=== PATIENT | female | born 1955 | race Caucasian/White ===

== ENCOUNTER 2018-10-29 10:34 | Emergency (ER) | payer MEDICARE, OTHER, SELFPAY ==
[2018-07-07 11:35] VITALS: BMI 27.3
[2018-10-29 10:36] VITALS: BP 138/86; PULSE 80; RESP 17; TEMP 36.8; O2SAT 96; BMI 26.3
[2018-10-29 10:55] VITALS: BP 155/90
--- NOTE | 2018-10-29 11:37 | EKG12_ITS ---
Test Reason : DYSRHYTHMIA Blood Pressure : / mmHG Vent. Rate : 065 BPM Atrial Rate : 065 BPM P-R Int : 170 ms QRS Dur : 068 ms QT Int : 382 ms P-R-T Axes : 070 -03 037 degrees QTc Int : 397 ms Normal sinus rhythm Normal ECG Confirmed by THOMAS SNEED, DACIA ([id number]), film and video editor GRACIE ADAMSON ([id number]) on 10/31/2018 1:28:29 PM Referred By: Confirmed By:DACIA GUZMAN MD
--- NOTE | 2018-10-29 11:50 | RAD_ITS ---
STUDY: X-RAY CHEST REASON FOR EXAM: Female, 63 years old. Hypertension TECHNIQUE: Frontal view of the chest COMPARISON: None. FINDINGS: The lungs are clear. There are no pleural effusions. There is no pneumothorax. The heart is normal in size. The visualized osseous structures are within normal limits. RAD/Chest 1 View (Portable) IMPRESSION: No acute thoracic pathology. Electronically Signed: Pan Avila, at 12:01 EDT Tel , Service support ,
[2018-10-29 12:11] VITALS: BP 147/98; PULSE 69; RESP 18; O2SAT 99
[2018-10-29 12:21] LABS: Absolute Lymphocyte Count 2.09 X10^3/uL (0.83-4.51); Absolute Neutrophil Count 1.8 X10^3/uL (2.0-7.7); Basophil# 0.02 X10^3/uL; Basophil% 0.5 % (0-1); Eosinophils% 2.4 % (0-5); Hematocrit 41.7 % (37-47); Hemoglobin 13.5 g/dL (12.0-15.0); Lymphocyte # 2.09 X10^3/ul (4.0); Lymphocyte % 50.2 % (19-41); Mean Corp Hgb Conc 32.4 g/dL (32-36); Mean Corpuscular Volume 89.7 fL (81-99); Mean Platelet Vol. 10.4 fl (6.2-12.0); Monocyte# 0.17 X10^3/uL; Monocyte% 4.1 % (0-10); NRBC Flagged by Analyzer 0 % (0-5); Neutrophil # 1.77 X10^3/uL (2.7-7.7); Neutrophil % 42.6 % (47-70); Platelet Count 169 K/mm3 (150-450); RBC Distribution Width CV 13.5 % (11.6-14.6); RBC Distribution Width SD 44.3 fl (35.1-43.9); Red Blood Count 4.65 M/mm3 (4.2-5.4); White Blood Count 4.2 K/mm3 (4.4-11.0)
[2018-10-29 12:25] VITALS: BP 160/100; PULSE 76; RESP 18; O2SAT 96
[2018-10-29 12:36] LABS: Anion Gap 5 (5-15); BUN 21 mg/dL (7-18); BUN/Creat Ratio 20.8 RATIO (10-20); Calcium,Total 8.8 mg/dL (8.5-10.1); Chloride 113 mmol/L (98-107); Creatinine, Serum 1.01 mg/dL (0.55-1.02); EST Glomerular Filtration Rate 58 mL/min (>60); Est Glom Filt Rate - Afr Amer 71 mL/min (>60); Estimated Creatinine Clearance 58.03 ml/min; Glucose 88 mg/dL (74-106); Potassium 4.1 mmol/L (3.5-5.1); Sodium Level 144 mmol/L (136-145)
[2018-10-29 12:57] LABS: Bacteria 0 SEEN /hpf (None Seen); Mucous, Urine 0 SEEN /hpf (<or=2+); Red Blood Cells-Urine 0 SEEN /hpf (0-5); Squamous Epithelial Cells - UA 0 SEEN /hpf (5-10)
[2018-10-29 13:00] LABS: Color, Urine Yellow (Yellow); Glucose, Dipstick Normal (Normal); Ketone-Dipstick Negative (Negative); Leukocyte Esterase-Dipstick Negative /ul (Negative); Nitrite-Dipstick Negative (Negative); Occult Blood-Urine Negative /ul (Negative); Protein-Dipstick Negative (Negative); Specific Gravity, Urine 1.015 (1.002-1.030); Urine Bilirubin Dipstick Negative (Negative); Urine Clarity Clear (Clear); Urine Urobilinogen Normal (Normal)
[2018-10-29 13:05] LABS: White Blood Cells 0-5 SEEN /hpf (0-5)
--- NOTE | 2018-10-29 13:35 | ED.VISSUMM ---
- ER Visit Summary Date of Service: 10/29/18 Chief Complaint: Hypertension History of Present Illness: The patient is a 63 F who presents emergency department for hypertension. Patient states that on Tuesday she began the colon prep for colonoscopy. The day went on she started feeling lightheaded dizzy tinnitus and developed some blurred vision. Her blood pressure is elevated. She notes that she did to the nurse at the colonoscopy center and they monitor her blood pressure during the colonoscopy but she did not require any treatment. Since that time she has been taking her blood pressure and it is been elevated 160-200 range. Her symptoms have continued. She denies any leg swelling but states that her legs cannot swell because she wears support stockings. No chest pain. She does not have a history of hypertension. To her knowledge she has normal functioning kidneys. Physical Examination: Afebrile vital signs are stable Gen: Well-nourished well-developed Head: Normocephalic atraumatic Eyes: Perrl EOMI ENT: TMs clear no rhinorrhea moist mucous membranes Neck: Supple no lymphadenopathy no JVD nontender CVS: Regular rate rhythm no murmurs normal S1-S2 Respiratory: No distress clear to auscultation bilaterally chest nontender Abdomen: Soft nontender nondistended normal bowel sounds no masses Back: Nontender Extremity: Nontender no edema Skin: Normal color no rash Neuro: alert orientated ?3 CN II-XII intact normal strength sensation reflexes gait cerebellar Psych: Normal affect normal mood Test Results: CBC BMP troponin negative. Urinalysis negative. EKG shows sinus rhythm at a rate of 65. Chest x-ray showed normal mediastinal silhouette. Emergency Department Course and Treatment: His blood pressure has been variable with a manual reading of 160/100. Machine readings pretty consistently 136 over the mid 90s. At this point patient will be discharged home. I am electing not to start her on an antihypertensive because this may resolve no longer be hypotensive. Her to be hypotensive and have syncope. We will continue to encourage her to check her blood pressure and follow-up with her doctor. She was advised that long-term desai elevated blood pressures would not be good at this point it has been only several days think we should observe. Impression: 1. Hypertension This note was generated with [employer] dictation software. It may contain incorrect words, spelling, and punctuation that were not noted in review of the chart prior to signing ED Disposition - Plan for ED Patient: Disposition: Home or Assisted Living Instructions: HYPERTENSION, To Be Confirmed Referrals: Mirtha Hernandez, DO [Primary Care Provider] - As soon as possible
[2018-10-29 13:44] VITALS: BP 155/98; PULSE 72; RESP 18; O2SAT 97
== END 2018-10-29 13:45 | disposition home or self-care (01) ==
PROVIDERS: Emergency Provider Emergency Medicine; Family Provider Internal Medicine; PCP Internal Medicine
DX: I10 Essential (primary) hypertension (principal)
CPT/HCPCS: 71045; 80048; 81001; 84484; 85025; 93005; 99284; A4216

== ENCOUNTER → 2018-12-27 14:10 | Outpatient (CLI) | payer MEDICARE, OTHER, SELFPAY ==
[2018-12-13 15:41] VITALS: BMI 26.4
--- NOTE | 2018-12-27 14:13 | CT_ITS ---
STUDY: CT BRAIN WITHOUT CONTRAST REASON FOR EXAM: Female, 63 years old. Dizziness RADIATION DOSAGE (If Supplied By Facility): CTDIvol = ( 44.99 ) mGy, DLP = ( 796.11 ) mGycm TECHNIQUE: Transaxial CT imaging of the brain was performed without administration of intravenous contrast material. Individualized dose optimization techniques were used for this CT. COMPARISON: 01/23/2016 FINDINGS: Normal soft tissue structures. Normal calvarium. Normal size ventricles and extra-axial spaces for the patient's age. Normal white matter tracts of the cerebral hemispheres. Normal basal ganglia and thalami. Normal brainstem. Normal cerebellum. There is no intracranial hemorrhage. There are no findings of an acute ischemic infarction. Normal visualized paranasal sinuses. CT/Brain/Head without Contrast IMPRESSION: Normal unenhanced CT scan of the brain. Electronically Signed: Jason Flores MD at 15:57 EDT Tel , Service support ,
== END ==
PROVIDERS: Family Provider Internal Medicine; PCP Internal Medicine; Referring Provider Nurse Practitioner; Visit Provider Nurse Practitioner
DX: R42 Dizziness and giddiness (principal)
CPT/HCPCS: 70450

== ENCOUNTER → 2019-01-01 13:58 | Outpatient (CLI) | payer MEDICARE, OTHER, SELFPAY ==
[2018-12-13 15:41] VITALS: BMI 26.4
--- NOTE | 2019-01-01 13:59 | ECHOD_ITS ---
Reason For Study: HTN Procedure This was a 2D Doppler, Color Flow transthoracic echocardiogram. Exam performed in department. Left Ventricle Normal LV size. Left ventricular systolic function is normal. The estimated ejection fraction is 65 %. Normal diastology for age. No regional wall motion abnormalities noted. Right Ventricle Normal RV size. Normal systolic function. Atria Normal left atrium. Normal right atrium. Mitral Valve Normal mitral valve. Mild (1+) eccentric mitral valve insufficiency. Tricuspid Valve Normal tricuspid valve. Mild tricuspid valve insufficiency. Pulmonary artery systolic pressure is 28 mmHg. Aortic Valve Normal aortic valve. Pulmonic Valve Normal pulmonic valve. Great Vessels Normal aortic root. The pulmonary artery is normal size. Normal inferior vena cava. Pericardium/Pleural No pericardial effusion. MMode/2D Measurements & Calculations LVIDd: 3.9 cm IVSd: 0.93 cm Ao root diam: 3.3 cm LVIDs: 2.1 cm LVPWd: 0.94 cm LA dimension: 3.3 cm FS: 46.8 % LAV(MOD-bp): 38.1 ml LA A4 area: 14.8 cm2 RA A4 area: 12.2 cm2 LAV(MOD-bp) Indexed: 19.3 ml/m2 LAV(MOD-sp2): 39.3 ml LAV(MOD-sp4): 37.5 ml Time Measurements MV dec time: 0.23 sec Doppler Measurements & Calculations MV E max case: 84.8 cm/sec Lat Peak E' Case: 12.3 cm/sec Med Peak E' Case: 12.6 cm/sec MV A max case: 55.0 cm/sec E/E' lat: 6.9 E/E' med: 6.7 MV E/A: 1.5 MV V2 max: 95.9 cm/sec MV P1/2t max case: 95.9 cm/sec Ao V2 max: 111.3 cm/sec MV max P.7 mmHg MV P1/2t: 91.2 msec Ao max P.0 mmHg MV V2 mean: 53.4 cm/sec MV dec slope: 307.8 cm/sec2 MV mean P.3 mmHg MVA(P1/2t): 2.4 cm2 MV V2 VTI: 25.6 cm LV V1 max: 81.9 cm/sec MR max case: 580.8 cm/sec PA V2 max: 86.7 cm/sec LV V1 max P.7 mmHg MR max P.9 mmHg MR mean case: 458.9 cm/sec MR mean P.3 mmHg MR VTI: 196.1 cm TR max case: 247.2 cm/sec TR max P.4 mmHg Interpretation Summary Normal LV size. Left ventricular systolic function is normal. The estimated ejection fraction is 65 %. Mild tricuspid valve insufficiency. Ordering Physician: Sergio Fuller Referring Physician: Mirtha Hernandez M.D. Performed By: Fran Garcia RCS
== END ==
PROVIDERS: Family Provider Internal Medicine; PCP Internal Medicine; Referring Provider Internal Medicine Cardiovascular Disease; Visit Provider Internal Medicine Cardiovascular Disease
DX: I10 Essential (primary) hypertension (principal); I34.0 Nonrheumatic mitral (valve) insufficiency; I07.1 Rheumatic tricuspid insufficiency
CPT/HCPCS: 93306

== ENCOUNTER → 2019-01-24 10:23 | Outpatient (CLI) | payer MEDICARE, OTHER, SELFPAY ==
[2018-12-13 15:41] VITALS: BMI 26.4
--- NOTE | 2019-01-24 10:48 | RAD_ITS ---
STUDY: X-RAY - CERVICAL SPINE REASON FOR EXAM: Female, 63 years old. Neck pain TECHNIQUE: 7 view(s) of the cervical spine were obtained. Flexion and extension views are included. COMPARISON: None FINDINGS: Normal anterior atlantoaxial articulation. Normal odontoid process. Mild straightening of the cervical lordosis status post anterior spinal fusion of C5 and C6. Plate and screw hardware appears to be in good position with complete fusion. On flexion and extension there is no motion at the C5-6 level. There is relatively good flexibility in the remaining portions of the cervical spine with no untoward alignment. Normal vertebral body height without compression deformity, osteolytic or blastic bone lesion. Minimal degenerative changes at C2-3. Moderately advanced degenerative disc narrowing and uncovertebral arthrosis at C3-4. Mild disc narrowing at C4-5. Moderate disc narrowing at C6-7 with uncovertebral arthrosis. Posterior elements are normally aligned. Foraminal narrowing at C3. The soft tissue structures are unremarkable. RAD/Cerv Spine Obl/Flex/Ext Comp IMPRESSION: Slight loss of the usual lumbar lordosis secondary to anterior spinal fusion at C5-6. The anterior plate and screw hardware appears to be in good position with no migration or disruption and the C5-C6 level is fused across the disc. Degenerative disc and joint changes as described above. The more advanced changes are at C3-4 with foraminal narrowing bilaterally. Electronically Signed: Cristal Faustin MD at 17:41 EST , Service support ,
== END ==
PROVIDERS: Family Provider Internal Medicine; PCP Internal Medicine; Referring Provider Psychiatry & Neurology Neurology; Visit Provider Psychiatry & Neurology Neurology
DX: M54.2 Cervicalgia (principal)
CPT/HCPCS: 72052

== ENCOUNTER 2019-02-27 09:30 | Outpatient (RCR) | payer MEDICARE, OTHER, SELFPAY ==
[2018-12-13 15:41] VITALS: BMI 26.4
--- NOTE | 2019-01-24 10:07 | HP.PTEVAL ---
Patient's Visit Information YAKOV NUNEZ is a 63 year old F referred to Physical Therapy by Brooks Garcia MD with a diagnosis of Cervicalgia. Date of Evaluation: 01/24/19 Physical Therapist: Nicholas Costa, DPT, OCS, CSCS - Visit Plan Plan: 2x/week for 4-8 weeks for. 1. STM to R scap and cervical followed by stretching R UT, paraspinals adn lev scap, neck ROM focussing retraction and scapular retraction. 2. deep cervical strengtrhening, neck isometrics and postural strength to HEP. 3. MH and ES to neck if needed, pt has a TENS unit at home that she thinks is broken. 4. Postural focus. Consider manual traction if needed(h/o neck fusion) - Subjective Findings: Sees Jose due to Migraines. They seem to be weather adn neck related. Neck pain goes along with them. Had these symptoms since the 1980s. Had seen a different neurologist previosuly and had different insurances. Been treated for migraines adn to clinics and trying meds. Migraines are controlled with meds but not prevented, severity adn frequency is lessened. Has h/o neck surgery anterior surgical discectomy adn fusion in 2001. That helped. That was due to R arm pain and numbness. It remians numb to this day. Surgery helped the pain. Not changing. Neck pain is worse with reaching arm up. Has HNP in thoracic spine also. Pain is R sided scapular pain , neck pain R side. Daily pain, worst 9/10 if tries to throw ball overhand. Aggravating activities include looking up alot, reaching up alot. They give neck pain MICHAEL. 8/10 Michael R side. Sitting long periods of time give her pain. Greater than an hour is worse. Comfortable with comfortable with movement but. mostly constant. Arms at [address] her worse. 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 Sleeping is OK most of time. Many times worse in morning. Wakes up in am with discomfort at times. Moist heat helps. R handed. Sweeper hurts, basic ADLS are OK, needs to avoid R at times. Hobbies include: animals walking, has to be careful - Pain R neck Pain Intensity (Out of 10): 3 Pain Intensity Range: 0, 9 - Objective Forward head and protracted scapula posture. Walks and transfers I. UE AROM WFL and symmetrical but scap retraction is hard for patient. C/S aROM 52 ext, 50 B rotation without pain. SB feels very tight but no pain. reflexes 2/3 bi and tri. Sensation at deficit in R lateral arm but pt says has been for 18 yeras. Strength is 4- in UE without myotomal abnormalities. - c/s compression. No pain with muscle contraction in UE. - ext rotation lag test, - HK, - neer. No obvious tenderness in neck or shoulder or scap but tight R compared left. Repeated pro trusion:NE but not much protrusion compared to baseline. Repeated flexion; NE. repeated extraction: NE. repeated ext NT. - Goals Goal 1:: Pt show posture with chin retracted adn scap retracted without VC Goal Time Frame: 4-6 Weeks Goal 2:: Pain in neck no wrose than 2/10 adn manageable Goal Time Frame: 6-8 Weeks Goal 3:: MICHAEL adn neck pain diminished by 75% subjectively Goal Time Frame: 6-8 Weeks Goal 4:: Neck oswestry< 20% disability Goal Time Frame: 6-8 Weeks Goal 5:: Pt I appropriate HEP to minimize future problems Goal Time Frame: 6-8 Weeks - Rehabilitation Potential Physical Therapy Diagnosis: Cervicalgia and MICHAEL Rehabilitation Potential: Fair - Anticipated Interventions Patient/Client Instruction: Educate patient on: Condition, Plan of Care For the Purpose of:: To decrease pain, To improve muscle performance and motor function, To increase tolerance to activity/condition/position, To improve ability of physical actions for home/community/work/leisure Therapeutic Exercise to Include: Strength training, Postural training, Flexibilty training, Gait and locomotor training, Passive ROM, Active ROM For the Purpose of:: To decrease pain, To increase ROM, To improve nutrient delivery to tissue, To increase tolerance to activity/condition/position Manual Therapy Techniques to Include: Mobilization, Passive ROM, Soft tissue mobilization For the Purpose of:: To decrease pain, To increase ROM, To improve nutrient delivery to tissue, To increase tolerance to activity/condition/position, To improve ability of physical actions for home/community/work/leisure TENS: Yes Thermo therapy (hot pack): Yes For the Purpose of:: To decrease pain Thank you for the opportunity to evaluate your patient. For Medicare and Medicare HMO plans, please review the plan of care and approve it. It will need to be FAXED BACK to us at [phone] for Medicare purposes. For Medicare only, by signing this I certify the plan of care. Please let me know if there are questions or concerns regarding this plan of care. Physician Signature: Date:
--- NOTE | 2019-02-27 10:25 | HP.PTDCSUM_ITS ---
HP - PT D/C Summary It has been my pleasure to treat YAKOV NUNEZ under orders from Brooks Garcia MD, for the diagnosis of Cervicalgia for a total of 6 visit(s). Discharge Date: 02/27/19 Please see the following information for a summary of their discharge status. - Subjective Subjective: Not much pain anymore. Doing HEP daily. Sleeping well and able to sleep in bed now which was not possible before. Confident that she can continue at home. To Dr. Garcia next month. No MICHAEL lately. - Pain R neck Pain Intensity (Out of 10): 0 - Overall Improvement % Improvement: 95 - Objective Objective/Function: C/S ROM 48 ext and 65 rotations adn 13 SB without pain today. No tenderness in cervical muscles. Full UE AROM adn 4/5 strength without pain. Overall much better adn will f/u with doctor in a couple weeks. - Goals Goal 1:: Pt show posture with chin retracted adn scap retracted without VC Goal Progress: Goal Met Goal 2:: Pain in neck no wrose than 2/10 adn manageable Goal Progress: Goal Met Goal 3:: MICHAEL adn neck pain diminished by 75% subjectively Goal Progress: Goal Met Goal 4:: Neck oswestry< 20% disability Goal Progress: Goal Met Goal 5:: Pt I appropriate HEP to minimize future problems Goal Progress: Goal Met - Plan Plan: d/c - D/C Information Discharge Comments: Doing well and will continue via HEP and f/u with doctor If there are questions or concerns regarding this patient's physical therapy, pl ease feel free to call me at [phone]. Thank you for the referral of this patient. Sincerely, Nicholas Costa, DPT, OCS, CSCS
== END 2019-02-27 19:00 | disposition home or self-care (01) ==
LOC: PT 09:30
PROVIDERS: Family Provider Internal Medicine; PCP Internal Medicine; Referring Provider Psychiatry & Neurology Neurology; Visit Provider Psychiatry & Neurology Neurology
DX: M54.2 Cervicalgia (principal)
CPT/HCPCS: 97110; 97140; 97162; 97530

== ENCOUNTER → 2019-06-01 11:32 | Outpatient (CLI) | payer MEDICARE, OTHER, SELFPAY ==
[2019-05-07 12:40] VITALS: BMI 26.4
--- NOTE | 2019-06-01 11:33 | BI_ITS ---
MAMMOGRAPHY - BILATERAL SCREENING REASON FOR EXAM: Female, 64 years old. Routine annual screening examination. PERTINENT HISTORY: Non-contributory. TECHNIQUE: Digital bilateral breast flor (3D mammographic acquisition) in the CC and MLO projections. 2-D mediolateral oblique (MLO) and craniocaudad (CC) views of both breasts were obtained. CAD: Full Field Digital Mammography with Computer Added Detection was performed. COMPARISON: Comparison is made with prior examination dated November 20, 2012. FINDINGS: Breast Composition: The breasts are heterogeneously dense, which may obscure small masses. There are no dominant masses or suspicious calcifications. No other significant abnormalities are identified. There has been no significant change since the prior study. BI/SCREEN MAMM (CAD) W/FLOR BILAT IMPRESSION: Stable bilateral screening mammogram. Yearly follow-up mammogram recommended. (A) ASSESSMENT CATEGORY: BIRADS Category 1: Negative. A letter regarding these results will be sent to the patient by the facility within 30 days. Approximately 10% of breast cancers are not detected by mammography. A normal mammogram should not delay biopsy of a clinically suspicious abnormality. [id number] Electronically Signed: Isreal Haro, at 12:34 EDT , Service support ,
== END ==
PROVIDERS: PCP Internal Medicine; Referring Provider Obstetrics & Gynecology; Visit Provider Obstetrics & Gynecology
DX: Z12.31 Encounter for screening mammogram for malignant neoplasm of breast (principal)
CPT/HCPCS: 77063; 77067

== ENCOUNTER 2019-08-03 09:05 | Emergency (ER) | payer MEDICARE, OTHER, SELFPAY ==
[2019-05-07 12:40] VITALS: BMI 26.4
[2019-08-03 09:07] VITALS: BP 120/82; PULSE 68; RESP 17; TEMP 36.8; O2SAT 97; BMI 28.0
[2019-08-03 09:13] VITALS: BMI 28.0
[2019-08-03 09:17] VITALS: BP 142/87
--- NOTE | 2019-08-03 09:17 | EKG12_ITS ---
Test Reason : Blood Pressure : / mmHG Vent. Rate : 071 BPM Atrial Rate : 071 BPM P-R Int : 162 ms QRS Dur : 072 ms QT Int : 382 ms P-R-T Axes : 070 -05 044 degrees QTc Int : 415 ms Normal sinus rhythm Normal ECG Confirmed by DACIA GUZMAN MD ([id number]), news assignment editor VINAY LOZANO ([id number]) on 08/07/2019 3:24:31 PM Referred By: DOMI Confirmed By:DACIA GUZMAN MD
--- NOTE | 2019-08-03 09:17 | RAD_ITS ---
STUDY: X-RAY CHEST REASON FOR EXAM: Female, 64 years old. LEFT FACIAL NUMBNESS TECHNIQUE: Single frontal view of the chest. COMPARISON: None. FINDINGS: There are monitoring devices. The lungs are clear and expanded. There is no demonstrated pleural abnormality. Normal size heart. Normal mediastinum and courtney. Normal visualized pulmonary arteries. Normal visualized aortic arch and descending thoracic aorta. Normal visualized thoracic spine. Normal visualized ribs, clavicles, and shoulders. There is no demonstrated abnormality of the visualized soft tissue structures of the upper abdomen. RAD/Chest 1 View IMPRESSION: Normal x-ray examination of the chest. Electronically Signed: Elijah Garcia MD at 10:11 EDT , Service support ,
--- NOTE | 2019-08-03 09:17 | CT_ITS ---
STUDY: CT BRAIN WITHOUT CONTRAST REASON FOR EXAM: Female, 64 years old. Left facial numbness this morning. Hx migraines. RADIATION DOSAGE (If Supplied By Facility): CTDIvol = ( 44.99 ) mGy, DLP = ( 779.24 ) mGycm TECHNIQUE: Transaxial CT imaging of the brain was performed without administration of intravenous contrast material. Individualized dose optimization techniques were used for this CT. COMPARISON: No relevant priors. FINDINGS: Normal soft tissue structures. Normal calvarium. Normal size ventricles and extra-axial spaces for the patient''s age. Normal white matter tracts of the cerebral hemispheres. Normal basal ganglia and thalami. Normal brainstem. Normal cerebellum. There is no intracranial hemorrhage. There are no findings of an acute ischemic infarction. Normal visualized paranasal sinuses. CT/Brain/Head without Contrast IMPRESSION: Normal unenhanced CT scan of the brain. Electronically Signed: Elijah Garcia MD at 10:04 EDT , Service support ,
--- NOTE | 2019-08-03 09:28 | ED.DCSUM_ITS ---
History of Present Illness Chief Complaint: Neuro S/Sx Informant: Patient Onset: Today Context: Sudden Onset Timing: Continuous Current Severity: Moderate Maximum Severity: Moderate Narrative: The patient is a 64-year-old female with medical history significant for hypertension and migraine that presents to the emergency department with left facial numbness. The patient states she had some mild chest pain last night. She states that she was sleeping in a chair. She states when she woke this morning, she felt numbness across her left lower face. It did not wax and wane. She states is been rather constant. She denies any trouble with speech, swallowing, or vision changes. She denies any symptoms in her extremities. She is not had headache. She states that she is never had other symptoms with her migraines that are similar to this. Prior similar symptoms: No Recent Illness/Hospitalization: No Past Medical History - Allergies and Home Meds Allergies/Adverse Reactions: Allergies acetaminophen [From Percocet] Allergy (Unknown, Verified 08/03/19 09:07) Unknown hydromorphone [From Dilaudid] Allergy (Unknown, Verified 08/03/19 09:07) Unknown morphine Allergy (Unknown, Verified 08/03/19 09:07) Unknown oxycodone [From Percocet] Allergy (Unknown, Verified 08/03/19 09:07) Unknown celecoxib [From Celebrex] Allergy (Verified 08/03/19 09:07) Hives NARCOTIC Adverse Reaction (Uncoded 08/03/19 09:07) Itching Primary Care Physician: Mirtha Hernandez DO [Primary Care Provider] - Prior records reviewed: Yes Past Medical History: - - Hypertension, migraine Smoking Status: Never smoker Review of Systems General: Denies: Chills, Fever, Sweats Eyes: Denies: Visual changes - bilaterally, Diplopia ENT: Denies: Rhinorrhea, Sore throat Cardiovascular: Denies: Chest pain, Palpitations Respiratory: Denies: Dyspnea, Cough, Dyspnea on exertion Gastrointestinal: Denies: Abdominal pain, Nausea, Vomiting, Diarrhea, Melena, Hematochezia Genitourinary: Denies: Dysuria, Hematuria, Frequency Musculoskeletal: Denies: Back pain, Extremity Pain Skin: Denies: Rash, Wounds Neurological: Reports: Parasthesia, Numbness. Denies: Headache, Weakness Physical Exam Vital Signs/Narrative: Vital Signs Temp Pulse Resp BP Pulse Ox 05/22/20 09:07 98.2 F 68 17 120/82 H 97 Inital Vital Signs reviewed: Yes General: Well nourished, Well developed, No Acute Distress Head: Normocephalic, Atraumatic Eyes: Perrl, EOMI ENT: Moist mucous membranes, No rhinorrhea Neck: Supple, Nontender Cardiovascular: Regular rate, Regular rhythm, No murmurs Respiratory: No distress, CTA bilaterally, Chest nontender Abdomen: Soft, Nontender, Nondistended, Normal bowel sounds Back: Nontender, Normal Inspection Extremities: Nontender, No edema Skin: Normal color, No rash Neurological: Alert, Oriented x3, Cranial nerves II-XII grossly intact, Normal Strength, Normal Sensation, - - Patient does have NIH of 1 for lower facial paresthesia. There is no droop. Psychological: Normal affect, Normal Mood Diagnostic/Tx/Re-eval Clinical Impression(s) from Imaging Studies Brain CT 08/03/19 09:17 IMPRESSION: Normal unenhanced CT scan of the brain. Electronically Signed: Elijah Garcia MD at 10:04 EDT , Service support , Chest X-Ray 08/03/19 09:17 IMPRESSION: Normal x-ray examination of the chest. Electronically Signed: Elijah Garcia MD at 10:11 EDT , Service support , Abnormal Lab Results 08/03/19 08/03/19 09:15 09:15 WBC 6.1 RBC 4.92 Hgb 14.4 Hct 44.5 MCV 90.4 MCH 29.3 MCHC 32.4 RDW Std Deviation 46.6 H RDW Coeff of [place] 14.2 Plt Count 176 MPV 10.6 Immature Gran % (Auto) 0.200 Neut % (Auto) 60.8 Lymph % (Auto) 31.5 [place] % (Auto) 5.8 Eos % (Auto) 1.5 Baso % (Auto) 0.2 Absolute Neuts (auto) 3.7 Absolute Lymphs (auto) 1.91 Nucleated RBC % 0 Sodium 142 Potassium 3.3 L Chloride 108 H Carbon Dioxide 30.0 Anion Gap 4 L BUN 28 H Creatinine 1.20 H Estim Creat Clear Calc 48.19 Est GFR (MDRD) Af Amer 58 L Est GFR (MDRD) Non-Af 48 L BUN/Creatinine Ratio 23.3 H Glucose 99 Calcium 9.4 Troponin I < 0.015 - Rhythm Strip Rhythm Strip: Sinus Rhythm Rate: 80 Ectopy: None - EKG Initial EKG Interpretation: Sinus Rhythm, No Acute Injury Pattern Prior: Unchanged - Medical Decision Making The patient presents with isolated paresthesia of the left lower face. There is no facial droop. There is no evidence of cranial nerve palsy. Modified stroke work-up was pursued. Noncontrast head CT was unremarkable. The patient had an NIH of 1 for the change in sensation of the lower face. Again, there is no weakness. This is isolated of the lower branch of cranial nerve V. There is no rash or lesion. She was found to be hypokalemic which I feel may be contributing to her symptoms. EKG, cardiac enzymes, and otherwise metabolic work-up was unremarkable. My suspicion for this being stroke or TIA is very low. I do feel the patient is safe for outpatient follow-up. She is comfortable with this plan of care. Impression 1. Left facial paresthesia ED Disposition - Plan for ED Patient: Instructions: ED Paraesthesias Prescriptions: Potassium Chloride [Klor-Con M20] 20 meq PO BID #[id number] [email or web address] Prescription Printed Referrals: Mirtha Hernandez DO [Primary Care Provider] -
[2019-08-03 09:33] VITALS: O2SAT 97
[2019-08-03 09:37] LABS: Absolute Lymphocyte Count 1.91 X10^3/uL (0.83-4.51); Absolute Neutrophil Count 3.7 X10^3/uL (2.0-7.7); Basophil# 0.01 X10^3/uL; Basophil% 0.2 % (0-1); Eosinophil# 0.09 X10^3/uL; Eosinophils% 1.5 % (0-5); Hematocrit 44.5 % (37-47); Hemoglobin 14.4 g/dL (12.0-15.0); Lymphocyte # 1.91 X10^3/ul (4.0); Lymphocyte % 31.5 % (19-41); Mean Corp Hgb Conc 32.4 g/dL (32-36); Mean Corpuscular Hgb 29.3 pg (27.0-32.0); Mean Corpuscular Volume 90.4 fL (81-99); Mean Platelet Vol. 10.6 fl (6.2-12.0); Monocyte# 0.35 X10^3/uL; Monocyte% 5.8 % (0-10); NRBC Flagged by Analyzer 0 % (0-5); Neutrophil # 3.69 X10^3/uL (2.7-7.7); Neutrophil % 60.8 % (47-70); Platelet Count 176 K/mm3 (150-450); RBC Distribution Width CV 14.2 % (11.6-14.6); RBC Distribution Width SD 46.6 fl (35.1-43.9); Red Blood Count 4.92 M/mm3 (4.2-5.4); White Blood Count 6.1 K/mm3 (4.4-11.0)
[2019-08-03 09:47] VITALS: BP 142/85; PULSE 67; RESP 12; O2SAT 100
[2019-08-03 10:00] LABS: Anion Gap 4 (5-15); BUN 28 mg/dL (7-18); BUN/Creat Ratio 23.3 RATIO (10-20); Calcium,Total 9.4 mg/dL (8.5-10.1); Chloride 108 mmol/L (98-107); EST Glomerular Filtration Rate 48 mL/min (>60); Est Glom Filt Rate - Afr Amer 58 mL/min (>60); Estimated Creatinine Clearance 48.19 ml/min; Glucose 99 mg/dL (74-106); Potassium 3.3 mmol/L (3.5-5.1); Sodium Level 142 mmol/L (136-145)
[2019-08-03 10:17] VITALS: BP 138/98; PULSE 73; RESP 18; O2SAT 97
[2019-08-03 10:25] LABS: Prothrombin Time (Protime)PT. 12.6 SECONDS (11.7-14.9)
--- NOTE | 2019-08-03 10:25 | ED.RN ---
Per Dr. Coleman, this rn may cancel NIH assessment every 30 mins.
[2019-08-03 10:26] LABS: Partial Thromboplast Time 25.5 Seconds (24.1-36.2)
[2019-08-03 10:29] VITALS: BP 138/98; PULSE 78; RESP 14; O2SAT 97
== END 2019-08-03 10:48 | disposition home or self-care (01) ==
LOC: ED 10:37
PROVIDERS: Emergency Provider Emergency Medicine; PCP Internal Medicine
DX: R20.2 Paresthesia of skin (principal); I10 Essential (primary) hypertension; Z88.5 Allergy status to narcotic agent; Z88.6 Allergy status to analgesic agent; R07.9 Chest pain, unspecified; R20.0 Anesthesia of skin; E87.6 Hypokalemia
CPT/HCPCS: 70450; 71045; 80048; 84484; 85025; 85610; 85730; 93005; 99284; A4216

== ENCOUNTER → 2019-11-13 10:15 | Outpatient (CLI) | payer MEDICARE, OTHER, SELFPAY ==
[2019-11-13 10:44] LABS: Absolute Lymphocyte Count 2.19 X10^3/uL (0.83-4.51); Absolute Neutrophil Count 1.8 X10^3/uL (2.0-7.7); Basophil# 0.02 X10^3/uL; Basophil% 0.5 % (0-1); Eosinophil# 0.06 X10^3/uL; Eosinophils% 1.4 % (0-5); Hematocrit 39.6 % (37-47); Hemoglobin 13.7 g/dL (12.0-15.0); Lymphocyte # 2.19 X10^3/ul (4.0); Lymphocyte % 50.3 % (19-41); Mean Corp Hgb Conc 34.6 g/dL (32-36); Mean Corpuscular Hgb 31.3 pg (27.0-32.0); Mean Corpuscular Volume 90.4 fL (81-99); Mean Platelet Vol. 10.5 fl (6.2-12.0); Monocyte# 0.24 X10^3/uL; Monocyte% 5.5 % (0-10); NRBC Flagged by Analyzer 0 % (0-5); Neutrophil # 1.83 X10^3/uL (2.7-7.7); Neutrophil % 42.1 % (47-70); Platelet Count 154 K/mm3 (150-450); RBC Distribution Width SD 45.1 fl (35.1-43.9); Red Blood Count 4.38 M/mm3 (4.2-5.4); White Blood Count 4.4 K/mm3 (4.4-11.0)
[2019-11-13 11:22] LABS: ALB/GLOB Ratio 1.2 RATIO (0.9-2.4); AST(SGOT) 23 U/L (15-37); Alanine Aminotransfer ALT/SGPT 36 U/L (13-56); Albumin, Serum 3.9 g/dL (3.2-5.0); Alkaline Phosphatase 50 U/L (45-117); Anion Gap 5 (5-15); BUN 27 mg/dL (7-18); Calcium,Total 8.8 mg/dL (8.5-10.1); Chloride 108 mmol/L (98-107); Cholesterol 183 mg/dL (200); Creatinine, Serum 1.04 mg/dL (0.55-1.02); EST Glomerular Filtration Rate 56 mL/min (>60); Est Glom Filt Rate - Afr Amer 68 mL/min (>60); Globulin 3.3 g/dL (2.2-4.2); Glucose 88 mg/dL (74-106); High Density Lipoprotein 51 mg/dL; Potassium 3.6 mmol/L (3.5-5.1); Protein, Total 7.2 g/dL (6.4-8.2); Sodium Level 140 mmol/L (136-145); Triglycerides 85 mg/dL; Very Low Density Lipoprotein 17 mg/dL (5-40)
[2019-11-13 11:23] LABS: Vitamin D,25 Hydroxy 41.4 ng/mL
== END ==
PROVIDERS: PCP Internal Medicine
DX: E55.9 Vitamin D deficiency, unspecified (principal); M85.89 Other specified disorders of bone density and structure, multiple sites; I10 Essential (primary) hypertension; E78.00 Pure hypercholesterolemia, unspecified
CPT/HCPCS: 36415; 80053; 80061; 82306; 85025

== ENCOUNTER → 2019-11-16 14:10 | Outpatient (CLI) | payer MEDICARE, OTHER, SELFPAY ==
--- NOTE | 2019-11-16 14:14 | US_ITS ---
STUDY: ULTRASOUND OF THE FEMALE PELVIS - COMPLETE REASON FOR EXAM: Female, 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 HX OF COMPLETE HYSTERECTOMY, RT and amp;LT SALPINGECTOMY, and amp; LT OOPHORECTOMY LMP: The patient is postmenopausal. TECHNIQUE: Transabdominal and Transvaginal TECHNICAL QUALITY: Adequate. COMPARISON: None. FINDINGS: The patient is status post hysterectomy. The right ovary is non-visualized. The patient is status post left oophorectomy. There is no fluid in the cul-de-sac. US/Transvaginal Non- IMPRESSION: Status post hysterectomy and left oophorectomy. No sonographic abnormality is seen. Electronically Signed: Isreal Haro, at 15:10 EDT , Service support ,
== END ==
PROVIDERS: PCP Internal Medicine
DX: N83.8 Other noninflammatory disorders of ovary, fallopian tube and broad ligament (principal)
CPT/HCPCS: 76830

== ENCOUNTER → 2019-12-20 08:24 | Outpatient (CLI) | payer MEDICARE, OTHER, SELFPAY ==
--- NOTE | 2019-12-20 08:30 | BD_ITS ---
STUDY: DUAL ENERGY X-RAY ABSORPTIOMETRY / DXA REASON FOR EXAM: Female, 64 years old. 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 COMPARISON: Comparison is made with prior study dated 02/18/2009. FINDINGS: Lumbar Spine (L1-L4): g/cm2 (0.964) / T-score (-1.7) / Z-score (-0.1) Findings are suggestive of osteopenia with a moderate fracture risk. Left Femur Total: g/cm2 (0.739) / T-score (-2.1) / Z-score (-0.9) Left Femoral Neck: g/cm2 (0.785) / T-score (-1.8) / Z-score (-0.3) Right Femur Total: g/cm2 (0.734) / T-score (-2.2) / Z-score (-0.9) Right Femoral Neck: g/cm2 (0.814) / T-score (-1.6) / Z-score (-0.1) The T-Scores on the most recent prior examination were: Lumbar Spine (L1-L4): There has been worsening of bone density since the previous examination. Left Femur Total: which represents a worsening of 0.5. Right Femur Total: which represents a worsening of 0.9%. BD/Dexa Bone Density Study IMPRESSION: The patient is considered osteopenic as outlined below according to World Naveed Organization (WHO) criteria with a high fracture risk. There has been worsening of bone density since the previous examination. Reference Information: The T-score is the number of standard deviations above or below the standard which is normal for young adults at their peak bone mineral density. The World Health Organization (WHO) interprets the T-scores as follows: Above -1 Normal bone density Between -1 and -2.5 Osteopenia Equal to / or below -2.5 Osteoporosis As a practical clinical guideline, osteopenia may be graded as follows: Mild -1 through -1.5 Moderate -1.6 through -2.0 Severe -2.1 through -2.4 The Z-score is the number of standard deviations above or below age-matched controls. A Z-score of less than -1.5 would be considered abnormal. References: 1. NIH Osteoporosis and Related Bone Diseases www osteo.org 2. International Society for Clinical Densitometry www iscd.org 3. National Osteoporosis Foundation www nof.org Electronically Signed: Isreal Haro, at 15:53 EDT , Service support ,
== END ==
PROVIDERS: PCP Internal Medicine; Referring Provider Nurse Practitioner; Visit Provider Nurse Practitioner
DX: M85.80 Other specified disorders of bone density and structure, unspecified site (principal); Z78.0 Asymptomatic menopausal state
CPT/HCPCS: 77080

== ENCOUNTER → 2020-05-14 09:56 | Outpatient (CLI) | payer MEDICARE, OTHER, SELFPAY ==
--- NOTE | 2020-05-14 10:16 | CT_ITS ---
STUDY: CT BRAIN WITH AND WITHOUT CONTRAST REASON FOR EXAM: Female, 65 years old. DIZZINESS RADIATION DOSAGE (If Supplied By Facility): CTDIvol = ( 44.99 ) mGy, DLP = ( 1513.48 ) mGycm TECHNIQUE: Transaxial CT imaging of the brain was performed pre and post contrast administration. The examination was performed with intravenous administration of IV 50mL Isovue-370. Individualized dose optimization techniques were used for this CT. COMPARISON: Comparison is made with prior study dated 08/03/2019. FINDINGS: Normal soft tissue structures. Normal calvarium. There is mild cerebral atrophy with widening of the extra-axial spaces and ventricular dilatation. Normal white matter tracts of the cerebral hemispheres. Normal basal ganglia and thalami. Normal brainstem. Normal cerebellum. There is no intracranial hemorrhage. There are no findings of an acute ischemic infarction. Atherosclerotic calcification of the cavernous portions of the internal carotid arteries bilaterally. Normal visualized paranasal sinuses. CT/Brain/Head W/WO Contrast IMPRESSION: Chronic involutional changes of the brain. Electronically Signed: Isreal Haro MD at 10:44 EST , Service support ,
[2020-05-14 10:17] LABS: Absolute Lymphocyte Count 2.43 X10^3/uL (0.83-4.51); Absolute Neutrophil Count 2.1 X10^3/uL (2.0-7.7); Basophil# 0.02 X10^3/uL; Basophil% 0.4 % (0-1); Eosinophil# 0.11 X10^3/uL; Eosinophils% 2.2 % (0-5); Hematocrit 45.3 % (37-47); Hemoglobin 14.9 g/dL (12.0-15.0); Lymphocyte # 2.43 X10^3/ul (4.0); Lymphocyte % 48.7 % (19-41); Mean Corp Hgb Conc 32.9 g/dL (32-36); Mean Corpuscular Hgb 29.6 pg (27.0-32.0); Mean Corpuscular Volume 89.9 fL (81-99); Mean Platelet Vol. 10.4 fl (6.2-12.0); Monocyte# 0.28 X10^3/uL; Monocyte% 5.6 % (0-10); NRBC Flagged by Analyzer 0 % (0-5); Neutrophil # 2.14 X10^3/uL (2.7-7.7); Neutrophil % 42.9 % (47-70); Platelet Count 180 K/mm3 (150-450); RBC Distribution Width CV 13.9 % (11.6-14.6); RBC Distribution Width SD 45.5 fl (35.1-43.9); Red Blood Count 5.04 M/mm3 (4.2-5.4)
[2020-05-14 10:31] LABS: CREATININE FINGERSTICK 1.3 mg/dL (0.55-1.02)
[2020-05-14 10:41] LABS: ALB/GLOB Ratio 1.1 RATIO (0.9-2.4); AST(SGOT) 17 U/L (15-37); Alanine Aminotransfer ALT/SGPT 31 U/L (13-56); Albumin, Serum 3.9 g/dL (3.2-5.0); Alkaline Phosphatase 53 U/L (45-117); Anion Gap 5 (5-15); BUN 21 mg/dL (7-18); BUN/Creat Ratio 19.8 RATIO (10-20); Calcium,Total 8.7 mg/dL (8.5-10.1); Chloride 108 mmol/L (98-107); Creatinine, Serum 1.06 mg/dL (0.55-1.02); EST Glomerular Filtration Rate 55 mL/min (>60); Est Glom Filt Rate - Afr Amer 67 mL/min (>60); Globulin 3.4 g/dL (2.2-4.2); Glucose 95 mg/dL (74-106); Potassium 3.8 mmol/L (3.5-5.1); Protein, Total 7.3 g/dL (6.4-8.2); Sodium Level 141 mmol/L (136-145); Thyroid Stim Hormone (TSH) 3.94 uIU/mL (0.358-3.74)
== END ==
PROVIDERS: PCP Internal Medicine; Referring Provider Nurse Practitioner; Visit Provider Nurse Practitioner
DX: R42 Dizziness and giddiness (principal); H53.9 Unspecified visual disturbance
CPT/HCPCS: 36415; 70470; 80053; 84443; 85025; Q9967

== ENCOUNTER → 2020-06-17 13:42 | Outpatient (CLI) | payer MEDICARE, OTHER, SELFPAY ==
[2020-06-17 16:37] LABS: Thyroid Stim Hormone (TSH) 2.46 uIU/mL (0.358-3.74)
== END ==
PROVIDERS: PCP Internal Medicine; Referring Provider Nurse Practitioner; Visit Provider Nurse Practitioner
DX: E03.9 Hypothyroidism, unspecified (principal)
CPT/HCPCS: 36415; 84443

== ENCOUNTER → 2020-09-10 15:20 | Outpatient (CLI) | payer MEDICARE, OTHER, SELFPAY ==
--- NOTE | 2020-09-10 15:27 | MRI_ITS ---
STUDY: MRI BRAIN WITH AND WITHOUT CONTRAST REASON FOR EXAM: Female, 65 years old. DIPLOPLIA, DIZZINESS, BLURRED VISION, UNSTEADY GAIT, NAUSEA TECHNIQUE: Standardized multiplanar fat and water weighted pulse sequences were obtained. IV 17CC DOTAREM was administered for the contrast portion of the examination. COMPARISON: CT 05/14/2020 FINDINGS: Normal size of the ventricles and extra-axial spaces for the patient''s age. Normal white matter tracts of the supratentorial brain. There is no evidence for recent intracranial ischemia or other cause of cytotoxic edema on diffusion weighted imaging (DWI). Normal T2* images of the brain without demonstrated susceptibility artifact. There is no demonstrated hemosiderin stain. Normal bilateral basal ganglia. Normal thalami. There is no extra-axial fluid accumulation. Normal flow voids within the major intracranial circulation suggesting patency by spin echo criteria. Normal venous enhancement. There is no enhancing intra-axial or extra-axial abnormality. Normal sella turcica, pituitary gland, infundibular stalk, optic chiasm and hypothalamus. Normal tectal plate and pineal gland. Normal midbrain, silvano and medulla. Normal cerebellum. Normal basal cisterns. Normal bilateral temporal bones. Normal bilateral internal auditory canals. No demonstrated orbital abnormality, within the constraints of a routine brain study. Normal visualized paranasal sinuses. Normal calvarium and skull base. Normal visualized soft tissue structures. Normal visualized upper cervical spine. MRI/Brain W/WO Contrast IMPRESSION: Normal unenhanced and enhanced MRI of the brain. Electronically Signed: Jason Flores MD at 17:14 EDT Tel , Service support ,
[2020-09-10 15:45] LABS: CREATININE FINGERSTICK 0.9 mg/dL (0.55-1.02); EGFR FINGERSTICK > 60.0000 mL/min (>60)
== END ==
PROVIDERS: PCP Nurse Practitioner; Referring Provider Neurological Surgery; Visit Provider Neurological Surgery
DX: H53.2 Diplopia (principal)
CPT/HCPCS: 70553; A9575

== ENCOUNTER 2020-09-28 17:00 | Emergency (ER) | payer MEDICARE, OTHER, SELFPAY ==
[2020-09-28 17:00] VITALS: BP 134/98; PULSE 83; RESP 18; TEMP 36.4; O2SAT 96; BMI 27.3
--- NOTE | 2020-09-28 18:28 | CT_ITS ---
STUDY: CT BRAIN WITHOUT CONTRAST REASON FOR EXAM: Female, 65 years old. head injury RADIATION DOSAGE (If Supplied By Facility): CTDIvol = ( 44.99 ) mGy, DLP = ( 846.73 ) mGycm TECHNIQUE: Transaxial CT imaging of the brain was performed without administration of intravenous contrast material. Individualized dose optimization techniques were used for this CT. COMPARISON: MRI 09/10/2020, CT head 05/14/2020. FINDINGS: Right facial laceration. Mild right frontoparietal scalp hematoma. Normal calvarium. Normal size ventricles and extra-axial spaces for the patient''s age. Normal white matter tracts of the cerebral hemispheres. Normal basal ganglia and thalami. Normal brainstem. Normal cerebellum. There is no intracranial hemorrhage. There are no findings of an acute ischemic infarction. Normal visualized paranasal sinuses. CT/Brain/Head without Contrast IMPRESSION: 1. Soft tissue hemorrhage. No acute intracranial findings. Electronically Signed: Nicolasa Patiño MD at 19:21 EDT Tel , Service support ,
[2020-09-28 18:30] VITALS: O2SAT 100
[2020-09-28] MEDS: Lidocaine/Epi/Tetracaine 50 ML 1 APPLIC TOPICAL (18:40)
--- NOTE | 2020-09-28 19:00 | RAD_ITS ---
STUDY: X-RAY - PELVIS AND RIGHT HIP REASON FOR EXAM: Female, 65 years old. hip pain TECHNIQUE: 3 views of the pelvis and hip. COMPARISON: None. FINDINGS: No acute fracture or dislocation. No destructive bone changes. Joint spaces are well-maintained. Normal alignment. Soft tissues are unremarkable. No radiopaque foreign body or soft tissue gas. RAD/HIP, UNI W/ Pelvis 2-3 Views IMPRESSION: Normal x-ray examination of the pelvis and hip. Electronically Signed: Nicolasa Patiño MD at 19:34 EDT Tel , Service support ,
--- NOTE | 2020-09-28 19:34 | EDS_ITS ---
HPI HPI - Fall History of Present Illness Chief Complaint: Fall Narrative Narrative: Patient presenting with facial laceration from mechanical fall. She states she was ambulating with her walker and lost her balance falling hitting her face on the toilet. There is no LOC. Patient is not on blood thinners. Patient has been was able to assist her into a wheelchair. Patient states that since May she has been having all kinds of issues with double vision and falling. She has a gait abnormality. She states that nobody has figured out the cause. She states has had CTs and MRIs of her brain which were negative. She denies neck pain. She states he did not have any chest pain or shortness of breath prior to the fall. [facility] Medical History Abnormal bruising Arthritis Chronic migraine Chronic neck and back pain Essential (primary) hypertension Knee pain Limb weakness Shoulder pain Spinal stenosis Vasovagal syncope Home Medications paroxetine HCl 40 mg PO DAILY 02/05/15 [History Last Taken Unknown] topiramate 50 mg PO BID 02/05/15 [History Last Taken Unknown] tramadol 50 mg PO Q4H PRN PRN 10/29/18 [History Last Taken Unknown] metoprolol succinate 25 mg tablet,extended release 24 hr 25 mg PO DAILY 12/11/18 [History Last Taken Unknown] gabapentin 600 mg tablet 600 mg PO TID tab 12/13/18 [History Last Taken Unknown] eletriptan 40 mg tablet 40 mg PO PRN PRN 05/07/19 [History Last Taken Unknown] Potassium Chloride [Klor-Con M20] 20 meq PO BID #14 tab.er.prt 08/03/19 [Rx Last Taken Unknown] chlorthalidone 12.5 mg PO DAILY 08/03/19 [History Last Taken Unknown] Allergy/AdvReac Type Severity Reaction Status Date / Time acetaminophen [From Percocet] Allergy Unknown Unknown Verified 09/28/20 17:04 hydromorphone [From Dilaudid] Allergy Unknown Unknown Verified 09/28/20 17:04 morphine Allergy Unknown Unknown Verified 09/28/20 17:04 oxycodone [From Percocet] Allergy Unknown Unknown Verified 09/28/20 17:04 celecoxib [From Celebrex] Allergy Hives Verified 09/28/20 17:04 NARCOTIC AdvReac Itching Uncoded 09/28/20 17:04 Family History Father Hypertension Diabetes Cancer prostate Mother Hypertension MGUS (monoclonal gammopathy of unknown significance) Surgical History H/O cervical discectomy History of hysterectomy Social History Smoking Status: Never smoker alcohol intake: never substance use type: does not use caffeine: Yes what type of physical activity do you participate in: walking seatbelt use: always do you feel safe at home: Yes ROS ROS ED Constitutional Constitutional ED: Denies fever(s) or subjective Eyes Eyes: Reports other Details: Chronic double vision ; Denies change in vision ENT ENT ED: Denies rhinorrhea or sore throat Cardiovascular Cardiovascular: Denies chest pain or palpitations Respiratory/Chest Respiratory/Chest: Denies cough or dyspnea Gastrointestinal Gastrointestinal: Denies abdominal pain, nausea or vomiting Genitourinary Genitourinary ED: Denies dysuria or hematuria Musculoskeletal Musculoskeletal: Reports other Details: Right hip pain ; Denies myalgias or neck pain Integumentary Reports other Details: Laceration to right cheek Neurologic Neurologic: Denies headache(s) or paresthesias EXAM Physical Exam Const Vital Signs: 09/28/20 17:00 09/28/20 18:30 Temperature 97.5 F L Temperature Source Temporal Pulse Rate 83 Respiratory Rate 18 Respiratory Effort Normal Non-Labored Respiratory Depth Normal Respiratory Pattern Normal Blood Pressure 134/98 H Blood Pressure Mean 110 Pulse Ox 96 100 Oxygen Delivery Method Room Air Room Air Positive obese General Appearance ED: NAD Nutritional Appearance: obese HEENT Reports normocephalic HEENT Narrative: Laceration to right cheek approximately 1 cm. Eyes PERRL and EOMs intact bilaterally Eyes Narrative: Bruising noted around the eyes bilaterally. There are is a contusion to the left and right forehead. Neck full ROM Resp normal respiratory effort and clear to auscultation bilaterally Cardio regular rate and regular rhythm GI non-tender and non-distended Palpation: soft Extremity Extremity Narrative: Tenderness to palpation of the right greater trochanter. Negative logroll. Pelvis is stable. Neuro oriented x3 Sensorium / Orientation: alert Psych mental status grossly normal and thought process normal Skin Skin Narrative: Bruising and laceration as mentioned above MDM MDM MDM Narrative Medical decision making narrative: 65-year-old female with history of gait instability fell today at home. She has a small laceration to her face. Patient is alert and awake. She does complain of hip pain as well. Right hip x-ray as interpreted by myself shows no acute fracture or subluxation and the radiologist does agree. CT of the brain shows no acute intracranial process. Patient's wound was sutured please see procedure note for this. Patient was given wound care instructions and return precautions. Patient stable discharge at this time. Impression: 1. Mechanical fall 2. Facial contusion 3. 2 cm facial laceration Radiography Diagnostic Testing: Radiology Impression Brain CT 09/28/20 18:28 IMPRESSION: 1. Soft tissue hemorrhage. No acute intracranial findings. Electronically Signed: Nicolasa Patiño MD at 19:21 EDT Tel , Service support , Hip/Pelvis X-Ray 09/28/20 19:00 IMPRESSION: Normal x-ray examination of the pelvis and hip. Electronically Signed: Nicolasa Patiño MD at 19:34 EDT Tel , Service support , Procedures Lacerations Facial Laceration: Length: 24 in Depth: Skin Shape: Circular with central portion of skin missing Prep: Sterile Conditions and Chlorhexadine Laceration repair: Lidocaine with epi (2.0 cc) Irrigated (ml): 500 Number of Sutures/Tra: 3 Suture Information: Ethilon (3) Discharge Plan Triage Chief Complaint: Fall ED Provider: Arnol Hutchinson Dx/Rx/DC Orders Prescriptions: No Action metoprolol succinate 25 mg tablet extended release 24 hr 25 mg PO DAILY RF: 0 paroxetine HCl 40 MG tablet 40 mg PO DAILY RF: 0 topiramate 50 MG tablet 50 mg PO BID RF: 0 gabapentin 600 mg tablet 600 mg PO TID RF: 0 tramadol 50 MG tablet 50 mg PO Q4H PRN PRN (Reason: Pain) RF: 0 eletriptan 40 mg tablet 40 mg PO PRN PRN (Reason: Migraine Symptoms) RF: 0 chlorthalidone 25 MG tablet 12.5 mg PO DAILY RF: 0 Potassium Chloride [Klor-Con M20] 20 MEQ Tab.Er.Prt 20 meq PO BID Qty: 14 RF: 0 Primary Care Provider: Liz Mitchell NP
[2020-09-28] MEDS: Lidocaine 1% /Epi 1:100 (20ml) 20 ML Vial INFILT (20:00)
[2020-09-28 20:44] VITALS: BP 133/89; PULSE 79; RESP 15; O2SAT 99
== END 2020-09-28 20:44 | disposition home or self-care (01) ==
PROVIDERS: Emergency Provider Student in an Organized Health Care Education/Training Program; PCP Nurse Practitioner
DX: S01.81XA Laceration without foreign body of other part of head, initial encounter (principal); W18.12XA Fall from or off toilet with subsequent striking against object, initial encounter; Y92.002 Bathroom of unspecified non-institutional (private) residence as the place of occurrence of the external cause; Y99.9 Unspecified external cause status; R26.9 Unspecified abnormalities of gait and mobility; E66.9 Obesity, unspecified; I10 Essential (primary) hypertension; M19.90 Unspecified osteoarthritis, unspecified site; Z79.1 Long term (current) use of non-steroidal anti-inflammatories (NSAID); Z79.899 Other long term (current) drug therapy
CPT/HCPCS: 12011; 70450; 73502; 99282

== ENCOUNTER 2020-10-04 14:16 | Emergency (ER) | payer MEDICARE, OTHER, SELFPAY ==
[2020-10-04 14:17] VITALS: BP 136/75; PULSE 75; RESP 12; TEMP 35.9; O2SAT 97; BMI 27.8
--- NOTE | 2020-10-04 14:52 | EDS_ITS ---
HPI History of Present Illness Chief Complaint: Suture Remv Informant: patient Onset/Context/Timing Onset: Days (6) Associated Symptoms Associated Symptoms: none Narrative Narrative: Patient had a fall 6 days ago requiring 3 sutures to a 2 cm laceration at her right lateral cheek. She presents for removal. She has had no issues including pain, drainage, bleeding, swelling, redness. [facility] Medical History Abnormal bruising Arthritis Chronic migraine Chronic neck and back pain Essential (primary) hypertension Knee pain Limb weakness Shoulder pain Spinal stenosis Vasovagal syncope Home Medications paroxetine HCl 40 mg PO DAILY 02/05/15 [History Last Taken Unknown] topiramate 50 mg PO BID 02/05/15 [History Last Taken Unknown] tramadol 50 mg PO Q4H PRN PRN 10/29/18 [History Last Taken Unknown] metoprolol succinate 25 mg tablet,extended release 24 hr 25 mg PO DAILY 12/11/18 [History Last Taken Unknown] gabapentin 600 mg tablet 600 mg PO TID tab 12/13/18 [History Last Taken Unknown] eletriptan 40 mg tablet 40 mg PO PRN PRN 05/07/19 [History Last Taken Unknown] Potassium Chloride [Klor-Con M20] 20 meq PO BID #14 tab.er.prt 08/03/19 [Rx Last Taken Unknown] chlorthalidone 12.5 mg PO DAILY 08/03/19 [History Last Taken Unknown] Allergy/AdvReac Type Severity Reaction Status Date / Time acetaminophen [From Percocet] Allergy Unknown Unknown Verified 10/04/20 14:17 hydromorphone [From Dilaudid] Allergy Unknown Unknown Verified 10/04/20 14:17 morphine Allergy Unknown Unknown Verified 10/04/20 14:17 oxycodone [From Percocet] Allergy Unknown Unknown Verified 10/04/20 14:17 celecoxib [From Celebrex] Allergy Hives Verified 10/04/20 14:17 NARCOTIC AdvReac Itching Uncoded 10/04/20 14:17 Family History Father Hypertension Diabetes Cancer prostate Mother Hypertension MGUS (monoclonal gammopathy of unknown significance) Surgical History H/O cervical discectomy History of hysterectomy Social History Smoking Status: Never smoker alcohol intake: never substance use type: does not use caffeine: Yes what type of physical activity do you participate in: walking seatbelt use: always do you feel safe at home: Yes ROS ROS ED Constitutional Constitutional ED: Denies chills or fever(s) Integumentary Reports as per HPI; Denies abscess or non-healing lesions EXAM Physical Exam Const Vital Signs: 10/04/20 14:17 Temperature 96.7 F L Temperature Source Temporal Pulse Rate 75 Respiratory Rate 12 Blood Pressure 136/75 H Blood Pressure Mean 95 Pulse Ox 97 Oxygen Delivery Method Room Air Positive well nourished and well developed General Appearance ED: well developed and NAD HEENT HEENT Narrative: Resolving periorbital ecchymosis, with ecchymosis down the right side of the face that is now yellowing. Well-healing 2 cm laceration with 3 sutures intact right lateral cheek, no tenderness, swelling, abscess, discharge, or dehiscence Neuro oriented x3 Sensorium / Orientation: alert Skin Skin Narrative: See above. Laceration right lateral face that appears to be healing well. Procedures Other Procedures Procedure(s): Suture removal right face-3 sutures removed easily, no complications, tolerated well, no dehiscence or bleeding. Discharge Plan Triage Chief Complaint: Suture Remv ED Provider: Elijah Reveles Dx/Rx/DC Orders Clinical Impression: Encounter for removal of sutures Instructions: ED Stitches/Staple Removal No ... Prescriptions: No Action metoprolol succinate 25 mg tablet extended release 24 hr 25 mg PO DAILY RF: 0 paroxetine HCl 40 MG tablet 40 mg PO DAILY RF: 0 topiramate 50 MG tablet 50 mg PO BID RF: 0 gabapentin 600 mg tablet 600 mg PO TID RF: 0 tramadol 50 MG tablet 50 mg PO Q4H PRN PRN (Reason: Pain) RF: 0 eletriptan 40 mg tablet 40 mg PO PRN PRN (Reason: Migraine Symptoms) RF: 0 chlorthalidone 25 MG tablet 12.5 mg PO DAILY RF: 0 Potassium Chloride [Klor-Con M20] 20 MEQ Tab.Er.Prt 20 meq PO BID Qty: 14 RF: 0 Primary Care Provider: Liz Mitchell NP Referrals: Liz Mitchell NP, LOAD MANAGER-C [Primary Care Provider] - As Needed Disposition Disposition: Home, Self Care
== END 2020-10-04 15:07 | disposition home or self-care (01) ==
PROVIDERS: Emergency Provider Emergency Medicine; PCP Nurse Practitioner
DX: S01.411D Laceration without foreign body of right cheek and temporomandibular area, subsequent encounter (principal); Z48.02 Encounter for removal of sutures; M19.90 Unspecified osteoarthritis, unspecified site; I10 Essential (primary) hypertension; Z79.899 Other long term (current) drug therapy; W19.XXXD Unspecified fall, subsequent encounter
CPT/HCPCS: 99282

== ENCOUNTER → 2020-10-16 08:00 | Outpatient (CLI) | payer MEDICARE, OTHER, SELFPAY ==
[2020-10-04 14:17] VITALS: BMI 27.8
[2020-10-16 08:56] LABS: Absolute Lymphocyte Count 2.43 X10^3/uL (0.83-4.51); Absolute Neutrophil Count 1.7 X10^3/uL (2.0-7.7); Basophil# 0.02 X10^3/uL; Basophil% 0.4 % (0-1); Eosinophil# 0.09 X10^3/uL; Hematocrit 47.3 % (37-47); Hemoglobin 15.8 g/dL (12.0-15.0); Lymphocyte # 2.43 X10^3/ul (0.83-4.51); Lymphocyte % 54.6 % (19-41); Mean Corp Hgb Conc 33.4 g/dL (32-36); Mean Corpuscular Hgb 29.4 pg (27.0-32.0); Mean Corpuscular Volume 88.1 fL (81-99); Mean Platelet Vol. 10.7 fl (6.2-12.0); Monocyte# 0.23 X10^3/uL; Monocyte% 5.2 % (0-10); NRBC Flagged by Analyzer 0 % (0-5); Neutrophil # 1.67 X10^3/uL (2.7-7.7); Neutrophil % 37.6 % (47-70); Platelet Count 204 K/mm3 (150-450); RBC Distribution Width CV 13.2 % (11.6-14.6); RBC Distribution Width SD 42.5 fl (35.1-43.9); Red Blood Count 5.37 M/mm3 (4.2-5.4); White Blood Count 4.5 K/mm3 (4.4-11.0)
[2020-10-16 09:44] LABS: ALB/GLOB Ratio 1.1 RATIO (0.9-2.4); AST(SGOT) 36 U/L (15-37); Alanine Aminotransfer ALT/SGPT 55 U/L (13-56); Albumin, Serum 3.9 g/dL (3.2-5.0); Alkaline Phosphatase 105 U/L (45-117); Anion Gap 8 (5-15); BUN 20 mg/dL (7-18); BUN/Creat Ratio 21.5 RATIO (10-20); Calcium,Total 9.1 mg/dL (8.5-10.1); Chloride 101 mmol/L (98-107); Creatinine, Serum 0.93 mg/dL (0.55-1.02); EST Glomerular Filtration Rate 64 mL/min (>60); Est Glom Filt Rate - Afr Amer 77 mL/min (>60); Globulin 3.5 g/dL (2.2-4.2); Glucose 94 mg/dL (74-106); Potassium 3.7 mmol/L (3.5-5.1); Protein, Total 7.4 g/dL (6.4-8.2); Sodium Level 138 mmol/L (136-145); Thyroid Stim Hormone (TSH) 2.34 uIU/mL (0.358-3.74)
== END ==
PROVIDERS: PCP Nurse Practitioner; Referring Provider Nurse Practitioner; Visit Provider Nurse Practitioner
DX: R42 Dizziness and giddiness (principal); G70.00 Myasthenia gravis without (acute) exacerbation
CPT/HCPCS: 36415; 80053; 84443; 85025

== ENCOUNTER 2020-10-24 16:13 | Emergency (ER) | payer MEDICARE, OTHER, SELFPAY ==
[2020-10-24 16:15] VITALS: BP 146/109; PULSE 103; RESP 18; TEMP 36.6; O2SAT 97; BMI 60.2
[2020-10-24 17:23] VITALS: BP 166/106; PULSE 101; PULSE 96; RESP 16; TEMP 36.6; O2SAT 96; O2SAT 97
[2020-10-24 17:50] LABS: Absolute Lymphocyte Count 1.97 X10^3/uL (0.83-4.51); Absolute Neutrophil Count 3.8 X10^3/uL (2.0-7.7); Basophil# 0.02 X10^3/uL; Basophil% 0.3 % (0-1); Eosinophil# 0.06 X10^3/uL; Hematocrit 46.2 % (37-47); Hemoglobin 15.9 g/dL (12.0-15.0); Lymphocyte # 1.97 X10^3/ul (0.83-4.51); Lymphocyte % 32.2 % (19-41); Mean Corp Hgb Conc 34.4 g/dL (32-36); Mean Corpuscular Hgb 29.9 pg (27.0-32.0); Mean Corpuscular Volume 86.8 fL (81-99); Mean Platelet Vol. 10.8 fl (6.2-12.0); Monocyte# 0.26 X10^3/uL; Monocyte% 4.2 % (0-10); NRBC Flagged by Analyzer 0 % (0-5); Neutrophil % 62.1 % (47-70); Platelet Count 196 K/mm3 (150-450); RBC Distribution Width CV 13.2 % (11.6-14.6); RBC Distribution Width SD 41.8 fl (35.1-43.9); Red Blood Count 5.32 M/mm3 (4.2-5.4); White Blood Count 6.1 K/mm3 (4.4-11.0)
[2020-10-24 17:58] LABS: Anion Gap 8 (5-15); BUN 21 mg/dL (7-18); BUN/Creat Ratio 22.8 RATIO (10-20); Calcium,Total 9.6 mg/dL (8.5-10.1); Chloride 107 mmol/L (98-107); Creatinine, Serum 0.92 mg/dL (0.55-1.02); EST Glomerular Filtration Rate 65 mL/min (>60); Est Glom Filt Rate - Afr Amer 78 mL/min (>60); Estimated Creatinine Clearance 62.01 ml/min; Glucose 114 mg/dL (74-106); Potassium 3.6 mmol/L (3.5-5.1); Sodium Level 140 mmol/L (136-145)
--- NOTE | 2020-10-24 18:17 | EDS_ITS ---
HPI History of Present Illness Chief Complaint: Nausea/Vomiting Informant: patient and spouse/S.O. Onset/Context/Timing Onset: - (Acute on chronic) Current Severity: Moderate Maximum Severity: Severe Narrative Narrative: Patient has chronic dizziness and neck pain. She is been working with a neurologist in the [place] area to try to formulate a definitive diagnosis. states that she has had the dizziness for the past 6 months along with double vision. She had multiple CT scans and MRIs. Patient states that for the past couple weeks she has had increased nausea. Today she had vomiting and unable to keep anything down. She normally takes Zofran for nausea but that is not controlling her symptoms today. She is not been able to keep down her ibuprofen that she takes for neck pain. Patient states her last fall was 2 weeks ago when she suffered a laceration to the right side of the face. She did have a scan at that time that showed no acute findings. She denies fever or chills. No significant abdominal pain. [facility] Medical History Abnormal bruising Arthritis Chronic migraine Chronic neck and back pain Essential (primary) hypertension Knee pain Limb weakness Shoulder pain Spinal stenosis Vasovagal syncope Home Medications metoprolol succinate 25 mg tablet,extended release 24 hr 12.5 mg PO DAILY 12/11/18 [History Last Taken Unknown] gabapentin 600 mg tablet 600 mg PO TID tab 12/13/18 [History Last Taken Unknown] eletriptan 40 mg tablet 40 mg PO PRN PRN 05/07/19 [History Last Taken Unknown] chlorthalidone 12.5 mg PO DAILY 08/03/19 [History Last Taken Unknown] cephalexin 500 mg PO BID 5 Days #10 cap 10/24/20 [Rx Last Taken Unknown] duloxetine 30 mg PO DAILY 10/24/20 [History Last Taken Unknown] meclizine 25 mg PO DAILY 10/24/20 [History Last Taken Unknown] metoclopramide HCl [Reglan] 10 mg PO BID PRN PRN #10 tab 10/24/20 [Rx Last Taken Unknown] ondansetron HCl 4 mg PO Q8H PRN PRN 10/24/20 [History Last Taken Unknown] tramadol 50 mg PO Q8H PRN #10 tab 10/24/20 [Rx Last Taken Unknown] Allergy/AdvReac Type Severity Reaction Status Date / Time acetaminophen [From Percocet] Allergy Unknown Unknown Verified 10/24/20 16:15 hydromorphone [From Dilaudid] Allergy Unknown Unknown Verified 10/24/20 16:15 morphine Allergy Unknown Unknown Verified 10/24/20 16:15 oxycodone [From Percocet] Allergy Unknown Unknown Verified 10/24/20 16:15 celecoxib [From Celebrex] Allergy Hives Verified 10/24/20 16:15 NARCOTIC AdvReac Itching Uncoded 10/24/20 16:15 Family History Father Hypertension Diabetes Cancer prostate Mother Hypertension MGUS (monoclonal gammopathy of unknown significance) Surgical History H/O cervical discectomy History of hysterectomy Social History Smoking Status: Never smoker alcohol intake: never substance use type: does not use caffeine: Yes what type of physical activity do you participate in: walking seatbelt use: always do you feel safe at home: Yes ROS ROS ED Constitutional Constitutional ED: Denies chills or fever(s) Eyes Eyes: Reports diplopia; Denies change in vision ENT ENT ED: Denies sore throat Cardiovascular Cardiovascular: Denies chest pain Respiratory/Chest Respiratory/Chest: Denies cough or dyspnea Gastrointestinal Gastrointestinal: Reports nausea and vomiting; Denies abdominal pain or diarrhea Genitourinary Genitourinary ED: Denies dysuria Musculoskeletal Musculoskeletal: Reports neck pain; Denies back pain Integumentary Denies rash Neurologic Neurologic: Denies headache(s) or weakness Psychiatric Psychiatric: Denies anxiety or depression Allergic/Immunologic Allergic/Immunologic ED: Denies urticaria EXAM Physical Exam Const Vital Signs: 10/24/20 16:15 10/24/20 17:23 10/24/20 19:31 Temperature 97.8 F 97.8 F 98.0 F Temperature Source Temporal Temporal Temporal Pulse Rate 103 H 96 90 Respiratory Rate 18 16 16 Blood Pressure 146/109 H 166/106 H 161/103 H Blood Pressure Mean 121 126 122 Pulse Ox 97 96 94 Oxygen Delivery Method Room Air Room Air Room Air 10/24/20 20:00 10/24/20 21:00 Temperature 98.1 F 98.0 F Temperature Source Temporal Temporal Pulse Rate 94 88 Respiratory Rate 16 16 Blood Pressure 171/103 H 156/96 H Blood Pressure Mean 125 116 Pulse Ox 92 93 Oxygen Delivery Method Room Air Room Air Positive well nourished and well developed General Appearance ED: well developed HEENT Reports normocephalic and head/scalp atraumatic Neck supple Chest Wall inspection of chest normal and palpation of chest normal Resp normal respiratory effort and clear to auscultation bilaterally Cardio regular rate and regular rhythm GI normal to inspection, nondistended, normoactive bowel sounds and non-tender Palpation: soft Extremity normal to inspection Neuro oriented x3 Sensorium / Orientation: alert Psych mental status grossly normal Skin no rashes or lesions noted MDM MDM MDM Narrative Medical decision making narrative: Patient is initially ordered Reglan, Benadryl, IV fluids. Lab work and urinalysis obtained. Lab Data Labs: Laboratory Results - last 24 hr 10/24/20 10/24/20 10/24/20 17:34 17:34 21:15 WBC 6.1 RBC 5.32 Hgb 15.9 H Hct 46.2 MCV 86.8 MCH 29.9 MCHC 34.4 RDW Std Deviation 41.8 RDW Coeff of Pedrito 13.2 Plt Count 196 MPV 10.8 Immature Gran % (Auto) 0.200 Neut % (Auto) 62.1 Lymph % (Auto) 32.2 [place] % (Auto) 4.2 Eos % (Auto) 1.0 Baso % (Auto) 0.3 Absolute Neuts (auto) 3.8 Absolute Lymphs (auto) 1.97 Nucleated RBC % 0 Sodium 140 Potassium 3.6 Chloride 107 Carbon Dioxide 25.0 Anion Gap 8 BUN 21 H Creatinine 0.92 Estim Creat Clear Calc 62.01 Est GFR (MDRD) Af Amer 78 Est GFR (MDRD) Non-Af 65 BUN/Creatinine Ratio 22.8 H Glucose 114 H Calcium 9.6 Urine Color Yellow Urine Clarity Sl. Cloudy Urine pH 5.0 Ur Specific [place] 1.030 Urine Protein 30 H Urine Glucose (UA) Normal Urine Ketones 150 A* Urine Occult Blood 50 H Urine Nitrite Negative Urine Bilirubin Negative Urine Urobilinogen Normal Ur Leukocyte Esterase 500 H Urine RBC 0-5 SEEN Urine WBC 10-25 SEEN Ur Squamous Epith Cells 0-5 SEEN Calcium Oxalate Crystal RARE Urine Bacteria 1+ Urine Mucus 0 SEEN Treatment and Re-Evaluation Comments:: Patient was given a dose of Decadron and Toradol for neck pain. Once her nausea was under control she did receive a tab of tramadol. Lab work is reviewed and largely unremarkable. Urinalysis does reveal sign of infection with 10-25 white cells and 1+ bacteria. Patient be treated with Keflex for urine. She be given prescription for Reglan with a few tramadol to use for breakthrough pain. Discharge Plan Triage Chief Complaint: Nausea/Vomiting Other Complaint: Abd Pain ED Provider: Jhoana Nagel Dx/Rx/DC Orders Clinical Impression: UTI (urinary tract infection), Neck pain, Vomiting Instructions: ED Neck Pain, ED CYSTITIS Female Adult, ED Vomiting (Adult) Prescriptions: New cephalexin 500 mg capsule 500 mg PO BID 5 Days Qty: 10 RF: 0 metoclopramide HCl [Reglan] 10 mg tablet 10 mg PO BID PRN PRN (Reason: nausea and vomiting) Qty: 10 RF: 0 tramadol 50 mg tablet 50 mg PO Q8H PRN (Reason: pain) Qty: 10 RF: 0 No Action metoprolol succinate 25 mg tablet extended release 24 hr 12.5 mg PO DAILY RF: 0 gabapentin 600 mg tablet 600 mg PO TID RF: 0 eletriptan 40 mg tablet 40 mg PO PRN PRN (Reason: Migraine Symptoms) RF: 0 chlorthalidone 25 MG tablet 12.5 mg PO DAILY RF: 0 ondansetron HCl 4 mg tablet 4 mg PO Q8H PRN PRN (Reason: Nausea) RF: 0 meclizine 25 mg tablet 25 mg PO DAILY RF: 0 duloxetine 30 mg capsule,delayed release(DR/EC) 30 mg PO DAILY RF: 0 Primary Care Provider: Liz Mitchell NP Referrals: Liz Mitchell CELLULAR EQUIPMENT INSTALLER, CELLULAR EQUIPMENT INSTALLER-C [Primary Care Provider] - 3-5 Days if not improving Disposition Disposition: Home, Self Care
[2020-10-24] MEDS: DiphenhydrAMINE 50 MG/ML Syringe 12.5 MG IV (18:49)
[2020-10-24] MEDS: Metoclopramide 10 MG/2 ML Vial IV (18:49)
[2020-10-24] MEDS: dexAMETHasone 10 MG/ML Vial IV (19:16)
[2020-10-24] MEDS: 0.9% Normal Saline 1,000 ML 150 ML IV (19:26)
[2020-10-24 19:31] VITALS: BP 161/103; PULSE 90; RESP 16; TEMP 36.7; O2SAT 94
[2020-10-24 20:00] VITALS: BP 171/103; PULSE 94; RESP 16; TEMP 36.7; O2SAT 92
[2020-10-24] MEDS: Ketorolac 15 MG/ML Vial IV (20:25)
[2020-10-24 21:00] VITALS: BP 156/96; PULSE 88; RESP 16; TEMP 36.7; O2SAT 93
[2020-10-24 21:21] LABS: Mucous, Urine 0 SEEN /hpf (<or=2+)
[2020-10-24] MEDS: traMADol 50 MG Tablet PO (21:47)
[2020-10-24 21:52] LABS: Color, Urine Yellow (Yellow); Glucose, Dipstick Normal (Normal); Leukocyte Esterase-Dipstick 500 /ul (Negative); Nitrite-Dipstick Negative (Negative); Occult Blood-Urine 50 /ul (Negative); Protein-Dipstick 30 mg/dl (Negative); Urine Bilirubin Dipstick Negative (Negative); Urine Clarity Sl. Cloudy (Clear); Urine Urobilinogen Normal (Normal)
[2020-10-24 22:00] LABS: Ketone-Dipstick 150 mg/dl (Negative)
[2020-10-24 22:01] LABS: White Blood Cells 10-25 SEEN /hpf (0-5)
[2020-10-24 22:02] LABS: Red Blood Cells-Urine 0-5 SEEN /hpf (0-5); Squamous Epithelial Cells - UA 0-5 SEEN /hpf (5-10)
[2020-10-24 22:03] LABS: Bacteria 1+ /hpf (None Seen); Calcium Oxalate Crystals Ur RARE /hpf (<or=2+)
[2020-10-24] MEDS: Cephalexin 250 MG Capsule 500 MG PO (23:15)
== END 2020-10-25 00:14 | disposition home or self-care (01) ==
PROVIDERS: Emergency Provider Emergency Medicine; PCP Nurse Practitioner
DX: N39.0 Urinary tract infection, site not specified (principal); M54.2 Cervicalgia; R11.2 Nausea with vomiting, unspecified; Z90.710 Acquired absence of both cervix and uterus; I10 Essential (primary) hypertension; Z79.1 Long term (current) use of non-steroidal anti-inflammatories (NSAID); Z79.899 Other long term (current) drug therapy
CPT/HCPCS: 80048; 81001; 85025; 96361; 96374; 96375; 99285; J7030; A4216

== ENCOUNTER 2020-10-26 16:29 | Inpatient (IN) | payer MEDICARE, OTHER, SELFPAY ==
[2020-10-26] VITALS (8 sets, daily range): BP systolic 120–167; BP diastolic 88–146; PULSE 85–109; RESP 12–21; TEMP 36.6–36.9; O2SAT 93–96; BMI 26.9; BMI 25.9
--- NOTE | 2020-10-26 16:40 | EKG12_ITS ---
Test Reason : Blood Pressure : / mmHG Vent. Rate : 106 BPM Atrial Rate : 100 BPM P-R Int : 000 ms QRS Dur : 066 ms QT Int : 328 ms P-R-T Axes : 000 -02 045 degrees QTc Int : 435 ms Atrial fibrillation Abnormal ECG Confirmed by THOMAS SNEED, DACIA ([id number]), digital editor GRACIE ADAMSON ([id number]) on 10/28/2020 9:28:29 AM Referred By: Manny Hu Confirmed By:DACIA GUZMAN MD
--- NOTE | 2020-10-26 17:00 | CT_ITS ---
STUDY: CTA CHEST REASON FOR EXAM: Female, 65 years old. chest and abd pain RADIATION DOSAGE (If Supplied By Facility): CTDIvol = ( 13.28 ) mGy, DLP = ( 1005.81 ) mGycm TECHNIQUE: The examination was performed with the intravenous administration of IV 100mL Isovue-370. Post-processing of the angiographic images was performed, with multiplanar reformation and 3D reconstruction. Individualized dose optimization techniques were used for this CT. COMPARISON: None. FINDINGS: Normal enhancement of the main pulmonary artery and right and left pulmonary arteries. Normal enhancement of the bilateral peripheral pulmonary arteries. There is no demonstrated pulmonary embolism. Normal thoracic aorta and visualized great vessels. There is no demonstrated aortic dissection. Normal heart and pericardium. Normal mediastinum. Normal hilar regions. Normal visualized trachea and bronchi. The lungs are hyper expanded, with flattening of the hemidiaphragms. Linear and discoid scarring across both lower lobes. No infiltrates. No effusions. There are degenerative changes of thoracic spine. No fractures. Partial compression fracture of T9 of indeterminate age. Normal visualized upper abdomen. IMPRESSION: Normal CTA chest examination, without a demonstrated pulmonary embolism or arterial dissection. Probable chronic pulmonary disease with linear and discoid Electronically Signed: Chema Hernandez MD at 19:32 EDT , Service support , Exam: CT of the abdomen and pelvis with contrast, CTA of the abdomen and pelvis, with 2-D MIPs reconstructions. HISTORY: Pain. COMPARISON: None FINDINGS: Normal appearance of the aorta for age. No aneurysm. No evidence for dissection. Grossly normal aortic branches. Fatty infiltration of the liver. Distended gallbladder. No definite stones are seen. Unremarkable pancreas, spleen, and adrenal glands, show no acute abnormalities and are unremarkable for age. No acute abnormalities of the kidneys. Bilateral parapelvic cysts. Evaluation of the GI tract is limited by absence of oral contrast. Cannot exclude stomach wall thickening. No dilated loops of bowel or evidence for obstruction. Cannot exclude segmental thickening of the [place] of the small or large bowel. Cannot exclude enteritis or colitis. Moderate diffuse fecal retention. Appendix within normal limits. No evidence for adenopathy or mass. No gross free fluid. Bladder and rectum are grossly negative. Skeletal structures show degenerative changes but no definite acute abnormalities. CT/CTA Chst, Abd, Pel W and/or WO IMPRESSION: Normal aorta with no aneurysm or dissection. Distended gallbladder. Consider ultrasound. Electronically Signed: Chema Hernandez MD at 19:42 EDT , Service support ,
[2020-10-26 17:18] LABS: Absolute Lymphocyte Count 2.67 X10^3/uL (0.83-4.51); Absolute Neutrophil Count 5.7 X10^3/uL (2.0-7.7); Basophil# 0.03 X10^3/uL; Basophil% 0.3 % (0-1); Eosinophil# 0.03 X10^3/uL; Eosinophils% 0.3 % (0-5); Hemoglobin 15.3 g/dL (12.0-15.0); Lymphocyte # 2.67 X10^3/ul (0.83-4.51); Lymphocyte % 30.3 % (19-41); Mean Corp Hgb Conc 33.3 g/dL (32-36); Mean Corpuscular Hgb 29.3 pg (27.0-32.0); Mean Corpuscular Volume 88.1 fL (81-99); Mean Platelet Vol. 10.4 fl (6.2-12.0); Monocyte# 0.41 X10^3/uL; Monocyte% 4.6 % (0-10); NRBC Flagged by Analyzer 0 % (0-5); Neutrophil # 5.66 X10^3/uL (2.7-7.7); Neutrophil % 64.3 % (47-70); Platelet Count 189 K/mm3 (150-450); RBC Distribution Width CV 13.3 % (11.6-14.6); RBC Distribution Width SD 43.1 fl (35.1-43.9); Red Blood Count 5.22 M/mm3 (4.2-5.4); White Blood Count 8.8 K/mm3 (4.4-11.0)
[2020-10-26] MEDS: 0.9% Normal Saline 1,000 ML 999 ML IV (17:19)
[2020-10-26] MEDS: dilTIAZem 25 MG/5 ML Vial 20 MG IV BOLUS (17:19)
[2020-10-26 17:29] LABS: International Normalized Ratio 1.1; Prothrombin Time (Protime)PT. 13.2 SECONDS (11.7-14.9)
[2020-10-26 17:47] LABS: Anion Gap 9 (5-15); BUN 34 mg/dL (7-18); BUN/Creat Ratio 34.5 RATIO (10-20); Calcium,Total 9.1 mg/dL (8.5-10.1); Chloride 105 mmol/L (98-107); Creatinine, Serum 0.99 mg/dL (0.55-1.02); EST Glomerular Filtration Rate 60 mL/min (>60); Est Glom Filt Rate - Afr Amer 72 mL/min (>60); Estimated Creatinine Clearance 55.63 ml/min; Glucose 108 mg/dL (74-106); Magnesium 2.1 mg/dL (1.6-2.6); Potassium 3.3 mmol/L (3.5-5.1); Sodium Level 141 mmol/L (136-145); Thyroid Stim Hormone (TSH) 2.94 uIU/mL (0.358-3.74); Troponin-I HS 7.9 pg/mL (3.0-53.7)
[2020-10-26] MEDS: Potassium Chloride 10mEq/100mL 10 MEQ/100 ML IV.SOLN. 100 MEQ IV BOLUS ×5 (19:09→23:23)
--- NOTE | 2020-10-26 20:31 | EDS_ITS ---
HPI History of Present Illness Chief Complaint: Nausea/Vomiting Narrative Narrative: Patient is a 65-year-old female who states she was seen recently secondary to bouts of nausea and vomiting. She states her work-up revealed no acute findings and she was placed on meds for home. She states despite taking these she has had no symptom improvement and secondary to his called EMS to bring her in for evaluation. [facility] Medical History Abnormal bruising Arthritis Chronic migraine Chronic neck and back pain Essential (primary) hypertension Knee pain Limb weakness Shoulder pain Spinal stenosis Vasovagal syncope Home Medications metoprolol succinate 25 mg tablet,extended release 24 hr 12.5 mg PO DAILY 12/11/18 [History Last Taken Unknown] gabapentin 600 mg tablet 600 mg PO TID tab 12/13/18 [History Last Taken Unknown] eletriptan 40 mg tablet 40 mg PO PRN PRN 05/07/19 [History Last Taken Unknown] chlorthalidone 12.5 mg PO DAILY 08/03/19 [History Last Taken Unknown] cephalexin 500 mg PO BID 5 Days #10 cap 10/24/20 [Rx Last Taken Unknown] duloxetine 30 mg PO DAILY 10/24/20 [History Last Taken Unknown] meclizine 25 mg PO DAILY 10/24/20 [History Last Taken Unknown] metoclopramide HCl [Reglan] 10 mg PO BID PRN PRN #10 tab 10/24/20 [Rx Last Taken Unknown] ondansetron HCl 4 mg PO Q8H PRN PRN 10/24/20 [History Last Taken Unknown] tramadol 50 mg PO Q8H PRN #10 tab 10/24/20 [Rx Last Taken Unknown] Allergy/AdvReac Type Severity Reaction Status Date / Time acetaminophen [From Percocet] Allergy Unknown Unknown Verified 10/26/20 16:34 hydromorphone [From Dilaudid] Allergy Unknown Unknown Verified 10/26/20 16:34 morphine Allergy Unknown Unknown Verified 10/26/20 16:34 oxycodone [From Percocet] Allergy Unknown Unknown Verified 10/26/20 16:34 celecoxib [From Celebrex] Allergy Hives Verified 10/26/20 16:34 NARCOTIC AdvReac Itching Uncoded 10/26/20 16:34 Family History Father Hypertension Diabetes Cancer prostate Mother Hypertension MGUS (monoclonal gammopathy of unknown significance) Surgical History H/O cervical discectomy History of hysterectomy Social History Smoking Status: Never smoker alcohol intake: never substance use type: does not use caffeine: Yes what type of physical activity do you participate in: walking seatbelt use: always do you feel safe at home: Yes ROS ROS ED Constitutional Constitutional ED: Denies chills or fever(s) ENT ENT ED: Denies sore throat Cardiovascular Cardiovascular: Denies chest pain, palpitations or racing heartbeat Respiratory/Chest Respiratory/Chest: Denies cough or dyspnea Gastrointestinal Gastrointestinal: Reports nausea and vomiting; Denies abdominal pain or diarrhea Genitourinary Genitourinary ED: Denies dysuria Musculoskeletal Musculoskeletal: Denies myalgias Integumentary Denies rash Neurologic Neurologic: Denies headache(s) Hematologic/Lymphatic Hematologic/Lymphatic: Denies easy bleeding or easy bruising EXAM Physical Exam Const Vital Signs: 10/26/20 16:30 10/26/20 17:10 10/26/20 19:12 Temperature 98 F Temperature Source Temporal Pulse Rate 100 109 H 89 Respiratory Rate 20 H 12 16 Blood Pressure 167/146 H 149/108 H 130/90 H Blood Pressure Mean 153 121 103 Pulse Ox 96 96 93 Oxygen Delivery Method Room Air Room Air Room Air Positive well nourished and well developed General Appearance ED: well developed HEENT HEENT Narrative: Mucous membranes are slightly dry and tacky Eyes PERRL and EOMs intact bilaterally Neck supple Chest Wall inspection of chest normal Resp normal respiratory effort and clear to auscultation bilaterally Cardio Rate: other Other Details: Irregularly irregular rhythm with tachycardic rate GI GI Narrative: Abdomen is soft nontender and nondistended with hyperactive bowel sounds no voluntary guarding or rigidity no pulsatile mass Extremity Extremity Narrative: No asymmetric edema no pitting edema negative Homans' sign bilaterally Neuro oriented x3 and CN's II-XII intact bilaterally Sensorium / Orientation: alert Psych Mood & Affect: depressed Skin no rashes or lesions noted and no wounds MDM MDM MDM Narrative Medical decision making narrative: Patient arrived to the ER afebrile but was tachycardic and when she was placed on the monitor is in A. fib with RVR at a rate of approximately 110. Patient states she is not feeling palpitations or chest pain and has no history of this. Therefore she was given 1 dose of Cardizem and the heart rate reduced to the mid 70s. As it is unsure how long she has been in this rhythm I did elect to perform CTA of her chest abdomen pelvis. This revealed no acute finding. Patient also had no further bouts of vomiting while in the ER. At this time her potassium is slightly low at 3.3 and will be replaced but otherwise the work-up reveals no acute findings. As patient is new onset A. fib with RVR she will be kept in the hospital for further care Lab Data Labs: Laboratory Results - last 24 hr 10/26/20 10/26/20 10/26/20 17:08 17:08 17:08 WBC 8.8 RBC 5.22 Hgb 15.3 H Hct 46.0 MCV 88.1 MCH 29.3 MCHC 33.3 RDW Std Deviation 43.1 RDW Coeff of Pedrito 13.3 Plt Count 189 MPV 10.4 Immature Gran % (Auto) 0.200 Neut % (Auto) 64.3 Lymph % (Auto) 30.3 [place] % (Auto) 4.6 Eos % (Auto) 0.3 Baso % (Auto) 0.3 Absolute Neuts (auto) 5.7 Absolute Lymphs (auto) 2.67 Nucleated RBC % 0 PT 13.2 INR 1.1 APTT 26.0 Sodium 141 Potassium 3.3 L Chloride 105 Carbon Dioxide 27.0 Anion Gap 9 BUN 34 H Creatinine 0.99 Estim Creat Clear Calc 55.63 Est GFR (MDRD) Af Amer 72 Est GFR (MDRD) Non-Af 60 BUN/Creatinine Ratio 34.5 H Glucose 108 H Calcium 9.1 Magnesium 2.1 Troponin I High Sens 7.9 TSH 2.94 Radiography Diagnostic Testing: Radiology Impression Chest/Abdomen/Pelvis CTA 10/26/20 17:00 IMPRESSION: Normal aorta with no aneurysm or dissection. Distended gallbladder. Consider ultrasound. Electronically Signed: Chema Hernandez MD at 19:42 EDT , Service support , Critical Care Time Critical Care Time: Yes Critical care time (excluding procedures): 30-74 minutes and - (31 minutes) Discharge Plan Triage Chief Complaint: Nausea/Vomiting ED Provider: Ishaan Melara Dx/Rx/DC Orders Clinical Impression: Atrial fibrillation with rapid ventricular response, Nausea & vomiting, Hypokalemia Prescriptions: No Action metoprolol succinate 25 mg tablet extended release 24 hr 12.5 mg PO DAILY RF: 0 gabapentin 600 mg tablet 600 mg PO TID RF: 0 eletriptan 40 mg tablet 40 mg PO PRN PRN (Reason: Migraine Symptoms) RF: 0 chlorthalidone 25 MG tablet 12.5 mg PO DAILY RF: 0 ondansetron HCl 4 mg tablet 4 mg PO Q8H PRN PRN (Reason: Nausea) RF: 0 meclizine 25 mg tablet 25 mg PO DAILY RF: 0 duloxetine 30 mg capsule,delayed release(DR/EC) 30 mg PO DAILY RF: 0 cephalexin 500 mg capsule 500 mg PO BID 5 Days Qty: 10 RF: 0 metoclopramide HCl [Reglan] 10 mg tablet 10 mg PO BID PRN PRN (Reason: nausea and vomiting) Qty: 10 RF: 0 tramadol 50 mg tablet 50 mg PO Q8H PRN (Reason: pain) Qty: 10 RF: 0 Primary Care Provider: Liz Mitchell NP Referrals: Liz Mitchell NP, DOMESTIC VIOLENCE COUNSELOR-C [Primary Care Provider] - Disposition Disposition: Acute Care [facility]
[2020-10-26] MEDS: dilTIAZem 25 MG/5 ML Vial 10 MG IV BOLUS (20:45)
--- NOTE | 2020-10-26 21:26 | PCM.HP.STD ---
HPI - General General Date of Admission: 10/26/20 HPI Narrative YAKOV NUNEZ, is a 65 F with multiple comorbidities as listed below came to ED for not feeling good, nausea and vomiting and found to be A. fib with RVR. Twelve-lead EKG shows 106 bpm, A. fib. Previous EKG of August 03, 2019 normal sinus rhythm. Patient denies chest pain, tightness, shortness of breath, palpitation or near syncope. Furthermore, patient is bedbound for about 6 5-6 months due to uncontrolled dizziness, vertigo, mild leg weakness and fall. She also has history of cervical and lumbar neuroforaminal stenosis and is seen neurosurgeon in [place] who recommended to follow-up with neurologist for LP. Patient follows Dr. Fuller for hyper vagal tone, vasovagal syncope. In ED, blood pressure is stable. Patient was given 20 mg IV bolus for A. fib with RVR which brought heart rate in 100s and then further received 10 mg IV bolus. She also has hypokalemia. Serum magnesium normal. Patient had last ER visit on 10/24 for neck pain, nausea and vomiting and chronic symptoms of double vision for 6 months. Patient given Keflex for pyuria in the urine 25 WBC and 1+ bacteria. No fever or chills. [facility] Medical History Abnormal bruising Arthritis Chronic migraine Chronic neck and back pain Essential (primary) hypertension Knee pain Limb weakness Shoulder pain Spinal stenosis Vasovagal syncope Home Medications metoprolol succinate 25 mg tablet,extended release 24 hr 12.5 mg PO DAILY 12/11/18 [History Last Taken Unknown] gabapentin 600 mg tablet 300 mg PO BID tab 12/13/18 [History Last Taken Unknown] eletriptan 40 mg tablet 40 mg PO PRN PRN 05/07/19 [History Last Taken Unknown] chlorthalidone 12.5 mg PO DAILY 08/03/19 [History Last Taken Unknown] cephalexin 500 mg PO BID 5 Days #10 cap 10/24/20 [Rx Last Taken Unknown] duloxetine 30 mg PO DAILY 10/24/20 [History Last Taken Unknown] meclizine 25 mg PO DAILY 10/24/20 [History Last Taken Unknown] metoclopramide HCl [Reglan] 10 mg PO BID PRN PRN #10 tab 10/24/20 [Rx Last Taken Unknown] ondansetron HCl 4 mg PO Q8H PRN PRN 10/24/20 [History Last Taken Unknown] tramadol 50 mg PO Q8H PRN #10 tab 10/24/20 [Rx Last Taken Unknown] Allergy/AdvReac Type Severity Reaction Status Date / Time acetaminophen [From Percocet] Allergy Unknown Unknown Verified 10/26/20 16:34 hydromorphone [From Dilaudid] Allergy Unknown Unknown Verified 10/26/20 16:34 morphine Allergy Unknown Unknown Verified 10/26/20 16:34 oxycodone [From Percocet] Allergy Unknown Unknown Verified 10/26/20 16:34 celecoxib [From Celebrex] Allergy Hives Verified 10/26/20 16:34 NARCOTIC AdvReac Itching Uncoded 10/26/20 16:34 Family History Father Hypertension Diabetes Cancer prostate Mother Hypertension MGUS (monoclonal gammopathy of unknown significance) Surgical History H/O cervical discectomy History of hysterectomy Social History (Updated 10/26/20 @ 21:32 by Tanya Huertas) household members: spouse housing: house current occupational status: retired pets and animals: Yes (dogs & cats ) current gender identity: female Smoking Status: Never smoker alcohol intake: never substance use type: does not use caffeine: Yes what type of physical activity do you participate in: walking seatbelt use: always do you feel safe at home: Yes ROS ROS Narrative Constitutional: Reports fatigue and weakness, dizziness, fall HEENT: Reports systems reviewed and no addt'l complaints, except as documented Respiratory/Chest: Denies chest pain, shortness of breath at rest or with exertion Gastrointestinal: Denies coffee ground emesis, hematemesis or vomiting Genitourinary: Denies burning urination or new urinary tract symptoms. Given Keflex on last ER visit by ER physician Musculoskeletal: Reports joint pain and limited range of motion Neurologic: Denies seizure-like activity. Migraine. Bilateral leg weakness mild skin: No ulcer. No rash Endocrinology: Reports systems reviewed and no addt'l complaints, except as documented Hematologic/Lymphatic: Reports systems reviewed and no addt'l complaints, except as documented Rest 12 ROS are negative except as mentioned in HPI Vital Signs Vital Signs Vital Signs: 10/26/20 16:30 10/26/20 17:10 10/26/20 19:12 Temperature 98 F Temperature Source Temporal Pulse Rate 100 109 H 89 Respiratory Rate 20 H 12 16 Blood Pressure 167/146 H 149/108 H 130/90 H Blood Pressure Mean 153 121 103 Pulse Ox 96 96 93 Oxygen Delivery Method Room Air Room Air Room Air 10/26/20 20:47 Temperature 98 F Temperature Source Temporal Pulse Rate 86 Respiratory Rate 21 H Blood Pressure 125/95 H Blood Pressure Mean 105 Pulse Ox 94 Oxygen Delivery Method Room Air Weight Weight: 177 lb 7.554 oz Body Mass Index (BMI) 26.9 Physical Exam Narrative General: Alert, Oriented x3, Cooperative HEENT: Atraumatic, PERRLA, EOMI, Normocephalic Oral: No Gingival or Mucosal Lesions/ Ulcerations Neck: Supple, No JVD, Negative Carotid Bruits Lungs: Air entry diminished in bilateral lung bases. No crepitation/rhonchi Cardiovascular: Irregular rate and rhythm, A. fib, Normal S1, Normal S2, No murmurs Abdomen: Bowel Sounds Present, Soft, Non Tender, Non-Distended : No renal angle tenderness. No suprapubic tenderness. Extremities: Mild nonpitting ankle bilateral edema, Capillary Refill Less than 3 Seconds Skin: No rashes, No breakdown Musculoskeletal: No Tenderness to Palpation of Joints or Extremities Neurological: Cranial nerves II-XII grossly intact, DTR 2+/4 and Symmetrical, Neuro grossly intact Psych/Mental Status: Flat affect. Results Lab / Micro Data Result Diagrams: 10/26/20 17:08 10/26/20 17:08 Labs: Laboratory Results - last 24 hr 10/26/20 17:08: WBC 8.8, RBC 5.22, Hgb 15.3 H, Hct 46.0, MCV 88.1, MCH 29.3, MCHC 33.3, RDW Std Deviation 43.1, RDW Coeff of Pedrito 13.3, Plt Count 189, MPV 10.4, Immature Gran % (Auto) 0.200, Neut % (Auto) 64.3, Lymph % (Auto) 30.3, [place] % (Auto) 4.6, Eos % (Auto) 0.3, Baso % (Auto) 0.3, Absolute Neuts (auto) 5.7, Absolute Lymphs (auto) 2.67, Nucleated RBC % 0 10/26/20 17:08: PT 13.2, INR 1.1, APTT 26.0 10/26/20 17:08: Sodium 141, Potassium 3.3 L, Chloride 105, Carbon Dioxide 27.0, Anion Gap 9, BUN 34 H, Creatinine 0.99, Estim Creat Clear Calc 55.63, Est GFR (MDRD) Af Amer 72, Est GFR (MDRD) Non-Af 60, BUN/Creatinine Ratio 34.5 H, Glucose 108 H, Calcium 9.1, Magnesium 2.1, Troponin I High Sens 7.9, TSH 2.94 Radiology Impression Chest/Abdomen/Pelvis CTA 10/26/20 17:00 IMPRESSION: Normal aorta with no aneurysm or dissection. Distended gallbladder. Consider ultrasound. Electronically Signed: Chema Hernandez MD at 19:42 EDT , Service support , Assessment & Plan Assessment/Plan (1) Atrial fibrillation with rapid ventricular response: PLAN: This 65-year-old female with multiple comorbidities admitted with A. fib with RVR, new onset in ED 1. A. fib with RVR, new onset: Patient is being admitted to PCU. Heart rate has slowed down with Cardizem 20 mg and then 10 mg IV bolus. Metoprolol 25 mg twice daily ordered. At home patient on Toprol-XL 25 mg daily. Started on Eliquis 5 mg twice daily. Patient's last echo in February 2019 shows EF 65% with mild TR. Normal LV size. Repeat 2D echo. Mild hypokalemia, potassium has been replaced. BMP tomorrow a.m. 2. Persistent nausea and vomiting, vertigo, chronic neck pain and back pain: Chronic symptoms. Patient had chest abdomen pelvis CT which did not show aneurysm or dissection. Symptomatic management. Follow-up with neurologist as an outpatient admission HPI. Patient does not have burning micturition. UA with urine culture ordered. Patient had Keflex for about 3 days 3. Chronic migraine, chronic lumbar and cervical pain with cervical spinal stenosis/neuroforaminal stenosis: Pain control, PT OT ordered. 4. History of vasovagal syndrome, fall. 5. Hypertension: Blood pressure is controlled Home medications continued VTE prophylaxis: Eliquis as mentioned above Living will/advanced directive/end of life care: Patient does not have living will or advanced directive or power of litigation attorney associate for health. After discussion of benefits/risks procedures involved with full code, DNR CC arrest and DNR CC, the patient and her opted for full code. Patient does want artificial life support including intubation, tube feed, ventilator and/chest compression, central venous catheter, vasopressor and DC shock if needed Total time spent in [id number] encounter in discussion of advanced directive 16 minutes. Charges/Coding Visit Charges OBSV E&M: 19441 Initial observation care L3 Procedures Hospitalists Procedures: 74961 Advncd Care Plan 30 Min
--- NOTE | 2020-10-26 21:40 | NURSING ---
Patient states had Flu vaccine in November 2019 in office.
[2020-10-26] MEDS: 0.9% Saline Lock 10 ML Syringe IV ×2 (22:38→22:42)
[2020-10-26] MEDS: Lactated Ringers 1,000 ML 75 ML IV (22:38)
[2020-10-26 23:07] LABS: Bacteria 0 SEEN /hpf (None Seen); Mucous, Urine 0 SEEN /hpf (<or=2+); Red Blood Cells-Urine 0 SEEN /hpf (0-5); Squamous Epithelial Cells - UA 0 SEEN /hpf (5-10)
[2020-10-26 23:15] LABS: Color, Urine Yellow (Yellow); Glucose, Dipstick Normal (Normal); Ketone-Dipstick 50 mg/dl (Negative); Leukocyte Esterase-Dipstick 25 /ul (Negative); Nitrite-Dipstick Negative (Negative); Occult Blood-Urine 10 /ul (Negative); Protein-Dipstick Negative (Negative); Urine Bilirubin Dipstick Negative (Negative); Urine Clarity Clear (Clear); Urine Urobilinogen Normal (Normal)
[2020-10-26 23:33] LABS: White Blood Cells 0-5 SEEN /hpf (0-5)
[2020-10-26 23:51] LABS: Troponin-I HS 16.6 pg/mL (3.0-53.7)
[2020-10-27] VITALS (9 sets, daily range): BP systolic 137–148; BP diastolic 91–97; PULSE 65–98; RESP 16–18; TEMP 36.6–37.1; O2SAT 95–97
--- NOTE | 2020-10-27 00:21 | NURSING ---
Patient refused night time medication states, having difficulty swallowing. Swallowing screening completed and patient made aware. States, we I take anything I vomit afterward agreed with patient. Dr. Hu made aware speech consulted.
[2020-10-27] MEDS: Potassium Chloride 10mEq/100mL 10 MEQ/100 ML IV.SOLN. 100 MEQ IV BOLUS ×2 (00:27→01:38)
--- NOTE | 2020-10-27 05:55 | ECHOD_ITS ---
Reason For Study: AFIB/FLUTTER Procedure This was a 2D Doppler, Color Flow transthoracic echocardiogram. The study was technically difficult. Exam performed portable in patient room. Left Ventricle Normal LV size. Left ventricular systolic function is normal. The estimated ejection fraction is 65 %. Stage 2 diastolic dysfunction. No regional wall motion abnormalities noted. Right Ventricle Normal RV size. Normal systolic function. Atria Normal left atrium. Normal right atrium. Mitral Valve Normal mitral valve. Tricuspid Valve Normal tricuspid valve. Aortic Valve Normal aortic valve. Pulmonic Valve The pulmonic valve is not well visualized. Great Vessels Normal aortic root. The pulmonary artery is normal size. Normal inferior vena cava. Pericardium/Pleural No pericardial effusion. MMode/2D Measurements & Calculations LVIDd: 3.1 cm IVSd: 0.73 cm Ao root diam: 2.9 cm LVIDs: 2.2 cm LVPWd: 0.70 cm RVDd: 2.8 cm FS: 31.1 % LAV(MOD-bp): 33.6 ml LVAd ap4: 19.3 cm2 LVAd ap2: 17.1 cm2 LAV(MOD-bp) Indexed: 17.2 ml/m2 LVLd ap4: 6.9 cm LVLd ap2: 6.9 cm LAV(MOD-sp2): 31.0 ml EDV(MOD-sp4): 44.1 ml EDV(MOD-sp2): 34.5 ml LAV(MOD-sp4): 33.6 ml EDV(sp4-el): 46.2 ml EDV(sp2-el): 36.0 ml LVAs ap4: 10.1 cm2 LVAs ap2: 8.6 cm2 LVLs ap4: 6.2 cm LVLs ap2: 5.7 cm ESV(MOD-sp4): 14.1 ml ESV(MOD-sp2): 10.9 ml ESV(sp4-el): 13.8 ml ESV(sp2-el): 10.9 ml EF(MOD-sp4): 68.1 % EF(MOD-sp2): 68.3 % EF(sp4-el): 70.0 % SV(MOD-sp4): 30.1 ml SV(MOD-sp2): 23.5 ml SV(sp4-el): 32.3 ml LA dimension(2D): 3.6 cm LA A4 area: 13.6 cm2 RA A4 area: 8.9 cm2 Time Measurements MV dec time: 0.20 sec Doppler Measurements & Calculations MV E max case: 76.1 cm/sec Lat Peak E' Case: 10.5 cm/sec Med Peak E' Case: 7.0 cm/sec MV A max case: 51.5 cm/sec E/E' lat: 7.2 E/E' med: 10.9 MV E/A: 1.5 Ao V2 max: 110.0 cm/sec LV V1 max: 113.4 cm/sec PA V2 max: 83.6 cm/sec Ao max P.8 mmHg LV V1 max P.2 mmHg ECHO/Echo Complete Interpretation Summary Normal LV size. Left ventricular systolic function is normal. The estimated ejection fraction is 65 %. Stage 2 diastolic dysfunction. Structurally normal valves. Ordering Physician: Manny Hu Referring Physician: LIZZETTE CONKLIN Performed By: Preethi Martínez, RDCS, RVT
[2020-10-27 06:40] LABS: Anion Gap 9 (5-15); BUN 20 mg/dL (7-18); BUN/Creat Ratio 31.9 RATIO (10-20); Calcium,Total 8.8 mg/dL (8.5-10.1); Chloride 110 mmol/L (98-107); Cholesterol 180 mg/dL (200); Creatinine, Serum 0.63 mg/dL (0.55-1.02); EST Glomerular Filtration Rate 101 mL/min (>60); Est Glom Filt Rate - Afr Amer 122 mL/min (>60); Estimated Creatinine Clearance 57.05 ml/min; Glucose 87 mg/dL (74-106); High Density Lipoprotein 44 mg/dL; Potassium 3.7 mmol/L (3.5-5.1); Sodium Level 140 mmol/L (136-145); Triglycerides 98 mg/dL; Very Low Density Lipoprotein 20 mg/dL (5-40)
[2020-10-27] MEDS: Ondansetron 4 MG/2 ML Vial IV ×2 (10:33→16:48)
--- NOTE | 2020-10-27 14:28 | PN.HOSP_ITS ---
Subjective Subjective Patient seen and examined. She was admitted with a complaintof weakness, nausea and vomiting, and found to be in afib with RVR. She had also been having a 5-6 month history of severe cervical and lumbar neuroforaminal stenosis and was evaluated by a neurosurgeon in [place] who recommended follow up with a neurologist for lumbar puncture. She received cardizem bolus for afib and afib became better controlled. Patient seen and examined. She complained of nausea, but no vomiting. She also complains of severe neck pain. She is open to having a pain shot. Objective Data Objective Data Vital Signs: Vital Signs Temp Pulse Resp BP Pulse Ox 98.3 F 91 18 140/91 H 95 10/27/20 09:15 10/27/20 09:15 10/27/20 09:15 10/27/20 09:15 10/27/20 09:15 Oxygen Delivery Method Room Air Weight: 176 lb 2.389 oz Body Mass Index (BMI) 25.9 Intake & Output: Intake and Output for Last 24 Hours 10/25/20 10/26/20 10/27/20 23:59 23:59 23:59 Intake Total 1400 / 1400 300 / 300 Output Total 100 / 100 400 / 400 Balance 1300 / 1300 -100 / -100 Lab / Micro Data Result Diagrams: 10/26/20 17:08 10/27/20 05:24 Labs: Laboratory Results - last 24 hr 10/26/20 17:08: WBC 8.8, RBC 5.22, Hgb 15.3 H, Hct 46.0, MCV 88.1, MCH 29.3, MCHC 33.3, RDW Std Deviation 43.1, RDW Coeff of Pedrito 13.3, Plt Count 189, MPV 10.4, Immature Gran % (Auto) 0.200, Neut % (Auto) 64.3, Lymph % (Auto) 30.3, [place] % (Auto) 4.6, Eos % (Auto) 0.3, Baso % (Auto) 0.3, Absolute Neuts (auto) 5.7, Absolute Lymphs (auto) 2.67, Nucleated RBC % 0 10/26/20 17:08: PT 13.2, INR 1.1, APTT 26.0 10/26/20 17:08: Sodium 141, Potassium 3.3 L, Chloride 105, Carbon Dioxide 27.0, Anion Gap 9, BUN 34 H, Creatinine 0.99, Estim Creat Clear Calc 55.63, Est GFR (MDRD) Af Amer 72, Est GFR (MDRD) Non-Af 60, BUN/Creatinine Ratio 34.5 H, Glucose 108 H, Calcium 9.1, Magnesium 2.1, Troponin I High Sens 7.9, TSH 2.94 10/26/20 22:48: Urine Color Yellow, Urine Clarity Clear, Urine pH 8.0, Ur Specific [place] 1.010, Urine Protein Negative, Urine Glucose (UA) Normal, Urine Ketones 50 H, Urine Occult Blood 10 H, Urine Nitrite Negative, Urine Bilirubin Negative, Urine Urobilinogen Normal, Ur Leukocyte Esterase 25 H, Urine RBC 0 SEEN, Urine WBC 0-5 SEEN, Ur Squamous Epith Cells 0 SEEN, Urine Bacteria 0 SEEN, Urine Mucus 0 SEEN 10/26/20 23:24: Troponin I High Sens 16.6 10/27/20 05:24: Sodium 140, Potassium 3.7, Chloride 110 H, Carbon Dioxide 21.0, Anion Gap 9, BUN 20 H, Creatinine 0.63, Estim Creat Clear Calc 57.05, Est GFR (MDRD) Af Amer 122, Est GFR (MDRD) Non-Af 101, BUN/Creatinine Ratio 31.9 H, Glucose 87, Calcium 8.8, Triglycerides 98, Cholesterol 180, LDL Cholesterol 116, VLDL Cholesterol 20, HDL Cholesterol 44 Radiography Diagnostic Testing: Radiology Impression Chest/Abdomen/Pelvis CTA 10/26/20 17:00 IMPRESSION: Normal aorta with no aneurysm or dissection. Distended gallbladder. Consider ultrasound. Electronically Signed: Chema Hernandez MD at 19:42 EDT , Service support , Echocardiogram 10/27/20 05:55 Interpretation Summary Normal LV size. Left ventricular systolic function is normal. The estimated ejection fraction is 65 %. Stage 2 diastolic dysfunction. Structurally normal valves. ____ Ordering Physician: Manny Hu Referring Physician: LIZZETET CONKLIN Performed By: Preethi Martínez, RDCS, RVT Physical Exam Const alert and oriented x3 Orientation / Consciousness: lethargic Exam Limitations: no limitations HEENT moist oral mucous membranes and gingiva normal Head and Scalp: normocephalic Mouth: dry mucous membranes Eyes PERRL, EOMs intact bilaterally and conjunctivae normal Neck no lymphadenopathy Resp normal respiratory effort, no retractions, no use of accessory muscles and clear to auscultation bilaterally Cardio regular rate, regular rhythm, S1 normal heart sound, S2 normal heart sound and no murmurs GI normal to inspection, nondistended, normoactive bowel sounds, soft to palpation, non-tender and non-distended Extremity normal to inspection Peripheral Pulses: Yes pulses 2+ throughout Skin no rashes or lesions noted Neuro oriented x3 Neuro Narrative: weak and frail Sensorium / Orientation: awake and alert Psych Mood & Affect: anxious Assessment & Plan Assessment/Plan (1) Neck pain: (2) UTI (urinary tract infection): (3) Atrial fibrillation with rapid ventricular response: (4) Nausea & vomiting: (5) Hypokalemia: PLAN: #Afib with RVR * doesnt have a history of afib. * converted to normal sinus rhythm with administration of cardizem bolus * on metoprolol 25mg bid * on eliquis 5mg bid. Will hold for now as pain management has been consulted due to severe neck pain. * 2D echo pending * #Intractable nausea * patient has difficulty eating because she is concerned about worsening of her nausea * she doesnt have any difficulty with swallowing per se * patient also concerned about reflux. * on IV zofran prn * will start on pantoprazole. * CT of the abdomen and pelvis showed no aneurysm or dissection. * will benefit from GI workup on outpatient basis. * #History of falls with vasovagal syndrome * PT/OT on board. Fall precautions. * #hypertension: on chlorthalidone #History of chronic migraine * on eletriptan * #History of cervical spine stenosis with neuraforaminal stenosis * will consult pain management for possible pain shot * DVT prophylaxis: on eliquis. Will hold for now and start on therapeutic lovenox as she may need a pain shot. Charges/Coding Visit Charges Inpatient E&M: 73060 [facility] L3
[2020-10-27] MEDS: Metoprolol Tartrate 25 MG Tablet PO ×2 (15:38→21:49)
[2020-10-27] MEDS: Chlorthalidone 50 MG Tablet 12.5 MG PO (15:39)
[2020-10-27] MEDS: traMADol 50 MG Tablet PO (15:44)
[2020-10-27] MEDS: 0.9% Saline Lock 10 ML Syringe IV (15:45)
--- NOTE | 2020-10-27 16:17 | CHAPLAIN ---
Type of Pastoral Visit _x__ Initial Visit ___ Follow-up Visit ___ On-call Visit ___ General Patient Visit ___ Spiritual Assessment ___ Family Conference ___ Bereavement ___ Rapid Response ___ Code Blue ___ Other (describe below) Pastoral Care Referral From _x__ Family ___ Nurse ___ Physician ___ Local Flatbed Driver ___ Supervisor Payroll ___ Other (describe below) Sacrament/Intervention _x__ Active listening ___ Anointing ___ Anabaptism ___ Bereavement ___ Communion _x__ Lashay exploration ___ ___ Life review _x__ Prayer ___ Reconciliation ___ Sacrament of Sick _x__ Supportive presence ___ Wedding ___ Other (describe below) Pastoral Comments spouse is with pt who keeps eyes closed due to double vision and nausea; pt and spouse are people of lashay and welcome spiritual care support and prayer; presence and listening given as well
--- NOTE | 2020-10-27 18:06 | TELEMED_ITS ---
[facility] has confirmed receipt of a request for visit. This document confirms receipt of the order initiating the consult. To find the results of the consultation, please view the patient's reports for the scanned Telemed Consult.
[2020-10-27] MEDS: Senna/Docusate Sodium 1 Tablet 2 TABLET PO (20:32)
--- NOTE | 2020-10-27 22:37 | NURSING ---
Pandemic Charting 10/27/2020 190
[2020-10-28] VITALS (12 sets, daily range): BP systolic 124–134; BP diastolic 71–92; PULSE 62–90; RESP 15–18; TEMP 36.1–36.7; O2SAT 93–98
[2020-10-28] MEDS: 0.9% Saline Lock 10 ML Syringe IV (05:59)
[2020-10-28] MEDS: Ondansetron 4 MG/2 ML Vial IV ×2 (05:59→14:48)
[2020-10-28] MEDS: traMADol 50 MG Tablet PO ×2 (09:20→17:21)
--- NOTE | 2020-10-28 09:21 | MRI_ITS ---
STUDY: MRI CERVICAL SPINE WITH AND WITHOUT CONTRAST REASON FOR EXAM: Female, 65 years old. severe neck pain and radiculopathy TECHNIQUE: Standardized fat and water weighted pulse sequences were obtained in the sagittal and axial following administration of 15ml Dotarem via IV. COMPARISON: None FINDINGS: Normal foramen magnum and brainstem-cervical cord junction. Normal craniovertebral junction. Normal anterior atlantoaxial articulation. Normal odontoid process. Normal cervical lordosis. Normal vertebral bodies and posterior osseous elements. C2-3: Normal endplates. Normal disc height, signal and morphology. Normal central canal and intervertebral neural foramina. C3-4: Moderate broad disc osteophyte complex asymmetric to the right produces moderate spinal stenosis with abutment of the right hemicord, moderate right neural foraminal stenosis and mild left neural foraminal stenosis. C4-5: Moderate size central disc protrusion produces moderate spinal stenosis with abutment of the central spinal cord but no neural foraminal stenosis. C5-6: Status post anterior cervical discectomy and fusion with bony bridging with anatomic alignment and no spinal stenosis or neural foraminal stenosis. C6-7: Mild broad disc osteophyte complex produces mild spinal stenosis and mild bilateral neural foraminal stenosis. C7-T1: Normal endplates. Normal disc height, signal and morphology. Normal central canal and intervertebral neural foramina. Normal cervical cord. Normal visualized soft tissue structures. MRI/Spine Cervical W/WO Contrast IMPRESSION: Postsurgical changes and degenerative disc disease as described above. Electronically Signed: Jason Flores MD at 17:05 EDT Tel , Service support ,
--- NOTE | 2020-10-28 09:21 | MRI_ITS ---
STUDY: MRI BRAIN WITH AND WITHOUT CONTRAST REASON FOR EXAM: Female, 65 years old. acute metabolic encephalopathy TECHNIQUE: Standardized multiplanar fat and water weighted pulse sequences were obtained. 15ml Dotarem via IV was administered for the contrast portion of the examination. COMPARISON: 09/10/2020 FINDINGS: Normal size of the ventricles and extra-axial spaces for the patient''s age. Normal white matter tracts of the supratentorial brain. There is no evidence for recent intracranial ischemia or other cause of cytotoxic edema on diffusion weighted imaging (DWI). Normal T2* images of the brain without demonstrated susceptibility artifact. There is no demonstrated hemosiderin stain. Normal bilateral basal ganglia. Normal thalami. There is no extra-axial fluid accumulation. Normal flow voids within the major intracranial circulation suggesting patency by spin echo criteria. Normal venous enhancement. There is no enhancing intra-axial or extra-axial abnormality. Normal sella turcica, pituitary gland, infundibular stalk, optic chiasm and hypothalamus. Normal tectal plate and pineal gland. Normal midbrain, silvano and medulla. Normal cerebellum. Normal basal cisterns. Normal bilateral temporal bones. Normal bilateral internal auditory canals. No demonstrated orbital abnormality, within the constraints of a routine brain study. Normal visualized paranasal sinuses. Normal calvarium and skull base. Normal visualized soft tissue structures. Normal visualized upper cervical spine. MRI/Brain W/WO Contrast IMPRESSION: Normal unenhanced and enhanced MRI of the brain. Electronically Signed: Jason Flores MD at 16:56 EDT Tel , Service support ,
[2020-10-28] MEDS: Metoprolol Tartrate 25 MG Tablet PO ×2 (09:46→21:08)
[2020-10-28] MEDS: Chlorthalidone 50 MG Tablet 12.5 MG PO (11:08)
--- NOTE | 2020-10-28 11:19 | PN.HOSP_ITS ---
Subjective Subjective Patient seen and examined. She said her neck pain was better; she felt her swallowing had improved, and she was willing to try breakfast today. Review of systems is otherwise negative. Objective Data Objective Data Vital Signs: Vital Signs Temp Pulse Resp BP Pulse Ox 98.0 F 86 18 126/91 H 96 10/28/20 05:20 10/28/20 09:46 10/28/20 05:20 10/28/20 11:10 10/28/20 07:27 Oxygen Delivery Method Room Air Weight: 178 lb 2.136 oz Body Mass Index (BMI) 25.9 Intake & Output: Intake and Output for Last 24 Hours 10/26/20 10/27/20 10/28/20 23:59 23:59 23:59 Intake Total 1400 / 1400 1300 / 1300 Output Total 100 / 100 400 / 400 150 / 150 Balance 1300 / 1300 900 / 900 -150 / -150 Medical Nutrition Assessment Dietitian: Malnutrition Criteria Met Start: 10/27/20 17:39 Freq: Status: Active Protocol: Document 10/27/20 18:01 RMA (Rec: 10/27/20 18:02 RMA [id number]) Nutrition Malnutrition Evidence of Malnutrition Exists Yes Malnutrition (severe): Acute Illness/Injury Evidenced By Suboptimal Energy Intake ( Severe),Weight Loss (Severe) Clinical Problem Acute Disease or Injury Related Malnutrition Etiology Severe protein/calorie malnutrition in the context of acute illness related to inability to take adequate nutrition due to nausea and vomiting; poor appetite and difficulty chewing/swallowing Signs/Symptoms as evidenced by 7% wt loss x past 3 months, poor oral intake meeting less than 50% estimated nutrition needs x past 2-3 months and need for pureed diet at this time. Status Active Problem Recommendation Dietitian Recommendations/Changes Continue cardiac diet with consistency as per COMPUTING ARCHITECT-- currently pureed w/ thin liquids. Will add 240ml ensure clear TID w/ meals as tolerated. Adjust ONS and diet as need to optimize intake as PO established with meals. Lab / Micro Data Result Diagrams: 10/26/20 17:08 10/27/20 05:24 Micro: Microbiology 10/26/20 22:48 Urine, Clean Catch Urine Culture - Final Mixed Gram Positive Organisms Radiography Diagnostic Testing: Radiology Impression Echocardiogram 10/27/20 05:55 Interpretation Summary Normal LV size. Left ventricular systolic function is normal. The estimated ejection fraction is 65 %. Stage 2 diastolic dysfunction. Structurally normal valves. Ordering Physician: Manny Hu Referring Physician: LIZZETTE CONKLIN Performed By: Preethi Martínez, RDCS, RVT Physical Exam Const alert and oriented x3 Orientation / Consciousness: lethargic Exam Limitations: no limitations HEENT head/scalp atraumatic, moist oral mucous membranes and gingiva normal Head and Scalp: normocephalic Eyes PERRL, EOMs intact bilaterally and conjunctivae normal Neck no lymphadenopathy Resp normal respiratory effort, no retractions, no use of accessory muscles and clear to auscultation bilaterally Cardio regular rate, regular rhythm, S1 normal heart sound, S2 normal heart sound and no murmurs GI normal to inspection, nondistended, normoactive bowel sounds, soft to palpation, non-tender and non-distended Extremity normal to inspection Peripheral Pulses: Yes pulses 2+ throughout Skin no rashes or lesions noted Neuro oriented x3, CN's II-XII intact bilaterally and moves all extremities Neuro Narrative: weak and frail Sensorium / Orientation: awake and alert Psych affect normal Assessment & Plan Assessment/Plan (1) Neck pain: (2) UTI (urinary tract infection): (3) Atrial fibrillation with rapid ventricular response: (4) Nausea & vomiting: (5) Hypokalemia: PLAN: #Afib with RVR * doesnt have a history of afib. * converted to normal sinus rhythm with administration of cardizem bolus * on metoprolol 25mg bid * on eliquis 5mg bid. * 2D echo showed EF of 65% with stage 2 diastolic dysfunction and normal LV systolic function. Valves were structurally normal * TSH was WNL * #Intractable nausea * still having nausea * on IV zofran prn and PO pantoprazole * to follow up with GI on outpatient basis. * #History of worsening debility and peripheral neuropathy * patient has been getting progressively weaker at home, with some falls. She says she followed up with a neurosurgeon on outpatient basis, and was referred to neurology. She has seen neurology, and says there were some labs done, including workup for MS, but these are pending. * Patient's family (sister and niece) wanted her to be transferred to [facility] [place]; patient and her however refused transfer to [facility]. * [facility] neurology reviewed patient yesterday and recommends MRI of the brain and cervical spine; if there are any significant findings, to consult neurosurgery * -per neurology, peripheral neuropathy would give sensory ataxia, and this could explain her history of falls. The cause of hte neuropathy is not clear. * per neuro rec;s to order a battery of labs and also to have EMG on outpatient basis. Will clarify with PCP if these labs havent already been ordered oon outpatient basis * PT/OT on board * fall precautions * #hypertension: on chlorthalidone #History of chronic migraine * on eletriptan * #History of cervical spine stenosis with neuraforaminal stenosis * will consult pain management for possible pain shot * PT/OT on board * Fall precautions * * DVT prophylaxis: now on therapeutic lovenox for afib. Charges/Coding Visit Charges Inpatient E&M: 56970 Subs Hosp L3
--- NOTE | 2020-10-28 11:50 | CASEMGMT ---
JESSICA LUONG Face to Face with patient for initial transition planning/care coordination assessment. RN CM introduced self and role at [facility]. Patient lying in bed, alert and oriented, at bedside. Patient willing to participate in assessment and is able to answer all questions appropriately. Care providers, pharmacy, and demographics verified. Patient wishes to discharge home with HHC and is willing to go to SNF if needed. Patient states he has no further needs or concerns at this time. SW updated regarding possible SNF at discharge. CM to follow for discharge planning needs that may arise. PCP: Liz Mitchell Specialists: Jonny, handicrafts teacher; Valentin, neurologist Preferred Pharmacy: [facility] Insurance: [employer] Prescription Benefit: yes Living Will/HPOA: yes, Tomas Gómez LNOK: Living Arrangements: Patient lives with in a single story home with ramp to enter the home. Patient has functionally declining at home and assists with ADLs at home. Transportation: DME/HHC: patient has shower chair, BSC, raised toilet, hospital bed, wheelchair, walker, grab bars, and lift chair. No previous HHC or SNF. Disposition Plan: TBD, HHC vs SNF pending progress with therapy. Stephanie MARIE, RN, CM
[2020-10-28] MEDS: Fleet Enema 1 ML RC (12:33)
[2020-10-28] MEDS: MethylPREDNISolone DosePak 4 MG BOX PO (21:08)
[2020-10-28] MEDS: Enoxaparin 80 MG/0.8 ML Syringe SC (21:08)
[2020-10-28] MEDS: tiZANidine HCl 2 MG Tablet 4 MG PO (21:09)
[2020-10-28] MEDS: Senna/Docusate Sodium 1 Tablet 2 TABLET PO (21:09)
[2020-10-29] VITALS (10 sets, daily range): BP systolic 111–123; BP diastolic 72–92; PULSE 67–81; RESP 14–16; TEMP 36.1–36.7; O2SAT 91–98
[2020-10-29] MEDS: traMADol 50 MG Tablet PO ×2 (02:20→23:17)
[2020-10-29] MEDS: 0.9% Saline Lock 10 ML Syringe IV ×2 (06:07→16:47)
[2020-10-29] MEDS: Ondansetron 4 MG/2 ML Vial IV ×2 (06:07→16:46)
[2020-10-29] MEDS: MethylPREDNISolone DosePak 4 MG BOX PO ×4 (08:42→21:35)
--- NOTE | 2020-10-29 10:14 | CASEMGMT ---
IWONA was informed patient was interested in going somewhere for rehab. IWONA met with patient, introduced self and role at [facility]. SW asked about her discharge plan. She said someone spoke with her about TCU. SW asked if that is where she would like to go. She said she would like to stay at [facility] for her rehab. IWONA told her SW will check on availability in TCU and let her know. IWONA called [facility] and they would have a bed for patient in TCU. SW went back to patient's room and let her know. She then mentioned that someone spoke with her about the Inpatient Rehab Unit. She said she is willing to go to either unit. IWONA told her we will check with therapy to see which unit they feel would be best. She was in agreement with this. IWONA will talk with therapy. IWONA did call [facility] and gave her a heads up. Plan: TCU vs 4th floor rehab pending therapies recommendation. Nathaly Forde MANAGER [employer]ISING [employer]
[2020-10-29] MEDS: Metoprolol Tartrate 25 MG Tablet PO ×2 (11:28→21:34)
[2020-10-29] MEDS: Chlorthalidone 50 MG Tablet 12.5 MG PO (11:28)
[2020-10-29] MEDS: Enoxaparin 80 MG/0.8 ML Syringe SC ×2 (11:29→21:34)
[2020-10-29] MEDS: Ibuprofen 400 MG Tablet PO (12:20)
--- NOTE | 2020-10-29 15:37 | PN.HOSP_ITS ---
Subjective Subjective Patient seen and examined. She feels better today and wants eating breakfast. She had no other complaints and review of systems otherwise negative. She still has the neck pain but feels it is improving. She has remained hemodynamically stable. Objective Data Objective Data Vital Signs: Vital Signs Temp Pulse Resp BP Pulse Ox 97.9 F 73 14 111/72 98 10/29/20 15:35 10/29/20 15:35 10/29/20 15:35 10/29/20 15:35 10/29/20 15:35 Oxygen Delivery Method Room Air Weight: 174 lb 9.698 oz Body Mass Index (BMI) 25.9 Intake & Output: Intake and Output for Last 24 Hours 10/27/20 10/28/20 10/29/20 23:59 23:59 23:59 Intake Total 1300 / 1300 600 / 600 Output Total 400 / 400 630 / 630 400 / 400 Balance 900 / 900 -30 / -30 -400 / -400 Medical Nutrition Assessment Dietitian: Malnutrition Criteria Met Start: 10/27/20 17:39 Freq: Status: Active Protocol: Document 10/27/20 18:01 RMA (Rec: 10/27/20 18:02 RMA [id number]) Nutrition Malnutrition Evidence of Malnutrition Exists Yes Malnutrition (severe): Acute Illness/Injury Evidenced By Suboptimal Energy Intake ( Severe),Weight Loss (Severe) Clinical Problem Acute Disease or Injury Related Malnutrition Etiology Severe protein/calorie malnutrition in the context of acute illness related to inability to take adequate nutrition due to nausea and vomiting; poor appetite and difficulty chewing/swallowing Signs/Symptoms as evidenced by 7% wt loss x past 3 months, poor oral intake meeting less than 50% estimated nutrition needs x past 2-3 months and need for pureed diet at this time. Status Active Problem Recommendation Dietitian Recommendations/Changes Continue cardiac diet with consistency as per ELECTRONIC TRANSACTION IMPLEMENTER-- currently pureed w/ thin liquids. Will add 240ml ensure clear TID w/ meals as tolerated. Adjust ONS and diet as need to optimize intake as PO established with meals. Lab / Micro Data Result Diagrams: 10/26/20 17:08 10/27/20 05:24 Micro: Microbiology 10/26/20 22:48 Urine, Clean Catch Urine Culture - Final Mixed Gram Positive Organisms Radiography Diagnostic Testing: Radiology Impression Brain MRI 10/28/20 09:21 IMPRESSION: Normal unenhanced and enhanced MRI of the brain. Electronically Signed: Jason Flores MD at 16:56 EDT Tel , Service support , Cervical Spine MRI 10/28/20 09:21 IMPRESSION: Postsurgical changes and degenerative disc disease as described above. Electronically Signed: Jason Flores MD at 17:05 EDT Tel , Service support , Physical Exam Const alert and oriented x3 Orientation / Consciousness: lethargic Exam Limitations: no limitations HEENT head/scalp atraumatic, moist oral mucous membranes and gingiva normal Head and Scalp: normocephalic Eyes PERRL, EOMs intact bilaterally and conjunctivae normal Neck no lymphadenopathy Resp normal respiratory effort, no retractions, no use of accessory muscles and clear to auscultation bilaterally Cardio regular rate, regular rhythm, S1 normal heart sound, S2 normal heart sound and no murmurs GI normal to inspection, nondistended, normoactive bowel sounds, soft to palpation, non-tender and non-distended Extremity normal to inspection Peripheral Pulses: Yes pulses 2+ throughout Skin no rashes or lesions noted Neuro oriented x3 and CN's II-XII intact bilaterally Neuro Narrative: weak and frail; power in LEs is 4-/5 Sensorium / Orientation: awake and alert Psych affect normal Assessment & Plan Assessment/Plan (1) Neck pain: (2) UTI (urinary tract infection): (3) Atrial fibrillation with rapid ventricular response: (4) Nausea & vomiting: (5) Hypokalemia: PLAN: #Afib with RVR * resolved. Has been in normal sinus rhythm since * converted to normal sinus rhythm with administration of cardizem bolus * on metoprolol 25mg bid * on eliquis 5mg bid. * 2D echo showed EF of 65% with stage 2 diastolic dysfunction and normal LV systolic function. Valves were structurally normal * TSH was WNL * #Intractable nausea * still having nausea * on IV zofran prn and PO pantoprazole * to follow up with GI on outpatient basis. * #History of worsening debility and peripheral neuropathy * patient has been getting progressively weaker at home, with some falls. She says she followed up with a neurosurgeon on outpatient basis, and was referred to neurology. She has seen neurology, and says there were some labs done, including workup for MS, but these are pending. * Patient's family (sister and niece) [place] [facility] [place] and her however refused transfer to [facility]. * [facility] recommended MRI of the brain which was unremarkable. MRI of the cervical spine showed postsurgical changes and degenerative disc disease. * I did call her neurolog[facility] office [phone] to see if I can get any further input about what tests had been done. I only able to speak to an MA at the neurologist office who stated that patient had a diagnosis of migraine and vestibular neuronitis. She was also offered a work-up for peripheral neuropathy which she declined. At her last visit, labs that were ordered with myasthenia gravis antibody panel, voltage- gated calcium channel sanjeev and neuromuscular junctional antibody panel. These were done at [facility] on 10/16/2020 and results are still pending. I could only get to speak to an MA Yamile Fairchild at the office of her neurologist Dr hKari Hanson, who gave me the above information. * I called her neurosurgeon's office (Dr Raghu Gonzalez Simon neurosurgery [phone]) for additional input about whether her previous cervical MRI's looked the same as this current MRI or otherwise, but I was told her neurosurgeon was on vacation; I left my personal phone number for the covering neurosurgeon, Dr Monsivais, to call me back. * per neuro rec;s to order a battery of labs and also to have EMG on outpatient basis. * PT/OT on board * fall precautions * #hypertension: on chlorthalidone #History of chronic migraine * on eletriptan * #History of cervical spine stenosis with neuraforaminal stenosis * pain management on board. Neck pain is better now * PT/OT on board * Fall precautions * * DVT prophylaxis: now on therapeutic lovenox for afib. Disposition; will need placement Charges/Coding Visit Charges Inpatient E&M: 79048 Subs Hosp L2
--- NOTE | 2020-10-29 18:31 | NURSING ---
Charting by Suzie HOOKER reviewed by this RN
[2020-10-29] MEDS: tiZANidine HCl 2 MG Tablet 4 MG PO (21:35)
[2020-10-29] MEDS: DiphenhydrAMINE 25 MG Capsule PO (23:17)
[2020-10-30] VITALS (11 sets, daily range): BP systolic 116–137; BP diastolic 80–90; PULSE 66–82; RESP 12–18; TEMP 36.6–36.8; O2SAT 96–97
[2020-10-30 05:37] LABS: Erythrocyte Sedimentation Rate 12 mm/hr (0-30)
[2020-10-30] MEDS: MethylPREDNISolone DosePak 4 MG BOX PO ×4 (08:12→21:48)
[2020-10-30 09:02] LABS: HIV - WCH Non-Reactive (Nonreactive); Vitamin B12 553 pg/mL (211-911)
[2020-10-30 09:06] LABS: Hepatitis B Surface Antibody Reactive; Hepatitis B Surface Antigen Non-Reactive (Nonreactive); Hepatitis C Antibody Non-Reactive (Nonreactive)
--- NOTE | 2020-10-30 10:18 | CASEMGMT ---
Therapy said patient would not get up with them as her was not present. They told her that her won't be able to be present every time therapy sees her in TCU. She disagreed. SW met with patient. SW explained to her that while in TCU there is no guarantee that her can be present for every session. SW asked if she will work therapy in TCU even if her is not present and she said she will. Plan: [facility] Nathaly MART
[2020-10-30] MEDS: Metoprolol Tartrate 25 MG Tablet PO ×2 (10:39→21:47)
[2020-10-30] MEDS: Chlorthalidone 50 MG Tablet 12.5 MG PO (10:39)
[2020-10-30] MEDS: Enoxaparin 80 MG/0.8 ML Syringe SC (10:40)
--- NOTE | 2020-10-30 12:49 | PN.HOSP_ITS ---
Subjective Subjective Patient seen and examined. She has no complaints today. Neck pain is improving. Review of systems is otherwise negative. I updated patient about my discussion with her neurologist's office, and also with my calling her neurosurgeon's office and him being on leave; I informed her I'm still waiting for the covering neurosurgeon to call me back. She has remained hemodynamically stable. Objective Data Objective Data Vital Signs: Vital Signs Temp Pulse Resp BP Pulse Ox 98.3 F 79 16 137/90 H 96 10/30/20 10:29 10/30/20 10:39 10/30/20 10:29 10/30/20 10:39 10/30/20 10:29 Oxygen Delivery Method Room Air Weight: 173 lb 15.115 oz Body Mass Index (BMI) 25.9 Intake & Output: Intake and Output for Last 24 Hours 10/28/20 10/29/20 10/30/20 23:59 23:59 23:59 Intake Total 600 / 600 120 / 120 Output Total 630 / 630 550 / 775 325 / 325 Balance -30 / -30 -430 / -655 -325 / -325 Medical Nutrition Assessment Dietitian: Malnutrition Criteria Met Start: 10/27/20 17:39 Freq: Status: Active Protocol: Document 10/27/20 18:01 RMA (Rec: 10/27/20 18:02 RMA [id number]) Nutrition Malnutrition Evidence of Malnutrition Exists Yes Malnutrition (severe): Acute Illness/Injury Evidenced By Suboptimal Energy Intake ( Severe),Weight Loss (Severe) Clinical Problem Acute Disease or Injury Related Malnutrition Etiology Severe protein/calorie malnutrition in the context of acute illness related to inability to take adequate nutrition due to nausea and vomiting; poor appetite and difficulty chewing/swallowing Signs/Symptoms as evidenced by 7% wt loss x past 3 months, poor oral intake meeting less than 50% estimated nutrition needs x past 2-3 months and need for pureed diet at this time. Status Active Problem Recommendation Dietitian Recommendations/Changes Continue cardiac diet with consistency as per HVAC MAINTENANCE TECHNICIAN-- currently pureed w/ thin liquids. Will add 240ml ensure clear TID w/ meals as tolerated. Adjust ONS and diet as need to optimize intake as PO established with meals. Lab / Micro Data Result Diagrams: 10/26/20 17:08 10/27/20 05:24 Labs: Laboratory Results - last 24 hr 10/30/20 05:08: ESR 12 10/30/20 05:08: Vitamin B12 553, HIV 1&2 Antibody Non-Reactive 10/30/20 05:08: Rheumatoid Factor 20.0 H 10/30/20 05:08: Ur Total Protein 24 Hr Cancelled, Urine Total Protein Cancelled, Urine Albumin Cancelled, U Inqpu-2-Whtqyvnw Cancelled, U Hrvgc-5-Qgrowmbq Cancelled, U Beta Globulin Cancelled, U Gamma Globulin Cancelled, U PEP M-Kang Cancelled, U PEP M-Kang 24 Hr Cancelled, Urine Immunofixation Cancelled, Urine SRINIVAS Interpret Cancelled, Ur Immunofix PEP Note Cancelled 10/30/20 05:08: Hep Bs Antigen Non-Reactive, Hep Bs Antibody Reactive, Hepatitis C Antibody Non-Reactive Micro: Microbiology 10/26/20 22:48 Urine, Clean Catch Urine Culture - Final Mixed Gram Positive Organisms Physical Exam Const alert and oriented x3 Orientation / Consciousness: lethargic Exam Limitations: no limitations HEENT head/scalp atraumatic, moist oral mucous membranes and gingiva normal Head and Scalp: normocephalic Eyes PERRL, EOMs intact bilaterally and conjunctivae normal Neck no lymphadenopathy Resp normal respiratory effort, no retractions, no use of accessory muscles and clear to auscultation bilaterally Cardio regular rate, regular rhythm, S1 normal heart sound, S2 normal heart sound and no murmurs GI normal to inspection, nondistended, normoactive bowel sounds, soft to palpation, non-tender and non-distended Extremity normal to inspection Skin no rashes or lesions noted Neuro oriented x3 and CN's II-XII intact bilaterally Neuro Narrative: weak and frail; power in LEs is 4-/5 Sensorium / Orientation: awake and alert Psych affect normal Assessment & Plan Assessment/Plan (1) Neck pain: (2) UTI (urinary tract infection): (3) Atrial fibrillation with rapid ventricular response: (4) Nausea & vomiting: (5) Hypokalemia: PLAN: #Afib * was admitted with afib with RVR, which has since resolved and hasnt recurred. * converted to normal sinus rhythm with administration of cardizem bolus * on metoprolol 25mg bid * on eliquis 5mg bid. * 2D echo showed EF of 65% with stage 2 diastolic dysfunction and normal LV systolic function. Valves were structurally normal * TSH was WNL * #Intractable nausea * improved * on IV zofran prn and PO pantoprazole * to follow up with GI on outpatient basis. * #History of worsening debility and peripheral neuropathy * patient has been getting progressively weaker at home, with some falls. She says she followed up with a neurosurgeon on outpatient basis, and was referred to neurology. She has seen neurology, and says there were some labs done, including workup for MS, but these are pending. * SOC recommended MRI of the brain which was unremarkable. MRI of the cervical spine showed postsurgical changes and degenerative disc disease. * I did call her neurologist office ([facility] [phone]) to see if I can get any further input about what tests had been done. I only able to speak to an MA at the neurologist office who stated that patient had a diagnosis of migraine and vestibular neuronitis. She was also offered a work-up for peripheral neuropathy which she declined. At her last visit, labs that were ordered with myasthenia gravis antibody panel, voltage- gated calcium channel sanjeev and neuromuscular junctional antibody panel. These were done at [facility] on 10/16/2020 and results are still pending. I could only get to speak to an MA Yamile Fairchild at the office of her neurologist Dr Khari Hanson, who gave me the above information. * I called her neurosurgeon's office (Dr Raghu Gonzalez [facility] neurosurgery [phone]) for additional input about whether her previous cervical MRI's looked the same as this current MRI or otherwise, but I was told her n roxana was on vacation; I left my personal phone number for the covering neurosurgeon, Dr Monsivais, to call me back. * per neuro rec;s to order a battery of labs and also to have EMG on outpatient basis. * PT/OT on board * fall precautions * general surgery consulted for muscle biopsy due to her peripheral neuropathy and weakness. * rheumatoid factor is positive, other rheumatologic labs pending. * #hypertension: on chlorthalidone #History of chronic migraine * on eletriptan * #History of cervical spine stenosis with neuraforaminal stenosis * pain management on board. Neck pain is better now * PT/OT on board * Fall precautions * * DVT prophylaxis: now on therapeutic lovenox for afib. hold lovenox for muscle biopsy tomorrow. Disposition: awaiting placement. To go to TCU once medically stable. Charges/Coding Visit Charges Inpatient E&M: 10125 Subs Hosp L2
--- NOTE | 2020-10-30 15:04 | PCM.HP.STD ---
HPI - General General Date of Admission: 10/27/20 HPI Narrative YAKOV NUNEZ, is a 65 F who is currently admitted after diagnosis of atrial fibrillation with rapid ventricular response, ataxia, and generalized weakness. She has experienced a gradual neurologic decline that appears to be systemic affecting her vision, her speech, or gait, and her general ability to execute fine motor activity. She reports this is led to work-ups by both neurology and neurosurgery as an outpatient. To date, biochemical assays for multiple sclerosis and myasthenia gravis have come back negative. 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 The hospitalist service has requested surgical consultation for consideration of a muscle biopsy. REPLACED BY [facility] Medical History Abnormal bruising Arthritis Chronic migraine Chronic neck and back pain Essential (primary) hypertension Knee pain Limb weakness Shoulder pain Spinal stenosis Vasovagal syncope Home Medications metoprolol succinate 25 mg tablet,extended release 24 hr 12.5 mg PO DAILY 12/11/18 [History Last Taken Unknown] gabapentin 600 mg tablet 300 mg PO BID tab 12/13/18 [History Last Taken Unknown] eletriptan 40 mg tablet 40 mg PO PRN PRN 05/07/19 [History Last Taken Unknown] chlorthalidone 12.5 mg PO DAILY 08/03/19 [History Last Taken Unknown] cephalexin 500 mg PO BID 5 Days #10 cap 10/24/20 [Rx Last Taken Unknown] duloxetine 30 mg PO DAILY 10/24/20 [History Last Taken Unknown] meclizine 25 mg PO DAILY 10/24/20 [History Last Taken Unknown] metoclopramide HCl [Reglan] 10 mg PO BID PRN PRN #10 tab 10/24/20 [Rx Last Taken Unknown] ondansetron HCl 4 mg PO Q8H PRN PRN 10/24/20 [History Last Taken Unknown] tramadol 50 mg PO Q8H PRN #10 tab 10/24/20 [Rx Last Taken Unknown] Allergy/AdvReac Type Severity Reaction Status Date / Time acetaminophen [From Percocet] Allergy Unknown Unknown Verified 10/26/20 16:34 hydromorphone [From Dilaudid] Allergy Unknown Unknown Verified 10/26/20 16:34 morphine Allergy Unknown Unknown Verified 10/26/20 16:34 oxycodone [From Percocet] Allergy Unknown Unknown Verified 10/26/20 16:34 celecoxib [From Celebrex] Allergy Hives Verified 10/26/20 16:34 NARCOTIC AdvReac Itching Uncoded 10/26/20 16:34 Family History Father Hypertension Diabetes Cancer prostate Mother Hypertension MGUS (monoclonal gammopathy of unknown significance) Surgical History H/O cervical discectomy History of hysterectomy Social History (Updated 10/26/20 @ 21:32 by Tanya Huertas) household members: spouse housing: house current occupational status: retired pets and animals: Yes (dogs & cats ) current gender identity: female Smoking Status: Never smoker alcohol intake: never substance use type: does not use caffeine: Yes what type of physical activity do you participate in: walking seatbelt use: always do you feel safe at home: Yes Vital Signs Vital Signs Vital Signs: 10/29/20 15:35 10/29/20 15:44 10/29/20 19:00 Temperature 97.9 F Temperature Source Oral Pulse Rate 73 72 67 Respiratory Rate 14 Respiratory Effort Respiratory Depth Respiratory Pattern Blood Pressure 111/72 Blood Pressure Mean 85 Blood Pressure Source Monitor Blood Pressure Position Sitting Blood Pressure Location Left Arm Pulse Ox 98 Oxygen Delivery Method Room Air 10/29/20 21:32 10/29/20 21:34 10/29/20 21:40 Temperature 98.0 F Temperature Source Oral Pulse Rate 68 68 Respiratory Rate 16 Respiratory Effort Normal Non-Labored Respiratory Depth Normal Respiratory Pattern Normal Blood Pressure 116/77 116/77 Blood Pressure Mean 90 Blood Pressure Source Monitor Blood Pressure Position Supine Blood Pressure Location Right Arm Pulse Ox 95 Oxygen Delivery Method Room Air Room Air 10/30/20 03:00 10/30/20 03:30 10/30/20 07:32 Temperature 97.8 F Temperature Source Temporal Pulse Rate 67 66 82 Respiratory Rate 16 Respiratory Effort Respiratory Depth Respiratory Pattern Blood Pressure 116/80 Blood Pressure Mean 92 Blood Pressure Source Monitor Blood Pressure Position Semi-Fowlers Blood Pressure Location Right Arm Pulse Ox 97 Oxygen Delivery Method Room Air 10/30/20 08:09 10/30/20 08:19 10/30/20 10:29 Temperature 98.1 F 98.3 F Temperature Source Oral Oral Pulse Rate 70 79 Respiratory Rate 12 16 Respiratory Effort Normal Non-Labored Respiratory Depth Normal Respiratory Pattern Normal Blood Pressure 131/81 H 137/90 H Blood Pressure Mean 97 105 Blood Pressure Source Monitor Monitor Blood Pressure Position Semi-Fowlers Semi-Fowlers Blood Pressure Location Right Arm Right Arm Pulse Ox 96 96 Oxygen Delivery Method Room Air Room Air Room Air 10/30/20 10:39 10/30/20 14:43 Temperature Temperature Source Pulse Rate 79 Respiratory Rate Respiratory Effort Normal Non-Labored Respiratory Depth Normal Respiratory Pattern Normal Blood Pressure 137/90 H Blood Pressure Mean Blood Pressure Source Blood Pressure Position Blood Pressure Location Pulse Ox Oxygen Delivery Method Room Air Weight Weight: 173 lb 15.115 oz Body Mass Index (BMI) 25.9 Physical Exam Const alert and oriented x3 General Appearance: cooperative Eyes Eyes Narrative: Patient has ptosis of her right eyelid Extremity Extremity Narrative: Diffuse muscle wasting Neuro Neuro Narrative: Patient exhibits 5 out of 5 hip flexion and lower extremity extension bilaterally Results Medical Records Data Medical Nutrition Assessment Dietitian: Malnutrition Criteria Met Start: 10/27/20 17:39 Freq: Status: Active Protocol: Document 10/27/20 18:01 RMA (Rec: 10/27/20 18:02 RMA [id number]) Nutrition Malnutrition Evidence of Malnutrition Exists Yes Malnutrition (severe): Acute Illness/Injury Evidenced By Suboptimal Energy Intake ( Severe),Weight Loss (Severe) Clinical Problem Acute Disease or Injury Related Malnutrition Etiology Severe protein/calorie malnutrition in the context of acute illness related to inability to take adequate nutrition due to nausea and vomiting; poor appetite and difficulty chewing/swallowing Signs/Symptoms as evidenced by 7% wt loss x past 3 months, poor oral intake meeting less than 50% estimated nutrition needs x past 2-3 months and need for pureed diet at this time. Status Active Problem Recommendation Dietitian Recommendations/Changes Continue cardiac diet with consistency as per NURSING HOME ADMINISTRATOR-- currently pureed w/ thin liquids. Will add 240ml ensure clear TID w/ meals as tolerated. Adjust ONS and diet as need to optimize intake as PO established with meals. Lab / Micro Data Result Diagrams: 10/26/20 17:08 10/27/20 05:24 Labs: Laboratory Results - last 24 hr 10/30/20 05:08: ESR 12 10/30/20 05:08: Vitamin B12 553, HIV 1&2 Antibody Non-Reactive 10/30/20 05:08: Rheumatoid Factor 20.0 H 10/30/20 05:08: Ur Total Protein 24 Hr Cancelled, Urine Total Protein Cancelled, Urine Albumin Cancelled, U Lokvz-5-Tutimvsi Cancelled, U Ryvur-2-Rtmkozoj Cancelled, U Beta Globulin Cancelled, U Gamma Globulin Cancelled, U PEP M-Kang Cancelled, U PEP M-Kang 24 Hr Cancelled, Urine Immunofixation Cancelled, Urine SRINIVAS Interpret Cancelled, Ur Immunofix PEP Note Cancelled 10/30/20 05:08: Hep Bs Antigen Non-Reactive, Hep Bs Antibody Reactive, Hepatitis C Antibody Non-Reactive Assessment & Plan Assessment/Plan (1) Weakness generalized: PLAN: Plan to proceed with a quadriceps muscle biopsy under local MAC tomorrow 10/31/2020. Procedure described in detail above the patient and her spouse. All questions were answered to their satisfaction. Please continue to hold Lovenox and keep patient n.p.o. appropriate. Charges/Coding Visit Charges Inpatient E&M: 51146 Init Hosp L2
[2020-10-30] MEDS: DiphenhydrAMINE 25 MG Capsule PO (15:20)
[2020-10-30] MEDS: traMADol 50 MG Tablet PO (15:20)
[2020-10-30] MEDS: Ibuprofen 400 MG Tablet PO (17:45)
[2020-10-30] MEDS: tiZANidine HCl 2 MG Tablet 4 MG PO (21:48)
[2020-10-31] VITALS (14 sets, daily range): BP systolic 110–147; BP diastolic 78–93; PULSE 58–80; RESP 12–18; TEMP 36.1–36.8; O2SAT 95–99
[2020-10-31 06:20] LABS: Absolute Lymphocyte Count 2.35 X10^3/uL (0.83-4.51); Absolute Neutrophil Count 2.9 X10^3/uL (2.0-7.7); Basophil# 0.02 X10^3/uL; Basophil% 0.4 % (0-1); Eosinophil# 0.01 X10^3/uL; Eosinophils% 0.2 % (0-5); Hematocrit 44.8 % (37-47); Hemoglobin 15.1 g/dL (12.0-15.0); Lymphocyte # 2.35 X10^3/ul (0.83-4.51); Lymphocyte % 42.4 % (19-41); Mean Corp Hgb Conc 33.7 g/dL (32-36); Mean Corpuscular Hgb 29.5 pg (27.0-32.0); Mean Corpuscular Volume 87.5 fL (81-99); Mean Platelet Vol. 10.8 fl (6.2-12.0); Monocyte# 0.24 X10^3/uL; Monocyte% 4.3 % (0-10); NRBC Flagged by Analyzer 0 % (0-5); Neutrophil # 2.91 X10^3/uL (2.7-7.7); Neutrophil % 52.5 % (47-70); Platelet Count 201 K/mm3 (150-450); RBC Distribution Width CV 13.5 % (11.6-14.6); RBC Distribution Width SD 43.1 fl (35.1-43.9); Red Blood Count 5.12 M/mm3 (4.2-5.4); White Blood Count 5.5 K/mm3 (4.4-11.0)
[2020-10-31 06:49] LABS: Anion Gap 6 (5-15); BUN 19 mg/dL (7-18); BUN/Creat Ratio 23.4 RATIO (10-20); Calcium,Total 9.3 mg/dL (8.5-10.1); Chloride 105 mmol/L (98-107); Creatinine, Serum 0.81 mg/dL (0.55-1.02); EST Glomerular Filtration Rate 75 mL/min (>60); Est Glom Filt Rate - Afr Amer 90 mL/min (>60); Estimated Creatinine Clearance 70.43 ml/min; Glucose 96 mg/dL (74-106); Potassium 3.3 mmol/L (3.5-5.1); Sodium Level 139 mmol/L (136-145)
[2020-10-31] MEDS: Lactated Ringers 1,000 ML 100 ML IV (08:20)
--- NOTE | 2020-10-31 09:46 | MUSA_PTH ---
PATIENT: YAKOV NNUEZ LOC: [facility] U#:[id number] AGE/SX: 65/F ROOM: [facility] RE10/27/[address]: Dr. Karina Aldridge MD : 1955 BED: 1 DIS: 10/31/2020 SPEC #: [id number] RECD: 10/31/20 09:49 STATUS: TARA REIssa #: [id number] CHAGO: 10/31/20 09:[address]: Clint Garcia DEPT: SURGICAL PATHOLOGY RECD BY: Dylan Stone ENTERED: 10/31/20 09:56 SP TYPE: MUSCLE BX OTHR DR: MD Dr. Clint Sanchez MD Dr. Nana Yaa Koram, MD Dr. Prakash Chand, MD Mary Ciesa, MACHINE BOSS-C Tissues: MUSCLE OF.. Procedures: Spec St Grp II (ACH) Biopsy ACH Comments: @ Ordering doctor for SSII ACH edited from to @ by KASH at 11/24/20 155 @ Ordering doctor for BIOPSY ACH edited from to @ by KASH at 11/24/20 155 @ Submitting doctor edited from to @ med HEWITT at 11/24/20 1557 HEADER OPERATION: Right quadriceps muscle biopsy PRE-OP DIAGNOSIS: M48.02, M48.061, M79.18 TISSUE SUBMITTED: Right quadriceps muscle biopsy, sent to [facility] for analysis (totally) MICROSCOPIC DIAGNOSIS Skeletal muscle, right quadriceps, biopsy: Mild myopathic changes Mild diffuse type 2 fiber atrophy (see comment) COMMENT The changes in the biopsy are those of a myopathy with rounded atrophic and hypertrophic fibers though the lack of regenerating, degenerating and necrotic fibers makes these findings rather limited in value. There is a pattern of poli-fascicular atrophy (best seen on the FFPE) which can be seen in dermatomyositis, but the complete absence of inflammation makes this diagnosis a challenging one to make. Inflammation in dermatomyositis can be patchy and it possible that it was not sampled. Additionally, steroid treatment prior to biopsy would also limit the quantity of inflammation. [Ref1]. While the clinical history raises suspicion of a neurologic etiology to the weakness the patient is experiencing, there are no definitive neuropathic changes seen in the biopsy (no fiber type grouping or group atrophy). The lack of these findings, of course, do not rule out a neurologic disorder and clinical correlation is recommended. Diffuse type 2 atrophy is a non-specific finding that can be seen in association with disuse, aging, rapid weight loss (>15%), nutritional deficiencies, chronic steroid treatment, paraneoplastic syndromes, and caner cachexia, among other conditions [Ref2]. MICROSCOPIC DESCRIPTION Formalin-fixed, paraffin-embedded and frozen H&E shows moderate variation in fiber size with both atrophic and hypertrophic fibers. A faint perifascicular pattern of atrophy is noted. There is no significant inflammation. There are no regenerating/degenerating or necrotic fibers. There are no fibers undergoing myophagocytosis. Occasional pyknotic nuclear clumps are seen. Vasculature and nerves are unremarkable. Trichrome shows no increase in fibrosis, no inclusions or ragged red fibers. NADH and SDH are within normal limits. There is no increase in KIM-negative fibers. PAS shows normal glycogen content and distribution. Oi Red O shows mildly diminished lipid content. No abnormal lipid accumulation is seen. ATPases 4.6 and 9.4 shoe a type 2 predominant fiber with mild type 2 fiber atrophy. No definitive fiber type grouping is identified. GROSS DESCRIPTION Received fresh on saline dampened gauze is a skeletal muscle biopsy consisting of sutured 1.6 x 1.3 x 0.5 cm piece of red-pink skeletal muscle. Mis Manager section is submitted for histochemistry/histochemical studies. Mis Manager section is submitted for electron microscopic studies. The remainder of the specimen is submitted for light microscopy (permanent sections) as A1.
[2020-10-31] MEDS: Bupivacaine Mpf 0.5% 30 ML VIAL (10:00)
--- NOTE | 2020-10-31 10:07 | OP.PCM_ITS ---
Problems Associated Problem List Diagnoses (1) Weakness generalized: Report of Operation Date of Procedure: 10/31/20 Pre-Operative Diagnosis: Generalized Weakness Post-Operative Diagnosis: Same Surgery/Procedure Performed:: Superficial muscle biopsy of the right quadriceps Description of Surgical Findings:: ?Mild amount of white percutaneous tissue beneath the muscular fascia directly atop the muscle belly Surgeon: Clint Garcia sizing machine tender: None Type of Anesthesia: Local MAC Anesthesiologist: Morgan Rudd Estimated Blood Loss (mL): <5 Description of Procedure: After appropriate verification in the day surgery area, our patient was brought to the operating room where they were positioned supine on the operating table. Sedation was administered by anesthesia and preoperative antibiotics were given. Patient's right thigh was then prepped and draped in usual sterile fashion. Formal timeout was conducted to confirm both patient and the procedure. Procedure was begun with administration of local anesthetic. A total of 10 mL half percent bupivacaine was infiltrated. Then a 5 cm longitudinal incision was made in the patient's right mid thigh. Dissection was carried down through the subcutaneous tissues to the muscular fascia deeply. This was sharply incised to expose the quadriceps muscle belly below. A 3-0 Vicryl suture was used as a stay suture in the middle of the muscle belly and the muscle fibers were dissected free of the surrounding muscle bluntly proximally and distally until he had an approximately 2 cm long by 1 cm wide specimen. Clamps were placed at both ends of the selected biopsy tissue and the muscle was sharply divided and passed off the field for fresh pathologic processing. The cut ends of the muscle were then tied with 3-0 Vicryl and allowed to retract into position. Hemostasis was obtained in the wound bed and the wound was closed in layers using 3-0 Vicryl followed by 4-0 subcuticular. Dermabond was used as a dressing to seal the wound. Complications None Admit VTE Documentation VTE Present on Admission: Yes (Therapeutic Lovenox was held for procedure) VTE Mechan Device Prophylaxis: SCD's VTE Pharm Prophylaxis ordered?: Yes
[2020-10-31] MEDS: Polyethylene Glycol 3350 17 GM PACKET PO (11:20)
[2020-10-31] MEDS: Ibuprofen 400 MG Tablet PO (11:21)
[2020-10-31] MEDS: Chlorthalidone 50 MG Tablet 12.5 MG PO (11:21)
[2020-10-31] MEDS: Potassium Chloride Oral Tablet 20 MEQ 40 MEQ PO (11:21)
[2020-10-31] MEDS: Metoprolol Tartrate 25 MG Tablet PO (11:21)
[2020-10-31] MEDS: MethylPREDNISolone DosePak 4 MG BOX PO (11:22)
--- NOTE | 2020-10-31 14:00 | CASEMGMT ---
Palliative screening tool completed at this time for Lace/Strata 3. Patient does not meet criteria at this time.
--- NOTE | 2020-10-31 14:19 | CASEMGMT ---
Patient is ready for d/c to [facility]. SW called Richa and let her know. Plan: d/c to [facility] under skilled level of care. Nathaly MART
--- NOTE | 2020-10-31 15:15 | PCM.DC.SUM ---
Providers Date of Admission: 10/27/20 Primary Care Physician: DAVIS Villa Consultations 10/27/20 10:00 Consult: Pain Management Routine Consulting Provider: Jos Romero Reason for Consult: severe neck pain, history of severe cervical degenerative disc disease EMERGENT Consult: No Notified: Yes Date Notified: 10/27/20 Time Notified: 10:00 Method of Notification: office 10/30/20 12:46 Consult: General Surgery Routine Consulting Provider: Clint Garcia Reason for Consult: peripheral neuropathy; needs muscle biopsy EMERGENT Consult: No Notified: Yes Date Notified: 10/30/20 Time Notified: 12:47 Method of Notification: Text Reason For Visit: A FIB WITH RVR Diagnosis Discharge Diagnosis (1) Weakness generalized: Status: Acute Code(s): R53.1 - Weakness Medications at Discharge Home Medications metoprolol succinate 25 mg tablet,extended release 24 hr 12.5 mg PO DAILY 12/11/18 gabapentin 600 mg tablet 300 mg PO BID tab 12/13/18 eletriptan 40 mg tablet 40 mg PO PRN PRN 05/07/19 chlorthalidone 12.5 mg PO DAILY 08/03/19 duloxetine 30 mg PO DAILY 10/24/20 meclizine 25 mg PO DAILY 10/24/20 metoclopramide HCl [Reglan] 10 mg PO BID PRN PRN #10 tab 10/24/20 ondansetron HCl 4 mg PO Q8H PRN PRN 10/24/20 tramadol 50 mg PO Q8H PRN #10 tab 10/24/20 Hospital Course Operations None Procedures None and - (muscle biopsy) Summary of Care Provided Minutes Spent on Discharge: 45 Hospital Course: Patient is a 65-year-old female with an extensive past medical history as outlined was admitted through the ED on 10/27/2020 for generalized weakness and difficulty walking was found to be in A. fib with RVR. Patient has had a gradual decline affecting her gait and also said it was affecting her vision in his speech. She had seen neurology and neurosurgery on outpatient basis. She has been worked up for myasthenia gravis lab work-up which was still pending per her neurologist. On admission, her EKG showed A. fib with RVR. He also had associated nausea and vomiting. She was given a bolus of Cardizem which brought her heart rate down to the 100s, she also had hypokalemia. She was admitted and managed for new onset A. fib with RVR. She was started on p.o. metoprolol 25 mg daily and was also started on Eliquis. She had 2D echo which showed EF of 65% with stage II diastolic dysfunction and no regional wall motion abnormalities seen. Neurology was consulted on account of patient's complaint of neck pain and weakness which have been going on for a long time for which she was following neurology and neurosurgery on outpatient basis. Neurology reviewed patient and felt her symptoms were likely due to her peripheral neuropathy the cause of which was unclear. It did turntable engineer that she was being managed on outpatient basis by neurologist for vestibular neuronitis and migraines and per her neurologist office, she had been offered work-up for peripheral neuronitis but she had declined though patient said this was not so. Neurology recommended a battery of labs including rheumatologic work-up which were ordered. Rheumatoid factor was elevated and so the reflex rheumatological labs were still pending at time of discharge. Patient also said she had been told she needed a muscle biopsy and wondered if it would be done in the hospital. General surgery was consulted and patient had a muscle biopsy done on 10/31/2020 results of which were pending. Patient also had an MRI of the brain which was unremarkable and MRI of the cervical spine which showed postsurgical changes and degenerative disc disease. Patient remained stable and required placement as she was too weak to care for herself at home. She was discharged to the transitional care unit on 12/01/2020. She is to follow-up with her primary care doctor and to follow-up with her neurologist on outpatient basis. Of note, patient remained in sinus rhythm throughout admission after her initial admission of A. fib. I did discuss this with her jersey knitter Dr. Najera that in light of the A. fib not requiring during admission and history of falls at home, I was concerned about putting her on long-term anticoagulation. I counseled patient about this and did advise her that she an increased risk of stroke if the A. fib did recur but she was also at a much higher risk of bleeding if she was put on blood thinners in light of her history of mechanical falls. Patient was therefore not discharged on blood thinners. I must also see that patient's sister and niece from [place] called demanding that patient should be transferred to [facility] for neurologic work-up. Patient was alert and oriented x3 and able to make her decisions and she adamantly refused to be transferred and her also did not want patient to be transferred. Patient seen and examined prior to discharge. She felt a bit better today and was able to move with assistance from her bed to the chair. Review of systems otherwise negative. Labs and vitals reviewed. Home medication reviewed and reconciled. Physical Exam Narrative Const alert and oriented x3 General Appearance: cooperative Orientation / Consciousness: awake Exam Limitations: no limitations HEENT normocephalic, head/scalp atraumatic, moist oral mucous membranes and gingiva normal Eyes PERRL, EOMs intact bilaterally and conjunctivae normal Neck no lymphadenopathy Resp normal respiratory effort, no retractions, no use of accessory muscles and clear to auscultation bilaterally Cardio regular rate, regular rhythm, S1 normal heart sound, S2 normal heart sound and no murmurs GI normal to inspection, nondistended, normoactive bowel sounds, soft to palpation, non-tender and non-distended Extremity normal to inspection Skin no rashes or lesions noted Neuro oriented x3 and CN's II-XII intact bilaterally Neuro Narrative: weak and frail; power in LEs is 4-/5 Sensorium / Orientation: awake and alert Psych affect normal Mood & Affect: anxious Medical Records Data Medical Nutrition Assessment Dietitian: Malnutrition Criteria Met Start: 10/27/20 17:39 Freq: Status: Active Protocol: Document 10/31/20 14:59 AG (Rec: 10/31/20 14:59 AG [id number]) Nutrition Malnutrition Evidence of Malnutrition Exists Yes Malnutrition (severe): Acute Illness/Injury Evidenced By Suboptimal Energy Intake ( Severe),Weight Loss (Severe) Clinical Problem Acute Disease or Injury Related Malnutrition Etiology Severe protein/calorie malnutrition in the context of acute illness related to inability to take adequate nutrition due to nausea and vomiting; poor appetite and difficulty chewing/swallowing Signs/Symptoms as evidenced by 7% wt loss x past 3 months, poor oral intake meeting less than 50% estimated nutrition needs x past 2-3 months Status Active Problem Recommendation Dietitian Recommendations/Changes Liberalize diet to regular d/t malnutrition; d/c Ensure Clear per pt request. Weight / BMI Weight Weight: 171 lb 15.369 oz Body Mass Index (BMI) 25.9 ABG / Lab / Microbiology Data Result Diagrams: 10/31/20 05:34 10/31/20 05:34 Laboratory: Laboratory Results - last 24 hr 10/31/20 05:34: WBC 5.5, RBC 5.12, Hgb 15.1 H, Hct 44.8, MCV 87.5, MCH 29.5, MCHC 33.7, RDW Std Deviation 43.1, RDW Coeff of Pedrito 13.5, Plt Count 201, MPV 10.8, Immature Gran % (Auto) 0.200, Neut % (Auto) 52.5, Lymph % (Auto) 42.4 H, [place] % (Auto) 4.3, Eos % (Auto) 0.2, Baso % (Auto) 0.4, Absolute Neuts (auto) 2.9, Absolute Lymphs (auto) 2.35, Nucleated RBC % 0 10/31/20 05:34: Sodium 139, Potassium 3.3 L, Chloride 105, Carbon Dioxide 28.0, Anion Gap 6, BUN 19 H, Creatinine 0.81, Estim Creat Clear Calc 70.43, Est GFR (MDRD) Af Amer 90, Est GFR (MDRD) Non-Af 75, BUN/Creatinine Ratio 23.4 H, Glucose 96, Calcium 9.3 Microbiology: Microbiology 10/30/20 16:51 Mucosa - Nasopharyngeal SARS-CoV-2 Antigen (Rapid) - Final 10/26/20 22:48 Urine, Clean Catch Urine Culture - Final Mixed Gram Positive Organisms D/C Instructions Discharge Diet: Low fat / Low cholesterol Discharge Activity: Return to Normal Activity Weight Bearing Status: Weight bearing as tolerated Call your doctor if you observe: Fever of 101 or Higher, Shortness of breath and Uncontrolled pain Meaningful Use Info Meaningful Use Diagnoses (Choose all that apply): None applicable Discharge Plan Admission Admit Date/Time: 10/27/20 13:44 Primary Reason for Your Visit: afib Attending Provider: Karina Aldridge Primary Care Provider: Liz Mitchell NP Consulting Providers: Jos Romero ; Clint Garcia Instructions Patient Instructions: Dizziness Balance Probs Fainting, ED AFIB Additional Instructions / Restrictions: follow up with neurology on outpatient basis in 1-2 weeks. Discharge Orders/Prescriptions Prescriptions: Continued metoprolol succinate 25 mg tablet extended release 24 hr 12.5 mg PO DAILY RF: 0 gabapentin 600 mg tablet 300 mg PO BID RF: 0 eletriptan 40 mg tablet 40 mg PO PRN PRN (Reason: Migraine Symptoms) RF: 0 chlorthalidone 25 MG tablet 12.5 mg PO DAILY RF: 0 ondansetron HCl 4 mg tablet 4 mg PO Q8H PRN PRN (Reason: Nausea) RF: 0 duloxetine 30 mg capsule,delayed release(DR/EC) 30 mg PO DAILY RF: 0 metoclopramide HCl [Reglan] 10 mg tablet 10 mg PO BID PRN PRN (Reason: nausea and vomiting) Qty: 10 RF: 0 tramadol 50 mg tablet 50 mg PO Q8H PRN (Reason: pain) Qty: 10 RF: 0 Discontinued cephalexin 500 mg capsule 500 mg PO BID 5 Days Qty: 10 RF: 0 No Action meclizine 25 mg tablet 25 mg PO DAILY RF: 0 Referrals / Follow Up: Sergio Fuller MD [STAFF PHYSICIAN] - Within 2 Weeks Clint Garcia MD [STAFF PHYSICIAN] - Within 1 Month Liz Mitchell NP, CURRICULUM DEVELOPMENT MANAGER-C [Primary Care Provider] - Within 2 Weeks Disposition Disposition (needs filled in before D/C Order can be placed): [facility] Facility Charges/Coding Visit Charges Inpatient E&M: 80235 Disch Hosp
--- NOTE | 2020-10-31 16:54 | TREXTCAR_ITS ---
Diet 10/31/20 14:58 Diet: Regular - General Food consistency:: Soft & Bite Sized Liquid Consistency:: Regular/Thin Is pt able to select menu?: Yes Diet Comments: Distant Supervision, GERD precautions Wound(s) Scabs BLE: Wound Type: scabs Left cheek: Wound Type: Skin Tear right quad: Wound Type: Surgical Incision Problem/Diagnosis (1) Weakness generalized: Status: Acute Allergies/Procedures Done in Hospital Allergies acetaminophen [From Percocet] Allergy (Unknown, Verified 10/26/20 16:34) Unknown hydromorphone [From Dilaudid] Allergy (Unknown, Verified 10/26/20 16:34) Unknown morphine Allergy (Unknown, Verified 10/26/20 16:34) Unknown oxycodone [From Percocet] Allergy (Unknown, Verified 10/26/20 16:34) Unknown celecoxib [From Celebrex] Allergy (Verified 10/26/20 16:34) Hives NARCOTIC Adverse Reaction (Uncoded 10/26/20 16:34) Itching Type of Care/Length of Stay Estimated LOS: Convalescent Care Less Than 30 days Type of Care Needed: Skilled Rehab Potential: Fair Prognosis: Fair Additional Orders/Day of Discharge Day of Discharge: 10/31/20 Dietary and Speech Recommendations Dietitian Recommendations/Changes: Liberalize diet to regular d/t malnutrition; d/c Ensure Clear per pt request. Discharge Plan Admission Admit Date/Time: 10/27/20 13:44 Primary Reason for Your Visit: afib Attending Provider: Karina Aldridge Primary Care Provider: Liz Mitchell NP Consulting Providers: Jos Romero ; Clint Garcia Instructions Patient Instructions: Dizziness Balance Probs Fainting, ED AFIB Additional Instructions / Restrictions: follow up with neurology on outpatient basis in 1-2 weeks. Discharge Orders/Prescriptions Prescriptions: New metoprolol succinate 25 mg tablet extended release 24 hr 25 mg PO DAILY Qty: 30 RF: 1 Continued gabapentin 600 mg tablet 300 mg PO BID RF: 0 eletriptan 40 mg tablet 40 mg PO PRN PRN (Reason: Migraine Symptoms) RF: 0 chlorthalidone 25 MG tablet 12.5 mg PO DAILY RF: 0 ondansetron HCl 4 mg tablet 4 mg PO Q8H PRN PRN (Reason: Nausea) RF: 0 duloxetine 30 mg capsule,delayed release(DR/EC) 30 mg PO DAILY RF: 0 metoclopramide HCl [Reglan] 10 mg tablet 10 mg PO BID PRN PRN (Reason: nausea and vomiting) Qty: 10 RF: 0 tramadol 50 mg tablet 50 mg PO Q8H PRN (Reason: pain) Qty: 10 RF: 0 Discontinued metoprolol succinate 25 mg tablet extended release 24 hr 12.5 mg PO DAILY RF: 0 cephalexin 500 mg capsule 500 mg PO BID 5 Days Qty: 10 RF: 0 No Action meclizine 25 mg tablet 25 mg PO DAILY RF: 0 Referrals / Follow Up: Sergio Fuller MD [STAFF PHYSICIAN] - Within 2 Weeks Clint Garcia MD [STAFF PHYSICIAN] - Within 1 Month Liz Mitchell NP, CREDIT RISK ANALYTICS MANAGER-C [Primary Care Provider] - Within 2 Weeks Disposition Disposition (needs filled in before D/C Order can be placed): [facility] Facility
[2020-10-31] MEDS: DiphenhydrAMINE 25 MG Capsule PO (17:29)
[2020-10-31] MEDS: traMADol 50 MG Tablet PO (17:29)
--- NOTE | 2020-10-31 17:56 | NURSING ---
Report called to JESSICA Adan on TCU at [phone]
[2020-10-31 21:17] LABS: ANTINUCLEAR ANTIBODIES DIRECT Negative (Negative)
[2020-11-03 14:08] LABS: Free Kappa Light Chains 11.8 mg/L (3.3-19.4); Free Lambda Light Chains 9.5 mg/L (5.7-26.3)
[2020-11-03 15:59] LABS: Cytoplasmic Ab (C-ANCA) <1:20 titer (Neg:<1:20); Perinuclear Ab (P-ANCA) <1:20 titer (Neg:<1:20); Vitamin B1, Thiamine 123.7 nmol/L (66.5-200.0)
[2020-11-04 16:08] LABS: Albumin, Ur 39.4 % (.); Alpha-1-Globulin, Ur 5.7 % (.); Alpha-2-Globulins, Ur 15.7 % (.); Beta Globulin, Ur 28.4 % (.); Gamma Globulin, Ur 10.8 % (.); M-Spike, Ur % Not Observed % (Not Observed); Protein, 24Ur 81 mg/24 hr (30-150); Total Protein, Ur 16.1 mg/dL (Not Estab.)
== END 2020-10-31 18:29 | disposition skilled nursing facility (03) | DRG 987 ==
LOC: ED 20:36 → PCU 10-27 01:15
PROVIDERS: Surgery; Admitting Provider Internal Medicine; Emergency Provider Emergency Medicine; PCP Nurse Practitioner; Referring Provider Internal Medicine; Visit Provider Student in an Organized Health Care Education/Training Program
PROC: 0KBN0ZX Excision of Right Hip Muscle, Open Approach, Diagnostic (ICD-10-PCS; principal; 2020-10-31 08:45)
DX: I48.91 Unspecified atrial fibrillation (principal); E43 Unspecified severe protein-calorie malnutrition; N39.0 Urinary tract infection, site not specified; E87.6 Hypokalemia; R11.2 Nausea with vomiting, unspecified; I10 Essential (primary) hypertension; G89.29 Other chronic pain; G62.9 Polyneuropathy, unspecified; G43.909 Migraine, unspecified, not intractable, without status migrainosus; Z66 Do not resuscitate; Z91.81 History of falling; Z90.710 Acquired absence of both cervix and uterus; Z79.01 Long term (current) use of anticoagulants; M50.30 Other cervical disc degeneration, unspecified cervical region; Z79.899 Other long term (current) drug therapy; Z82.49 Family history of ischemic heart disease and other diseases of the circulatory system; Z88.5 Allergy status to narcotic agent; M19.90 Unspecified osteoarthritis, unspecified site
CPT/HCPCS: 36415; 70553; 71275; 72156; 74174; 80048; 80061; 81001; 81050; 82607; 83735; 83883; 84166; 84425; 84443; 84484; 85025; 85610; 85652; 85730; 86038; 86225; 86235; 86256; 86335; 86431; 86703; 86706; 86803; 87086; 87088; 87340; 87426; 88305; 88313; 92507; 92522; 92526; 92610; 93005; 93306; 97110; 97162; 97166; 97530; 97535; 97802; 97803; 99251; 99285; A9575; J7030; J7120; Q9967; A4216; G0463; J2405

== ENCOUNTER 2020-10-31 18:50 | Inpatient (IN) | payer MEDICARE, OTHER, SELFPAY ==
[2020-10-31 19:04] VITALS: BP 151/88; PULSE 72; RESP 16; TEMP 35.6; O2SAT 96
--- NOTE | 2020-10-31 20:09 | HP.PCM_ITS ---
HPI - General General Date of Admission: 10/31/20 HPI Narrative 10/26/2020 YAKOV NUNEZ, is a 65 Female who presents to [facility] Emergency Department with nausea/vomiting. 10/26/2020 EKG showed atrial fibrillation with RVR. Cardizem IV improved heart rate to 70's. CTA chest, abdomen, pelvis negative. Potassium 3.3 repleted. 10/26/2020 Admit to Hospital. Metoprolol 25mg twice daily, Eliquis 5mg twice daily, Echo for new onset atrial fibrillation with rapid ventricular response. UA, C+S for partially treated urinary tract infection. PT/OT for debility. 10/27/2020 Echo normal LV size. Left ventricular systolic function normal. Stage 2 diastolic dysfunction. 10/27/2020 Zofran, Pantoprazole for chronic nausea. Consult pain management for cervical spinal stenosis. 10/28/2020 Neck pain improved. Normal sinus rhythm. Teleneurology recommended MRI brain, MRI cervical spine. MRI brain negative for stroke. MRI cervical spine showed post surgical changes. 10/29/2020 Feeling better. 10/30/2020 Neck pain better. Patient has underlying neurologic disorder causing dizziness, dysphagia, weakness, falls. Outpatient neurologic, neurosurgical evaluation so far not yielding diagnosis. MS, Stroke, M. Gravis ruled out. Patient was offered transfer to [facility], but declined. 10/31/2020 Dr. Garcia performed right quadriceps muscle biopsy to evaluate for upper motor neuron disease. 10/31/2020 Admit to TCU with debility, here for rehabilitation, strengthening, prior to discharge home with . [facility] Medical History Abnormal bruising Arthritis Chronic migraine Chronic neck and back pain Essential (primary) hypertension Knee pain Limb weakness Shoulder pain Spinal stenosis Vasovagal syncope Home Medications gabapentin 600 mg tablet 300 mg PO BID tab 12/13/18 [History Last Taken Unknown] eletriptan 40 mg tablet 40 mg PO PRN PRN 05/07/19 [History Last Taken Unknown] chlorthalidone 12.5 mg PO DAILY 08/03/19 [History Last Taken Unknown] duloxetine 30 mg PO DAILY 10/24/20 [History Last Taken Unknown] meclizine 25 mg PO DAILY 10/24/20 [History Last Taken Unknown] metoclopramide HCl [Reglan] 10 mg PO BID PRN PRN #10 tab 10/24/20 [Rx Last Taken Unknown] ondansetron HCl 4 mg PO Q8H PRN PRN 10/24/20 [History Last Taken Unknown] tramadol 50 mg PO Q8H PRN #10 tab 10/24/20 [Rx Last Taken Unknown] metoprolol succinate 25 mg PO DAILY 10/31/20 [History Last Taken Unknown] Allergy/AdvReac Type Severity Reaction Status Date / Time acetaminophen [From Percocet] Allergy Unknown Unknown Verified 10/26/20 16:34 hydromorphone [From Dilaudid] Allergy Unknown Unknown Verified 10/26/20 16:34 morphine Allergy Unknown Unknown Verified 10/26/20 16:34 oxycodone [From Percocet] Allergy Unknown Unknown Verified 10/26/20 16:34 celecoxib [From Celebrex] Allergy Hives Verified 10/26/20 16:34 NARCOTIC AdvReac Itching Uncoded 10/26/20 16:34 Family History Father Hypertension Diabetes Cancer prostate Mother Hypertension MGUS (monoclonal gammopathy of unknown significance) Surgical History H/O cervical discectomy History of hysterectomy Social History (Updated 10/26/20 @ 21:32 by Tanya Huertas) household members: spouse housing: house current occupational status: retired pets and animals: Yes (dogs & cats ) Smoking Status: Never smoker alcohol intake: never substance use type: does not use caffeine: Yes what type of physical activity do you participate in: walking seatbelt use: always do you feel safe at home: Yes ROS Constitutional Constitutional: Reports weakness; Denies chills, fever(s) or weight gain ENT HEENT: Reports dysphagia; Denies headache(s), nasal congestion or nasal discharge Cardiovascular Cardiovascular: Denies chest pain or palpitations Respiratory/Chest Respiratory/Chest: Denies cough, excessive phlegm production or shortness of breath with exertion Gastrointestinal Gastrointestinal: Denies abdominal pain, nausea or vomiting Genitourinary Genitourinary: Denies dysuria Musculoskeletal Musculoskeletal: Denies joint pain or joint swelling Integumentary Integumentary: Denies rash or wounds Neurologic Neurologic: Denies focal weakness, numbness or tingling Psychiatric Psychiatric: Reports auditory hallucinations; Denies anxiety, depression, homicidal ideation or suicidal ideation Physical Exam Const alert and oriented x3 General Appearance: cooperative HEENT normocephalic Eyes PERRL and EOMs intact bilaterally Neck supple, no JVD and no carotid bruits Resp normal respiratory effort, normal air movement and clear to auscultation bilaterally Cardio regular rate and regular rhythm GI normal to inspection, nondistended, normoactive bowel sounds, non-tender and non-distended Extremity normal capillary refill General Extremity: Negative for edema Skin no rashes or lesions noted General Skin Exam: no breakdown Psych affect normal Appearance: appropriate Assessment & Plan Assessment/Plan (1) Debility: (2) Nausea & vomiting: (3) Atrial fibrillation with rapid ventricular response: (4) Neck pain: (5) Cervical spinal stenosis: (6) Hypertension: (7) Lumbar spinal stenosis: (8) Migraine: (9) Depression: (10) Dizziness: (11) Chronic pain: PLAN: 65 year old female with below past medical history hospitalized for new onset atrial fibrillation with rapid ventricular response, now resolved, complicated by hypokalemia, nausea, underlying undiagnosed neurologic disorder, admitted to TCU with debility, here for rehabilitation, strengthening, prior to discharge home with . * Debility - PT/OT. * Pain - Tylenol 1000mg Q6H prn pain (1-5), Tramadol 50mg Q8H PRN pain (6-10). * Bowel - Miralax 17gm daily, Senna/colace 1 tablet twice daily, Dulcolax 10mg daily PRN. * Adult immunization - Administer prevnar 13, pneumovax 23, fluzone, covid19 vaccine as appropriate. * DVT prophylaxis - Lovenox 40mg sc daily. * Hypertension - Metoprolol succinate 25mg daily, Chlorthalidone 12.5mg daily.. * Depression - Duloxetine 30mg daily, stable chronic fpc use, GDR not recommended. * Neuropathic pain - Gabapentin 300mg twice daily. * Nausea - Reglan 10mg twice dailiy PRN, Zofran Odt 4mg Q8H PRN. * Lone atrial fibrillation - Metoprolol succinate 25mg daily, anticoagulation held due to high risk of falls. * Migraine - Maxalt 5mg x 1 dose prn. * Underlying neurologic disorder - muscle biopsy pending, further evaluation by neurology, neurosurgery.
[2020-11-01] MEDS: tiZANidine HCl 2 MG Tablet 4 MG PO (00:34)
[2020-11-01] MEDS: MethylPREDNISolone 4 MG Tablet PO ×3 (00:34→20:40)
[2020-11-01 05:00] VITALS: BP 122/80; PULSE 68
[2020-11-01 06:41] VITALS: BP 122/80; PULSE 68
[2020-11-01] MEDS: Metoprolol(XL)Succ 25 MG Tablet PO (06:41)
[2020-11-01] MEDS: Senna/Docusate Sodium 1 Tablet PO ×2 (06:42→16:44)
[2020-11-01] MEDS: Pantoprazole Sodium 40 MG Tablet PO (06:42)
[2020-11-01] MEDS: Chlorthalidone 50 MG Tablet 12.5 MG PO (06:42)
[2020-11-01] MEDS: Enoxaparin 40 MG/0.4 ML Syringe SC (06:43)
[2020-11-01] MEDS: Nystatin Powder 15gm Bottle 1 APPLIC TOPICAL ×2 (06:48→16:45)
[2020-11-01 07:48] LABS: Absolute Lymphocyte Count 2.07 X10^3/uL (0.83-4.51); Absolute Neutrophil Count 2.7 X10^3/uL (2.0-7.7); Basophil# 0.01 X10^3/uL; Basophil% 0.2 % (0-1); Eosinophil# 0.02 X10^3/uL; Eosinophils% 0.4 % (0-5); Hemoglobin 14.5 g/dL (12.0-15.0); Lymphocyte # 2.07 X10^3/ul (0.83-4.51); Lymphocyte % 41.3 % (19-41); Mean Corp Hgb Conc 33.7 g/dL (32-36); Mean Platelet Vol. 10.7 fl (6.2-12.0); Monocyte# 0.25 X10^3/uL; NRBC Flagged by Analyzer 0 % (0-5); Neutrophil # 2.65 X10^3/uL (2.7-7.7); Neutrophil % 52.9 % (47-70); Platelet Count 170 K/mm3 (150-450); RBC Distribution Width CV 13.7 % (11.6-14.6); RBC Distribution Width SD 44.6 fl (35.1-43.9); Red Blood Count 4.83 M/mm3 (4.2-5.4)
[2020-11-01 08:13] LABS: Anion Gap 5 (5-15); BUN 17 mg/dL (7-18); Calcium,Total 8.8 mg/dL (8.5-10.1); Chloride 107 mmol/L (98-107); Creatinine, Serum 0.81 mg/dL (0.55-1.02); EST Glomerular Filtration Rate 75 mL/min (>60); Est Glom Filt Rate - Afr Amer 91 mL/min (>60); Glucose 91 mg/dL (74-106); Potassium 4.1 mmol/L (3.5-5.1); Sodium Level 140 mmol/L (136-145)
[2020-11-01] MEDS: Ibuprofen 400 MG Tablet PO (11:49)
[2020-11-01] MEDS: Tuberculin,Purif.prot.deriv. 50 TU/ML Vial 0.1 ML ID (11:50)
--- NOTE | 2020-11-01 12:46 | NURSING ---
pt refusing cymbalta and gabapentin, dr flores updated, new order to dc
[2020-11-01] MEDS: traMADol 50 MG Tablet PO (14:08)
[2020-11-01] MEDS: hydrOXYzine PAM 25 MG Capsule 50 MG PO (14:08)
[2020-11-01 16:00] VITALS: BP 133/94; PULSE 73; RESP 18; TEMP 36.2; O2SAT 96
--- NOTE | 2020-11-01 16:27 | NURSING ---
R' BROUGHT IN COVID VACCINE CARD. CARD COPIED. RECEIVED MODERNA VACCINE IN MAY AND JUNE 2020.
[2020-11-01 16:45] VITALS: BMI 25.4
--- NOTE | 2020-11-01 16:47 | NURSING ---
based on weight questionaire, r' qualified for ensure 4x/day. r' is refusing to take it. nurse practitioner manager is consulted.
[2020-11-01] MEDS: Bisacodyl 5 MG Tablet 10 MG PO (20:43)
[2020-11-02] MEDS: Enoxaparin 40 MG/0.4 ML Syringe SC (05:11)
[2020-11-02] MEDS: Chlorthalidone 50 MG Tablet 12.5 MG PO (05:12)
[2020-11-02 05:13] VITALS: BP 135/85; PULSE 88
[2020-11-02] MEDS: Metoprolol(XL)Succ 25 MG Tablet PO (05:13)
[2020-11-02] MEDS: Senna/Docusate Sodium 1 Tablet PO ×2 (05:13→16:43)
[2020-11-02] MEDS: Pantoprazole Sodium 40 MG Tablet PO (05:15)
[2020-11-02] MEDS: Nystatin Powder 15gm Bottle 1 APPLIC TOPICAL ×2 (05:16→16:43)
--- NOTE | 2020-11-02 07:00 | NURSING ---
PT C/O DISCOMFORT D/T CONSTIPATED, DR BISHOP UPDATED BY JESSICA REVELES. NEW ORDER FOR FLEETZ ENEMA. PT HAD XLG RESULTS. STATES SHE FEELS MUCH BETTER, RESTING IN RECLINER CHAIR.
[2020-11-02] MEDS: Fleet Enema 1 ML RC (07:02)
[2020-11-02] MEDS: MethylPREDNISolone 4 MG Tablet PO (09:14)
[2020-11-02] MEDS: Ibuprofen 400 MG Tablet PO (12:26)
[2020-11-02 16:00] VITALS: BP 121/87; PULSE 94; RESP 15; TEMP 36.1; O2SAT 97
[2020-11-02] MEDS: traMADol 50 MG Tablet PO (18:52)
[2020-11-02] MEDS: hydrOXYzine PAM 25 MG Capsule 50 MG PO (18:52)
[2020-11-02] MEDS: tiZANidine HCl 2 MG Tablet 4 MG PO (21:21)
[2020-11-03 05:07] VITALS: BP 123/77; PULSE 68; RESP 16; TEMP 35.2; O2SAT 96
[2020-11-03] MEDS: Polyethylene Glycol 3350 17 GM PACKET PO (05:09)
[2020-11-03] MEDS: Enoxaparin 40 MG/0.4 ML Syringe SC (05:10)
[2020-11-03 05:13] VITALS: BP 123/77; PULSE 68
[2020-11-03] MEDS: Pantoprazole Sodium 40 MG Tablet PO (05:13)
[2020-11-03] MEDS: Metoprolol(XL)Succ 25 MG Tablet PO (05:13)
[2020-11-03] MEDS: Senna/Docusate Sodium 1 Tablet PO ×2 (05:14→18:18)
[2020-11-03] MEDS: Chlorthalidone 50 MG Tablet 12.5 MG PO (06:44)
[2020-11-03] MEDS: Nystatin Powder 15gm Bottle 1 APPLIC TOPICAL ×2 (06:46→18:18)
[2020-11-03] MEDS: Ibuprofen 400 MG Tablet PO (10:21)
[2020-11-03 15:16] VITALS: BP 122/93; PULSE 83; RESP 14; TEMP 36.3; O2SAT 97
--- NOTE | 2020-11-03 16:56 | CHAPLAIN ---
Type of Pastoral Visit ___ Initial Visit _x__ Follow-up Visit ___ On-call Visit ___ General Patient Visit ___ Spiritual Assessment ___ Family Conference ___ Bereavement ___ Rapid Response ___ Code Blue ___ Other (describe below) Pastoral Care Referral From _x__ Patient ___ Family ___ Nurse ___ Physician ___ Chlorination Operator ___ Metal Bending Machine Operator ___ Other (describe below) Sacrament/Intervention _x__ Active listening ___ Anointing ___ Yazidism ___ Bereavement ___ Communion ___ Lashay exploration ___ _x__ Life review _x__ Prayer ___ Reconciliation ___ Sacrament of Sick _x__ Supportive presence ___ Wedding ___ Other (describe below) Pastoral Comments patient previously seen in PCU; patient gives more life review; pt goal is to find reason for her illness and how to treat it; pt welcomes presence and prayer
--- NOTE | 2020-11-03 19:06 | PCA ---
FIBERGLASS CONTAINER WINDING OPERATOR offered to help patient wash up for the evening and patient stated that they would rather get washed up in the morning. Asked patient if they needed anything else and the said they would call if needed anything. water pitcher refilled and call light within reach
[2020-11-03] MEDS: traMADol 50 MG Tablet PO (21:26)
[2020-11-03] MEDS: hydrOXYzine PAM 25 MG Capsule 50 MG PO (21:26)
[2020-11-03 21:30] VITALS: PULSE 80; RESP 16; O2SAT 95
[2020-11-03] MEDS: tiZANidine HCl 2 MG Tablet 4 MG PO (23:29)
[2020-11-04] MEDS: Enoxaparin 40 MG/0.4 ML Syringe SC (05:04)
[2020-11-04] MEDS: Pantoprazole Sodium 40 MG Tablet PO (05:05)
[2020-11-04] MEDS: Chlorthalidone 50 MG Tablet 12.5 MG PO (05:05)
[2020-11-04 05:06] VITALS: BP 115/78; PULSE 72
[2020-11-04] MEDS: Polyethylene Glycol 3350 17 GM PACKET PO (05:06)
[2020-11-04] MEDS: Nystatin Powder 15gm Bottle 1 APPLIC TOPICAL ×2 (05:06→21:23)
[2020-11-04] MEDS: Metoprolol(XL)Succ 25 MG Tablet PO (05:06)
[2020-11-04] MEDS: Ibuprofen 400 MG Tablet PO (10:35)
[2020-11-04 13:26] VITALS: BP 125/78; PULSE 108; RESP 18; TEMP 36.2; O2SAT 94
--- NOTE | 2020-11-04 13:48 | CASEMGMT ---
Social Work SW met with pt and completed intial assessment. SW discussed code status with pt and assisted in completing MOLST form. Pt would like to be full code with intubation. MOLST form communicated to nursing and physician and placed on pt summer. SW explained Medicare benefit and encouraged pt to contact secondary insurance to ensure copay coverage. Pt plans to return home with her at time of discharge. SW to follow. TEETEE Zayas
--- NOTE | 2020-11-04 14:28 | PCM.PN.RX ---
Progress Note - Pharmacy Subjective: TCU Admission Objective: Allergies acetaminophen [From Percocet] Allergy (Unknown, Verified 10/26/20 16:34) Unknown hydromorphone [From Dilaudid] Allergy (Unknown, Verified 10/26/20 16:34) Unknown morphine Allergy (Unknown, Verified 10/26/20 16:34) Unknown oxycodone [From Percocet] Allergy (Unknown, Verified 10/26/20 16:34) Unknown celecoxib [From Celebrex] Allergy (Verified 10/26/20 16:34) Hives NARCOTIC Adverse Reaction (Uncoded 10/26/20 16:34) Itching Current Medications Generic Name Dose Route Start Last Admin Trade Name Freq PRN Reason Stop Dose Admin Bisacodyl 10 mg 10/31/20 20:27 11/01/20 20:43 Bisacodyl 5 Mg Tablet PO 10 mg DAILY PRN PRN Administration Constipation Chlorthalidone 12.5 mg 11/01/20 06:00 11/04/20 05:05 Chlorthalidone 50 Mg Tablet PO 12.5 mg DAILY NEO Administration Enoxaparin Sodium 40 mg 11/01/20 06:00 11/04/20 05:04 Enoxaparin 40 Mg/0.4 Ml Syringe SC 40 mg DAILY@0600 [facility] Administration Hydroxyzine Pamoate 50 mg 10/31/20 23:15 11/03/20 21:26 Hydroxyzine Rita 25 Mg Capsule PO 50 mg Q8H PRN PRN Administration ITCHING Ibuprofen 400 mg 10/31/20 23:18 11/04/20 10:35 Ibuprofen 400 Mg Tablet PO 400 mg Q6H PRN PRN Administration Pain 1-10 or Fever Metoclopramide HCl 10 mg 10/31/20 19:09 Metoclopramide 10 Mg Tablet PO BID PRN PRN nausea and vomiting Metoprolol Succinate 25 mg 11/01/20 06:00 11/04/20 05:06 Metoprolol(Xl)Succ 25 Mg Tablet PO 25 mg DAILY NEO Administration Nystatin 1 applic 11/01/20 06:00 11/04/20 05:06 Nystatin Powder 15gm Bottle TOPICAL 1 applic BID NEO Administration Protocol Ondansetron HCl 4 mg 10/31/20 19:47 Ondansetron Odt 4 Mg Tablet PO Q8H PRN PRN NAUSEA/VOMITING Pantoprazole Sodium 40 mg 11/01/20 06:00 11/04/20 05:05 Pantoprazole Sodium 40 Mg Tablet PO 40 mg DAILY NEO Administration Polyethylene Glycol 17 gm 11/01/20 06:00 11/04/20 05:06 Polyethylene Glycol 3350 17 Gm Packet PO 17 gm DAILY NEO Administration Rizatriptan Benzoate 5 mg 10/31/20 19:56 Rizatriptan Benzoate 5 Mg Tablet PO X1 PRN MIGRAINE SYMPTOMS Senna/Docusate Sodium 1 tablet 11/01/20 06:00 11/04/20 05:06 Senna/Docusate Sodium 1 Tablet PO Not Given BID NEO Tizanidine HCl 4 mg 10/31/20 23:21 11/03/20 23:29 Tizanidine Hcl 2 Mg Tablet PO 4 mg QHS PRN Administration muscle spasms Tramadol HCl 50 mg 10/31/20 20:28 11/03/20 21:26 Tramadol 50 Mg Tablet PO 50 mg Q8H PRN PRN Administration Pain Score 1-10 Tuberculin PPD 0.1 ml 11/08/20 10:00 Tuberculin,Purif.Prot.Deriv. 50 Tu/Ml Vial ID 11/08/20 10:01 X1 ONE Problem List (Last Reviewed 10/31/20 @ 20:[address] Brayan Garcia MD) Chronic pain (Chronic) Dizziness (Acute) Depression (Acute) Migraine (Acute) Lumbar spinal stenosis (Acute) Hypertension (Chronic) Cervical spinal stenosis (Acute) Neck pain (Acute) Atrial fibrillation with rapid ventricular response (Acute) Nausea & vomiting (Acute) Debility (Acute) Vital Signs Temp Pulse Resp BP Pulse Ox 97.1 F L 108 H 18 125/78 H 94 11/04/20 13:26 11/04/20 13:26 11/04/20 13:26 11/04/20 13:26 11/04/20 13:26 Oxygen Delivery Method Room Air Weight: 77.706 kg Body Mass Index (BMI) 25.4 Sodium 140 mmol/L (136-145) 11/01/20 07:35 Potassium 4.1 mmol/L (3.5-5.1) 11/01/20 07:35 Chloride 107 mmol/L (98-107) 11/01/20 07:35 Carbon Dioxide 28.0 mmol/L (21.0-32.0) 11/01/20 07:35 Anion Gap 5 (5-15) 11/01/20 07:35 BUN 17 mg/dL (7-18) 11/01/20 07:35 Creatinine 0.81 mg/dL (0.55-1.02) 11/01/20 07:35 Est GFR (MDRD) Af Amer 91 mL/min (>60) 11/01/20 07:35 Est GFR (MDRD) Non-Af 75 mL/min (>60) 11/01/20 07:35 BUN/Creatinine Ratio 21.0 RATIO (10-20) H 11/01/20 07:35 Glucose 91 mg/dL (74-106) 11/01/20 07:35 Assessment/Plan: 1. Pain: ibuprofen 400mg PO Q6H PRN pain 1-10 or fever and tramadol 50mg PO Q8H PRN pain 1-10. Please continue to monitor for increased pain, PRN usage, constipation and respiratory depression. 2. DVT prophylaxis: enoxaparin 40mg SC daily. Please continue to monitor for S/S of bleeding/DVT, hemoglobin (last 14.5g/dL), platelets (last 170,000) and renal function. 3. Hypertension/atrial fibrillation: metoprolol succinate 25mg PO daily and chlorthalidone 12.5mg PO daily. Please continue to monitor HR (last 108), BP (last 125/78), sodium ([id number]) and potassium (last 4.1mmol/L). See physician note regarding anticoagulation. 4. Migraine: rizatriptan 5mg PO x1 PRN migraine symptoms. Please continue to monitor for S/S of migraine and PRN usage. 5. Nausea: metoclopramide 10mg PO BID PRN N/V and ondansetron 4mg PO Q8H PRN N/V. Please continue to monitor for S/S of nausea and vomiting. 6. Muscle spasm: tizanidine 4mg PO QHS muscle spasm. Please continue to monitor for muscle spasms and hypotension. 7. Itching: hydroxyzine 50mg PO Q8H PRN itching. Please continue to monitor for itching and PRN usage. Psychotropic Medications: None *Unnecessary Medications: pantoprazole 40mg PO daily. I did not see a documented indication for this medication. Please consider adding an indication. Thanks. Bowel Regimen: Miralax 17gm PO daily, senna/docusate 1T PO BID and bisacodyl 10mg PO daily PRN constipation. Please continue to monitor for constipation and PRN usage. Date of Note:: 11/04/20
[2020-11-04] MEDS: traMADol 50 MG Tablet PO (17:17)
[2020-11-04] MEDS: hydrOXYzine PAM 25 MG Capsule 50 MG PO (17:17)
[2020-11-04] MEDS: Senna/Docusate Sodium 1 Tablet PO (17:17)
[2020-11-04] MEDS: tiZANidine HCl 2 MG Tablet 4 MG PO (21:19)
[2020-11-05] MEDS: Enoxaparin 40 MG/0.4 ML Syringe SC (05:17)
[2020-11-05] MEDS: Polyethylene Glycol 3350 17 GM PACKET PO (05:17)
[2020-11-05 05:18] VITALS: BP 100/64; PULSE 82
[2020-11-05] MEDS: Metoprolol(XL)Succ 25 MG Tablet PO (05:18)
[2020-11-05] MEDS: Senna/Docusate Sodium 1 Tablet PO ×2 (05:19→17:05)
[2020-11-05] MEDS: Chlorthalidone 50 MG Tablet 12.5 MG PO (05:19)
[2020-11-05] MEDS: Pantoprazole Sodium 40 MG Tablet PO (05:19)
[2020-11-05] MEDS: Ibuprofen 400 MG Tablet PO (12:05)
[2020-11-05] MEDS: Nystatin Powder 15gm Bottle 1 APPLIC TOPICAL ×2 (12:05→22:20)
--- NOTE | 2020-11-05 12:12 | CASEMGMT ---
Social Work Plan of care meeting held today with pt and her Tomas present. Pt is receiving PT/OT and participating with therapy. Pt lives at home with her who is her primary caregiver. He does work, but is able to arrange his schedule to assist pt as needed. No discharge date set at this time, will continue with treatment plan on TCU. TEETEE Zayas
[2020-11-05 16:39] VITALS: BP 103/69; PULSE 70; RESP 16; TEMP 36; O2SAT 95
[2020-11-05] MEDS: tiZANidine HCl 2 MG Tablet 4 MG PO (21:43)
[2020-11-06 06:29] VITALS: BP 106/69; PULSE 74
[2020-11-06] MEDS: Enoxaparin 40 MG/0.4 ML Syringe SC (06:30)
[2020-11-06] MEDS: Chlorthalidone 50 MG Tablet 12.5 MG PO (06:31)
[2020-11-06] MEDS: Polyethylene Glycol 3350 17 GM PACKET PO (06:32)
[2020-11-06] MEDS: Nystatin Powder 15gm Bottle 1 APPLIC TOPICAL ×2 (06:32→18:50)
[2020-11-06] MEDS: Senna/Docusate Sodium 1 Tablet PO (06:32)
[2020-11-06] MEDS: Pantoprazole Sodium 40 MG Tablet PO (06:32)
[2020-11-06 06:33] VITALS: PULSE 74
[2020-11-06] MEDS: Metoprolol(XL)Succ 25 MG Tablet PO (06:33)
[2020-11-06] MEDS: Ibuprofen 400 MG Tablet PO (17:06)
[2020-11-07] MEDS: Chlorthalidone 50 MG Tablet 12.5 MG PO (05:58)
[2020-11-07] MEDS: Enoxaparin 40 MG/0.4 ML Syringe SC (05:58)
[2020-11-07 05:59] VITALS: BP 113/75; PULSE 70
[2020-11-07] MEDS: Metoprolol(XL)Succ 25 MG Tablet PO (05:59)
[2020-11-07] MEDS: Pantoprazole Sodium 40 MG Tablet PO (05:59)
[2020-11-07 06:00] VITALS: BP 113/75; PULSE 70
[2020-11-07] MEDS: Polyethylene Glycol 3350 17 GM PACKET PO (06:00)
[2020-11-07] MEDS: Senna/Docusate Sodium 1 Tablet PO (06:00)
[2020-11-07] MEDS: Nystatin Powder 15gm Bottle 1 APPLIC TOPICAL (06:01)
[2020-11-07 14:59] VITALS: BP 101/69; PULSE 84; RESP 14; TEMP 36; O2SAT 96
[2020-11-07] MEDS: Ibuprofen 400 MG Tablet PO (22:30)
[2020-11-08 05:46] VITALS: BP 110/63; PULSE 64; RESP 16; TEMP 37.1; O2SAT 92
[2020-11-08] MEDS: Enoxaparin 40 MG/0.4 ML Syringe SC (05:48)
[2020-11-08] MEDS: Polyethylene Glycol 3350 17 GM PACKET PO (05:49)
[2020-11-08 05:50] VITALS: BP 110/63; PULSE 64
[2020-11-08] MEDS: Senna/Docusate Sodium 1 Tablet PO (05:50)
[2020-11-08] MEDS: Metoprolol(XL)Succ 25 MG Tablet PO (05:50)
[2020-11-08] MEDS: Chlorthalidone 50 MG Tablet 12.5 MG PO (05:51)
[2020-11-08] MEDS: Pantoprazole Sodium 40 MG Tablet PO (05:52)
[2020-11-08] MEDS: Nystatin Powder 15gm Bottle 1 APPLIC TOPICAL ×2 (05:57→16:22)
[2020-11-08 08:30] VITALS: O2SAT 99
[2020-11-08 08:31] LABS: Absolute Lymphocyte Count 2.34 X10^3/uL (0.83-4.51); Absolute Neutrophil Count 1.3 X10^3/uL (2.0-7.7); Basophil# 0.02 X10^3/uL; Basophil% 0.5 % (0-1); Eosinophil# 0.11 X10^3/uL; Eosinophils% 2.8 % (0-5); Hematocrit 41.4 % (37-47); Hemoglobin 13.6 g/dL (12.0-15.0); Lymphocyte # 2.34 X10^3/ul (0.83-4.51); Lymphocyte % 59.4 % (19-41); Mean Corp Hgb Conc 32.9 g/dL (32-36); Mean Corpuscular Hgb 29.5 pg (27.0-32.0); Mean Corpuscular Volume 89.8 fL (81-99); Mean Platelet Vol. 11.2 fl (6.2-12.0); Monocyte# 0.16 X10^3/uL; Monocyte% 4.1 % (0-10); NRBC Flagged by Analyzer 0 % (0-5); Neutrophil # 1.31 X10^3/uL (2.7-7.7); Neutrophil % 33.2 % (47-70); Platelet Count 168 K/mm3 (150-450); RBC Distribution Width CV 13.9 % (11.6-14.6); RBC Distribution Width SD 45.5 fl (35.1-43.9); Red Blood Count 4.61 M/mm3 (4.2-5.4); White Blood Count 3.9 K/mm3 (4.4-11.0)
[2020-11-08 09:14] LABS: Anion Gap 6 (5-15); BUN 20 mg/dL (7-18); BUN/Creat Ratio 26.1 RATIO (10-20); Calcium,Total 8.9 mg/dL (8.5-10.1); Chloride 106 mmol/L (98-107); Creatinine, Serum 0.76 mg/dL (0.55-1.02); EST Glomerular Filtration Rate 80 mL/min (>60); Est Glom Filt Rate - Afr Amer 97 mL/min (>60); Estimated Creatinine Clearance 57.05 ml/min; Glucose 111 mg/dL (74-106); Potassium 3.4 mmol/L (3.5-5.1); Sodium Level 141 mmol/L (136-145)
--- NOTE | 2020-11-08 11:36 | NURSING ---
Addendum entered by Grazyna Yang 11/08/20 18:28: TCU director notified via VM. Addendum entered by Antionette Owen 11/08/20 17:55: Dr. Garcia aware of pt refusing 2nd TB test. Original Note: Patient declined 2nd TB test. Per patient with current condition she does not want to add anything else to body. Per patient she had 1 test and that is enough. Will update Dr. Garcia.
[2020-11-08] MEDS: Ibuprofen 400 MG Tablet PO (20:49)
[2020-11-08 20:53] VITALS: PULSE 85; RESP 16; O2SAT 95
[2020-11-09 05:05] VITALS: BP 118/71; PULSE 74
[2020-11-09 05:06] VITALS: PULSE 74
[2020-11-09] MEDS: Chlorthalidone 50 MG Tablet 12.5 MG PO (05:06)
[2020-11-09] MEDS: Enoxaparin 40 MG/0.4 ML Syringe SC (05:06)
[2020-11-09] MEDS: Senna/Docusate Sodium 1 Tablet PO (05:06)
[2020-11-09] MEDS: Pantoprazole Sodium 40 MG Tablet PO (05:06)
[2020-11-09] MEDS: Metoprolol(XL)Succ 25 MG Tablet PO (05:06)
[2020-11-09] MEDS: Nystatin Powder 15gm Bottle 1 APPLIC TOPICAL ×2 (05:07→16:46)
[2020-11-09] MEDS: Potassium Chloride Oral Tablet 20 MEQ PO (13:31)
[2020-11-09 15:13] VITALS: BP 118/81; PULSE 89; RESP 16; TEMP 36.2; O2SAT 98
[2020-11-09 22:10] VITALS: RESP 16
[2020-11-10] MEDS: Ibuprofen 400 MG Tablet PO ×3 (00:27→21:47)
[2020-11-10] MEDS: Menthol/Lanolin/Calamine/Znox 113 GM Tube 1 APPLIC TOPICAL ×3 (00:28→19:41)
[2020-11-10] MEDS: Enoxaparin 40 MG/0.4 ML Syringe SC (05:28)
[2020-11-10] MEDS: Nystatin Powder 15gm Bottle 1 APPLIC TOPICAL ×2 (05:28→19:40)
[2020-11-10 05:29] VITALS: BP 139/80; PULSE 73
[2020-11-10] MEDS: Chlorthalidone 50 MG Tablet 12.5 MG PO (05:29)
[2020-11-10] MEDS: Metoprolol(XL)Succ 25 MG Tablet PO (05:29)
[2020-11-10] MEDS: Senna/Docusate Sodium 1 Tablet PO (05:29)
[2020-11-10] MEDS: Pantoprazole Sodium 40 MG Tablet PO (05:30)
--- NOTE | 2020-11-10 12:43 | NURSING ---
Pt refused BMP draw this morning d/t only having 1 dose of potassium and felt that one dose would not increase her potassium levels. Pt stated while sleeping last night she was having muscle spasms in legs and abdominal area. Will up date Dr. Garcia with pt's request to have daily dose of Potassium and recheck in a few days.
[2020-11-10 16:00] VITALS: BP 110/74; PULSE 86; RESP 16; TEMP 36.3; O2SAT 99
[2020-11-10] MEDS: Potassium Chloride Oral Tablet 20 MEQ PO (18:32)
[2020-11-11] MEDS: Nystatin Powder 15gm Bottle 1 APPLIC TOPICAL ×2 (05:53→17:55)
[2020-11-11] MEDS: Menthol/Lanolin/Calamine/Znox 113 GM Tube 1 APPLIC TOPICAL ×3 (05:54→22:09)
[2020-11-11 05:55] VITALS: BP 111/77; PULSE 70
[2020-11-11] MEDS: Pantoprazole Sodium 40 MG Tablet PO (05:55)
[2020-11-11] MEDS: Enoxaparin 40 MG/0.4 ML Syringe SC (05:55)
[2020-11-11] MEDS: Senna/Docusate Sodium 1 Tablet PO (05:55)
[2020-11-11] MEDS: Metoprolol(XL)Succ 25 MG Tablet PO (05:55)
[2020-11-11] MEDS: Chlorthalidone 50 MG Tablet 12.5 MG PO (05:57)
[2020-11-11] MEDS: Potassium Chloride Oral Tablet 20 MEQ PO (08:07)
[2020-11-11] MEDS: Ibuprofen 400 MG Tablet PO (15:19)
--- NOTE | 2020-11-11 15:25 | NURSING ---
Resident and spouse, Tomas, notified of COVID status on the unit.
[2020-11-11 16:37] VITALS: BP 109/71; PULSE 91; RESP 16; TEMP 36.8; O2SAT 95
[2020-11-11 22:00] VITALS: PULSE 82; RESP 16; O2SAT 97
[2020-11-12 05:30] VITALS: BP 128/73; RESP 77
[2020-11-12] MEDS: Enoxaparin 40 MG/0.4 ML Syringe SC (05:31)
[2020-11-12] MEDS: Menthol/Lanolin/Calamine/Znox 113 GM Tube 1 APPLIC TOPICAL ×2 (05:31→12:44)
[2020-11-12] MEDS: Chlorthalidone 50 MG Tablet 12.5 MG PO (05:31)
[2020-11-12 05:33] VITALS: PULSE 77
[2020-11-12] MEDS: Pantoprazole Sodium 40 MG Tablet PO (05:33)
[2020-11-12] MEDS: Senna/Docusate Sodium 1 Tablet PO (05:33)
[2020-11-12] MEDS: Metoprolol(XL)Succ 25 MG Tablet PO (05:33)
[2020-11-12 06:26] LABS: Anion Gap 5 (5-15); BUN 22 mg/dL (7-18); BUN/Creat Ratio 31.4 RATIO (10-20); Calcium,Total 8.8 mg/dL (8.5-10.1); Chloride 110 mmol/L (98-107); EST Glomerular Filtration Rate 88 mL/min (>60); Est Glom Filt Rate - Afr Amer 107 mL/min (>60); Estimated Creatinine Clearance 57.05 ml/min; Glucose 94 mg/dL (74-106); Potassium 4.1 mmol/L (3.5-5.1); Sodium Level 144 mmol/L (136-145)
[2020-11-12] MEDS: Ibuprofen 400 MG Tablet PO ×2 (07:14→22:05)
--- NOTE | 2020-11-12 08:06 | MDS.RN ---
Information for the mds was obtained from review of the clinical record, interview of resident, staff, and direct observations of resident's care.
[2020-11-12] MEDS: Potassium Chloride Oral Tablet 20 MEQ PO (08:52)
--- NOTE | 2020-11-12 12:23 | NURSING ---
CALLED LAB TO GET UPDATE ON MUSCLE BIOPSY. STATED THEY CHECKED ON IT TODAY AND IT IS NOT YET COMPLETED. WILL UPDATE DR. BISHOP.
[2020-11-12 16:00] VITALS: BP 118/76; PULSE 80; RESP 18; TEMP 35.8; O2SAT 95
[2020-11-13] MEDS: Enoxaparin 40 MG/0.4 ML Syringe SC (05:48)
[2020-11-13] MEDS: Senna/Docusate Sodium 1 Tablet PO (05:48)
[2020-11-13] MEDS: Chlorthalidone 50 MG Tablet 12.5 MG PO (05:48)
[2020-11-13] MEDS: Pantoprazole Sodium 40 MG Tablet PO (05:48)
[2020-11-13 05:49] VITALS: BP 122/69; PULSE 78
[2020-11-13] MEDS: Metoprolol(XL)Succ 25 MG Tablet PO (05:49)
[2020-11-13] MEDS: Potassium Chloride Oral Tablet 20 MEQ PO (08:38)
[2020-11-13] MEDS: Menthol/Lanolin/Calamine/Znox 113 GM Tube 1 APPLIC TOPICAL ×2 (13:26→20:40)
[2020-11-13] MEDS: Nystatin Powder 15gm Bottle 1 APPLIC TOPICAL (16:34)
[2020-11-13 18:30] VITALS: BP 126/72; PULSE 76; RESP 18; TEMP 36.7; O2SAT 96
[2020-11-13] MEDS: Ibuprofen 400 MG Tablet PO (20:35)
[2020-11-13 21:00] VITALS: PULSE 94; RESP 18; O2SAT 98
[2020-11-14] MEDS: Pantoprazole Sodium 40 MG Tablet PO (05:16)
[2020-11-14] MEDS: Enoxaparin 40 MG/0.4 ML Syringe SC (05:16)
[2020-11-14] MEDS: Senna/Docusate Sodium 1 Tablet PO (05:16)
[2020-11-14 05:17] VITALS: BP 108/72; PULSE 68
[2020-11-14] MEDS: Metoprolol(XL)Succ 25 MG Tablet PO (05:17)
[2020-11-14] MEDS: Chlorthalidone 50 MG Tablet 12.5 MG PO (05:17)
[2020-11-14] MEDS: Menthol/Lanolin/Calamine/Znox 113 GM Tube 1 APPLIC TOPICAL ×3 (05:23→22:00)
[2020-11-14] MEDS: Potassium Chloride Oral Tablet 20 MEQ PO (08:56)
[2020-11-14] MEDS: Ibuprofen 400 MG Tablet PO ×2 (09:01→22:00)
[2020-11-14] MEDS: Rizatriptan Benzoate 5 MG Tablet PO (13:16)
[2020-11-14 15:11] VITALS: BP 105/69; PULSE 81; RESP 15; TEMP 36.9; O2SAT 96
[2020-11-15 05:10] VITALS: BP 119/80; PULSE 72
[2020-11-15] MEDS: Metoprolol(XL)Succ 25 MG Tablet PO (05:10)
[2020-11-15] MEDS: Enoxaparin 40 MG/0.4 ML Syringe SC (05:10)
[2020-11-15] MEDS: Chlorthalidone 50 MG Tablet 12.5 MG PO (05:10)
[2020-11-15] MEDS: Senna/Docusate Sodium 1 Tablet PO (05:10)
[2020-11-15] MEDS: Pantoprazole Sodium 40 MG Tablet PO (05:14)
[2020-11-15 08:52] LABS: Absolute Lymphocyte Count 2.16 X10^3/uL (0.83-4.51); Basophil# 0.02 X10^3/uL; Basophil% 0.6 % (0-1); Eosinophil# 0.07 X10^3/uL; Hematocrit 39.4 % (37-47); Hemoglobin 13.1 g/dL (12.0-15.0); Lymphocyte # 2.16 X10^3/ul (0.83-4.51); Mean Corp Hgb Conc 33.2 g/dL (32-36); Mean Corpuscular Hgb 29.7 pg (27.0-32.0); Mean Corpuscular Volume 89.3 fL (81-99); Mean Platelet Vol. 10.5 fl (6.2-12.0); Monocyte% 8.5 % (0-10); NRBC Flagged by Analyzer 0 % (0-5); Neutrophil # 0.98 X10^3/uL (2.7-7.7); Neutrophil % 27.6 % (47-70); POSITIVE DIFFERENTIAL YES; Platelet Count 169 K/mm3 (150-450); RBC Distribution Width CV 13.8 % (11.6-14.6); Red Blood Count 4.41 M/mm3 (4.2-5.4); White Blood Count 3.5 K/mm3 (4.4-11.0)
[2020-11-15 08:54] LABS: Differential Indicated SCAN CRITERIA MET
[2020-11-15] MEDS: Potassium Chloride Oral Tablet 20 MEQ PO (09:16)
[2020-11-15 09:19] LABS: Anion Gap 5 (5-15); BUN 22 mg/dL (7-18); BUN/Creat Ratio 28.1 RATIO (10-20); Calcium,Total 8.9 mg/dL (8.5-10.1); Chloride 109 mmol/L (98-107); Creatinine, Serum 0.78 mg/dL (0.55-1.02); EST Glomerular Filtration Rate 78 mL/min (>60); Est Glom Filt Rate - Afr Amer 94 mL/min (>60); Estimated Creatinine Clearance 57.05 ml/min; Glucose 102 mg/dL (74-106); Potassium 3.6 mmol/L (3.5-5.1); Sodium Level 142 mmol/L (136-145)
[2020-11-15 16:00] VITALS: BP 109/69; PULSE 87; RESP 12; TEMP 36.2; O2SAT 99
[2020-11-15] MEDS: Ibuprofen 400 MG Tablet PO (21:04)
[2020-11-16 05:49] VITALS: BP 100/63; PULSE 73; RESP 16; TEMP 35.9
[2020-11-16 05:50] VITALS: BP 100/63; PULSE 73
[2020-11-16] MEDS: Pantoprazole Sodium 40 MG Tablet PO (05:50)
[2020-11-16] MEDS: Chlorthalidone 50 MG Tablet 12.5 MG PO (05:50)
[2020-11-16] MEDS: Metoprolol(XL)Succ 25 MG Tablet PO (05:50)
[2020-11-16] MEDS: Senna/Docusate Sodium 1 Tablet PO (05:50)
[2020-11-16] MEDS: Enoxaparin 40 MG/0.4 ML Syringe SC (05:51)
--- NOTE | 2020-11-16 05:57 | NURSING ---
Pt informs this nurse Calmoseptine and Nystatin powder have note been applied. No skin breakdown note during assessment last hs. Medications dc'ed and plan to change to PRN status.
[2020-11-16] MEDS: Potassium Chloride Oral Tablet 20 MEQ PO (08:41)
[2020-11-16] MEDS: Ibuprofen 400 MG Tablet PO ×2 (11:40→22:26)
--- NOTE | 2020-11-16 13:29 | NURSING ---
Notified Dr. Garcia of patient's request to have Miralax changed to PRN. Received order for change to PRN.
[2020-11-16 16:07] VITALS: BP 127/84; PULSE 80; RESP 18; TEMP 36.7; O2SAT 96
[2020-11-16 16:09] VITALS: PULSE 80; RESP 18; O2SAT 96
[2020-11-17 05:02] VITALS: BP 111/70; PULSE 68; RESP 16; TEMP 35.6; O2SAT 96
[2020-11-17] MEDS: Pantoprazole Sodium 40 MG Tablet PO (05:03)
[2020-11-17] MEDS: Enoxaparin 40 MG/0.4 ML Syringe SC (05:03)
[2020-11-17] MEDS: Chlorthalidone 50 MG Tablet 12.5 MG PO (05:04)
[2020-11-17] MEDS: Senna/Docusate Sodium 1 Tablet PO (05:04)
[2020-11-17 05:05] VITALS: BP 111/70; PULSE 68
[2020-11-17] MEDS: Metoprolol(XL)Succ 25 MG Tablet PO (05:05)
[2020-11-17] MEDS: Potassium Chloride Oral Tablet 20 MEQ PO (08:34)
[2020-11-17 14:51] VITALS: BP 115/74; PULSE 80; RESP 16; TEMP 36.2; O2SAT 96
[2020-11-17] MEDS: Ibuprofen 400 MG Tablet PO (23:10)
[2020-11-18 05:51] VITALS: BP 125/80; PULSE 82; RESP 16; TEMP 35.9; O2SAT 98
[2020-11-18] MEDS: Pantoprazole Sodium 40 MG Tablet PO (05:55)
[2020-11-18] MEDS: Senna/Docusate Sodium 1 Tablet PO (05:55)
[2020-11-18] MEDS: Enoxaparin 40 MG/0.4 ML Syringe SC (05:55)
[2020-11-18] MEDS: Chlorthalidone 50 MG Tablet 12.5 MG PO (05:57)
[2020-11-18 05:58] VITALS: BP 125/80; PULSE 82
[2020-11-18] MEDS: Metoprolol(XL)Succ 25 MG Tablet PO (05:58)
[2020-11-18] MEDS: Potassium Chloride Oral Tablet 20 MEQ PO (09:00)
[2020-11-18 14:13] VITALS: BP 120/75; PULSE 92; RESP 18; TEMP 36.1; O2SAT 98
[2020-11-18] MEDS: Ibuprofen 400 MG Tablet PO ×2 (15:19→22:45)
--- NOTE | 2020-11-19 01:32 | NURSING ---
Contacted [facility] lab and requested results of muscle biopsy, per lab no results at this time, pathology laboratory aides teacher states will look further into biopsy result status.
[2020-11-19] MEDS: Senna/Docusate Sodium 1 Tablet PO (05:42)
[2020-11-19] MEDS: Chlorthalidone 50 MG Tablet 12.5 MG PO (05:42)
[2020-11-19] MEDS: Enoxaparin 40 MG/0.4 ML Syringe SC (05:42)
[2020-11-19] MEDS: Pantoprazole Sodium 40 MG Tablet PO (05:42)
[2020-11-19 05:44] VITALS: BP 107/77; PULSE 71
[2020-11-19] MEDS: Metoprolol(XL)Succ 25 MG Tablet PO (05:44)
[2020-11-19] MEDS: Potassium Chloride Oral Tablet 20 MEQ PO (08:47)
[2020-11-19] MEDS: Ibuprofen 400 MG Tablet PO ×2 (14:22→21:09)
[2020-11-19 16:51] VITALS: BP 110/68; PULSE 77; RESP 15; TEMP 36.1; O2SAT 93
[2020-11-19 21:13] VITALS: PULSE 79; RESP 16; O2SAT 97
[2020-11-20] MEDS: Rizatriptan Benzoate 5 MG Tablet PO (01:25)
[2020-11-20] MEDS: Senna/Docusate Sodium 1 Tablet PO (04:39)
[2020-11-20] MEDS: Pantoprazole Sodium 40 MG Tablet PO (04:39)
[2020-11-20 04:40] VITALS: BP 136/87; PULSE 77
[2020-11-20] MEDS: Metoprolol(XL)Succ 25 MG Tablet PO (04:40)
[2020-11-20] MEDS: Chlorthalidone 50 MG Tablet 12.5 MG PO (04:40)
[2020-11-20] MEDS: Enoxaparin 40 MG/0.4 ML Syringe SC (04:40)
[2020-11-20] MEDS: Ibuprofen 400 MG Tablet PO (08:56)
[2020-11-20] MEDS: Potassium Chloride Oral Tablet 20 MEQ PO (08:57)
[2020-11-20 15:21] VITALS: BP 122/87; PULSE 87; RESP 18; TEMP 36.7; O2SAT 97
[2020-11-20 22:15] VITALS: PULSE 68; RESP 16; O2SAT 93
[2020-11-21] MEDS: Ibuprofen 400 MG Tablet PO ×3 (03:47→20:35)
[2020-11-21 05:24] VITALS: BP 138/78; PULSE 74
[2020-11-21] MEDS: Chlorthalidone 50 MG Tablet 12.5 MG PO (05:24)
[2020-11-21] MEDS: Pantoprazole Sodium 40 MG Tablet PO (05:25)
[2020-11-21] MEDS: Enoxaparin 40 MG/0.4 ML Syringe SC (05:25)
[2020-11-21 05:26] VITALS: PULSE 74
[2020-11-21] MEDS: Senna/Docusate Sodium 1 Tablet PO (05:26)
[2020-11-21] MEDS: Metoprolol(XL)Succ 25 MG Tablet PO (05:26)
[2020-11-21] MEDS: Rizatriptan Benzoate 5 MG Tablet PO (07:17)
[2020-11-21] MEDS: Potassium Chloride Oral Tablet 20 MEQ PO (08:52)
[2020-11-21 12:07] VITALS: BP 113/69; PULSE 90; RESP 16; TEMP 35.9; O2SAT 95
--- NOTE | 2020-11-21 14:40 | NURSING ---
Notified Dr. Garcia of muscle biopsy results. Received order for Predisone 10 mg BID. Nursing to monitor pt over next few days and ask pt if she is exhibiting any improvement, order repeated back, will add order.
[2020-11-21 22:00] VITALS: PULSE 80; O2SAT 98
[2020-11-22] MEDS: Enoxaparin 40 MG/0.4 ML Syringe SC (05:32)
[2020-11-22] MEDS: Senna/Docusate Sodium 1 Tablet PO (05:33)
[2020-11-22] MEDS: Chlorthalidone 50 MG Tablet 12.5 MG PO (05:33)
[2020-11-22 05:34] VITALS: BP 124/80; PULSE 75
[2020-11-22] MEDS: Metoprolol(XL)Succ 25 MG Tablet PO (05:34)
[2020-11-22] MEDS: Pantoprazole Sodium 40 MG Tablet PO (05:34)
[2020-11-22 08:36] LABS: Absolute Neutrophil Count 1.3 X10^3/uL (2.0-7.7); Basophil# 0.02 X10^3/uL; Basophil% 0.5 % (0-1); Eosinophil# 0.09 X10^3/uL; Eosinophils% 2.3 % (0-5); Hematocrit 39.6 % (37-47); Hemoglobin 13.3 g/dL (12.0-15.0); Lymphocyte % 56.3 % (19-41); Mean Corp Hgb Conc 33.6 g/dL (32-36); Mean Corpuscular Hgb 29.9 pg (27.0-32.0); Mean Platelet Vol. 10.4 fl (6.2-12.0); Monocyte# 0.25 X10^3/uL; Monocyte% 6.4 % (0-10); NRBC Flagged by Analyzer 0 % (0-5); Neutrophil # 1.34 X10^3/uL (2.7-7.7); Neutrophil % 34.2 % (47-70); Platelet Count 174 K/mm3 (150-450); RBC Distribution Width CV 13.4 % (11.6-14.6); RBC Distribution Width SD 43.8 fl (35.1-43.9); Red Blood Count 4.45 M/mm3 (4.2-5.4); White Blood Count 3.9 K/mm3 (4.4-11.0)
[2020-11-22] MEDS: Potassium Chloride Oral Tablet 20 MEQ PO (08:53)
[2020-11-22 08:59] LABS: Anion Gap 6 (5-15); BUN 22 mg/dL (7-18); BUN/Creat Ratio 31.1 RATIO (10-20); Calcium,Total 8.8 mg/dL (8.5-10.1); Chloride 108 mmol/L (98-107); Creatinine, Serum 0.71 mg/dL (0.55-1.02); EST Glomerular Filtration Rate 87 mL/min (>60); Est Glom Filt Rate - Afr Amer 106 mL/min (>60); Estimated Creatinine Clearance 57.05 ml/min; Glucose 101 mg/dL (74-106); Potassium 3.5 mmol/L (3.5-5.1); Sodium Level 142 mmol/L (136-145)
[2020-11-22 16:00] VITALS: BP 107/78; PULSE 88; RESP 17; TEMP 35.9; O2SAT 96
[2020-11-23] MEDS: Enoxaparin 40 MG/0.4 ML Syringe SC (05:23)
[2020-11-23] MEDS: Chlorthalidone 50 MG Tablet 12.5 MG PO (05:23)
[2020-11-23] MEDS: Pantoprazole Sodium 40 MG Tablet PO (05:23)
[2020-11-23 05:26] VITALS: BP 115/70; PULSE 79
[2020-11-23] MEDS: Metoprolol(XL)Succ 25 MG Tablet PO (05:26)
[2020-11-23] MEDS: Senna/Docusate Sodium 1 Tablet PO (05:26)
[2020-11-23] MEDS: Potassium Chloride Oral Tablet 20 MEQ PO (08:21)
[2020-11-23 12:50] LABS: CPK Total, Creatine Kinase 23 U/L (26-192); LDH 194 U/L (84-246)
[2020-11-23 13:59] VITALS: BP 118/78; PULSE 87; RESP 165; TEMP 36.3; O2SAT 98
[2020-11-23] MEDS: Ibuprofen 400 MG Tablet PO (17:18)
[2020-11-24] MEDS: Enoxaparin 40 MG/0.4 ML Syringe SC (05:15)
[2020-11-24] MEDS: Pantoprazole Sodium 40 MG Tablet PO (05:16)
[2020-11-24] MEDS: Chlorthalidone 50 MG Tablet 12.5 MG PO (05:16)
[2020-11-24 05:17] VITALS: BP 99/66; PULSE 71
[2020-11-24] MEDS: Metoprolol(XL)Succ 25 MG Tablet PO (05:17)
[2020-11-24] MEDS: Senna/Docusate Sodium 1 Tablet PO (05:17)
[2020-11-24] MEDS: Potassium Chloride Oral Tablet 20 MEQ PO (08:28)
[2020-11-24 13:54] VITALS: PULSE 88; RESP 16; O2SAT 97
[2020-11-24 15:44] VITALS: BP 114/76; PULSE 88; RESP 16; TEMP 36.7; O2SAT 97
[2020-11-24] MEDS: Ibuprofen 400 MG Tablet PO (16:02)
--- NOTE | 2020-11-24 19:59 | PN.TCU_ITS ---
Subjective Subjective Resident seen, examined for regulatory visit. She is lying in bed, in her room. We discussed the results of her muscle biopsy. Although inconclusive, biopsy suggestive of dermatomyositis, but lacking inflammation, but patient reports having been treated with steroids during her recent hospitalization, I reminded her biopsy did not show upper motor neuron disease, which is good news, because upper motor neuron disease is usually fatal with no treatment available. She does not report any rashes, and her progression in therapy has been good, LDH, CPK not elevated, we elected to not treat at this time, she is awaiting e-mail from [facility] as she would like to see a neurologist there, if not available, she will reschedule with Dr. Hanson locally. Objective Data Objective Data Vital Signs: Vital Signs Temp Pulse Resp BP Pulse Ox 98.1 F 88 16 114/76 97 11/24/20 15:44 11/24/20 15:44 11/24/20 15:44 11/24/20 15:44 11/24/20 15:44 Oxygen Delivery Method Room Air Weight: 79.379 kg Body Mass Index (BMI) 25.4 Intake & Output: Intake and Output for Last 24 Hours 11/22/20 11/23/20 11/24/20 23:59 23:59 23:59 Intake Total 720 / 720 600 / 600 600 / 600 Balance 720 / 720 600 / 600 600 / 600 Lab / Micro Data Result Diagrams: 11/22/20 08:17 11/22/20 08:17 Physical Exam Const alert and oriented x3 General Appearance: cooperative HEENT normocephalic Eyes PERRL and EOMs intact bilaterally Neck supple, no JVD and no carotid bruits Resp normal respiratory effort, normal air movement and clear to auscultation bilaterally Cardio regular rate and regular rhythm GI normal to inspection, nondistended, normoactive bowel sounds, non-tender and non-distended Extremity normal capillary refill General Extremity: Negative for edema Skin no rashes or lesions noted General Skin Exam: no breakdown Psych affect normal Appearance: appropriate Assessment & Plan Assessment/Plan (1) Debility: (2) Nausea & vomiting: (3) Atrial fibrillation with rapid ventricular response: (4) Neck pain: (5) Cervical spinal stenosis: (6) Hypertension: (7) Lumbar spinal stenosis: (8) Migraine: (9) Depression: (10) Dizziness: (11) Chronic pain: PLAN: 65 year old female with below past medical history hospitalized for new onset atrial fibrillation with rapid ventricular response, now resolved, complicated by hypokalemia, nausea, underlying undiagnosed neurologic disorder, admitted to TCU with debility, here for rehabilitation, strengthening, prior to discharge home with . * Debility - PT/OT. * Pain - Ibuprofen 400mg Q6h PRN, Tramadol 50mg Q8H PRN pain (6-10). * Bowel - Miralax 17gm daily prn, Senna/colace 1 tablet twice daily, Dulcolax 10mg daily PRN. * Adult immunization - Administer prevnar 13, pneumovax 23, fluzone, covid19 vaccine as appropriate. * DVT prophylaxis - Lovenox 40mg sc daily. * Hypertension - Metoprolol succinate 25mg daily, Chlorthalidone 12.5mg daily. * Nausea - Reglan 10mg twice daily PRN, Zofran Odt 4mg Q8H PRN. * Lone atrial fibrillation - Metoprolol succinate 25mg daily, anticoagulation held due to high risk of falls. * Migraine - Maxalt 5mg x 1 dose prn. * ?Polymyositis - resident improving in therapy, hold prednisone for now, she will let us know which neurologist she would like to see. MS ruled out, M. Gravis ruled out, Stroke ruled out, ALS ruled out. * Itching - Hydroxyzine 50mg Q8H prn. * GERD - Pantoprazole 40mg daily. * Hemorrhoids - Phenylephrine 1 supp rectal 4x/day PRN. * Hypokalemia - KCL 20meq daily. * Muscle spasm - Tizanidine 4mg QHS PRN. Capacity Capacity Assessment Tool Can the patient make a choice & communicate that choice?: Yes Can the patient understand benefits, risks and alternatives?: Yes Can the patient make a logical, rational choice?: Yes Is the choice the patient makes consistent w/ their values?: Yes Is there an impending, emergent risk to the patient?: No Does the patient have an Advance Directive?: No Is there a Surrogate Available?: Yes i.e. HCPOA: Yes i.e. close relative (spouse, child, parent, sibling)?: Yes
[2020-11-25] MEDS: Ibuprofen 400 MG Tablet PO ×2 (01:49→16:56)
[2020-11-25 05:25] VITALS: BP 113/76; PULSE 78
[2020-11-25 05:26] VITALS: PULSE 78
[2020-11-25] MEDS: Pantoprazole Sodium 40 MG Tablet PO (05:26)
[2020-11-25] MEDS: Metoprolol(XL)Succ 25 MG Tablet PO (05:26)
[2020-11-25] MEDS: Chlorthalidone 50 MG Tablet 12.5 MG PO (05:26)
[2020-11-25] MEDS: Senna/Docusate Sodium 1 Tablet PO (05:27)
[2020-11-25] MEDS: Enoxaparin 40 MG/0.4 ML Syringe SC (05:27)
[2020-11-25] MEDS: Potassium Chloride Oral Tablet 20 MEQ PO (07:58)
[2020-11-25 15:32] VITALS: BP 105/69; PULSE 88; RESP 16; TEMP 36.6; O2SAT 94
[2020-11-25 20:58] VITALS: PULSE 68; RESP 16; O2SAT 96
[2020-11-26] MEDS: Ibuprofen 400 MG Tablet PO ×2 (04:25→21:00)
[2020-11-26 04:29] VITALS: BP 123/74; PULSE 69
[2020-11-26] MEDS: Chlorthalidone 50 MG Tablet 12.5 MG PO (04:30)
[2020-11-26] MEDS: Enoxaparin 40 MG/0.4 ML Syringe SC (04:30)
[2020-11-26 04:31] VITALS: PULSE 69
[2020-11-26] MEDS: Pantoprazole Sodium 40 MG Tablet PO (04:31)
[2020-11-26] MEDS: Senna/Docusate Sodium 1 Tablet PO (04:31)
[2020-11-26] MEDS: Metoprolol(XL)Succ 25 MG Tablet PO (04:31)
[2020-11-26] MEDS: Potassium Chloride Oral Tablet 20 MEQ PO (07:44)
[2020-11-26 16:00] VITALS: BP 105/73; PULSE 72; RESP 18; TEMP 36.1; O2SAT 95
[2020-11-27] MEDS: Ibuprofen 400 MG Tablet PO ×3 (03:00→22:04)
[2020-11-27] MEDS: Chlorthalidone 50 MG Tablet 12.5 MG PO (05:26)
[2020-11-27] MEDS: Enoxaparin 40 MG/0.4 ML Syringe SC (05:26)
[2020-11-27 05:27] VITALS: BP 131/71; PULSE 77
[2020-11-27] MEDS: Metoprolol(XL)Succ 25 MG Tablet PO (05:27)
[2020-11-27] MEDS: Pantoprazole Sodium 40 MG Tablet PO (05:27)
[2020-11-27] MEDS: Senna/Docusate Sodium 1 Tablet PO (05:28)
[2020-11-27] MEDS: Potassium Chloride Oral Tablet 20 MEQ PO (08:12)
[2020-11-27] MEDS: Rizatriptan Benzoate 5 MG Tablet PO (12:07)
[2020-11-27 15:19] VITALS: BP 122/72; PULSE 81; RESP 18; TEMP 36.3; O2SAT 97
[2020-11-27 15:22] VITALS: PULSE 81; RESP 18; O2SAT 97
--- NOTE | 2020-11-27 16:17 | CASEMGMT ---
Social Work Pt requesting to DC. Spoke with pt to discuss plans. Pt requesting DC home with 11/29 - Team agreeable. Pt agreeable to [facility]. Provided list of [facility] agencies. Pt requesting [facility] first choice. Referral made for PT/OT/ST. No DME needs. Plan: DC home with 11/29, [facility] PT/OT/ST PRISCILLA RobbW
--- NOTE | 2020-11-27 21:24 | PCM.DC.SUM ---
Providers Date of Admission: 10/31/20 Primary Care Physician: DUSTIN VillaC Reason For Visit: AFIB WITH RVR Diagnosis Discharge Diagnosis (1) Debility: Status: Acute Code(s): R53.81 - Other malaise (2) Nausea & vomiting: Status: Acute Code(s): R11.2 - Nausea with vomiting, unspecified (3) Atrial fibrillation with rapid ventricular response: Status: Acute Code(s): I48.91 - Unspecified atrial fibrillation (4) Neck pain: Status: Acute Code(s): M54.2 - Cervicalgia (5) Cervical spinal stenosis: Status: Acute Code(s): M48.02 - Spinal stenosis, cervical region (6) Hypertension: Status: Chronic Code(s): I10 - Essential (primary) hypertension (7) Lumbar spinal stenosis: Status: Acute Code(s): M48.061 - Spinal stenosis, lumbar region without neurogenic claudication (8) Migraine: Status: Acute Code(s): G43.909 - Migraine, unspecified, not intractable, without status migrainosus (9) Depression: Status: Acute Code(s): F32.9 - Major depressive disorder, single episode, unspecified (10) Dizziness: Status: Acute Code(s): R42 - Dizziness and giddiness (11) Chronic pain: Status: Chronic Code(s): G89.29 - Other chronic pain Medications at Discharge Home Medications eletriptan 40 mg tablet 40 mg PO PRN PRN 05/07/19 chlorthalidone 12.5 mg PO DAILY 08/03/19 metoprolol succinate 25 mg PO DAILY 10/31/20 ibuprofen 400 mg PO Q6H PRN PRN #0 tab 11/27/20 pantoprazole 40 mg PO DAILY 30 Days #30 tab 11/27/20 potassium chloride [Klor-Con M20] 20 meq PO DAILYCM 30 Days #30 tab 11/27/20 Hospital Course Operations None Procedures None Summary of Care Provided Minutes Spent on Discharge: 35 Hospital Course: 65 year old female with below past medical history hospitalized for new onset atrial fibrillation with rapid ventricular response, now resolved, complicated by hypokalemia, nausea, underlying undiagnosed neurologic disorder, admitted to TCU with debility, here for rehabilitation, strengthening, prior to discharge home with . 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 Resident improved with therapy. She will follow up with Neurology in [place], [place]. Multiple Sclerosis ruled out, Myasthenia gravis ruled out, stroke ruled out, ALS ruled out. Discharge home with 11/29/2020, [facility] PT/OT/ST. Physical Exam Const alert and oriented x3 General Appearance: cooperative HEENT normocephalic Eyes PERRL and EOMs intact bilaterally Neck supple, no JVD and no carotid bruits Resp normal respiratory effort, normal air movement and clear to auscultation bilaterally Cardio regular rate and regular rhythm GI normal to inspection, nondistended, normoactive bowel sounds, non-tender and non-distended Extremity normal capillary refill General Extremity: Negative for edema Skin no rashes or lesions noted General Skin Exam: no breakdown Psych affect normal Appearance: appropriate Weight / BMI Weight Weight: 78.585 kg Body Mass Index (BMI) 25.4 ABG / Lab / Microbiology Data Result Diagrams: 11/22/20 08:17 11/22/20 08:17 D/C Instructions Discharge Diet: No restrictions Discharge Activity: Return to Normal Activity and May Shower May resume sexual activity in: No Restrictions Weight Bearing Status: Weight bearing as tolerated Call your doctor if you observe: Fever of 101 or Higher, Inability to urinate, Inability to have a bowel movement, Shortness of breath, Dizziness, Fainting spells, Swelling in the ankles, Chest pain and Uncontrolled pain Additional Instructions: Discharge home with 11/29/2020, [facility] PT/OT/ST. Please Follow Up With: Sergio Fuller MD When: As scheduled. Meaningful Use Info Meaningful Use Diagnoses (Choose all that apply): None applicable Discharge Plan Admission Admit Date/Time: 10/31/20 18:50 Primary Reason for Your Visit: Debility. Attending Provider: Brayan Garcia Chi Primary Care Provider: Liz Mitchell NP Instructions Additional Instructions / Restrictions: Discharge home with 11/29/2020, [facility] PT/OT/ST. Discharge Orders/Prescriptions Prescriptions: New pantoprazole 40 mg Tablet,Delayed Release (Dr/Ec) 40 mg PO DAILY 30 Days Qty: 30 RF: 0 ibuprofen 400 mg Tablet 400 mg PO Q6H PRN PRN (Reason: Pain 1-10 Or Fever) Qty: 0 RF: 0 potassium chloride [Klor-Con M20] 20 mEq Tablet,Er Particles/Crystals 20 meq PO DAILYCM 30 Days Qty: 30 RF: 0 Continued eletriptan 40 mg tablet 40 mg PO PRN PRN (Reason: Migraine Symptoms) RF: 0 chlorthalidone 25 MG tablet 12.5 mg PO DAILY RF: 0 metoprolol succinate 25 mg tablet extended release 24 hr 25 mg PO DAILY RF: 0 Discontinued gabapentin 600 mg tablet 300 mg PO BID RF: 0 ondansetron HCl 4 mg tablet 4 mg PO Q8H PRN PRN (Reason: Nausea) RF: 0 meclizine 25 mg tablet 25 mg PO DAILY RF: 0 duloxetine 30 mg capsule,delayed release(DR/EC) 30 mg PO DAILY RF: 0 metoclopramide HCl [Reglan] 10 mg tablet 10 mg PO BID PRN PRN (Reason: nausea and vomiting) Qty: 10 RF: 0 tramadol 50 mg tablet 50 mg PO Q8H PRN (Reason: pain) Qty: 10 RF: 0 Referrals / Follow Up: Liz Mitchell NP, PHLEBOTOMIST LAB ASSISTANT-C [Primary Care Provider] - Disposition Disposition (needs filled in before D/C Order can be placed): Home Health Service
[2020-11-28] MEDS: Enoxaparin 40 MG/0.4 ML Syringe SC (06:06)
[2020-11-28] MEDS: Pantoprazole Sodium 40 MG Tablet PO (06:07)
[2020-11-28] MEDS: Chlorthalidone 50 MG Tablet 12.5 MG PO (06:07)
[2020-11-28 06:08] VITALS: BP 114/70; PULSE 66
[2020-11-28] MEDS: Metoprolol(XL)Succ 25 MG Tablet PO (06:08)
[2020-11-28] MEDS: Senna/Docusate Sodium 1 Tablet PO (06:09)
[2020-11-28] MEDS: Potassium Chloride Oral Tablet 20 MEQ PO (08:08)
--- NOTE | 2020-11-28 13:11 | CASEMGMT ---
Social Work BIMS and PHQ-9 completed for MDS assessment. Nafisa Cook, EQUIPMENT OILER MEDICINE TECHNOLOGIST
[2020-11-28 16:07] VITALS: BP 112/74; PULSE 82; RESP 16; TEMP 36.4; O2SAT 97
[2020-11-29 05:49] VITALS: BP 112/73; PULSE 69
[2020-11-29] MEDS: Enoxaparin 40 MG/0.4 ML Syringe SC (05:49)
[2020-11-29] MEDS: Metoprolol(XL)Succ 25 MG Tablet PO (05:49)
[2020-11-29] MEDS: Chlorthalidone 50 MG Tablet 12.5 MG PO (05:49)
[2020-11-29] MEDS: Senna/Docusate Sodium 1 Tablet PO (05:49)
[2020-11-29] MEDS: Pantoprazole Sodium 40 MG Tablet PO (05:51)
[2020-11-29 06:55] LABS: Absolute Lymphocyte Count 1.93 X10^3/uL (0.83-4.51); Absolute Neutrophil Count 0.9 X10^3/uL (2.0-7.7); Basophil# 0.01 X10^3/uL; Basophil% 0.3 % (0-1); Eosinophil# 0.05 X10^3/uL; Eosinophils% 1.6 % (0-5); Hematocrit 39.5 % (37-47); Hemoglobin 13.1 g/dL (12.0-15.0); Lymphocyte # 1.93 X10^3/ul (0.83-4.51); Lymphocyte % 61.9 % (19-41); Mean Corp Hgb Conc 33.2 g/dL (32-36); Mean Corpuscular Hgb 29.4 pg (27.0-32.0); Mean Corpuscular Volume 88.6 fL (81-99); Mean Platelet Vol. 10.3 fl (6.2-12.0); Monocyte# 0.27 X10^3/uL; Monocyte% 8.7 % (0-10); NRBC Flagged by Analyzer 0 % (0-5); Neutrophil # 0.85 X10^3/uL (2.7-7.7); Neutrophil % 27.2 % (47-70); POSITIVE DIFFERENTIAL YES; Platelet Count 169 K/mm3 (150-450); RBC Distribution Width CV 13.3 % (11.6-14.6); RBC Distribution Width SD 43.6 fl (35.1-43.9); Red Blood Count 4.46 M/mm3 (4.2-5.4); White Blood Count 3.1 K/mm3 (4.4-11.0)
[2020-11-29 07:01] LABS: Differential Indicated SCAN CRITERIA MET
[2020-11-29 07:25] LABS: Anion Gap 6 (5-15); BUN 20 mg/dL (7-18); Calcium,Total 8.9 mg/dL (8.5-10.1); Chloride 107 mmol/L (98-107); Creatinine, Serum 0.72 mg/dL (0.55-1.02); EST Glomerular Filtration Rate 86 mL/min (>60); Est Glom Filt Rate - Afr Amer 105 mL/min (>60); Estimated Creatinine Clearance 57.05 ml/min; Glucose 104 mg/dL (74-106); Potassium 3.3 mmol/L (3.5-5.1); Sodium Level 140 mmol/L (136-145)
[2020-11-29 07:28] LABS: Differential Comment SCANNED
[2020-11-29] MEDS: Potassium Chloride Oral Tablet 20 MEQ PO ×2 (08:24→17:03)
--- NOTE | 2020-11-29 10:12 | NURSING ---
Pt concerned with potassium level of 3.3 and chose to stay to have it monitored. Dr. Garcia aware and new to increase potassium to BID. Pt also requested to have [facility] today Dr. Jose blanco. Will recheck BMP 11/30.
[2020-11-29 11:34] VITALS: RESP 18; O2SAT 97
[2020-11-29 15:17] VITALS: BP 128/83; PULSE 84; RESP 18; TEMP 36.6; O2SAT 97
[2020-11-29] MEDS: Ondansetron ODT 4 MG Tablet PO (15:33)
[2020-11-29] MEDS: Ibuprofen 400 MG Tablet PO (20:18)
[2020-11-30 05:48] VITALS: BP 103/68; PULSE 72
[2020-11-30] MEDS: Pantoprazole Sodium 40 MG Tablet PO (05:48)
[2020-11-30 05:49] VITALS: PULSE 75
[2020-11-30] MEDS: Senna/Docusate Sodium 1 Tablet PO (05:49)
[2020-11-30] MEDS: Metoprolol(XL)Succ 25 MG Tablet PO (05:49)
[2020-11-30] MEDS: Enoxaparin 40 MG/0.4 ML Syringe SC (05:50)
[2020-11-30] MEDS: Potassium Chloride Oral Tablet 20 MEQ PO ×2 (07:44→16:11)
[2020-11-30 07:48] LABS: Anion Gap 4 (5-15); BUN 21 mg/dL (7-18); BUN/Creat Ratio 24.7 RATIO (10-20); Calcium,Total 8.9 mg/dL (8.5-10.1); Chloride 108 mmol/L (98-107); Creatinine, Serum 0.85 mg/dL (0.55-1.02); EST Glomerular Filtration Rate 71 mL/min (>60); Est Glom Filt Rate - Afr Amer 86 mL/min (>60); Estimated Creatinine Clearance 67.12 ml/min; Glucose 105 mg/dL (74-106); Potassium 3.6 mmol/L (3.5-5.1); Sodium Level 141 mmol/L (136-145)
[2020-11-30 12:31] VITALS: BP 115/72; PULSE 72; RESP 17; TEMP 36.6; O2SAT 96
[2020-11-30] MEDS: Ondansetron ODT 4 MG Tablet PO (18:55)
[2020-11-30] MEDS: Ibuprofen 400 MG Tablet PO (20:14)
[2020-12-01 04:59] VITALS: BP 106/66; PULSE 63
[2020-12-01 05:00] VITALS: PULSE 63
[2020-12-01] MEDS: Metoprolol(XL)Succ 25 MG Tablet PO (05:00)
[2020-12-01] MEDS: Senna/Docusate Sodium 1 Tablet PO (05:00)
[2020-12-01] MEDS: Enoxaparin 40 MG/0.4 ML Syringe SC (05:01)
[2020-12-01] MEDS: Pantoprazole Sodium 40 MG Tablet PO (05:02)
[2020-12-01] MEDS: Potassium Chloride Oral Tablet 20 MEQ PO (08:27)
[2020-12-01] MEDS: Chlorthalidone 50 MG Tablet 12.5 MG PO (08:28)
[2020-12-01] MEDS: Ibuprofen 400 MG Tablet PO (11:51)
--- NOTE | 2020-12-01 15:37 | NURSING ---
potassium 3.6 today, Dr Garcia updated and ok with pt going home today
[2020-12-01 15:48] VITALS: PULSE 80; RESP 16; O2SAT 98
[2020-12-01 15:55] VITALS: BP 118/73; PULSE 80; RESP 16; TEMP 36.3; O2SAT 98
[2020-12-01 15:57] VITALS: BP 118/73; PULSE 80; RESP 16; TEMP 36.3; O2SAT 98
--- NOTE | 2020-12-01 16:59 | CASEMGMT ---
Social Work Followed up with nursing to inquire about why pt did not discharge. Pt's potassium was low and pt wanted to stay to get managed. Spoke with pt to inquire about DC - pt concerned about ensuring potassium remains stable and wants to know what Dr. Garcia's tx plan is. relayed to nursing. Nursing spoke to Dr. Garcia and he states it is currently stable and is safe to DC home and PCP can continue to manage in community. Nursing relayed that information to pt. This worker followed up with pt to inquire about DC. Pt stated if Dr. Garica isn't going to figure out the cause of the potassium, then she will go home and follow up with her PCP as indicated. Pt expressed other concerns from her stay. This worker listened and attempted to apologize on behalf the team, however, pt was being very short and did not want to continue having a conversation with this worker. She stated she would DC home this date. Pt agreed to have [facility] again. Left message with [facility] of new DC date. Plan: DC home with 12/01 PRISCILLA Robb
== END 2020-12-01 16:10 | disposition home health service (06) | DRG 310 ==
PROVIDERS: Admitting Provider Family Medicine Geriatric Medicine; PCP Nurse Practitioner; Visit Provider Family Medicine Geriatric Medicine
DX: I48.91 Unspecified atrial fibrillation (principal); I10 Essential (primary) hypertension; F32.9 Major depressive disorder, single episode, unspecified; G43.909 Migraine, unspecified, not intractable, without status migrainosus; M48.02 Spinal stenosis, cervical region; M19.90 Unspecified osteoarthritis, unspecified site; G89.29 Other chronic pain; Z79.899 Other long term (current) drug therapy; M48.061 Spinal stenosis, lumbar region without neurogenic claudication
CPT/HCPCS: 36415; 80048; 82550; 83615; 85025; 87635; 92507; 92526; 92610; 97110; 97116; 97162; 97167; 97530; 97535; 97537; 97802; U0005; U0003

== ENCOUNTER → 2020-12-18 14:57 | Outpatient (CLI) | payer MEDICARE, OTHER, SELFPAY ==
[2020-12-18 16:22] LABS: Absolute Lymphocyte Count 2.15 X10^3/uL (0.83-4.51); Absolute Neutrophil Count 2.2 X10^3/uL (2.0-7.7); Basophil# 0.03 X10^3/uL; Basophil% 0.6 % (0-1); Eosinophil# 0.07 X10^3/uL; Eosinophils% 1.5 % (0-5); Hemoglobin 14.7 g/dL (12.0-15.0); Lymphocyte # 2.15 X10^3/ul (0.83-4.51); Lymphocyte % 46.1 % (19-41); Mean Corp Hgb Conc 32.7 g/dL (32-36); Mean Corpuscular Hgb 29.1 pg (27.0-32.0); Mean Corpuscular Volume 89.1 fL (81-99); Mean Platelet Vol. 11.3 fl (6.2-12.0); Monocyte# 0.24 X10^3/uL; Monocyte% 5.2 % (0-10); NRBC Flagged by Analyzer 0 % (0-5); Neutrophil # 2.17 X10^3/uL (2.7-7.7); Neutrophil % 46.6 % (47-70); Platelet Count 193 K/mm3 (150-450); RBC Distribution Width CV 13.7 % (11.6-14.6); RBC Distribution Width SD 44.4 fl (35.1-43.9); Red Blood Count 5.05 M/mm3 (4.2-5.4); White Blood Count 4.7 K/mm3 (4.4-11.0)
[2020-12-18 17:08] LABS: AST(SGOT) 17 U/L (15-37); Alanine Aminotransfer ALT/SGPT 35 U/L (13-56); Albumin, Serum 3.6 g/dL (3.2-5.0); Alkaline Phosphatase 60 U/L (45-117); Anion Gap 6 (5-15); BUN 17 mg/dL (7-18); BUN/Creat Ratio 20.6 RATIO (10-20); Calcium,Total 9.3 mg/dL (8.5-10.1); Chloride 106 mmol/L (98-107); Cholesterol 206 mg/dL (200); Creatinine, Serum 0.82 mg/dL (0.55-1.02); EST Glomerular Filtration Rate 73 mL/min (>60); Est Glom Filt Rate - Afr Amer 89 mL/min (>60); Globulin 3.5 g/dL (2.2-4.2); Glucose 94 mg/dL (74-106); High Density Lipoprotein 44 mg/dL; Magnesium 2.5 mg/dL (1.6-2.6); Protein, Total 7.1 g/dL (6.4-8.2); Sodium Level 140 mmol/L (136-145); Thyroid Stim Hormone (TSH) 2.17 uIU/mL (0.358-3.74); Triglycerides 156 mg/dL; Very Low Density Lipoprotein 31 mg/dL (5-40)
== END ==
PROVIDERS: PCP Nurse Practitioner; Visit Provider Nurse Practitioner
DX: I10 Essential (primary) hypertension (principal)
CPT/HCPCS: 36415; 80053; 80061; 83735; 84443; 85025

== ENCOUNTER 2021-11-30 18:47 | Observation (INO) | payer MEDICARE, OTHER, SELFPAY ==
[2021-11-30 18:48] VITALS: BP 179/121; PULSE 87; RESP 16; TEMP 36.4; O2SAT 98; BMI 29.0
--- NOTE | 2021-11-30 18:57 | CT_ITS ---
STUDY: CT BRAIN WITHOUT CONTRAST REASON FOR EXAM: Female, 66 years old. CONFUSION RADIATION DOSAGE (If Supplied By Facility): CTDIvol = ( 44.99 ) mGy, DLP = ( 863.60 ) mGycm TECHNIQUE: Transaxial CT imaging of the brain was performed without administration of intravenous contrast material. Individualized dose optimization techniques were used for this CT. COMPARISON: No relevant priors. FINDINGS: Normal soft tissue structures. Normal calvarium. Normal size ventricles and extra-axial spaces for the patient''s age. Normal white matter tracts of the cerebral hemispheres. Normal basal ganglia and thalami. Normal brainstem. Normal cerebellum. There is no intracranial hemorrhage. There are no findings of an acute ischemic infarction. Normal visualized paranasal sinuses. No significant change since prior exam CT/Brain/Head without Contrast IMPRESSION: Normal unenhanced CT scan of the brain. If concern for acute infarct MRI recommended Electronically Signed: Parish Shepard MD at 20:06 EDT ,
--- NOTE | 2021-11-30 18:58 | EKG12_ITS ---
Test Reason : DYSRHYTHMIA Blood Pressure : / mmHG Vent. Rate : 078 BPM Atrial Rate : 078 BPM P-R Int : 168 ms QRS Dur : 068 ms QT Int : 362 ms P-R-T Axes : 061 -14 051 degrees QTc Int : 412 ms Sinus rhythm with Premature supraventricular complexes Otherwise normal ECG Confirmed by BERNABE SNEED, VIOLET ([id number]), acquisition editor GRACIE ADAMSON ([id number]) on 12/02/2021 11:02:03 AM Referred By: JAD Confirmed By:VIOLET KIDD MD
[2021-11-30 19:18] LABS: Absolute Lymphocyte Count 1.48 X10^3/uL (0.83-4.51); Absolute Neutrophil Count 2.1 X10^3/uL (2.0-7.7); Basophil# 0.02 X10^3/uL; Basophil% 0.5 % (0-1); Eosinophils% 2.6 % (0-5); Hemoglobin 15.1 g/dL (12.0-15.0); Lymphocyte # 1.48 X10^3/ul (0.83-4.51); Lymphocyte % 38.3 % (19-41); Mean Corp Hgb Conc 33.6 g/dL (32-36); Mean Corpuscular Hgb 29.8 pg (27.0-32.0); Mean Corpuscular Volume 88.8 fL (81-99); Mean Platelet Vol. 10.2 fl (6.2-12.0); Monocyte# 0.19 X10^3/uL; Monocyte% 4.9 % (0-10); NRBC Flagged by Analyzer 0 % (0-5); Neutrophil # 2.06 X10^3/uL (2.7-7.7); Neutrophil % 53.4 % (47-70); Platelet Count 177 K/mm3 (150-450); RBC Distribution Width CV 13.4 % (11.6-14.6); RBC Distribution Width SD 43.7 fl (35.1-43.9); Red Blood Count 5.07 M/mm3 (4.2-5.4); White Blood Count 3.9 K/mm3 (4.4-11.0)
--- NOTE | 2021-11-30 19:25 | RAD_ITS ---
STUDY: X-RAY CHEST REASON FOR EXAM: Female, 66 years old. Stroke TECHNIQUE: AP portable COMPARISON: 08/03/2019 FINDINGS: Minor interstitial thickening in the right upper and lower lobes.. There is no demonstrated pleural abnormality. Normal size heart. Normal mediastinum and courtney. Normal visualized pulmonary arteries. Normal visualized aortic arch and descending thoracic aorta. Normal visualized thoracic spine. Normal visualized ribs, clavicles, and shoulders. There is no demonstrated abnormality of the visualized soft tissue structures of the upper abdomen. RAD/Chest 1 View (Portable) IMPRESSION: No acute cardiopulmonary pathology. Electronically Signed: Parish Shepard MD at 20:17 EDT ,
[2021-11-30 19:29] LABS: International Normalized Ratio 0.9; Partial Thromboplast Time 27.2 Seconds (24.1-36.2); Prothrombin Time (Protime)PT. 12.3 SECONDS (11.7-14.9)
[2021-11-30 19:31] LABS: Anion Gap 6 (5-15); BUN 23 mg/dL (7-18); BUN/Creat Ratio 23.6 RATIO (10-20); Calcium,Total 9.6 mg/dL (8.5-10.1); Chloride 110 mmol/L (98-107); Creatinine, Serum 0.98 mg/dL (0.55-1.02); EST Glomerular Filtration Rate 60 mL/min (>60); Est Glom Filt Rate - Afr Amer 73 mL/min (>60); Estimated Creatinine Clearance 57.42 ml/min; Glucose 132 mg/dL (74-106); Potassium 3.9 mmol/L (3.5-5.1); Sodium Level 145 mmol/L (136-145)
[2021-11-30 19:36] VITALS: BMI 29.0
[2021-11-30 19:38] VITALS: BP 176/110; PULSE 80; RESP 16; O2SAT 98
--- NOTE | 2021-11-30 20:40 | CT_ITS ---
STUDY: CTA HEAD AND NECK WITH CONTRAST REASON FOR EXAM: Female, 66 years old. confusion RADIATION DOSAGE (If Supplied By Facility): CTDIvol = ( 19.69 ) mGy, DLP = ( 705.29 ) mGycm TECHNIQUE: CT angiography was performed with a multi-detector CT scanner. Data acquisition was obtained from the skull base through the vertex following intravenous administration of IV 100mL [id number]-[id number]. MIP images were reconstructed from the axial data set. Post-processing of the angiographic images was performed, with multiplanar reformation and 3D reconstruction. Individualized dose optimization techniques were used for this CT. COMPARISON: No relevant priors. FINDINGS: Normal bilateral petrous carotid arteries. Normal right cavernous carotid artery with a normal supraclinoid bifurcation. Normal left cavernous carotid artery with a normal supraclinoid bifurcation. Normal right A1 segments of the anterior cerebral artery. Normal left A1 segments of the anterior cerebral artery. Normal intact anterior communicating artery (ACOM). Normal bilateral A2 segments of the anterior cerebral arteries. Normal right M1 and M2 segments of the middle cerebral arteries, with a normal M1 bifurcation. Normal left M1 and M2 segments of the middle cerebral arteries, with a normal M1 bifurcation. Normal right posterior communicating artery (PCOM). Normal left posterior communicating artery (PCOM). Normal bilateral vertebral arteries. Normal basilar artery with a normal basilar bifurcation. The visualized bilateral superior cerebellar (SCA) arteries are normal. Normal left posterior cerebral artery. Nonvisualized right posterior cerebral artery consistent variant.. Hypoplastic left posterior communicating artery consistent with normal variant There is no demonstrated aneurysm of the [place] of [place]. AORTIC ARCH: Normal visualized aortic arch. Normal origins of the brachiocephalic, left common carotid, and left subclavian arteries. RIGHT CAROTID ARTERIES: Normal right common carotid artery (CCA). Normal right common carotid bulb. Normal origin of the right internal carotid (ICA) artery without a hemodynamically significant stenosis. Normal visualized cervical portion of the right internal carotid artery. Normal origin of the right external carotid artery (ECA). LEFT CAROTID ARTERIES: Normal left common carotid artery (CCA). Normal left common carotid bulb. Normal origin of the left internal carotid (ICA) artery without a hemodynamically significant stenosis. Normal visualized cervical portion of the left internal carotid artery. Normal origin of the left external carotid artery (ECA). VERTEBRAL ARTERIES: Normal bilateral vertebral arteries. CT/CTA Head AND Neck W/ Contrast IMPRESSION: Normal CTA Head and neck with contrast. Electronically Signed: Parish Shepard MD at 21:57 EDT ,
[2021-11-30 21:12] VITALS: BP 140/96; PULSE 77; RESP 18; O2SAT 98
--- NOTE | 2021-11-30 22:18 | EDS_ITS ---
HPI History of Present Illness Chief Complaint: Neuro S/Sx Detail of Chief Complaint: Change in mental status Informant: patient and spouse/S.O. Onset/Context/Timing Onset: Today and Hours Context: Gradual Onset Timing: Continuous Current Severity: Mild Maximum Severity: Mild Narrative Narrative: 66-year-old female history of A. fib, cerebellar ataxia and spinal stenosis. There is pain. The midline. The patient today was having physical therapy at [facility] around 215 and then decreased mental status. She could not remember certain things to happen today. She has had intermittent headaches. Nausea. No fall or head trauma. 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 Denies any recent illness. No vomiting or diarrhea. No fever or dysuria. Prior similar symptoms: No Recent Illness/Hospitalization: No [facility] Medical History Abnormal bruising Arthritis Atrial fibrillation with rapid ventricular response Chronic migraine Chronic neck and back pain Essential (primary) hypertension Knee pain Limb weakness Neck pain Shoulder pain Spinal stenosis Vasovagal syncope Weakness generalized Home Medications eletriptan 40 mg tablet 40 mg PO PRN PRN Migraine Symptoms 05/07/19 [History Last Taken Unknown] chlorthalidone 25 mg tablet 12.5 mg PO DAILY fluid pill 08/03/19 [History Last Taken Unknown] metoprolol succinate 25 mg tablet,extended release 24 hr 25 mg PO DAILY BP/pulse 10/31/20 [History Last Taken Unknown] ibuprofen 400 mg tablet 400 mg PO Q6H PRN PRN Pain 1-10 Or Fever #0 tabs 11/27/20 [Rx Last Taken Unknown] pantoprazole 40 mg tablet,delayed release 40 mg PO DAILY 30 days #30 tabs 11/27/20 [Rx Last Taken Unknown] potassium chloride 20 mEq tablet,extended release(part/cryst) (Klor-Con M) 20 meq PO DAILYCM 30 days #30 tabs 11/27/20 [Rx Last Taken Unknown] Allergy/AdvReac Type Severity Reaction Status Date / Time acetaminophen [From Percocet] Allergy Unknown Unknown Verified 11/30/21 18:48 hydromorphone [From Dilaudid] Allergy Unknown Unknown Verified 11/30/21 18:48 morphine Allergy Unknown Unknown Verified 11/30/21 18:48 oxycodone [From Percocet] Allergy Unknown Unknown Verified 11/30/21 18:48 celecoxib [From Celebrex] Allergy Hives Verified 11/30/21 18:48 NARCOTIC AdvReac Itching Uncoded 11/30/21 18:48 Family History Father Hypertension Diabetes Cancer prostate Mother Hypertension MGUS (monoclonal gammopathy of unknown significance) Surgical History H/O cervical discectomy History of hysterectomy Social History household members: spouse housing: house current occupational status: retired pets and animals: Yes (dogs & cats ) Smoking Status: Never smoker alcohol intake: never substance use type: does not use caffeine: Yes what type of physical activity do you participate in: walking seatbelt use: always do you feel safe at home: Yes ROS ROS ED ROS Narrative Headaches. Review of Systems ROS Unobtainable: Denies due to encephalopathy Constitutional Constitutional ED: Denies chills or fever(s) Eyes Eyes: Denies blurry vision ENT ENT ED: Denies ear pain Cardiovascular Cardiovascular: Denies chest pain Respiratory/Chest Respiratory/Chest: Denies cough or dyspnea Gastrointestinal Gastrointestinal: Denies abdominal pain or constipation Genitourinary Genitourinary ED: Denies dysuria or hematuria Musculoskeletal Musculoskeletal: Denies arthralgias Integumentary Denies abscess Neurologic Neurologic: Reports headache(s) Psychiatric Psychiatric: Denies anxiety or depression Endocrine Endocrinology: Denies cold intolerance Hematologic/Lymphatic Hematologic/Lymphatic: Reports none Allergic/Immunologic Allergic/Immunologic ED: Denies mouth swelling or tongue swelling EXAM Physical Exam Narrative Exam Narrative: Well-appearing 66-year-old female. Vital signs stable afebrile. Initial blood pressure 179/121. Repeat 176/110. At 912 blood pressure is 140/96 and she was not treated with any medication it slowly came down to its own. H EENT exam unremarkable atraumatic. Pupils round reactive light. Extra motions intact. Normal speech. No facial droop. Neck nontender. No lymphadenopathy. Lungs clear to auscultation. Heart regular rhythm rate about 80 no murmur. Chest were nontender. Abdomen soft nontender. Moving all 4 extremities. Neurologically she is awake and alert. She answers questions and follows commands. She knows day, month, year and president. No facial droop. No slurred speech. Normal motor strength of upper and lower extremities. Const Vital Signs: 11/30/21 18:48 11/30/21 19:36 11/30/21 19:38 Temperature 97.6 F L Temperature Source Temporal Pulse Rate 87 80 Respiratory Rate 16 16 Blood Pressure 179/121 H 176/110 H Blood Pressure Mean 140 132 Pulse Ox 98 98 Oxygen Delivery Method Room Air Room Air Room Air 11/30/21 21:12 Temperature Temperature Source Pulse Rate 77 Respiratory Rate 18 Blood Pressure 140/96 H Blood Pressure Mean 110 Pulse Ox 98 Oxygen Delivery Method Room Air Positive well nourished and well developed; Negative for obese, cachectic, contractures or unkempt General Appearance ED: well developed and NAD; Negative for unkempt, cachectic, contractures, cyanotic or diaphoretic Nutritional Appearance: Negative for cachectic or obese HEENT Reports moist mucous membranes; Denies dry mucous membranes Negative for trauma or tenderness Mouth ED: No dry mucous membranes Mouth: No dry mucous membranes Eyes PERRL and EOMs intact bilaterally General Eye ED: Negative for pale conjunctiva Neck no lymphadenopathy, supple and no JVD General: Negative for tenderness Chest Wall inspection of chest normal and palpation of chest normal Resp normal respiratory effort and clear to auscultation bilaterally Effort and Inspection: Negative for retractions Auscultation: Negative for rales, rhonchi or wheezes Cardio regular rate, regular rhythm, S1 normal heart sound, S2 normal heart sound and no murmurs GI normal to inspection, nondistended, normoactive bowel sounds, non-tender, non- distended and no masses Inspection: Negative for abdominal distention Auscultation: normoactive bowel sounds Palpation: soft; Negative for tender or guarding Back/Spine no CVA tenderness General Back: Negative for CVA tenderness Cervical Spine: Negative for cervical spine tenderness Thoracic Spine / Upper Back: Negative for thoracic spinal tenderness Lumbar Spine / Lower Back: Negative for lumbar spinal tenderness Extremity normal to inspection General Extremety ED: Negative for edema or tenderness General Extremity: Negative for edema Neuro oriented x3 and CN's II-XII intact bilaterally Sensorium / Orientation: alert; Negative for orientation impaired, lethargic or stuporous Motor Exam: strength 5/5 throughout Psych mental status grossly normal Appearance: Negative for unkempt Attitude: No agitated Mood & Affect: Negative for depressed, anxious or tearful Skin no rashes or lesions noted and no wounds General Skin Exam: Negative for elasticity normal Lesions: No lesion noted Rashes: No rashes noted MDM MDM MDM Narrative Medical decision making narrative: 66-year-old female history of A. fib and cerebellar ataxia. With mental status change today. Exam benign. CAT scan labs pending. She has not had any recent illness. Repeat exam at 10:25 PM unchanged. Discussed with patient and her I will speak to the hospitalist about admission. Repeat neurologic exam is unchanged. Lab Data Attestation: I reviewed the patient's lab results. Lab results narrative: CBC White count 3.9 H&H of 15.1 and 45. PT/INR PTT normal. Electrolytes show a gap of 6 BUN 23 creatinine 0.9. Glucose 132. CTA head neck negative. CT brain negative. Chest x-ray negative.. Labs: Laboratory Results - last 24 hr 11/30/21 11/30/21 11/30/21 19:10 19:10 19:10 WBC 3.9 L RBC 5.07 Hgb 15.1 H Hct 45.0 MCV 88.8 MCH 29.8 MCHC 33.6 RDW Std Deviation 43.7 RDW Coeff of Pedrito 13.4 Plt Count 177 MPV 10.2 Immature Gran % (Auto) 0.300 Neut % (Auto) 53.4 Lymph % (Auto) 38.3 [place] % (Auto) 4.9 Eos % (Auto) 2.6 Baso % (Auto) 0.5 Absolute Neuts (auto) 2.1 Absolute Lymphs (auto) 1.48 Nucleated RBC % 0 PT 12.3 INR 0.9 APTT 27.2 Sodium 145 Potassium 3.9 Chloride 110 H Carbon Dioxide 29.0 Anion Gap 6 BUN 23 H Creatinine 0.98 Estim Creat Clear Calc 57.42 Est GFR (MDRD) Af Amer 73 Est GFR (MDRD) Non-Af 60 BUN/Creatinine Ratio 23.6 H Glucose 132 H Calcium 9.6 Radiography Chest X-Ray - ED: 1 View, Read by ED Physician, Read by Radiologist, Normal, Heart, Lungs, Mediastinum, Bony Structures, No Acute Disease and Chronic Changes Diagnostic Testing: Clinical Impression(s) from Imaging Studies Brain CT 11/30/21 18:57 IMPRESSION: Normal unenhanced CT scan of the brain. If concern for acute infarct MRI recommended Electronically Signed: Parish Shepard MD at 20:06 EDT , Chest X-Ray 11/30/21 19:25 IMPRESSION: No acute cardiopulmonary pathology. Electronically Signed: Parish Shepard MD at 20:17 EDT , Head/Neck CTA 11/30/21 20:40 IMPRESSION: Normal CTA Head and neck with contrast. Electronically Signed: Parish Shepard MD at 21:57 EDT , Chest x-ray, portable, single view interpreted by myself and the radiologist shows no acute abnormality. Rhythm Strip Rhythm Strip: Sinus Rhythm Rate: 78 Ectopy: None EKG Initial EKG: Attestation: I personally reviewed and interpreted this EKG as follows: Interpretation: Sinus Rhythm and No Acute Injury Pattern Comments: Normal sinus rhythm rate of 78 no acute signs of CO or ischemia. Discharge Plan Triage Chief Complaint: Neuro S/Sx ED Provider: Gomez Vaughn Dx/Rx/DC Orders Clinical Impression: Acute alteration in mental status, History of atrial fibrillation, History of cerebellar ataxia Prescriptions: No Action eletriptan 40 mg tablet 40 mg PO PRN PRN (Reason: Migraine Symptoms) chlorthalidone 25 MG tablet 12.5 mg PO DAILY metoprolol succinate 25 mg tablet extended release 24 hr 25 mg PO DAILY pantoprazole 40 mg Tablet,Delayed Release (Dr/Ec) 40 mg PO DAILY 30 Days Qty: 30 0RF ibuprofen 400 mg Tablet 400 mg PO Q6H PRN PRN (Reason: Pain 1-10 Or Fever) Qty: 0 0RF potassium chloride [Klor-Con M20] 20 mEq Tablet,Er Particles/Crystals 20 meq PO DAILYCM 30 Days Qty: 30 0RF Primary Care Provider: Sun Lawrence Referrals: Sun Lawrence MD [Primary Care Provider] - Disposition Disposition: Acute Care Hospital [facility] [place] [facility]
[2021-11-30 23:11] VITALS: BP 164/105; PULSE 76; RESP 18; TEMP 37.2; O2SAT 98
--- NOTE | 2021-11-30 23:50 | PCM.HP.STD ---
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 The patient routinely stays in a wheelchair due to her ataxia. She states she is unable to tell if she is in atrial fibrillation and the last time she was known to have atrial fibrillation was 1 year ago. Since atrial fibrillation is infrequent she is not anticoagulated . CT scan of the head is negative for acute hemorrhage, CT angiogram of the neck is also unremarkable. Patient states she was working with a new physical therapist at [facility] today who she has not seen before and was asking her questions about her past that normally she would be able to answer but for some reason she was not able to remember these things. Within a few hours she has been able to start processing memories more efficiently and does not feel that there is currently a deficit at this time. She will be admitted overnight for observation and MRI in the morning. [facility] Medical History Abnormal bruising Arthritis Atrial fibrillation with rapid ventricular response Chronic migraine Chronic neck and back pain Essential (primary) hypertension Knee pain Limb weakness Neck pain Shoulder pain Spinal stenosis Vasovagal syncope Weakness generalized Home Medications eletriptan 40 mg tablet 40 mg PO PRN PRN Migraine Symptoms 05/07/19 [History Last Taken Unknown] chlorthalidone 25 mg tablet 12.5 mg PO DAILY fluid pill 08/03/19 [History Last Taken Unknown] metoprolol succinate 25 mg tablet,extended release 24 hr 25 mg PO DAILY BP/pulse 10/31/20 [History Last Taken Unknown] ibuprofen 400 mg tablet 400 mg PO Q6H PRN PRN Pain 1-10 Or Fever #0 tabs 11/27/20 [Rx Last Taken Unknown] pantoprazole 40 mg tablet,delayed release 40 mg PO DAILY 30 days #30 tabs 11/27/20 [Rx Last Taken Unknown] potassium chloride 20 mEq tablet,extended release(part/cryst) (Klor-Con M) 20 meq PO DAILYCM 30 days #30 tabs 11/27/20 [Rx Last Taken Unknown] Allergy/AdvReac Type Severity Reaction Status Date / Time acetaminophen [From Percocet] Allergy Unknown Unknown Verified 11/30/21 18:48 hydromorphone [From Dilaudid] Allergy Unknown Unknown Verified 11/30/21 18:48 morphine Allergy Unknown Unknown Verified 11/30/21 18:48 oxycodone [From Percocet] Allergy Unknown Unknown Verified 11/30/21 18:48 celecoxib [From Celebrex] Allergy Hives Verified 11/30/21 18:48 NARCOTIC AdvReac Itching Uncoded 11/30/21 18:48 Family History Father Hypertension Diabetes Cancer prostate Mother Hypertension MGUS (monoclonal gammopathy of unknown significance) Surgical History H/O cervical discectomy History of hysterectomy Social History household members: spouse housing: house current occupational status: retired pets and animals: Yes (dogs & cats ) Smoking Status: Never smoker alcohol intake: never substance use type: does not use caffeine: Yes what type of physical activity do you participate in: walking seatbelt use: always do you feel safe at home: Yes ROS Constitutional Constitutional: Denies chills or fever(s) Eyes Eyes: Reports double vision ENT HEENT: Denies abnormal hearing or headache(s) Cardiovascular Cardiovascular: Denies chest pain or edema Respiratory/Chest Respiratory/Chest: Denies cough or shortness of breath at rest Gastrointestinal Gastrointestinal: Denies abdominal pain or constipation Genitourinary Genitourinary: Denies dysuria Musculoskeletal Musculoskeletal: Denies back pain Neurologic Neurologic: Reports lack of coordination; Denies abnormal speech or confusion Psychiatric Psychiatric: Denies anxiety Vital Signs Vital Signs Vital Signs: 11/30/21 18:48 11/30/21 19:36 11/30/21 19:38 Temperature 97.6 F L Temperature Source Temporal Pulse Rate 87 80 Respiratory Rate 16 16 Blood Pressure 179/121 H 176/110 H Blood Pressure Mean 140 132 Pulse Ox 98 98 Oxygen Delivery Method Room Air Room Air Room Air 11/30/21 21:12 11/30/21 23:11 Temperature 98.9 F Temperature Source Temporal Pulse Rate 77 76 Respiratory Rate 18 18 Blood Pressure 140/96 H 164/105 H Blood Pressure Mean 110 124 Pulse Ox 98 98 Oxygen Delivery Method Room Air Room Air Weight Weight: 197 lb 0.011 oz Body Mass Index (BMI) 29.0 Physical Exam Const oriented x3 General Appearance: cooperative HEENT normocephalic and head/scalp atraumatic Eyes PERRL and EOMs intact bilaterally Neck no lymphadenopathy and supple Lymph Lymphatic: no lymphadenopathy noted Resp normal respiratory effort, normal air movement and clear to auscultation bilaterally Cardio regular rate, regular rhythm, S1 normal heart sound, S2 normal heart sound and no murmurs GI normal to inspection, nondistended, normoactive bowel sounds Extremity normal capillary refill Skin General Skin Exam: no breakdown Neuro CN's II-XII intact bilaterally Speech: speech normal Motor Exam: strength 5/5 throughout Psych thought process normal, cooperative and affect normal Appearance: appropriate Results Lab / Micro Data Result Diagrams: 11/30/21 19:10 11/30/21 19:10 Labs: Laboratory Results - last 24 hr 11/30/21 19:10: WBC 3.9 L, RBC 5.07, Hgb 15.1 H, Hct 45.0, MCV 88.8, MCH 29.8, MCHC 33.6, RDW Std Deviation 43.7, RDW Coeff of Pedrito 13.4, Plt Count 177, MPV 10.2, Immature Gran % (Auto) 0.300, Neut % (Auto) 53.4, Lymph % (Auto) 38.3, [place] % (Auto) 4.9, Eos % (Auto) 2.6, Baso % (Auto) 0.5, Absolute Neuts (auto) 2.1, Absolute Lymphs (auto) 1.48, Nucleated RBC % 0 11/30/21 19:10: PT 12.3, INR 0.9, APTT 27.2 11/30/21 19:10: Sodium 145, Potassium 3.9, Chloride 110 H, Carbon Dioxide 29.0, Anion Gap 6, BUN 23 H, Creatinine 0.98, Estim Creat Clear Calc 57.42, Est GFR (MDRD) Af Amer 73, Est GFR (MDRD) Non-Af 60, BUN/Creatinine Ratio 23.6 H, Glucose 132 H, Calcium 9.6 Rhythm Strip Rhythm Strip: Sinus Rhythm Rate: 78 Ectopy: None Radiology Impression Brain CT 11/30/21 18:57 IMPRESSION: Normal unenhanced CT scan of the brain. If concern for acute infarct MRI recommended Electronically Signed: Parish Shepard MD at 20:06 EDT , Chest X-Ray 11/30/21 19:25 IMPRESSION: No acute cardiopulmonary pathology. Electronically Signed: Parish Shepard MD at 20:17 EDT , Head/Neck CTA 11/30/21 20:40 IMPRESSION: Normal CTA Head and neck with contrast. Electronically Signed: Parish Shepard MD at 21:57 EDT , Assessment & Plan Assessment/Plan (1) Acute alteration in mental status: (2) History of atrial fibrillation: (3) History of cerebellar ataxia: (4) Hypertension: PLAN: Plan 1. acute alteration mental status, possible TIA?admit patient for observation to progressive care unit, start neurochecks every 4 hours, add aspirin per routine protocol, MRI head in the morning, physical therapy to evaluate and treat 2. History of atrial fibrillation continued cardiac monitoring patient is unaware in the past when she was in atrial fibrillation but does not know if she has been in atrial fibrillation recently. 3. Cerebellar ataxia?Baseline is in wheelchair 4. Hypertension?continue home current medications 5. DVT prophylaxis?low molecular weight heparin Charges/Coding Visit Charges OBSV E&M: 45107 Initial observation care L2
[2021-12-01] VITALS (8 sets, daily range): BP systolic 148–169; BP diastolic 97–103; PULSE 69–106; RESP 16–18; TEMP 36.4–36.6; O2SAT 95–99; BMI 29.2
--- NOTE | 2021-12-01 00:11 | MRI_ITS ---
HISTORY: stroke. TECHNIQUE: Multiplanar and multisequence MR images of the brain were obtained without contrast. 280 images. COMPARISON: CT prior day, MRI 10/28/2020. FINDINGS: BRAIN PARENCHYMA: Minimal periventricular white matter changes, similar to prior. No abnormal focus of restricted diffusion. No acute intracranial hemorrhage identified. CSF SPACES: Cerebral ventricles, cortical sulci, and other extra-axial CSF spaces within normal limits in size for age. No significant midline shift or other mass effect.No extra-axial fluid collection. VASCULAR SYSTEM: Major intracranial flow voids are maintained. PARANASAL SINUSES AND MASTOID AIR CELLS: No significant air fluid levels. ORBITS: Symmetric contents. MRI/Brain without Contrast IMPRESSION: No evidence for acute infarct. Minimal chronic white matter changes. Electronically Signed: Nikia Hyatt MD at 11:27 EDT ,
[2021-12-01 04:33] LABS: Absolute Lymphocyte Count 1.58 X10^3/uL (0.83-4.51); Absolute Neutrophil Count 2.5 X10^3/uL (2.0-7.7); Basophil# 0.02 X10^3/uL; Basophil% 0.4 % (0-1); Eosinophil# 0.11 X10^3/uL; Eosinophils% 2.4 % (0-5); Hematocrit 42.3 % (37-47); Hemoglobin 14.5 g/dL (12.0-15.0); Lymphocyte # 1.58 X10^3/ul (0.83-4.51); Lymphocyte % 35.1 % (19-41); Mean Corp Hgb Conc 34.3 g/dL (32-36); Mean Corpuscular Hgb 30.4 pg (27.0-32.0); Mean Corpuscular Volume 88.7 fL (81-99); Mean Platelet Vol. 10.5 fl (6.2-12.0); Monocyte# 0.29 X10^3/uL; Monocyte% 6.4 % (0-10); NRBC Flagged by Analyzer 0 % (0-5); Neutrophil # 2.49 X10^3/uL (2.7-7.7); Neutrophil % 55.5 % (47-70); Platelet Count 162 K/mm3 (150-450); RBC Distribution Width CV 13.2 % (11.6-14.6); RBC Distribution Width SD 42.9 fl (35.1-43.9); Red Blood Count 4.77 M/mm3 (4.2-5.4); White Blood Count 4.5 K/mm3 (4.4-11.0)
[2021-12-01 05:11] LABS: Anion Gap 9 (5-15); BUN 18 mg/dL (7-18); BUN/Creat Ratio 23.5 RATIO (10-20); Calcium,Total 8.9 mg/dL (8.5-10.1); Chloride 110 mmol/L (98-107); Cholesterol 176 mg/dL (200); Creatinine, Serum 0.77 mg/dL (0.55-1.02); EST Glomerular Filtration Rate 80 mL/min (>60); Est Glom Filt Rate - Afr Amer 96 mL/min (>60); Estimated Creatinine Clearance 56.27 ml/min; Glucose 102 mg/dL (74-106); High Density Lipoprotein 47 mg/dL; Potassium 3.6 mmol/L (3.5-5.1); Sodium Level 142 mmol/L (136-145); Triglycerides 96 mg/dL; Very Low Density Lipoprotein 19 mg/dL (5-40)
[2021-12-01] MEDS: Ibuprofen 400 MG Tablet PO ×2 (06:05→12:23)
[2021-12-01] MEDS: Aspirin 81 MG TAB.CHEW PO (08:59)
[2021-12-01] MEDS: Pantoprazole Sodium 40 MG Tablet PO (08:59)
[2021-12-01] MEDS: Enoxaparin 40 MG/0.4 ML Syringe SC (09:00)
--- NOTE | 2021-12-01 09:56 | PCM.PN.HOSP ---
Objective Data Objective Data Vital Signs: Vital Signs Temp Pulse Resp BP Pulse Ox O2 Del Method 97.9 F 106 H 18 149/99 H 98 Room Air 12/01/21 09:55 12/01/21 09:55 12/01/21 09:55 12/01/21 09:55 12/01/21 09:55 12/01/21 09:55 Oxygen Delivery Method Room Air Weight: 197 lb 15.602 oz Body Mass Index (BMI) 29.2 Intake & Output: Intake and Output for Last 24 Hours 11/29/21 11/30/21 12/01/21 23:59 23:59 23:59 Output Total 150 / 150 Balance -150 / -150 Lab / Micro Data Result Diagrams: 12/01/21 03:36 12/01/21 03:36 Labs: Laboratory Results - last 24 hr 11/30/21 19:10: WBC 3.9 L, RBC 5.07, Hgb 15.1 H, Hct 45.0, MCV 88.8, MCH 29.8, MCHC 33.6, RDW Std Deviation 43.7, RDW Coeff of Pedrito 13.4, Plt Count 177, MPV 10.2, Immature Gran % (Auto) 0.300, Neut % (Auto) 53.4, Lymph % (Auto) 38.3, [place] % (Auto) 4.9, Eos % (Auto) 2.6, Baso % (Auto) 0.5, Absolute Neuts (auto) 2.1, Absolute Lymphs (auto) 1.48, Nucleated RBC % 0 11/30/21 19:10: PT 12.3, INR 0.9, APTT 27.2 11/30/21 19:10: Sodium 145, Potassium 3.9, Chloride 110 H, Carbon Dioxide 29.0, Anion Gap 6, BUN 23 H, Creatinine 0.98, Estim Creat Clear Calc 57.42, Est GFR (MDRD) Af Amer 73, Est GFR (MDRD) Non-Af 60, BUN/Creatinine Ratio 23.6 H, Glucose 132 H, Calcium 9.6 12/01/21 03:36: WBC 4.5, RBC 4.77, Hgb 14.5, Hct 42.3, MCV 88.7, MCH 30.4, MCHC 34.3, RDW Std Deviation 42.9, RDW Coeff of Pedrito 13.2, Plt Count 162, MPV 10.5, Immature Gran % (Auto) 0.200, Neut % (Auto) 55.5, Lymph % (Auto) 35.1, [place] % (Auto) 6.4, Eos % (Auto) 2.4, Baso % (Auto) 0.4, Absolute Neuts (auto) 2.5, Absolute Lymphs (auto) 1.58, Nucleated RBC % 0 12/01/21 03:36: Sodium 142, Potassium 3.6, Chloride 110 H, Carbon Dioxide 23.0, Anion Gap 9, BUN 18, Creatinine 0.77, Estim Creat Clear Calc 56.27, Est GFR (MDRD) Af Amer 96, Est GFR (MDRD) Non-Af 80, BUN/Creatinine Ratio 23.5 H, Glucose 102, Calcium 8.9, Triglycerides 96, Cholesterol 176, LDL Cholesterol 110, VLDL Cholesterol 19, HDL Cholesterol 47 Radiography Diagnostic Testing: Radiology Impression Brain CT 11/30/21 18:57 IMPRESSION: Normal unenhanced CT scan of the brain. If concern for acute infarct MRI recommended Electronically Signed: Parish Shepard MD at 20:06 EDT , Chest X-Ray 11/30/21 19:25 IMPRESSION: No acute cardiopulmonary pathology. Electronically Signed: Parish Shepard MD at 20:17 EDT , Head/Neck CTA 11/30/21 20:40 IMPRESSION: Normal CTA Head and neck with contrast. Electronically Signed: Parish Shepard MD at 21:57 EDT , Rhythm Strip Rhythm Strip: Sinus Rhythm Rate: 78 Ectopy: None
--- NOTE | 2021-12-01 10:34 | DCINST_ITS ---
Discharge Instructions Diet Discharge Diet: 2000 mg Sodium Diet Activity Discharge Activity: Return to Normal Activity Dressing / Incision Call your doctor if you observe: Fever of 101 or Higher, Coldness, Increased Pain, Numbness or Tingling, Change in Color, Inability to urinate, Inability to have a bowel movement, Using more than 1 pad per hour, Shortness of breath, Dizziness, Fainting spells, Swelling in the ankles, Chest pain, Prolonged hiccupping, Increased palpitations (irregular heartbeat), Calf discomfort and Uncontrolled pain Follow Up Care Test Results: Test results from this visit will be discussed in further detail at your follow- up appointment, if applicable. Discharge Plan Admission Admit Date/Time: 12/01/21 00:00 Primary Reason for Your Visit: Acute altered mental status Attending Provider: Manny Hu Primary Care Provider: Sun Lawrence Consulting Providers: Jasbir Fink Discharge Orders/Prescriptions Prescriptions: New lisinopril 5 mg tablet 5 mg PO DAILY Qty: 30 1RF Rx Instructions: Hold for SBP less than 120 mmHg Continued eletriptan 40 mg tablet 40 mg PO PRN PRN (Reason: Migraine Symptoms) ibuprofen 400 mg Tablet 400 mg PO Q6H PRN PRN (Reason: Pain 1-10 Or Fever) Qty: 0 0RF Senna-S 1 tab PO.IVFORM QHS metoprolol tartrate 25 mg PO.IVFORM BID tramadol 50 mg Tablet 50 mg PO BID PRN (Reason: pain) Label Comments: uncertain of dose states takes as needed clonazepam 1 mg tablet 0.5 mg PO DAILY Label Comments: Take 0.5 tablets by mouth three times daily for 90 days. Referrals / Follow Up: Sun Lawrence MD [Primary Care Provider] - Disposition Disposition (needs filled in before D/C Order can be placed): Home, Self Care
[2021-12-01] MEDS: Metoprolol(XL)Succ 25 MG Tablet PO (12:24)
--- NOTE | 2021-12-01 13:29 | DS.PCM_ITS ---
Providers Date of Admission: 12/01/21 Date of Discharge: 12/01/21 Primary Care Physician: Dr. Sun Lawrence MD Reason For Visit: ACUTE MENTAL STATUS CHANGE Diagnosis Discharge Diagnosis (1) Acute alteration in mental status: Status: Acute Code(s): R41.82 - Altered mental status, unspecified (2) History of atrial fibrillation: Status: Acute Code(s): Z86.79 - Personal history of other diseases of the circulatory system (3) History of cerebellar ataxia: Status: Acute Code(s): Z86.69 - Personal history of other diseases of the nervous system and sense organs (4) Hypertension: Status: Chronic Code(s): I10 - Essential (primary) hypertension Medications at Discharge Home Medications eletriptan 40 mg tablet 40 mg PO PRN PRN Migraine Symptoms 05/07/19 ibuprofen 400 mg tablet 400 mg PO Q6H PRN PRN Pain 1-10 Or Fever #0 tabs 11/12 09/01 Senna-S 1 tab PO.IVFORM QHS 12/01/21 clonazepam 1 mg tablet 0.5 mg PO DAILY Check with primary doctor 12/01/21 lisinopril 5 mg tablet 5 mg PO DAILY #30 tabs 12/01/21 metoprolol tartrate 25 mg PO.IVFORM BID 12/01/21 tramadol 50 mg tablet 50 mg PO BID PRN pain 12/01/21 Hospital Course Summary of Care Provided Hospital Course: This 66-year-old female with diagnosis of cerebellar ataxia, stiff man syndrome and history of paroxysmal A. fib was admitted with sudden loss of memory through ED. As per patient, she was working with new physical therapist at [facility] and she was not able to answer about her past history or general questions although usually she is very good and sharp in memory. In ED, CT of the head was negative for acute finding. Furthermore, CTA of head and neck was done whi ch was also reported normal. She was further admitted in PCU for further work-up. 1. Acute loss of memory/encephalopathy, etiology unclear: Patient was admitted as an observation. Patient had neurochecks which was at baseline. DTR 2/4, she has decreased fine motor skill at baseline, ataxia, loss of coordination of movements and strength due to cerebellar ataxia. At baseline she is on wheelcha ir but she goes to physical therapy. MRI brain was done which reported no acute infarct. Minimal chronic white matter changes. 2. 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 She follows [facility] neurologist and advised to follow-up as per schedule. Continue PT and OT. 3. Paroxysmal atrial fibrillation: Sinus rhythm. Patient is not chronically anticoagulated probably because of high risk of fall and recurrence of A. fib is infrequent. 4.? Hypertension?patient will be on metoprolol. Her blood pressure was high, 179/121 in etiology. Most recent BP 148/103. Sinus rhythm on cardiac/vascular sonographer. Heart rate 78 to 98 bpm. Lisinopril 5 mg once daily prescription given. Advised to follow-up PCP in 2 weeks and BP monitoring at home. My recommendation is to be titrated up gradually as the patient tolerates as she has a history of cerebellar ataxia with dizziness and nystagmus. 5.? DVT prophylaxis?low molecular weight heparin Discharge medication reconciliation done. Discharge follow-up instructions completed. Discharge process discussed with the patient and all questions were answered to patient's satisfaction. Discharge medications discussed with the patient. Total time spent, exact 35 minutes on discharge meds reconciliation, examination, coordination of care with nurses and ancillary staff, review of imaging and blood test and discussion with the patient on follow-up instructions. Laboratory Results 11/30/21 19:10: WBC 3.9 L, RBC 5.07, Hgb 15.1 H, Hct 45.0, MCV 88.8, MCH 29.8, MCHC 33.6, RDW Std Deviation 43.7, RDW Coeff of Pedrito 13.4, Plt Count 177, MPV 10.2, Immature Gran % (Auto) 0.300, Neut % (Auto) 53.4, Lymph % (Auto) 38.3, Taney % (Auto) 4.9, Eos % (Auto) 2.6, Baso % (Auto) 0.5, Absolute Neuts (auto) 2.1, Absolute Lymphs (auto) 1.48, Nucleated RBC % 0 11/30/21 19:10: PT 12.3, INR 0.9, APTT 27.2 11/30/21 19:10: Sodium 145, Potassium 3.9, Chloride 110 H, Carbon Dioxide 29.0, Anion Gap 6, BUN 23 H, Creatinine 0.98, Estim Creat Clear Calc 57.42, Est GFR (MDRD) Af Amer 73, Est GFR (MDRD) Non-Af 60, BUN/Creatinine Ratio 23.6 H, Glucose 132 H, Calcium 9.6 12/01/21 03:36: WBC 4.5, RBC 4.77, Hgb 14.5, Hct 42.3, MCV 88.7, MCH 30.4, MCHC 34.3, RDW Std Deviation 42.9, RDW Coeff of Pedrito 13.2, Plt Count 162, MPV 10.5, Immature Gran % (Auto) 0.200, Neut % (Auto) 55.5, Lymph % (Auto) 35.1, Taney % (Auto) 6.4, Eos % (Auto) 2.4, Baso % (Auto) 0.4, Absolute Neuts (auto) 2.5, Absolute Lymphs (auto) 1.58, Nucleated RBC % 0 12/01/21 03:36: Sodium 142, Potassium 3.6, Chloride 110 H, Carbon Dioxide 23.0, Anion Gap 9, BUN 18, Creatinine 0.77, Estim Creat Clear Calc 56.27, Est GFR (MDRD) Af Amer 96, Est GFR (MDRD) Non-Af 80, BUN/Creatinine Ratio 23.5 H, Glucose 102, Calcium 8.9, Triglycerides 96, Cholesterol 176, LDL Cholesterol 110, VLDL Cholesterol 19, HDL Cholesterol 47 Clinical Impression(s) from Imaging Studies Brain CT 11/30/21 18:57 IMPRESSION: Normal unenhanced CT scan of the brain. If concern for acute infarct MRI recommended Electronically Signed: Parish Shepard MD at 20:06 EDT , Chest X-Ray 11/30/21 19:25 IMPRESSION: No acute cardiopulmonary pathology. Electronically Signed: Parish Shepard MD at 20:17 EDT , Head/Neck CTA 11/30/21 20:40 IMPRESSION: Normal CTA Head and neck with contrast. Electronically Signed: Parish Shepard MD at 21:57 EDT , Brain MRI 12/01/21 00:11 IMPRESSION: No evidence for acute infarct. Minimal chronic white matter changes. Electronically Signed: Nikia Hyatt MD at 11:27 EDT , Physical Exam Narrative Patient stated that she was diagnosed with stiff man and syndrome and cerebellar ataxia with symptoms of downbeat nystagmus, ataxia, and di sequilibrium and loss of balance. She is on wheelchair. She was admitted for loss of memory now which has resolved. She also has chronic neck and back pain. BP was elevated 179/121 in triage. BP 148/103. Sinus rhythm on cardiac/vascular sonographer. Heart rate 78 to 98 bpm. Physical exam General: Alert, Oriented x3, Cooperative HEENT: Atraumatic, PERRLA, EOMI, Normocephalic Oral: No Gingival or Mucosal Lesions/ Ulcerations Neck: Mild stiffness in neck. Supple, No JVD, Negative Carotid Bruits Lungs: Air entry diminished in bilateral lung bases. No crepitation/rhonchi Cardiovascular: Mild sinus tachycardia, Normal S1, Normal S2, No murmurs Abdomen: Bowel Sounds Present, Soft, Non Tender, Non-Distended : No renal angle tenderness. No suprapubic tenderness. Extremities: No edema, Capillary Refill Less than 3 Seconds Skin: No rashes, No breakdown Musculoskeletal: No Tenderness to Palpation of Joints or Extremities Neurological: Chronic nystagmus. No ataxia. DTR 2/4. Muscle strength 4+/5 at major joints of lower extremity. Fine movements. Decreased dexterity of small finger movement. No clonus. General Gross sensation symmetrical. Psych/Mental Status: Normal Affect, Appropriate. Weight / BMI Weight Weight: 197 lb 15.602 oz Body Mass Index (BMI) 29.2 ABG / Lab / Microbiology Data Result Diagrams: 12/01/21 03:36 12/01/21 03:36 Laboratory: Laboratory Results - last 24 hr 11/30/21 19:10: WBC 3.9 L, RBC 5.07, Hgb 15.1 H, Hct 45.0, MCV 88.8, MCH 29.8, MCHC 33.6, RDW Std Deviation 43.7, RDW Coeff of Pedrito 13.4, Plt Count 177, MPV 10.2, Immature Gran % (Auto) 0.300, Neut % (Auto) 53.4, Lymph % (Auto) 38.3, Taney % (Auto) 4.9, Eos % (Auto) 2.6, Baso % (Auto) 0.5, Absolute Neuts (auto) 2.1, Absolute Lymphs (auto) 1.48, Nucleated RBC % 0 11/30/21 19:10: PT 12.3, INR 0.9, APTT 27.2 11/30/21 19:10: Sodium 145, Potassium 3.9, Chloride 110 H, Carbon Dioxide 29.0, Anion Gap 6, BUN 23 H, Creatinine 0.98, Estim Creat Clear Calc 57.42, Est GFR (MDRD) Af Amer 73, Est GFR (MDRD) Non-Af 60, BUN/Creatinine Ratio 23.6 H, Gluc ose 132 H, Calcium 9.6 12/01/21 03:36: WBC 4.5, RBC 4.77, Hgb 14.5, Hct 42.3, MCV 88.7, MCH 30.4, MCHC 34.3, RDW Std Deviation 42.9, RDW Coeff of Pedrito 13.2, Plt Count 162, MPV 10.5, Immature Gran % (Auto) 0.200, Neut % (Auto) 55.5, Lymph % (Auto) 35.1, Taney % (Auto) 6.4, Eos % (Auto) 2.4, Baso % (Auto) 0.4, Absolute Neuts (auto) 2.5, Absolute Lymphs (auto) 1.58, Nucleated RBC % 0 12/01/21 03:36: Sodium 142, Potassium 3.6, Chloride 110 H, Carbon Dioxide 23.0, Anion Gap 9, BUN 18, Creatinine 0.77, Estim Creat Clear Calc 56.27, Est GFR (MDRD) Af Amer 96, Est GFR (MDRD) Non-Af 80, BUN/Creatinine Ratio 23.5 H, Glucose 102, Calcium 8.9, Triglycerides 96, Cholesterol 176, LDL Cholesterol 110, VLDL Cholesterol 19, HDL Cholesterol 47 Radiography Diagnostic Testing: Radiology Impression Brain CT 11/30/21 18:57 IMPRESSION: Normal unenhanced CT scan of the brain. If concern for acute infarct MRI recommended Electronically Signed: Parish Shepard MD at 20:06 EDT , Chest X-Ray 11/30/21 19:25 IMPRESSION: No acute cardiopulmonary pathology. Electronically Signed: Parish Shepard MD at 20:17 EDT , Head/Neck CTA 11/30/21 20:40 IMPRESSION: Normal CTA Head and neck with contrast. Electronically Signed: Parish Sehpard MD at 21:57 EDT , Brain MRI 12/01/21 00:11 IMPRESSION: No evidence for acute infarct. Minimal chronic white matter changes. Electronically Signed: Nikia Hyatt MD at 11:27 EDT , D/C Instructions Discharge Diet: 2000 mg Sodium Diet Call your doctor if you observe: Fever of 101 or Higher, Coldness, Increased Pain, Numbness or Tingling, Change in Color, Inability to urinate, Inability to have a bowel movement, Using more than 1 pad per hour, Shortness of breath, Dizziness, Fainting spells, Swelling in the ankles, Chest pain, Prolonged hiccupping, Increased palpitations (irregular heartbeat), Calf discomfort and Uncontrolled pain Meaningful Use Info Meaningful Use Diagnoses (Choose all that apply): None applicable Discharge Plan Admission Admit Date/Time: 12/01/21 00:00 Primary Reason for Your Visit: Acute altered mental status Attending Provider: Manny Hu Primary Care Provider: Snu Lawrence Consulting Providers: Jasbir Fink Discharge Orders/Prescriptions Prescriptions: New lisinopril 5 mg tablet 5 mg PO DAILY Qty: 30 1RF Rx Instructions: Hold for SBP less than 120 mmHg Continued eletriptan 40 mg tablet 40 mg PO PRN PRN (Reason: Migraine Symptoms) ibuprofen 400 mg Tablet 400 mg PO Q6H PRN PRN (Reason: Pain 1-10 Or Fever) Qty: 0 0RF Senna-S 1 tab PO.IVFORM QHS metoprolol tartrate 25 mg PO.IVFORM BID tramadol 50 mg Tablet 50 mg PO BID PRN (Reason: pain) Label Comments: uncertain of dose states takes as needed clonazepam 1 mg tablet 0.5 mg PO DAILY Label Comments: Take 0.5 tablets by mouth three times daily for 90 days. Referrals / Follow Up: Sun Lawrence MD [Primary Care Provider] - Disposition Disposition (needs filled in before D/C Order can be placed): Home, Self Care Charges/Coding Visit Charges OBSV E&M: 85687 Observation care discharge
--- NOTE | 2021-12-01 13:40 | CASEMGMT ---
Pt is already set up with OP therapy at [facility] and states no further concerns/needs with discharge. Pt voices no further questions/concerns/needs. Pt states need to be at appt by 1400 and Lindsey LOPEZ aware, pt ready for d/c. Elise LOPEZ CM
--- NOTE | 2021-12-01 14:17 | PHA.DC.MR ---
Pharmacy Service has performed discharge medication reconciliation for this patient. The patient's discharge medication list was reviewed for discrepancies and discrepancies were resolved. Patient discharged before I was able to personal financial counselor. Medications reviewed. Home Medications eletriptan 40 mg tablet 40 mg PO PRN PRN Migraine Symptoms 05/07/19 ibuprofen 400 mg tablet 400 mg PO Q6H PRN PRN Pain 1-10 Or Fever #0 tabs 11/27/20 Senna-S 1 tab PO.IVFORM QHS 12/01/21 clonazepam 1 mg tablet 0.5 mg PO DAILY Check with primary doctor 12/01/21 lisinopril 5 mg tablet 5 mg PO DAILY #30 tabs 12/01/21 metoprolol tartrate 25 mg PO.IVFORM BID 12/01/21 tramadol 50 mg tablet 50 mg PO BID PRN pain 12/01/21
== END 2021-12-01 13:28 | disposition home or self-care (01) ==
LOC: ED 22:46 → PCU 12-01 00:13
PROVIDERS: Admitting Provider Family Medicine; Emergency Provider Emergency Medicine; PCP Internal Medicine; Visit Provider Internal Medicine
DX: R41.82 Altered mental status, unspecified (principal); I48.0 Paroxysmal atrial fibrillation; R27.0 Ataxia, unspecified; I10 Essential (primary) hypertension; R41.3 Other amnesia; G93.40 Encephalopathy, unspecified; Z79.899 Other long term (current) drug therapy; G25.82 Stiff-man syndrome
CPT/HCPCS: 36415; 70450; 70496; 70498; 70551; 71045; 80048; 80061; 85025; 85610; 85730; 93005; 94762; 96372; 97162; 97166; 99218; 99285; Q9967; A4216; G0378

== ENCOUNTER 2021-12-09 13:30 | Outpatient (RCR) | payer MEDICARE, OTHER, SELFPAY ==
--- NOTE | 2021-11-02 16:36 | HP.PTEVAL_ITS ---
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 Date of Evaluation: 11/02/21 Physical Therapist: Belinda Kellogg DPT - Visit Plan Frequency: 2x /Week Duration: 4 Weeks Plan: Focus on LE and core strength/stabilization- GAIT BELT- functional mobility. Encouraged her to continue LE HEP - Subjective Patient reports that she is hoping to move a little bit better. Her mobility has been compromised since Apr 2020- it was a rapid decline. Started with her eyes and gait and went down hill from there. She feels that she is in a holding pa ttern for a few months. She uses a walker with her behind her all the time- she does not get up without him. When she goes out she uses the w/c. She lives with her - in a 2 story home but she does not have to do stairs. 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 She does have pain in her neck but mostly her extremities are more just stiff. If she goes out she has a heated wrap around her neck. She sits in her chair 24 hours a day and uses a heating pad for her neck. The chair is a lift chair but she has her help her get out instead of using the lift portion. She does not drive. She is able to dress herself but it takes a long time compared to normal. She can bathe herself but she has to have help to get in/out in the transfer chair. She has all the equipment at home. She has a hospital bed- she uses it to help turn herself over with the rails. She has Stiffperson, Cerebelar Ataxia. She has dizziness when she moves her neck/head. Both eyes have double vision- and its bouncy and blurry. She does have muscle spasm in her lower back an down both legs to the toes- annoying but not painful- they only last for a few seconds. She has fallen- September of this year. Does leg exercises in the AM before she gets up. She has gone to vestibular rehab- it helped a little bit. PMHx/Meds: see list in chart- no changes since July 2021 - Objective Posture: FH, RS- does not correct with verbal or tactile cues. Gait: antalgic- short step and drags the right LE- FWW with min A. HR/TR: able with 50% ROM- UE A on walker. Balance: will let go of walker for 30 sec and close eyes for 10 seconds with CGA. ROM: WFL in all planes. Strength: Core: fair minus, Hip: 4- /5, Knee: 4-/5, Ankle: 4+/5. Flex: HS: severe, Gastroc: severe. - Balance/Special Test Scores Lower Extremity Functional Score: 9 - Goals Goal 1:: Patient will be I with HEP and progression Goal Time Frame: 4-6 Weeks Goal 2:: Patient will decrease her TUG score by 10 seconds Goal Time Frame: 4-6 Weeks Goal 3:: Patient will ambulate >150 feet without a rest break with LRD Goal Time Frame: 4-6 Weeks Goal 4:: Patient will report 80% improvement Goal Time Frame: 4-6 Weeks - Rehabilitation Potential Physical Therapy Diagnosis: Patient presents with hypomobility- she has decreased LE and core strength/stabilization, proprioception, flex and muscular endurance leading to poor posture and increased difficulty with ADL's. Rehabilitation Potential: Fair - Anticipated Interventions Patient/Client Instruction: Educate patient on: Benefits of Fitness Program Therapeutic Exercise to Include: Strength training, Endurance training, Balance training, Coordination, Agility training, Body mechanics, Postural training, Flexibilty training, Gait and locomotor training, Dynamic Lumbar Stabilization, Scapular Strength/Stabilization For the Purpose of:: To improve muscle performance and motor function Thank you for the opportunity to evaluate your patient. For Medicare and Medicare HMO plans, please review the plan of care and approve it. It will need to be FAXED BACK to us at [phone] for Medicare purposes. For Medicare only, by signing this I certify the plan of care. Please let me know if there are questions or concerns regarding this plan of care. Physician Signature: Date:
--- NOTE | 2022-02-11 06:59 | HP.PT.NRP ---
YAKOV NUNEZ was seen in my office for initial evaluation on 11/02/21. The following Plan of Care was established for this patient: Initial Frequency: 2x /Week Initial Duration: 4 Weeks Patient/Client Instruction: Educate patient on: Benefits of Fitness Program Therapeutic Exercise to Include: Strength training, Endurance training, Balance training, Coordination, Agility training, Body mechanics, Postural training, Flexibilty training, Gait and locomotor training, Dynamic Lumbar Stabilization, Scapular Strength/Stabilization For the Purpose of:: To improve muscle performance and motor function This patient was last seen in our office . Pertinent comments regarding their Physical therapy will appear below: Patient has not attended physical therapy in over 30 days- appropriate to be discharged and return to the MD as needed. At this point I will be discontinuing this patient from physical therapy. I would be happy to see this patient again in the future if found appropriate by the physician. Thank you! Belinda Kellogg, JERSEYT Balance/Gait/Functional tests - Balance/Special Test Scores Lower Extremity Functional Score: 14 Tug Test: >30sec.=impaired mobility
--- NOTE | 2022-02-15 13:48 | HP.PT.NRP ---
YAKOV NUNEZ was seen in my office for initial evaluation on 11/02/21. The following Plan of Care was established for this patient: Initial Frequency: 2x /Week Initial Duration: 4 Weeks Patient/Client Instruction: Educate patient on: Benefits of Fitness Program Therapeutic Exercise to Include: Strength training, Endurance training, Balance training, Coordination, Agility training, Body mechanics, Postural training, Flexibilty training, Gait and locomotor training, Dynamic Lumbar Stabilization, Scapular Strength/Stabilization For the Purpose of:: To improve muscle performance and motor function This patient was last seen in our office . Pertinent comments regarding their Physical therapy will appear below: Addendum to previous d/c summary- Patient was last seen December 23, 2021 for physical therapy, at that time patient was planning to continue a home exercise program independently. PT left chart open in case of questions. Patient has not had any questions and is appropriate to continue her exercises on a home basis. If she has any questions she can call and follow up as needed. Discharge chart from PT. At this point I will be discontinuing this patient from physical therapy. I would be happy to see this patient again in the future if found appropriate by the physician. Thank you! Belinda Kellogg DPT Balance/Gait/Functional tests - Balance/Special Test Scores Lower Extremity Functional Score: 14 Tug Test: >30sec.=impaired mobility
== END 2021-12-09 19:00 | disposition home or self-care (01) ==
LOC: PT 13:30
PROVIDERS: PCP Nurse Practitioner Family; Referring Provider Clinical Nurse Specialist; Visit Provider Clinical Nurse Specialist
DX: G25.82 Stiff-man syndrome (principal); R76.0 Raised antibody titer
CPT/HCPCS: 97110; 97162

== ENCOUNTER 2022-03-29 10:52 | Day surgery (SDC) | payer MEDICARE, OTHER, SELFPAY ==
[2022-03-29 11:32] VITALS: BP 133/74; PULSE 78; RESP 18; TEMP 37.7; O2SAT 96; BMI 29.0
[2022-03-29] MEDS: Lactated Ringers 1,000 ML 15 ML IV (11:37)
--- NOTE | 2022-03-29 12:23 | RAD_ITS ---
PROCEDURE: Cervical epidural injection. DATE OF EXAMINATION: 03/29/2022. INDICATION: Female, 67 years old. Neck pain. FLUOROSCOPY TIME (if supplied): (14.3 seconds) minutes/seconds RAD/Spine 1 View Any Level IMPRESSION: Intraoperative imaging provided for cervical epidural injection. Electronically Signed: Isreal Haro MD at 15:36 EST ,
[2022-03-29] MEDS: MethylPREDNISolone Acetate 80 MG/ML Vial (12:29)
--- NOTE | 2022-03-29 12:37 | OP.PCM_ITS ---
Report of Operation Date of Procedure: 03/29/22 Description of Surgical Findings:: PREOPERATIVE DIAGNOSES: Cervical radiculopathy, cervical degenerative disc disease, cervical spinal stenosis POSTOPERATIVE DIAGNOSES: Cervical radiculopathy, cervical degenerative disc disease, cervical spinal stenosis PROCEDURE PERFORMED: Cervical epidural steroid injection, interlaminar at C7-T1 under fluoroscopic guidance. ANESTHESIA: Local. BLOOD LOSS: Minimal. COMPLICATIONS: None. DESCRIPTION OF PROCEDURE: History and physical of today was reviewed. Risks and benefits of the procedure were explained. The patient understood and agreed to proceed. Informed consent was obtained. IV inserted per routine protocol. The patient was taken to the operating room and placed in the prone position with a pillow positioned underneath the chest. The neck area was prepped and draped in a sterile fashion using iodine x3. Under fluoroscopy guidance on an AP view, the C7-T1 interlaminar space was identified. The skin and subcutaneous tissue was anesthetized with approximately 3 mL of 1% lidocaine using a 25-gauge regular needle. Under direct visualization on fluoroscopy, on AP view, using a 20-gauge 2-1/2-inch Tuohy needle, the needle was advanced via the skin. The tip of the needle was maneuvered and directed towards the interlaminar space at C7- T1. Loss of resistance technique was carried to air. Loss of resistance technique was encountered. Once encountered, after negative aspiration for blood and CSF, a total of 1 mL of contrast was injected to confirm correct placement of the needle as well as cephalocaudal spread of the contrast. Confirmation was obtained on AP as well as lateral view. After repeated negative aspiration and confirmation, a total of 3 mL of preservative-free normal saline and 80 mg of Depo-Medrol was injected easily. The needle was then removed intact. The patient experienced no sign or symptoms of intrathecal or intravascular injection. The patient experienced no paresthesia. The procedure was completed without any apparent difficulty or any complications. The patient appeared to tolerate it well. ASSESSMENT AND PLAN: This is a 67-year-old female with cervical spinal stenosis, cervical radiculopathy, cervical degenerative disc disease status post cervical epidural steroid injection interlaminar at C7-T1 under fluoroscopic guidance, patient will continue her current medications, patient will follow approximately 2 weeks for reevaluation.
[2022-03-29 12:44] VITALS: BP 117/77; BP 133/74; PULSE 70; RESP 16; TEMP 21.1; O2SAT 99
== END 2022-03-29 13:00 | disposition home or self-care (01) ==
LOC: SDC 10:56 → AC 10:58
PROVIDERS: PCP Internal Medicine; Referring Provider Anesthesiology Pain Medicine; Visit Provider Anesthesiology Pain Medicine
PROC: 3E0S3BZ Introduction of Anesthetic Agent into Epidural Space, Percutaneous Approach (ICD-10-PCS; CPT 62320; principal; 2022-03-29 12:20)
DX: M48.02 Spinal stenosis, cervical region (principal); I48.91 Unspecified atrial fibrillation; M50.10 Cervical disc disorder with radiculopathy, unspecified cervical region; E03.9 Hypothyroidism, unspecified
CPT/HCPCS: 62325; 64490; 72020; J7120; J3490

== ENCOUNTER 2022-04-08 21:57 | Emergency (ER) | payer MEDICARE, OTHER, SELFPAY ==
[2022-04-08 21:58] VITALS: BP 143/102; PULSE 78; RESP 18; TEMP 36.9; O2SAT 97; BMI 31.3
[2022-04-08] MEDS: 0.9% Normal Saline 1,000 ML 999 ML IV (22:42)
[2022-04-08] MEDS: Ondansetron 4 MG/2 ML Vial IV (22:42)
[2022-04-08] MEDS: MethylPREDNISolone 125 MG/2 ML Vial IV (22:43)
[2022-04-08] MEDS: DiphenhydrAMINE 50 MG/ML Syringe 12.5 MG IV (22:44)
[2022-04-08] MEDS: Nalbuphine 10 MG/ML Ampul IV (22:46)
[2022-04-08 22:58] LABS: Absolute Lymphocyte Count 1.69 X10^3/uL (0.83-4.51); Absolute Neutrophil Count 2.2 X10^3/uL (2.0-7.7); Basophil# 0.02 X10^3/uL; Basophil% 0.5 % (0-1); Eosinophils% 2.3 % (0-5); Hematocrit 41.5 % (37-47); Hemoglobin 13.8 g/dL (12.0-15.0); Lymphocyte # 1.69 X10^3/ul (0.83-4.51); Lymphocyte % 39.2 % (19-41); Mean Corp Hgb Conc 33.3 g/dL (32-36); Mean Corpuscular Hgb 29.7 pg (27.0-32.0); Mean Corpuscular Volume 89.4 fL (81-99); Mean Platelet Vol. 10.1 fl (6.2-12.0); Monocyte# 0.35 X10^3/uL; Monocyte% 8.1 % (0-10); NRBC Flagged by Analyzer 0 % (0-5); Neutrophil # 2.15 X10^3/uL (2.7-7.7); Neutrophil % 49.9 % (47-70); Platelet Count 159 K/mm3 (150-450); RBC Distribution Width CV 13.7 % (11.6-14.6); RBC Distribution Width SD 44.6 fl (35.1-43.9); Red Blood Count 4.64 M/mm3 (4.2-5.4); White Blood Count 4.3 K/mm3 (4.4-11.0)
[2022-04-08 23:13] LABS: Anion Gap 8 (5-15); BUN 18 mg/dL (7-18); BUN/Creat Ratio 18.3 RATIO (10-20); Chloride 109 mmol/L (98-107); Creatinine, Serum 0.98 mg/dL (0.55-1.02); EST Glomerular Filtration Rate 60 mL/min (>60); Est Glom Filt Rate - Afr Amer 72 mL/min (>60); Estimated Creatinine Clearance 56.62 ml/min; Glucose 122 mg/dL (74-106); Magnesium 2.2 mg/dL (1.6-2.6); Potassium 3.6 mmol/L (3.5-5.1); Sodium Level 141 mmol/L (136-145)
--- NOTE | 2022-04-09 00:27 | EDS_ITS ---
HPI History of Present Illness Chief Complaint: Fever Narrative Narrative: Patient is a 67-year-old female with past medical history of paroxysmal A. 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 Patient states that on Tuesday after her initial infusion she had a headache. She then received another infusion on Tuesday and following this she got increased muscle soreness and nausea. After her infusion on Tuesday she then developed a fever with worsening headache and weakness and muscle aches. She states that there is been no other associated symptoms such as cough or congestion sore throat nausea vomiting diarrhea or dysuria. She states she is concerned this is a reaction to the IVIG and secondary to this comes in for evaluation [facility] Medical History (Updated 04/09/22 @ 02:[address] Ishaan Melara, DO) Abnormal bruising Arthritis Atrial fibrillation with rapid ventricular response Back pain Cardiology follow-up encounter Cerebellar ataxia Chronic migraine Chronic neck and back pain Difficulty chewing Difficulty swallowing Essential (primary) hypertension Gastric reflux High cholesterol History of atrial fibrillation History of cerebellar ataxia History of echocardiogram History of edema History of Holter monitoring History of steroid therapy Hypertension Knee pain Leg cramps Limb weakness Neck pain Non-smoker Post-menopausal Shortness of breath on exertion Shoulder pain Spinal stenosis Stiff person syndrome Syncope Thyroid disease Thyroiditis Vasovagal syncope Walker as ambulation aid Weakness generalized Wears glasses Home Medications eletriptan 40 mg tablet 40 mg PO PRN PRN Migraine Symptoms 05/07/19 [History Last Taken Unknown] ibuprofen 400 mg tablet 400 mg PO Q6H PRN PRN Pain 1-10 Or Fever #0 tabs 11/27/20 [Rx Last Taken Unknown] clonazepam 1 mg tablet 0.5 mg PO DAILY Check with primary doctor 12/01/21 [History Last Taken Unknown] tramadol 50 mg tablet 50 mg PO BID PRN pain 12/01/21 [History Last Taken Unknown] lisinopril 5 mg tablet 5 mg PO .COMPLEX Correction continue one tablet by mouth daily #45 tabs 03/16/22 [Rx Last Taken Unknown] ascorbic acid (vitamin C) 500 mg capsule,extended release (Vitamin C) 500 mg PO DAILY 03/24/22 [History Last Taken Unknown] aspirin 81 mg capsule 81 mg PO DAILY 03/24/22 [History Last Taken Unknown] calcium carbonate 500 mg-vitamin D3 3.125 mcg (125 unit) tablet 1 tab PO DAILY 03/24/22 [History Last Taken Unknown] cyanocobalamin (vitamin B-12) 50 mcg tablet (Vitamin B-12) 50 mcg PO DAILY 03/24/22 [History Last Taken Unknown] folic acid 7.5 mg tablet 1 mg PO DAILY 03/24/22 [History Last Taken Unknown] levothyroxine 50 mcg tablet 50 mcg PO DAILY 03/24/22 [History Last Taken 03/29/22] lysine 500 mg tablet 500 mg PO DAILY 03/24/22 [History Last Taken Unknown] metoprolol tartrate 25 mg tablet 25 mg PO BID 03/24/22 [History Last Taken 03/29/22] pyridoxine (vitamin B6) 25 mg tablet (Vitamin B-6) 25 mg PO DAILY 03/24/22 [History Last Taken Unknown] sennosides 25 mg tablet 25 mg PO QHS 03/24/22 [History Last Taken Unknown] turmeric 400 mg capsule 400 mg PO DAILY 03/24/22 [History Last Taken Unknown] prednisone 20 mg tablet 20 mg PO DAILY 5 days #5 tabs 04/09/22 [Rx Last Taken Unknown] tramadol 50 mg tablet 50 mg PO Q6H PRN pain 3 days #12 tabs 04/09/22 [Rx Last Taken Unknown] Allergy/AdvReac Type Severity Reaction Status Date / Time acetaminophen [From Percocet] Allergy Unknown Unknown Verified 04/08/22 21:58 hydromorphone [From Dilaudid] Allergy Unknown Unknown Verified 04/08/22 21:58 morphine Allergy Unknown Unknown Verified 04/08/22 21:58 oxycodone [From Percocet] Allergy Unknown Unknown Verified 04/08/22 21:58 celecoxib [From Celebrex] Allergy Hives Verified 04/08/22 21:58 meperidine [From Demerol] Allergy Rash Verified 04/08/22 21:58 Opioids - Morphine Analogues AdvReac Itching Verified 04/08/22 21:58 [narcotics] Family History Father Hypertension Diabetes Cancer prostate Mother Hypertension MGUS (monoclonal gammopathy of unknown significance) Surgical History (Updated 03/24/22 @ 13:09 by Lamar Lindquist) H/O cervical discectomy History of hysterectomy Hx of surgical procedure Social History household members: spouse housing: house current occupational status: retired pets and animals: Yes (dogs & cats ) Smoking Status: Never smoker alcohol intake: never substance use type: does not use caffeine: Yes what type of physical activity do you participate in: walking seatbelt use: always do you feel safe at home: Yes ROS ROS ED Constitutional Constitutional ED: Reports chills and fever(s) Eyes Eyes: Denies change in vision ENT ENT ED: Denies rhinorrhea or sore throat Cardiovascular Cardiovascular: Denies chest pain Respiratory/Chest Respiratory/Chest: Denies cough or dyspnea Gastrointestinal Gastrointestinal: Reports nausea; Denies abdominal pain, diarrhea or vomiting Genitourinary Genitourinary ED: Denies dysuria or hematuria Musculoskeletal Musculoskeletal: Reports myalgias Integumentary Denies rash Neurologic Neurologic: Reports headache(s) Hematologic/Lymphatic Hematologic/Lymphatic: Denies easy bleeding or easy bruising EXAM Physical Exam Const Vital Signs: 04/08/22 21:58 04/08/22 21:57 04/09/22 01:03 Temperature 98.4 F Temperature Source Temporal Pulse Rate 78 70 Respiratory Rate 18 15 Respiratory Effort Normal Non-Labored Respiratory Pattern Normal Blood Pressure 143/102 H Blood Pressure Mean 115 Pulse Ox 97 98 Oxygen Delivery Method Room Air Positive well nourished, well developed and obese General Appearance ED: well developed Nutritional Appearance: obese HEENT Reports moist mucous membranes Eyes PERRL and EOMs intact bilaterally Neck supple Neck Narrative: No nuchal rigidity or meningeal signs present Resp normal respiratory effort and clear to auscultation bilaterally Cardio regular rate and regular rhythm Rate: other Other Details: Radial pulses are plus 2 out of 4 bilaterally are equal and symmetric GI normal to inspection, nondistended, normoactive bowel sounds, non-tender, non- distended and no masses GI Narrative: No voluntary guarding or rigidity no pulsatile mass or fluid wave Auscultation: normoactive bowel sounds Palpation: soft Extremity Extremity Narrative: No bony deformities or joint effusions noted. 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 As her symptoms did start after initial IVIG infusion this is the most likely cause of her symptoms versus some type of influenza COVID or other infectious process. However secondary to her past medical history I did elect to check basic labs as well as COVID and influenza swab because of her history of headache fevers and chills. Labs revealed no clinically significant findings and COVID influenza swabs are negative. There is no true antidote for IVIG therefore she was hydrated given steroids antihistamines and pain control and on reevaluation reported feeling much better with resolution of symptoms. Therefore this time as she is not showing changes consistent with infection and symptoms have resolved with treatment and vitals remained stable she is otherwise safe for discharge Lab Data Attestation: I reviewed the patient's lab results. Labs: Laboratory Results - last 24 hr 04/08/22 04/08/22 22:40 22:40 WBC 4.3 L RBC 4.64 Hgb 13.8 Hct 41.5 MCV 89.4 MCH 29.7 MCHC 33.3 RDW Std Deviation 44.6 H RDW Coeff of [place] 13.7 Plt Count 159 MPV 10.1 Immature Gran % (Auto) 0.000 Neut % (Auto) 49.9 Lymph % (Auto) 39.2 [place] % (Auto) 8.1 Eos % (Auto) 2.3 Baso % (Auto) 0.5 Absolute Neuts (auto) 2.2 Absolute Lymphs (auto) 1.69 Nucleated RBC % 0 Sodium 141 Potassium 3.6 Chloride 109 H Carbon Dioxide 24.0 Anion Gap 8 BUN 18 Creatinine 0.98 Estim Creat Clear Calc 56.62 Est GFR (MDRD) Af Amer 72 Est GFR (MDRD) Non-Af 60 BUN/Creatinine Ratio 18.3 Glucose 122 H Calcium 9.0 Magnesium 2.2 Discharge Plan Triage Chief Complaint: Fever Other Complaint: Headache ED Provider: Ishaan Melara Dx/Rx/DC Orders Clinical Impression: Adverse effect of immunoglobulin, initial encounter, Essential (primary) hypertension, Stiff-man syndrome Instructions: ED Drug Reaction, Other Prescriptions: New prednisone 20 mg tablet 20 mg PO DAILY 5 Days Qty: 5 0RF tramadol 50 mg tablet 50 mg PO Q6H PRN (Reason: pain) 3 Days Qty: 12 0RF No Action eletriptan 40 mg tablet 40 mg PO PRN PRN (Reason: Migraine Symptoms) ibuprofen 400 mg Tablet 400 mg PO Q6H PRN PRN (Reason: Pain 1-10 Or Fever) Qty: 0 0RF tramadol 50 mg Tablet 50 mg PO BID PRN (Reason: pain) Label Comments: uncertain of dose states takes as needed clonazepam 1 mg tablet 0.5 mg PO DAILY Label Comments: Take 0.5 tablets by mouth three times daily for 90 days. pyridoxine (vitamin B6) [Vitamin B-6] 25 mg Tablet 25 mg PO DAILY Vitamin B-12 50 mcg Tablet 50 mcg PO DAILY levothyroxine 50 mcg Tablet 50 mcg PO DAILY ascorbic acid (vitamin C) [Vitamin C] 500 mg Capsule, Extended Release 500 mg PO DAILY lysine 500 mg Tablet 500 mg PO DAILY Senna Laxative 25 mg Tablet 25 mg PO QHS metoprolol tartrate 25 mg tablet 25 mg PO BID Label Comments: Take 25 mg every 8 hours as need until BP is back to base line then resume twice daily dosing - every twelve hours. Take one additional metoprolol tartrate daily while FOR BLOOD PRESSURE remains above target. calcium carbonate-vitamin D3 [Calcium 500 + D (D3)] 500 mg-3.125 mcg (125 unit) Tablet 1 tab PO DAILY folic acid 7.5 mg Tablet 1 mg PO DAILY turmeric 400 mg Capsule 400 mg PO DAILY aspirin 81 mg Capsule 81 mg PO DAILY lisinopril 5 mg tablet 5 mg PO .COMPLEX Qty: 45 11RF Rx Instructions: 5 mg orally daily: may take 1/2 to 1 extra tablet daily during IgG treatment for high bp; Primary Care Provider: Sun Lawrence Referrals: Sun Lawrence MD [Primary Care Provider] - Activity Restrictions/Additional Instructions: Your work-up today indicates your symptoms are related to adverse reaction to the IVIG you are receiving. Please talk to your provider about changing your treatment secondary to the adverse effects and return to the ER should you have any further concerns Disposition Disposition: Home, Self Care Discharge Date/Time: 04/09/22 01:11
[2022-04-09 01:03] VITALS: PULSE 70; RESP 15; O2SAT 98
== END 2022-04-09 01:11 | disposition home or self-care (01) ==
PROVIDERS: Emergency Provider Emergency Medicine; PCP Internal Medicine; Visit Provider Emergency Medicine
DX: R50.9 Fever, unspecified (principal); T50.Z15A Adverse effect of immunoglobulin, initial encounter; M79.10 Myalgia, unspecified site; I10 Essential (primary) hypertension; E78.00 Pure hypercholesterolemia, unspecified; G43.709 Chronic migraine without aura, not intractable, without status migrainosus
CPT/HCPCS: 80048; 83735; 85025; 87428; 96361; 96374; 96375; 99283; J7030; A4216; J2405

== ENCOUNTER 2023-02-04 06:18 | Emergency (ER) | payer MEDICARE, OTHER, SELFPAY ==
[2023-02-04 06:18] VITALS: BP 167/95; PULSE 70; RESP 18; TEMP 36.2; O2SAT 98; BMI 31.3
--- NOTE | 2023-02-04 06:32 | EDS_ITS ---
HPI HPI - Female History of Present Illness Chief Complaint: Flank Pain Detail of Chief Complaint: Left flank pain Informant: patient Vaginal Discharge Onset: Today Associated Symptoms Associated Symptoms: Positive for Frequency and Urgency; Negative for Dysuria Narrative Narrative: 67-year-old female history of autoimmune disease, cerebral ataxia and atrial fibrillation. Currently on no blood thinners. Has had a prior hysterectomy and back surgery for disc. States a week ago had left flank pain it resolved for the last several days she has had no problems. And again tonight was awoken with left flank pain. She is also having urinary frequency and urgency. She is limited cites that she does not really know what her urine has looked like recently. She denies any fever. Minimal chills. No vomiting or diarrhea. No trauma. No prior history of kidney stones or UTIs. Prior similar symptoms: No Recent Illness/Hospitalization: No PFSH PFSH Medical History Abnormal bruising Acute alteration in mental status Arthritis Atrial fibrillation with rapid ventricular response Back pain Cardiology follow-up encounter Cat bite of finger Cerebellar ataxia Chronic migraine Chronic neck and back pain Difficulty chewing Difficulty swallowing Essential (primary) hypertension Gastric reflux High cholesterol History of atrial fibrillation History of cerebellar ataxia History of echocardiogram History of edema History of Holter monitoring History of steroid therapy Hyperlipidemia Knee pain Labile blood pressure Leg cramps Lightheadedness Limb weakness Neck pain Non-smoker Post-menopausal Shortness of breath on exertion Shoulder pain Spinal stenosis Stiff person syndrome Syncope Thyroid disease Thyroiditis Vasovagal syncope Walker as ambulation aid Weakness generalized Wears glasses Home Medications ibuprofen 400 mg tablet 400 mg PO Q6H PRN PRN Pain 1-10 Or Fever #0 tabs 11/27/20 [Rx Last Taken Unknown] aspirin 81 mg capsule 81 mg PO DAILY 03/24/22 [History Last Taken Unknown] calcium carbonate 500 mg-vitamin D3 3.125 mcg (125 unit) tablet 1 tab PO DAILY 03/24/22 [History Last Taken Unknown] levothyroxine 50 mcg tablet 50 mcg PO DAILY 03/24/22 [History Last Taken 03/29/22] sennosides 25 mg tablet 25 mg PO QHS 03/24/22 [History Last Taken Unknown] turmeric 400 mg capsule 400 mg PO DAILY 03/24/22 [History Last Taken Unknown] tramadol 50 mg tablet 50 mg PO Q6H PRN pain 3 days #12 tabs 04/09/22 [Rx Last Taken Unknown] ascorbic acid (vitamin C) 500 mg capsule,extended release (Vitamin C) 1,000 mg PO DAILY 04/19/22 [History Last Taken Unknown] clobetasol 0.05 % topical ointment 1 applic topical BID 04/19/22 [History Last Taken Unknown] cyanocobalamin (vitamin B-12) 1,000 mcg tablet 1,000 mcg PO DAILY 04/19/22 [History Last Taken Unknown] dalfampridine 10 mg tablet,extended release,12 hr 10 mg PO Q12H 04/19/22 [History Last Taken Unknown] diclofenac sodium 1 % topical gel (Arthritis Pain (diclofenac)) 2 g topical 4X/DAY PRN 04/19/22 [History Last Taken Unknown] folic acid 400 mcg tablet 0.4 mg PO DAILY 04/19/22 [History Last Taken Unknown] hydroxyzine HCl 25 mg tablet 25 mg PO TID PRN 04/19/22 [History Last Taken Unknown] lysine 500 mg tablet 1,000 mg PO DAILY 04/19/22 [History Last Taken Unknown] ondansetron HCl 4 mg tablet 4 mg PO ONCE PRN 04/19/22 [History Last Taken Unknown] pyridoxine (vitamin B6) 100 mg tablet 100 mg PO DAILY 04/19/22 [History Last Taken Unknown] omeprazole 40 mg capsule,delayed release 40 mg PO DAILY PRN 04/21/22 [History Last Taken Unknown] lisinopril 5 mg tablet 5 mg PO DAILY #90 tabs 05/10/22 [Rx Last Taken Unknown] metoprolol tartrate 50 mg tablet 50 mg PO BID #180 tabs 05/10/22 [Rx Last Taken Unknown] gabapentin 100 mg capsule 100 mg PO TID 10/20/22 [History Last Taken Unknown] hydrocodone-acetaminophen 5-325mg 5mg-325mg tab PO TID 10/20/22 [History Last Taken Unknown] magnesium glycinate 100 mg tablet 400 mg PO DAILY 10/20/22 [History Last Taken Unknown] topiramate 100 mg tablet 100 mg PO DAILY 10/20/22 [History Last Taken Unknown] eletriptan 40 mg tablet 40 mg PO PRN PRN Migraine Symptoms 10/22/22 [History Last Taken Unknown] rizatriptan 10 mg tablet See Rx Instructions PO .prn PRN 10/22/22 [History Last Taken Unknown] Allergy/AdvReac Type Severity Reaction Status Date / Time acetaminophen [From Percocet] Allergy Unknown Unknown Verified 10/20/22 13:26 hydromorphone [From Dilaudid] Allergy Unknown Unknown Verified 02/04/23 06:25 morphine Allergy Unknown Itching Verified 02/04/23 06:25 oxycodone [From Percocet] Allergy Unknown Itching Verified 02/04/23 06:25 celecoxib [From Celebrex] Allergy Hives Verified 02/04/23 06:25 meperidine [From Demerol] Allergy Rash Verified 02/04/23 06:25 Opioids - Morphine Analogues AdvReac Itching Verified 02/04/23 06:25 [narcotics] Family History Father Hypertension Diabetes Cancer prostate Heart disease Colon cancer Mother Hypertension MGUS (monoclonal gammopathy of unknown significance) Thyroid disorder Grandfather CVA (cerebral vascular accident) Colon cancer Parkinson's disease Surgical History H/O cervical discectomy History of hysterectomy Hx of surgical procedure Social History household members: spouse housing: house current occupational status: retired pets and animals: Yes (dogs & cats ) Smoking Status: Never smoker alcohol intake: never substance use type: does not use caffeine: Yes what type of physical activity do you participate in: walking seatbelt use: always do you feel safe at home: Yes ROS ROS ED ROS Narrative Left flank pain. Urinary urgency and frequency. Review of Systems ROS Unobtainable: Denies due to encephalopathy Constitutional Constitutional ED: Reports chills; Denies fever(s) Eyes Eyes: Denies blurry vision ENT ENT ED: Denies ear pain Cardiovascular Cardiovascular: Denies chest pain Respiratory/Chest Respiratory/Chest: Denies cough or dyspnea Gastrointestinal Gastrointestinal: Denies abdominal pain, constipation, diarrhea, melena, nausea or vomiting Genitourinary Genitourinary ED: Reports urinary frequency; Denies dysuria Musculoskeletal Musculoskeletal: Denies arthralgias, myalgias or neck pain Integumentary Denies abscess Neurologic Neurologic: Denies headache(s) Psychiatric Psychiatric: Denies anxiety or depression Endocrine Endocrinology: Denies heat intolerance Hematologic/Lymphatic Hematologic/Lymphatic: Denies easy bleeding Allergic/Immunologic Allergic/Immunologic ED: Denies mouth swelling EXAM Physical Exam Narrative Exam Narrative: Well-appearing 67-year-old female. Vital signs are stable afebrile. HEENT exam unremarkable. Neck nontender. Lungs clear to auscultation bilaterally. Heart regular rhythm no murmur. Abdomen is soft and nontender. Normal bowel sounds no peritoneal signs. Moving all 4 extremities. Nontender. Back no CVA tenderness. No signs of trauma. No flank rash. Patient is awake and alert. Answering questions and following commands. Const Vital Signs: 02/04/23 06:18 Temperature 97.2 F L Temperature Source Temporal Pulse Rate 70 Respiratory Rate 18 Blood Pressure 167/95 H Blood Pressure Mean 119 Pulse Ox 98 Oxygen Delivery Method Room Air Positive well nourished and well developed; Negative for cachectic, contractures or unkempt General Appearance ED: well developed and NAD; Negative for unkempt, cachectic, contractures or pallor Nutritional Appearance: Negative for cachectic HEENT Reports moist mucous membranes Negative for trauma or tenderness Eyes PERRL and EOMs intact bilaterally General Eye ED: Negative for pale conjunctiva or scleral icterus Neck no lymphadenopathy, supple and no JVD General: Negative for other Thyroid: Negative for tender Lymph Lymphatic: Negative for other Chest Wall inspection of chest normal and palpation of chest normal Chest: Negative for other Resp normal respiratory effort and clear to auscultation bilaterally Effort and Inspection: Negative for pain with movement Auscultation: Negative for rales, rhonchi or wheezes Cardio regular rate, regular rhythm, S1 normal heart sound, no murmurs and no JVD Rate: Negative for bradycardia Rhythm: Negative for abnormal rhythm GI normal to inspection, nondistended, normoactive bowel sounds, soft to palpation, non-tender, non-distended and no masses Auscultation: normoactive bowel sounds Palpation: Negative for tender, guarding or rigid Back/Spine no CVA tenderness General Back: Negative for CVA tenderness Cervical Spine: Negative for cervical spine tenderness Thoracic Spine / Upper Back: Negative for thoracic spinal tenderness Lumbar Spine / Lower Back: Negative for lumbar spinal tenderness Sacrum: Negative for other Extremity normal to inspection and full ROM General Extremety ED: Negative for edema or tenderness General Extremity: Negative for edema Neuro oriented x3 and CN's II-XII intact bilaterally Sensorium / Orientation: alert, oriented to person, oriented to place and oriented to time; Negative for confused, lethargic or stuporous Motor Exam: strength 5/5 throughout Psych mental status grossly normal Appearance: Negative for unkempt Attitude: No agitated Speech: No other Mood & Affect: Negative for depressed, anxious or tearful Skin no rashes or lesions noted and no wounds General Skin Exam: Negative for jaundice or pallor Rashes: No rashes noted Trauma: Negative for other MDM MDM MDM Narrative Medical decision making narrative: 67-year-old female left flank pain. She is never had a kidney stone or UTI. Her abdomen is completely benign. CT flank study along with screening labs and urinalysis will be obtained. Says her pain is currently about a 4 out of 10 and does not want anything for pain. Repeat exam at 7:55 AM patient is doing well. Again was asked and did not want a thing for pain. We discussed her test results which were basically unremarkable except for some blood in her urine. Awaiting CAT scan results. Suspect left ureteral calculi. History & Record Review Discussion w/independent historian: Patient Additional record(s) reviewed:: Prior inpatient record, Prior outpatient record, Prior ED visit, Prior labs and No prior records Lab Data Attestation: I reviewed the patient's lab results. Lab results narrative: CBC is unremarkable. White count 3.4. H&H of 13 and 40. Platelets 168. BMP shows no acute abnormality. Gap of 4 BUN and creatinine is 17 and 1.2. Glucose 102. Urinalysis shows 150 occult blood. No nitrates. No white or red cells. No bacteria. Labs: Laboratory Results - last 24 hr 02/04/23 02/04/23 06:18 06:42 WBC 3.4 L RBC 4.50 Hgb 13.3 Hct 40.3 MCV 89.6 MCH 29.6 MCHC 33.0 RDW Std Deviation 45.4 H RDW Coeff of Pedrito 13.9 Plt Count 168 MPV 11.1 Immature Gran % (Auto) 0.300 Neut % (Auto) 51.5 Lymph % (Auto) 35.0 [place] % (Auto) 7.9 Eos % (Auto) 4.1 Baso % (Auto) 1.2 H Absolute Neuts (auto) 1.8 L Absolute Lymphs (auto) 1.20 Nucleated RBC % 0 Sodium 142 Potassium 3.7 Chloride 114 H Carbon Dioxide 24.0 Anion Gap 4 L BUN 17 Creatinine 1.21 H Estim Creat Clear Calc 45.86 Est GFR (MDRD) Af Amer 57 L Est GFR (MDRD) Non-Af 47 L BUN/Creatinine Ratio 14.0 Glucose 102 Calcium 8.6 Urine Color Yellow Urine Clarity Clear Urine pH 6.0 Ur Specific [place] 1.010 Urine Protein Negative Urine Glucose (UA) Normal Urine Ketones Negative Urine Occult Blood 150 H Urine Nitrite Negative Urine Bilirubin Negative Urine Urobilinogen Normal Ur Leukocyte Esterase 25 H Urine RBC 0 SEEN Urine WBC 0 SEEN Ur Squamous Epith Cells 0 SEEN Urine Bacteria 0 SEEN Urine Mucus 0 SEEN Discharge Plan Triage Chief Complaint: Flank Pain ED Provider: Gomez Vaughn Dx/Rx/DC Orders Clinical Impression: Acute left flank pain, History of cerebellar ataxia, Kidney stone on left side Instructions: ED Kidney Stone w/ Colic Prescriptions: No Action clobetasol 0.05 % ointment 1 applic topical BID cyanocobalamin (vitamin B-12) 1,000 mcg tablet 1,000 mcg PO DAILY folic acid 400 mcg tablet 0.4 mg PO DAILY pyridoxine (vitamin B6) 100 mg tablet 100 mg PO DAILY hydroxyzine HCl 25 mg tablet 25 mg PO TID PRN diclofenac sodium [Arthritis Pain (diclofenac)] 1 % gel 2 g topical 4X/DAY PRN Rx Instructions: apply to single elbow, wrist or hand; for hand includes palm/fingers/back of hand ondansetron HCl 4 mg tablet 4 mg PO ONCE PRN dalfampridine 10 mg tablet extended release 12 hr 10 mg PO Q12H omeprazole 40 mg capsule,delayed release(DR/EC) 40 mg PO DAILY PRN gabapentin 100 mg capsule 100 mg PO TID topiramate 100 mg tablet 100 mg PO DAILY Patient Comments: Take 1 tablet by mouth daily at bedtime. hydrocodone-acetaminophen 5-325 mg tablet PO TID Patient Comments: TAKE 1 TABLET BY MOUTH TWICE DAILY FOR 7 DAYS magnesium glycinate 100 mg tablet 400 mg PO DAILY ibuprofen 400 mg Tablet 400 mg PO Q6H PRN PRN (Reason: Pain 1-10 Or Fever) Qty: 0 0RF levothyroxine 50 mcg Tablet 50 mcg PO DAILY Senna Laxative 25 mg Tablet 25 mg PO QHS calcium carbonate-vitamin D3 [Calcium 500 + D (D3)] 500 mg-3.125 mcg (125 unit) Tablet 1 tab PO DAILY turmeric 400 mg Capsule 400 mg PO DAILY aspirin 81 mg Capsule 81 mg PO DAILY ascorbic acid (vitamin C) [Vitamin C] 500 mg capsule, extended release 1,000 mg PO DAILY lysine 500 mg tablet 1,000 mg PO DAILY tramadol 50 mg tablet 50 mg PO Q6H PRN (Reason: pain) 3 Days Qty: 12 0RF lisinopril 5 mg tablet 5 mg PO DAILY Qty: 90 3RF metoprolol tartrate 50 mg tablet 50 mg PO BID Qty: 180 3RF rizatriptan 10 mg tablet See Rx Instructions PO .prn PRN Rx Instructions: Pt uses alternatively with eletryptan eletriptan 40 mg tablet 40 mg PO PRN PRN (Reason: Migraine Symptoms) Rx Instructions: Patient uses alternatively with Rizatryptan Primary Care Provider: Sun Lawrence Referrals: Sun Lawrence MD [Primary Care Provider] - 3-5 Days if not improving Activity Restrictions/Additional Instructions: Plenty of fluids and rest. Motrin and Tylenol for pain. Follow-up with your doctor if not improving. Return if worse. Disposition Disposition: Home, Self Care
[2023-02-04 06:46] LABS: Absolute Neutrophil Count 1.8 X10^3/uL (2.0-7.7); Basophil# 0.04 X10^3/uL; Basophil% 1.2 % (0-1); Eosinophil# 0.14 X10^3/uL; Eosinophils% 4.1 % (0-5); Hematocrit 40.3 % (37-47); Hemoglobin 13.3 g/dL (12.0-15.0); Mean Corpuscular Hgb 29.6 pg (27.0-32.0); Mean Corpuscular Volume 89.6 fL (81-99); Mean Platelet Vol. 11.1 fl (6.2-12.0); Monocyte# 0.27 X10^3/uL; Monocyte% 7.9 % (0-10); NRBC Flagged by Analyzer 0 % (0-5); Neutrophil # 1.77 X10^3/uL (2.7-7.7); Neutrophil % 51.5 % (47-70); Platelet Count 168 K/mm3 (150-450); RBC Distribution Width CV 13.9 % (11.6-14.6); RBC Distribution Width SD 45.4 fl (35.1-43.9); White Blood Count 3.4 K/mm3 (4.4-11.0)
[2023-02-04 06:49] LABS: Bacteria 0 SEEN /hpf (None Seen); Mucous, Urine 0 SEEN /hpf (<or=2+); Red Blood Cells-Urine 0 SEEN /hpf (0-5); Squamous Epithelial Cells - UA 0 SEEN /hpf (5-10); White Blood Cells 0 SEEN /hpf (0-5)
[2023-02-04 06:51] LABS: Color, Urine Yellow (Yellow); Glucose, Dipstick Normal (Normal); Ketone-Dipstick Negative (Negative); Leukocyte Esterase-Dipstick 25 /ul (Negative); Nitrite-Dipstick Negative (Negative); Occult Blood-Urine 150 /ul (Negative); Protein-Dipstick Negative (Negative); Urine Bilirubin Dipstick Negative (Negative); Urine Clarity Clear (Clear); Urine Urobilinogen Normal (Normal)
--- NOTE | 2023-02-04 06:55 | CT_ITS ---
STUDY: CT ABDOMEN AND PELVIS WITHOUT CONTRAST REASON FOR EXAM: Female, 67 years old. Left flank pain RADIATION DOSAGE (If Supplied By Facility): CTDIvol = ( 16.74 ) mGy, DLP = ( 890.58 ) mGycm TECHNIQUE: Transaxial images were obtained from the dome of the diaphragm to the symphysis pubis without oral contrast, and without intravenous contrast. Sagittal and coronal images were reconstructed. Individualized dose optimization techniques were used for this CT. COMPARISON: None. FINDINGS: The visualized lung bases are unremarkable. The visualized portions of the heart are within normal limits. Normal liver. There are multiple gallstones. Normal spleen. Normal pancreas. Normal bilateral adrenal glands. Normal right kidney. There is 0.3 cm stone in the upper pole of the left kidney. There is mild left hydronephrosis. There is 0.3 cm left ureterovesical junction stone. Normal visualized stomach. Normal small intestine. Normal colon. The appendix is visualized and appears normal. There is atherosclerotic calcification of the abdominal aorta, without a demonstrated aneurysm. Normal inferior vena cava. Normal retroperitoneum. Normal urinary bladder. There is absence of the uterus consistent with a prior hysterectomy. There is no free fluid in the abdomen or pelvis. Normal abdominal wall. There is degenerative change of the spine. CT/Abdomen/Pelvis without Cont IMPRESSION: Left renal and distal ureteral stones with hydronephrosis. Multiple gallstones. No biliary dilatation. Electronically Signed: Elijah Garcia MD at 9:18 EST ,
[2023-02-04 07:00] LABS: Anion Gap 4 (5-15); BUN 17 mg/dL (7-18); Calcium,Total 8.6 mg/dL (8.5-10.1); Chloride 114 mmol/L (98-107); Creatinine, Serum 1.21 mg/dL (0.55-1.02); EST Glomerular Filtration Rate 47 mL/min (>60); Est Glom Filt Rate - Afr Amer 57 mL/min (>60); Estimated Creatinine Clearance 45.86 ml/min; Glucose 102 mg/dL (74-106); Potassium 3.7 mmol/L (3.5-5.1); Sodium Level 142 mmol/L (136-145)
== END 2023-02-04 10:50 | disposition home or self-care (01) ==
LOC: ED 07:27
PROVIDERS: Emergency Provider Emergency Medicine; PCP Internal Medicine; Visit Provider Emergency Medicine
DX: R10.9 Unspecified abdominal pain (principal); R31.9 Hematuria, unspecified; N20.0 Calculus of kidney; E78.00 Pure hypercholesterolemia, unspecified; N89.8 Other specified noninflammatory disorders of vagina; R35.0 Frequency of micturition; E78.5 Hyperlipidemia, unspecified; R39.15 Urgency of urination; I10 Essential (primary) hypertension; Z90.710 Acquired absence of both cervix and uterus
CPT/HCPCS: 74176; 80048; 81001; 85025; 99285; A4216

== ENCOUNTER 2023-03-09 12:52 | Emergency (ER) | payer MEDICARE, OTHER, SELFPAY ==
[2023-03-09 12:52] VITALS: BP 125/88; PULSE 110; RESP 20; TEMP 35.9; O2SAT 98
--- NOTE | 2023-03-09 14:45 | ED.RN ---
PT WHEELED HERSELF TO TRIAGE DESK DEMANDING AN IV IMMEDIATELY STATING THAT SHE IS GETTING WEAKER. PT COMPLAINING TO OTHER PT'S ABOUT THE WAIT WELL TEXTING ON HER PHONE.
--- NOTE | 2023-03-09 14:56 | EX.ED.DYSGE1 ---
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 She states her has the same symptoms. She feels dehydrated. She is not nauseous or vomiting and has no abdominal pain or diarrhea. PFSH <ZUHAIR Hassan - Last Filed: 03/09/23 20:41> PFSH Medical History Abnormal bruising Acute alteration in mental status Arthritis Atrial fibrillation with rapid ventricular response Back pain Cardiology follow-up encounter Cat bite of finger Cerebellar ataxia Chronic migraine Chronic neck and back pain Difficulty chewing Difficulty swallowing Essential (primary) hypertension Gastric reflux High cholesterol History of atrial fibrillation History of cerebellar ataxia History of echocardiogram History of edema History of Holter monitoring History of steroid therapy Hyperlipidemia Knee pain Labile blood pressure Leg cramps Lightheadedness Limb weakness Neck pain Non-smoker Post-menopausal Shortness of breath on exertion Shoulder pain Spinal stenosis Stiff person syndrome Syncope Thyroid disease Thyroiditis Vasovagal syncope Walker as ambulation aid Weakness generalized Wears glasses Home Medications ibuprofen 400 mg tablet 400 mg PO Q6H PRN PRN Pain 1-10 Or Fever #0 tabs 11/27/20 [Rx Last Taken Unknown] aspirin 81 mg capsule 81 mg PO DAILY 03/24/22 [History Last Taken Unknown] calcium carbonate 500 mg-vitamin D3 3.125 mcg (125 unit) tablet 1 tab PO DAILY 03/24/22 [History Last Taken Unknown] levothyroxine 50 mcg tablet 50 mcg PO DAILY 03/24/22 [History Last Taken 03/29/22] sennosides 25 mg tablet 25 mg PO QHS 03/24/22 [History Last Taken Unknown] turmeric 400 mg capsule 400 mg PO DAILY 03/24/22 [History Last Taken Unknown] ascorbic acid (vitamin C) 500 mg capsule,extended release (Vitamin C) 1,000 mg PO DAILY 04/19/22 [History Last Taken Unknown] clobetasol 0.05 % topical ointment 1 applic topical BID 04/19/22 [History Last Taken Unknown] cyanocobalamin (vitamin B-12) 1,000 mcg tablet 1,000 mcg PO DAILY 04/19/22 [History Last Taken Unknown] dalfampridine 10 mg tablet,extended release,12 hr 10 mg PO Q12H 04/19/22 [History Last Taken Unknown] diclofenac sodium 1 % topical gel (Arthritis Pain (diclofenac)) 2 g topical 4X/DAY PRN 04/19/22 [History Last Taken Unknown] folic acid 400 mcg tablet 0.4 mg PO DAILY 04/19/22 [History Last Taken Unknown] hydroxyzine HCl 25 mg tablet 25 mg PO TID PRN 04/19/22 [History Last Taken Unknown] lysine 500 mg tablet 1,000 mg PO DAILY 04/19/22 [History Last Taken Unknown] ondansetron HCl 4 mg tablet 4 mg PO ONCE PRN 04/19/22 [History Last Taken Unknown] pyridoxine (vitamin B6) 100 mg tablet 100 mg PO DAILY 04/19/22 [History Last Taken Unknown] omeprazole 40 mg capsule,delayed release 40 mg PO DAILY PRN 04/21/22 [History Last Taken Unknown] lisinopril 5 mg tablet 5 mg PO DAILY #90 tabs 05/10/22 [Rx Last Taken Unknown] metoprolol tartrate 50 mg tablet 50 mg PO BID #180 tabs 05/10/22 [Rx Last Taken Unknown] gabapentin 100 mg capsule 100 mg PO TID 10/20/22 [History Last Taken Unknown] hydrocodone-acetaminophen 5-325mg 5mg-325mg tab PO TID 10/20/22 [History Last Taken Unknown] magnesium glycinate 100 mg tablet 400 mg PO DAILY 10/20/22 [History Last Taken Unknown] topiramate 100 mg tablet 100 mg PO DAILY 10/20/22 [History Last Taken Unknown] eletriptan 40 mg tablet 40 mg PO PRN PRN Migraine Symptoms 10/22/22 [History Last Taken Unknown] rizatriptan 10 mg tablet See Rx Instructions PO .prn PRN 10/22/22 [History Last Taken Unknown] tramadol 50 mg tablet 50 mg PO Q6H PRN pain 3 days #12 tabs 02/04/23 [Rx Last Taken Unknown] nirmatrelvir 300 mg (150 mg x2)-ritonavir 100 mg tablet,dose pack (Paxlovid) See Rx Instructions PO .COMPLEX #30 tabs 03/09/23 [Rx Last Taken Unknown] Allergy/AdvReac Type Severity Reaction Status Date / Time acetaminophen [From Percocet] Allergy Unknown Unknown Verified 10/20/22 13:26 hydromorphone [From Dilaudid] Allergy Unknown Unknown Verified 02/04/23 06:25 morphine Allergy Unknown Itching Verified 02/04/23 06:25 oxycodone [From Percocet] Allergy Unknown Itching Verified 02/04/23 06:25 celecoxib [From Celebrex] Allergy Hives Verified 02/04/23 06:25 meperidine [From Demerol] Allergy Rash Verified 02/04/23 06:25 Opioids - Morphine Analogues AdvReac Itching Verified 02/04/23 06:25 [narcotics] Family History Father Hypertension Diabetes Cancer prostate Heart disease Colon cancer Mother Hypertension MGUS (monoclonal gammopathy of unknown significance) Thyroid disorder Grandfather CVA (cerebral vascular accident) Colon cancer Parkinson's disease Surgical History H/O cervical discectomy History of hysterectomy Hx of surgical procedure Social History household members: spouse housing: house current occupational status: retired pets and animals: Yes (dogs & cats ) Smoking Status: Never smoker alcohol intake: never substance use type: does not use caffeine: Yes what type of physical activity do you participate in: walking seatbelt use: always do you feel safe at home: Yes ROS <ZUHAIR Hassan - Last Filed: 03/09/23 20:41> ROS ED ROS Narrative Constitutional: Positive for malaise. Negative for fever, chills. ENT: Positive for rhinorrhea. CVS: Negative for chest pain, syncope. Respiratory: Positive for cough. GI: Negative for abdominal pain, nausea, vomiting, diarrhea, melena, hematochezia. : Negative for dysuria, frequency. Neuro: Negative for headache. EXAM <ZUHAIR Hassan - Last Filed: 03/09/23 20:41> Physical Exam Narrative Exam Narrative: CONST: Patient sitting in no acute distress. EYES: Normal inspection. ENT: Normal inspection, slightly dry mucous membranes. NECK: Normal inspection. No meningismus. RESP: No respiratory distress, CTAB. CVS: Tachycardic with regular rhythm, no murmur, no gallop. ABD: Soft and nontender, no guarding or rebound, nondistended. SKIN: Color normal, no rash, warm, dry, intact. EXTREMITIES: Normal appearance, no pedal edema. NEURO: Oriented x4. PSYCH: Normal affect. Const Vital Signs: 03/09/23 12:52 03/09/23 15:31 03/09/23 17:32 Temperature 96.6 F L Temperature Source Temporal Pulse Rate 110 H 100 Respiratory Rate 20 H 16 Respiratory Effort Normal Non-Labored Respiratory Pattern Normal Blood Pressure 125/88 H 176/99 H Blood Pressure Mean 100 124 Pulse Ox 98 98 Oxygen Delivery Method Room Air Room Air 03/09/23 17:38 Temperature Temperature Source Pulse Rate 100 Respiratory Rate 16 Respiratory Effort Respiratory Pattern Blood Pressure 176/99 H Blood Pressure Mean 124 Pulse Ox 98 Oxygen Delivery Method <Dr. Sung House MD - Last Filed: 03/09/23 18:55> Physical Exam Const Vital Signs: 03/09/23 12:52 03/09/23 15:31 03/09/23 17:32 Temperature 96.6 F L Temperature Source Temporal Pulse Rate 110 H 100 Respiratory Rate 20 H 16 Respiratory Effort Normal Non-Labored Respiratory Pattern Normal Blood Pressure 125/88 H 176/99 H Blood Pressure Mean 100 124 Pulse Ox 98 98 Oxygen Delivery Method Room Air Room Air 03/09/23 17:38 Temperature Temperature Source Pulse Rate 100 Respiratory Rate 16 Respiratory Effort Respiratory Pattern Blood Pressure 176/99 H Blood Pressure Mean 124 Pulse Ox 98 Oxygen Delivery Method [facility] <ZUHAIR Hassan - Last Filed: 03/09/23 20:41> [facility] Narrative Medical decision making narrative: Patient has fatigue and URI symptoms x 4 days. She appears well and nontoxic. HR is 110 with otherwise normal vital signs. She is slightly dry mucous membranes has had decreased p.o. intake. Heart is rapid but regular. Lungs clear. Abdomen soft and nontender. Differential includes viral URI, pneumonia, UTI, electrolyte abnormality. Labs show leukopenia at 4.9 which is chronic. Normal hemoglobin and platelets. BMP unremarkable. BUN 21, creatinine 1.05 at baseline. CXR shows no acute process. She is positive for COVID-19 which explains her symptoms. She was treated with IV fluids and heart rate improved to 100. She is tolerating p.o. intake and I feel she can continue hydration at home. She is not hypoxic and has no admission criteria. She requested antiviral treatment and was prescribed Paxlovid. Return precautions discussed and she was discharged in stable condition. Lab Data Attestation: I reviewed the patient's lab results. Labs: Laboratory Results - last 24 hr 03/09/23 03/09/23 13:40 15:10 WBC 4.0 L RBC 5.01 Hgb 14.7 Hct 45.0 MCV 89.8 MCH 29.3 MCHC 32.7 RDW Std Deviation 46.1 H RDW Coeff of [place] 14.0 Plt Count 169 MPV 11.1 Immature Gran % (Auto) 0.500 Neut % (Auto) 54.8 Lymph % (Auto) 30.8 [place] % (Auto) 10.8 H Eos % (Auto) 2.3 Baso % (Auto) 0.8 Absolute Neuts (auto) 2.2 Absolute Lymphs (auto) 1.23 Nucleated RBC % 0 Sodium 139 Potassium 3.6 Chloride 108 H Carbon Dioxide 24.0 Anion Gap 7 BUN 21 H Creatinine 1.05 H Estim Creat Clear Calc 50.29 Est GFR (MDRD) Af Amer 67 Est GFR (MDRD) Non-Af 55 L BUN/Creatinine Ratio 20.0 Glucose 93 Calcium 9.4 Urine Color Cancelled Urine Clarity Cancelled Urine pH Cancelled Ur Specific [place] Cancelled U Specif Grav (Refrac) Cancelled Urine Protein Cancelled Urine Glucose (UA) Cancelled Urine Ketones Cancelled Urine Occult Blood Cancelled Urine Nitrite Cancelled Urine Bilirubin Cancelled Urine Urobilinogen Cancelled Ur Leukocyte Esterase Cancelled Urine RBC Cancelled Urine WBC Cancelled Ur Squamous Epith Cells Cancelled Ur Transition Epith Cell Cancelled Ur Renal Epithelial Cell Cancelled Calcium Oxalate Crystal Cancelled Uric Acid Crystals Cancelled Triple Phos Crystals Cancelled Other Crystals Cancelled Amorphous Sediment Cancelled Urine Bacteria Cancelled Hyaline Casts Cancelled Fine Granular Casts Cancelled Coarse Granular Casts Cancelled Waxy Casts Cancelled RBC Casts Cancelled WBC Casts Cancelled Urine Mucus Cancelled Urine Trichomonas Cancelled Urine Yeast Cancelled Radiography Diagnostic Testing: Clinical Impression(s) from Imaging Studies Chest X-Ray 03/09/23 15:44 IMPRESSION: Similar appearance to the prior examination. Likely bilateral parenchymal scarring versus subsegmental atelectasis particularly on the left. No definite focal pneumonia. Electronically Signed: Miles Landeros, at 16:03 EST , <Dr. Sung House MD - Last Filed: 03/09/23 18:55> [facility] Narrative Medical decision making narrative: Patient has fatigue and URI symptoms x 4 days. She appears well and nontoxic. HR is 110 with otherwise normal vital signs. She is slightly dry mucous membranes has had decreased p.o. intake. Heart is rapid but regular. Lungs clear. Abdomen soft and nontender. Differential includes viral URI, pneumonia, UTI, electrolyte abnormality. Labs show leukopenia at 4.9 which is chronic. Normal hemoglobin and platelets. BMP unremarkable. BUN 21, creatinine 1.05 at baseline. CXR shows no acute process. She is positive for COVID-19 which explains her symptoms. She was treated with IV fluids and heart rate improved to 100. She is tolerating p.o. intake and I feel she can continue hydration at home. She is not hypoxic and has no admission criteria. She requested antiviral treatment and was prescribed Paxlovid. Return precautions discussed and she was discharged in stable condition. I have personally performed a face to face assessment of the patient and have reviewed the LYDIA Note. I performed a substantive portion of the visit including all aspects of the following. My marrufo findings include: History is remarkable for upper respiratory symptoms that started this past Tuesday. Patient reports fever and chills. She has not taken her temperature recently. She does have a cough. The cough is essentially nonproductive. She does endorse myalgias arthralgias generalized headache. She denies double vision blurred vision loss of vision. [place] foot is phobia. She denies neck pain or neck stiffness. She does report nausea. She states she has poor appetite. She denies rash. She denies joint swelling. Exam is remarkable for patient appearing ill. HEENT exam is remarkable rhinorrhea. Posterior pharynx out erythema exudate. Uvula is midline. Trachea is midline. There is no inspiratory stridor. Heart is rapid and regular without murmur, gallop or rub. Lungs are remarkable for bibasilar rales which clear with coughing. Abdomen is soft nontender. Dermatologic exam is normal. Neurologic exam is nonfocal. Medical Decision Making will obtain chest x-ray, appropriate blood work and test for COVID and influenza. Suspect patient has a viral illness. Chest x-ray does not reveal any evidence of infection on my independent review and interpretation. Cardiac silhouette and size normal. Lung parenchyma reveals no infiltrate or effusion. Perihilar regions normal. Osseous structures are unremarkable. White count is low which is consistent with COVID. Rapid COVID antigen was positive. Other additions or changes: Patient requested treatment with Paxlovid. Will determine if there is any interaction if there is not we will prescribe Paxlovid. History & Record Review Discussion w/independent historian: Patient Lab Data Labs: Laboratory Results - last 24 hr 03/09/23 03/09/23 13:40 15:10 WBC 4.0 L RBC 5.01 Hgb 14.7 Hct 45.0 MCV 89.8 MCH 29.3 MCHC 32.7 RDW Std Deviation 46.1 H RDW Coeff of [place] 14.0 Plt Count 169 MPV 11.1 Immature Gran % (Auto) 0.500 Neut % (Auto) 54.8 Lymph % (Auto) 30.8 [place] % (Auto) 10.8 H Eos % (Auto) 2.3 Baso % (Auto) 0.8 Absolute Neuts (auto) 2.2 Absolute Lymphs (auto) 1.23 Nucleated RBC % 0 Sodium 139 Potassium 3.6 Chloride 108 H Carbon Dioxide 24.0 Anion Gap 7 BUN 21 H Creatinine 1.05 H Estim Creat Clear Calc 50.29 Est GFR (MDRD) Af Amer 67 Est GFR (MDRD) Non-Af 55 L BUN/Creatinine Ratio 20.0 Glucose 93 Calcium 9.4 Urine Color Cancelled Urine Clarity Cancelled Urine pH Cancelled Ur Specific [place] Cancelled U Specif Grav (Refrac) Cancelled Urine Protein Cancelled Urine Glucose (UA) Cancelled Urine Ketones Cancelled Urine Occult Blood Cancelled Urine Nitrite Cancelled Urine Bilirubin Cancelled Urine Urobilinogen Cancelled Ur Leukocyte Esterase Cancelled Urine RBC Cancelled Urine WBC Cancelled Ur Squamous Epith Cells Cancelled Ur Transition Epith Cell Cancelled Ur Renal Epithelial Cell Cancelled Calcium Oxalate Crystal Cancelled Uric Acid Crystals Cancelled Triple Phos Crystals Cancelled Other Crystals Cancelled Amorphous Sediment Cancelled Urine Bacteria Cancelled Hyaline Casts Cancelled Fine Granular Casts Cancelled Coarse Granular Casts Cancelled Waxy Casts Cancelled RBC Casts Cancelled WBC Casts Cancelled Urine Mucus Cancelled Urine Trichomonas Cancelled Urine Yeast Cancelled Radiography Chest X-Ray - ED: 2 View and Read by ED Physician Diagnostic Testing: Clinical Impression(s) from Imaging Studies Chest X-Ray 03/09/23 15:44 IMPRESSION: Similar appearance to the prior examination. Likely bilateral parenchymal scarring versus subsegmental atelectasis particularly on the left. No definite focal pneumonia. Electronically Signed: Miles Landeros, at 16:03 EST , Discharge Plan Triage Chief Complaint: Weakness ED Midlevel Provider: Rika Torres ED Provider: Sung House Dx/Rx/DC Orders Clinical Impression: COVID-19, Mild dehydration, Essential (primary) hypertension, Hyperlipidemia, Sinus tachycardia seen on cardiac tech Instructions: Coronavirus Disease 2019 (COVID-19): Caring for Yourself or Others Prescriptions: New Paxlovid 300 mg (150 mg x 2)-100 mg tablets,dose pack See Rx Instructions .ROUTE .COMPLEX Qty: 30 0RF Rx Instructions: take TWO 150 mg tablets of nirmatrelvir with ONE 100 mg tablet of ritonavir twice daily for 5 days No Action clobetasol 0.05 % ointment 1 applic topical BID cyanocobalamin (vitamin B-12) 1,000 mcg tablet 1,000 mcg PO DAILY folic acid 400 mcg tablet 0.4 mg PO DAILY pyridoxine (vitamin B6) 100 mg tablet 100 mg PO DAILY hydroxyzine HCl 25 mg tablet 25 mg PO TID PRN diclofenac sodium [Arthritis Pain (diclofenac)] 1 % gel 2 g topical 4X/DAY PRN Rx Instructions: apply to single elbow, wrist or hand; for hand includes palm/fingers/back of hand ondansetron HCl 4 mg tablet 4 mg PO ONCE PRN dalfampridine 10 mg tablet extended release 12 hr 10 mg PO Q12H omeprazole 40 mg capsule,delayed release(DR/EC) 40 mg PO DAILY PRN gabapentin 100 mg capsule 100 mg PO TID topiramate 100 mg tablet 100 mg PO DAILY Patient Comments: Take 1 tablet by mouth daily at bedtime. hydrocodone-acetaminophen 5-325 mg tablet PO TID Patient Comments: TAKE 1 TABLET BY MOUTH TWICE DAILY FOR 7 DAYS magnesium glycinate 100 mg tablet 400 mg PO DAILY ibuprofen 400 mg Tablet 400 mg PO Q6H PRN PRN (Reason: Pain 1-10 Or Fever) Qty: 0 0RF levothyroxine 50 mcg Tablet 50 mcg PO DAILY Senna Laxative 25 mg Tablet 25 mg PO QHS calcium carbonate-vitamin D3 [Calcium 500 + D (D3)] 500 mg-3.125 mcg (125 unit) Tablet 1 tab PO DAILY turmeric 400 mg Capsule 400 mg PO DAILY aspirin 81 mg Capsule 81 mg PO DAILY ascorbic acid (vitamin C) [Vitamin C] 500 mg capsule, extended release 1,000 mg PO DAILY lysine 500 mg tablet 1,000 mg PO DAILY tramadol 50 mg tablet 50 mg PO Q6H PRN (Reason: pain) 3 Days Qty: 12 0RF lisinopril 5 mg tablet 5 mg PO DAILY Qty: 90 3RF metoprolol tartrate 50 mg tablet 50 mg PO BID Qty: 180 3RF rizatriptan 10 mg tablet See Rx Instructions PO .prn PRN Rx Instructions: Pt uses alternatively with eletryptan eletriptan 40 mg tablet 40 mg PO PRN PRN (Reason: Migraine Symptoms) Rx Instructions: Patient uses alternatively with Rizatryptan Primary Care Provider: Sun Lawrence Referrals: Sun Lawrence MD [Primary Care Provider] - Activity Restrictions/Additional Instructions: You have COVID. Rest, drink fluids, take Tylenol every 6 hours as needed for fever or pain. Disposition Disposition: Home, Self Care Discharge Date/Time: 03/09/23 18:15
--- NOTE | 2023-03-09 15:44 | RAD_ITS ---
EXAM: XR CHEST, 2 VIEWS CLINICAL INDICATION: weakness TECHNIQUE: Frontal and lateral views of the chest. COMPARISON: 11/30/2021 FINDINGS: LUNGS AND PLEURAL SPACES: Scarring in the right lung. Basilar scarring and/or atelectasis in the left lower lobe. No pneumothorax. No effusion. HEART: No significant abnormality. Cardiac silhouette not enlarged. MEDIASTINUM: Central airways and mediastinal contour are unremarkable. BONES/JOINTS: Postoperative changes in the cervical spine. No acute fracture. SOFT TISSUES: No significant abnormality. VASCULATURE: Atherosclerosis. RAD/Chest PA and Lateral IMPRESSION: Similar appearance to the prior examination. Likely bilateral parenchymal scarring versus subsegmental atelectasis particularly on the left. No definite focal pneumonia. Electronically Signed: Miles Landeros DO at 16:03 EST ,
[2023-03-09] MEDS: 0.9% Normal Saline (1000mL) 1,000 ML 999 ML IV (15:47)
[2023-03-09 15:48] LABS: Absolute Lymphocyte Count 1.23 X10^3/uL (0.83-4.51); Absolute Neutrophil Count 2.2 X10^3/uL (2.0-7.7); Basophil# 0.03 X10^3/uL; Basophil% 0.8 % (0-1); Eosinophil# 0.09 X10^3/uL; Eosinophils% 2.3 % (0-5); Hemoglobin 14.7 g/dL (12.0-15.0); Lymphocyte # 1.23 X10^3/ul (0.83-4.51); Lymphocyte % 30.8 % (19-41); Mean Corp Hgb Conc 32.7 g/dL (32-36); Mean Corpuscular Hgb 29.3 pg (27.0-32.0); Mean Corpuscular Volume 89.8 fL (81-99); Mean Platelet Vol. 11.1 fl (6.2-12.0); Monocyte# 0.43 X10^3/uL; Monocyte% 10.8 % (0-10); NRBC Flagged by Analyzer 0 % (0-5); Neutrophil % 54.8 % (47-70); Platelet Count 169 K/mm3 (150-450); RBC Distribution Width SD 46.1 fl (35.1-43.9); Red Blood Count 5.01 M/mm3 (4.2-5.4)
[2023-03-09 16:13] LABS: Anion Gap 7 (5-15); BUN 21 mg/dL (7-18); Calcium,Total 9.4 mg/dL (8.5-10.1); Chloride 108 mmol/L (98-107); Creatinine, Serum 1.05 mg/dL (0.55-1.02); EST Glomerular Filtration Rate 55 mL/min (>60); Est Glom Filt Rate - Afr Amer 67 mL/min (>60); Estimated Creatinine Clearance 50.29 ml/min; Glucose 93 mg/dL (74-106); Potassium 3.6 mmol/L (3.5-5.1); Sodium Level 139 mmol/L (136-145)
[2023-03-09 17:32] VITALS: BP 176/99; PULSE 100; RESP 16; O2SAT 98
[2023-03-09 17:38] VITALS: BP 176/99; PULSE 100; RESP 16; O2SAT 98
== END 2023-03-09 18:15 | disposition home or self-care (01) ==
PROVIDERS: Physician Assistant; Emergency Provider Emergency Medicine; PCP Internal Medicine; Visit Provider Emergency Medicine
DX: U07.1 COVID-19 (principal); I48.91 Unspecified atrial fibrillation; E78.5 Hyperlipidemia, unspecified; E86.0 Dehydration; I10 Essential (primary) hypertension; R00.0 Tachycardia, unspecified
CPT/HCPCS: 71046; 80048; 81001; 85025; 87428; 96360; 96361; 99283; A4216

== ENCOUNTER → 2023-10-17 | Outpatient (CLI) | payer MEDICARE, OTHER, SELFPAY ==
--- NOTE | 2023-10-17 10:01 | PR.HP_ITS ---
History of Present Illness General Arrival date:: 10/17/23 Arrival time:: 10:02 Date of Referral:: 09/24/23 Date of Evaluation: 10/17/23 Referring Physician: Dr. Richard Primary Diagnosis: Sarcoidosis History of Present Pulmonary Event [facility] Breathless Scale: When is the patient short of breath? Y/N Grade: Description of Breathlessness: 0 I only get breathless with strenuous exercise. 1 I get short of breath when hurrying on level ground or walking up a slight hill. 2 On level ground, I walk slower than people of the same age because of breathless, or have to stop for breath when walking at my own pace. 3 I stop for breath after walking 100 yards or after a few minutes on level ground. 4 I am too breathless to leave the house or I am breathless when dressing. Respiratory Problems: Yes Fatigue, Able to Speak in Full Sentences, Dizziness, Ankle Swelling, Hoarseness, Dyspnea at Rest and Dyspnea with Activity; No Retain Secretions, Limited Range of Motion, Chest Pain, Wheezing, Anxiety, Panic, Dyspnea Lying Down Flat or Cough with Secretions Medications Home Medications ibuprofen 400 mg tablet 400 mg PO Q6H PRN PRN Pain 1-10 Or Fever #0 tabs 11/27/20 aspirin 81 mg capsule 81 mg PO DAILY 03/24/22 calcium carbonate 500 mg-vitamin D3 3.125 mcg (125 unit) tablet 1 tab PO DAILY 03/24/22 levothyroxine 50 mcg tablet 50 mcg PO DAILY 03/24/22 sennosides 25 mg tablet 25 mg PO QHS 03/24/22 turmeric 400 mg capsule 400 mg PO DAILY 03/24/22 ascorbic acid (vitamin C) 500 mg capsule,extended release (Vitamin C) 1,000 mg PO DAILY 04/19/22 clobetasol 0.05 % topical ointment 1 applic topical BID 04/19/22 cyanocobalamin (vitamin B-12) 1,000 mcg tablet 1,000 mcg PO DAILY 04/19/22 dalfampridine 10 mg tablet,extended release,12 hr 10 mg PO Q12H 04/19/22 diclofenac sodium 1 % topical gel (Arthritis Pain (diclofenac)) 2 g topical 4X/DAY PRN 04/19/22 folic acid 400 mcg tablet 0.4 mg PO DAILY 04/19/22 hydroxyzine HCl 25 mg tablet 25 mg PO TID PRN 04/19/22 lysine 500 mg tablet 1,000 mg PO DAILY 04/19/22 ondansetron HCl 4 mg tablet 4 mg PO ONCE PRN 04/19/22 pyridoxine (vitamin B6) 100 mg tablet 100 mg PO DAILY 04/19/22 omeprazole 40 mg capsule,delayed release 40 mg PO DAILY PRN 04/21/22 metoprolol tartrate 50 mg tablet 50 mg PO BID #180 tabs 05/10/22 gabapentin 100 mg capsule 100 mg PO TID 10/20/22 hydrocodone-acetaminophen 5-325mg 5mg-325mg tab PO TID 10/20/22 magnesium glycinate 100 mg (as glycinate) tablet 400 mg PO DAILY 10/20/22 topiramate 100 mg tablet 100 mg PO DAILY 10/20/22 eletriptan 40 mg tablet 40 mg PO PRN PRN Migraine Symptoms 10/22/22 rizatriptan 10 mg tablet See Rx Instructions PO .prn PRN 10/22/22 tramadol 50 mg tablet 50 mg PO Q6H PRN pain 3 days #12 tabs 02/04/23 nirmatrelvir 300 mg (150 mg x2)-ritonavir 100 mg tablet,dose pack (Paxlovid) See Rx Instructions PO .COMPLEX #30 tabs 03/09/23 lisinopril 5 mg tablet 5 mg PO BID #180 tabs 08/01/23 Allergies Allergies acetaminophen (From Percocet) Allergy (Unknown, Verified 10/20/22 13:26) Unknown hydromorphone (From Dilaudid) Allergy (Unknown, Verified 02/04/23 06:25) Unknown morphine Allergy (Unknown, Verified 02/04/23 06:25) Itching oxycodone (From Percocet) Allergy (Unknown, Verified 02/04/23 06:25) Itching celecoxib (From Celebrex) Allergy (Verified 02/04/23 06:25) Hives meperidine (From Demerol) Allergy (Verified 02/04/23 06:25) Rash Opioids - Morphine Analogues (narcotics) Adverse Reaction (Verified 02/04/23 06:25) Itching pt states that she can take some, but not all Sleep Disorder Evaluation Hx of Sleep Apnea: No Do you snore loudly (louder than talking or can be heard through closed doors)?: No Do you often feel tired/ fatigued/ sleepy during daytime?: Yes Has anyone observed you stop breathing during sleep?: No History of Hypertension (for STOP score): Yes STOP Results: Positive Medical Utilization Medical Utilization Number of hospital visits in the last year?: 0 Number of emergency room visits in the last year?: 0 Do you see your physician on a regular schedule?: Yes How often?: twice in 6 months Advanced Directives Advanced Directives Power of Therapeutic Riding Instructor: Yes Living Will: Yes Advance Directives Information Provided: Yes Advance Directives on File: No DNR Order?:: No Past Medical History Covid-19 Screening Physicial Symptoms Other Clinical Concerns Exposure Risk Pertinent Comorbidities Has a chronic lung disease or moderate to severe asthma:: Yes Medical History Medical History Abnormal bruising Acute alteration in mental status Arthritis Atrial fibrillation with rapid ventricular response Back pain Cardiology follow-up encounter Cat bite of finger Cerebellar ataxia Chronic migraine Chronic neck and back pain Difficulty chewing Difficulty swallowing Essential (primary) hypertension Gastric reflux High cholesterol History of atrial fibrillation History of cerebellar ataxia History of echocardiogram History of edema History of Holter monitoring History of steroid therapy Hyperlipidemia Knee pain Labile blood pressure Leg cramps Lightheadedness Limb weakness Neck pain Non-smoker Post-menopausal Shortness of breath on exertion Shoulder pain Spinal stenosis Stiff person syndrome Syncope Thyroid disease Thyroiditis Vasovagal syncope Walker as ambulation aid Weakness generalized Wears glasses Surgical History Surgical History H/O cervical discectomy History of hysterectomy Hx of surgical procedure Significant Family History Family History Father Hypertension Diabetes Cancer prostate Heart disease Colon cancer Mother Hypertension MGUS (monoclonal gammopathy of unknown significance) Thyroid disorder Grandfather CVA (cerebral vascular accident) Colon cancer Parkinson's disease Social History Smoking History Smoking Status: Never smoker Alcohol Use Alcohol Usage: No Substance Abuse Hx Substance Use: No Occupation Occupation (List type of work in comments):: Retired Hobbies, Recreation, Social Activities Recreational Activities: I cannot do any recreational activities at all Functioning ADL/IADL Current Ability Current Ability: Dependent: Self-Care (e.g.,grooming, dressing, & bathing), Dependent: Ambulation, Dependent: Transfer and Dependent: Household tasks (e.g., light meal prep, laundry, shopping) Pt Functioning Prior to Problem Prior Functioning: Self-Care (e.g.,grooming, dressing, & bathing): Independent, Ambulation: Independent, Transfer: Independent and Household tasks (e.g., light meal prep, laundry, shopping): Independent Social Environment Status Marital Status: Current Living Arrangements Living Environment:: Spouse Children How many children do you have?: 4 Do any of your children live nearby?: Yes Safety Do you feel safe in your surroundings?: Yes Assistance Do you need any assistance at home?: pt has help Review of Systems Review of Systems Review of Systems Respiratory: Reports SOB at Rest, SOB upon Exertion, Appetite, Normal, Dizziness/Lightheadedness, Fatigue, PVD and Sleep, Normal; Denies Cough, Hemoptysis, Pleuritic Pain, Sputum production, Wheezing or Sexual changes Pain Is Patient Pain Free?: Yes Risk Factor Assessment Chief Complaint Chief Complaint: sarcoidosis Vital Signs Pulse Rate: 68 Pulse Ox: 95 Blood Pressure: 130/90 Obesity Height: 5 ft 9 in Weight:: 210 lb Weight in Pounds: 210.0 lbs Body Mass Index (BMI): 31.0 Physical Activity Physical Inactivity: Reg Exercise 30 min/day Risk Stratification Risk Guidelines: Lowest Risk: Risk Factor for Smoking, Moderate Risk: Risk Factor for Diabetes, Risk Factor for Obesity, Risk Factor for Sedentary Lifestyle and Risk Factor for Depression and Highest Risk: Risk Factor for Dyslipidemia and Risk Factor for Hypertension For Smoking Smoking Risk Guidelines For Dyslipidemia Dyslipidemia Risk Guidelines For Diabetes Mellitus Diabetes Risk Guidelines For Obesity/Overweight Obesity/Overweight Risk Guidelines For Hypertension Hypertension Risk Guidelines For Sedentary Lifestyle Sedentary Lifestyle Risk Guidelines For Depression Depression Risk Guidelines Motivation Motivation to Participate On a scale of 1 to 10, how prepared are you to commit to attending program?: 8 What do you see as barriers to successfully being able to complete the program?: nothing What do you see as the benefits of succesfully completing the program? In other words, what do you hope to get out of participating in the program?: stamina Are there issues you are dealing with that will interfere with completing the program?: no Do you have a spouse or signficant other, family or friends who will help support you to complete the program?: yes
[2023-10-17 10:18] VITALS: PULSE 68; O2SAT 95
[2023-10-17 10:22] VITALS: BP 130/90
--- NOTE | 2023-10-17 10:28 | PR.ITP_ITS ---
General Information2 General Information Admitting Diagnosis: sarcoidosis Personal Learning Style/Barriers Personal Learning Style:: Audio/Visual Barriers to Learning: None Education/Goals [place] Patient Goals: Increase muscle strength: Initial Assessment, Experience less dyspnea: Initial Assessment, Improve energy level: Initial Assessment, Participate in home exercise: Initial Assessment, Improve the ability to cope with ADLs: Initial Assessment, Improve knowledge of lung disease: Initial Assessment and Improve my quality of life: Initial Assessment Exercise - Initial Assessment Visit Date of Eval: 10/17/23 (initial eval ) Problem/Goals Problems: Deconditioning Goals:: [place]: 2-3/wk for 18 weeks [36 sessions] Physician Prescribed Exercise Modalities: Ritz & Wolf Camera & Image Stepper, Ritz & Wolf Camera & Image Pro-II Ergometer and Ritz & Wolf Camera & Image Lateral Allergist/Immunologist Frequency (days/week): 2 Duration (Minutes):: 30-45 Intensity: 60-80% of age predicted maximum heart rate reserve Current METSs:: 2 Target HR:: 126 (98-126) Resting Blood Pressure: 130/90 EKG Type: SR Plan Plan and Plan to Review:: Benefits of exercise, Core components of exercise, How to measure dyspnea level, How to monitor dyspnea level, Exercise intensity, Exer cise safety guideline, Home exercise guidelines and Rhonda: 3-4/11-13 Home Exercise Mode: Other (seated eliptical ) Nutrition/Wt Mgmt - Initial Visit Date of Eval: 10/17/23 (initial eval ) Problems/Goals Problems: Overweight Weight Management Admit Height:: 5 ft 9 in Admit Weight:: 210 lb Admit BMI:: 31.0 Intervention Referral to dietitian:: No Will attend diet classes:: Yes Intervention/Plan: Instruct on ideal BMI & set weight loss goal w/patient, Assist pt to ID & incorporate diet changes for weight loss by S9, Refer to Structured Weight Loss program as appropriate, Encourage goal of using 250- 300dcal per session for weight loss and Other additional plan/interventions Plan Nutrition Plan: Yes: Review BMI or WC & identify target wt & strategies for wt control, Yes: Nutrition education class:, Yes: Medication education class [Prednisone]:, Yes: Weight control education class: and Yes: Education re: Need for ongoing weight monitoring Nutrition/Wt Mgmt - 30-Day Weight Management Height: 5 ft 9 in Weight:: 210 lb BMI: 31.0 Nutrition/Wt Mgmt - 60-Day Weight Management Height: 5 ft 9 in Weight:: 210 lb BMI: 31.0 Nutrition/Wt Mgmt - 90-Day Weight Management Height: 5 ft 9 in Weight:: 210 lb BMI: 31.0 Nutrition/Wt Mgmt - Final Weight Management Height: 5 ft 9 in Weight:: 210 lb BMI: 31.0 Psychosocial - Initial Assess Visit Date of Eval: 10/17/23 (initial eval ) Problems/Goals History of Emotional Disorders: None (per pt) Psychosocial Goals: 1. Patient is free from overwhelming symtoms of depression (or anxiety, 2. Identifies personal stressors & states the strategies for managing, 3. Identifies activities to decrease isolation and/or symptoms of, 4. Improved psychosocial coping skills., 5. Verbalizes coping strategies., 6. Adequate treatment of depression. and 7. Improved Q.O.L. Intervention/Plan: See List Interventions/Plan:: Assess stressors,coping strategies & signs of derpression on admission, Instruct/assist pt to develop coping & personal stress Mgt strategies, Refer to Behavioral Health if appropriate, Refer to Physician if appropriate, Instruct patient to recognize signs & symptoms of depression, Instruct patient to recog and Other additional plan/intervention Psychosocial - 30-Day Problems/Goals History of Emotional Disorders: None (per pt) Psychosocial Goals: 1. Patient is free from overwhelming symtoms of depression (or anxiety, 2. Identifies personal stressors & states the strategies for managing, 3. Identifies activities to decrease isolation and/or symptoms of, 4. Improved psychosocial coping skills., 5. Verbalizes coping strategies., 6. Adequate treatment of depression. and 7. Improved Q.O.L. Plan Interventions/Plan:: Assess stressors,coping strategies & signs of derpression on admission, Instruct/assist pt to develop coping & personal stress Mgt strategies, Refer to Behavioral Health if appropriate, Refer to Physician if appropriate, Instruct patient to recognize signs & symptoms of depression, Instruct patient to recog and Other additional plan/intervention Psychosocial - 60-Day Problems/Goals History of Emotional Disorders: None (per pt) Psychosocial Goals: 1. Patient is free from overwhelming symtoms of depression (or anxiety, 2. Identifies personal stressors & states the strategies for managing, 3. Identifies activities to decrease isolation and/or symptoms of, 4. Improved psychosocial coping skills., 5. Verbalizes coping strategies., 6. Adequate treatment of depression. and 7. Improved Q.O.L. Plan Interventions/Plan:: Assess stressors,coping strategies & signs of derpression on admission, Instruct/assist pt to develop coping & personal stress Mgt strategies, Refer to Behavioral Health if appropriate, Refer to Physician if appropriate, Instruct patient to recognize signs & symptoms of depression, Instruct patient to recog and Other additional plan/intervention Psychosocial - 90-Day Problems/Goals History of Emotional Disorders: None (per pt) Psychosocial Goals: 1. Patient is free from overwhelming symtoms of depression (or anxiety, 2. Identifies personal stressors & states the strategies for managing, 3. Identifies activities to decrease isolation and/or symptoms of, 4. Improved psychosocial coping skills., 5. Verbalizes coping strategies., 6. Adequate treatment of depression. and 7. Improved Q.O.L. Plan Interventions/Plan:: Assess stressors,coping strategies & signs of derpression on admission, Instruct/assist pt to develop coping & personal stress Mgt strategies, Refer to Behavioral Health if appropriate, Refer to Physician if appropriate, Instruct patient to recognize signs & symptoms of depression, Instruct patient to recog and Other additional plan/intervention Psychosocial - Final Assess Problems/Goals History of Emotional Disorders: None (per pt) Psychosocial Goals: 1. Patient is free from overwhelming symtoms of depression (or anxiety, 2. Identifies personal stressors & states the strategies for managing, 3. Identifies activities to decrease isolation and/or symptoms of, 4. Improved psychosocial coping skills., 5. Verbalizes coping strategies., 6. Adequate treatment of depression. and 7. Improved Q.O.L. Plan Interventions/Plan:: Assess stressors,coping strategies & signs of derpression on admission, Instruct/assist pt to develop coping & personal stress Mgt strategies, Refer to Behavioral Health if appropriate, Refer to Physician if appropriate, Instruct patient to recognize signs & symptoms of depression, Instruct patient to recog and Other additional plan/intervention Oxygen & Oxygen Titration Init Visit Date of Eval: 10/17/23 (initial eval ) Initial Assessment Oxygen on Admission: None Patient Reports:: No cough Core Components - Initial Visit Date of Eval: 10/17/23 (initial eval ) Hypertension Hypertension Diagnosis:: Hypertension ICD-10 I10 BP: 130/90 [place] [employer] Hypertension Guidelines Tobacco - Initial Assessment Tobacco Program Goals Stages of Change:: Contemplate Tobacco Use: Non-smoker Exacerbation Mgmt & Airway Clearance Patient Reports:: No cough Diabetes Referral to dietitian:: No Will attend diet classes:: Yes Core Components - 30 DAYS Hypertension Hypertension Diagnosis:: Hypertension ICD-10 I10 Resting Blood Pressure:: 130/90 [place] [employer] Hypertension Guidelines Tobacco - 30-Day Tobacco Program Goals Stages of Change:: Contemplate Tobacco Use: Non-smoker Core Components - 60 DAYS Hypertension Hypertension Diagnosis:: Hypertension ICD-10 I10 Resting Blood Pressure:: 130/90 [place] [employer] Hypertension Guidelines Tobacco - 60-Day Tobacco Program Goals Stages of Change:: Contemplate Tobacco Use: Non-smoker Core Components - 90 DAYS Hypertension Hypertension Diagnosis:: Hypertension ICD-10 I10 Resting Blood Pressure:: 130/90 [place] [employer] Hypertension Guidelines Tobacco - 90-Day Tobacco Program Goals Stages of Change:: Contemplate Tobacco Use: Non-smoker Core Components - Final Hypertension Hypertension Diagnosis:: Hypertension ICD-10 I10 Resting Blood Pressure:: 130/90 [place] [employer] Hypertension Guidelines Tobacco - Final Tobacco Program Goals Stages of Change:: Contemplate Tobacco Use: Non-smoker Patient Health Questionnaire PHQ-9 Screening Initial Assessment: 1. Little interest or pleasure in doing things: Several days 2. Feeling down, depressed, or hopeless: Not at all 3. Trouble falling or staying asleep, or sleeping too much: Not at all 4. Feeling tired or having little energy: More than half the days 5. Poor appetite or overeating: Not at all 6. Feeling bad about yourself -- or that you are a failure or have let yourself or your family down: Not at all 7. Trouble concentrating on things, such as reading the newspaper or watching television: Not at all 8. Moving or speaking so slowly that other people could have noticed. Or the opposite - being so fidgety or restless that you have been moving around a lot more than usual: Nearly every day 9. Thoughts that you would be better off , or of hurting yourself in some way: Not at all How difficult have these problems made it for you to do your work, take care of things at home, or get along with other people?: Somewhat difficult Total Score: 6 Knowledge Questionaire (BCKQ) Information Information: [facility] COPD Knowledge Questionnaire (BCKQ) This questionnaire is designed to find out what you know about your lung problem. It should be completed without help form anyone else. This usually takes between 10 and 20 minutes. Your answers will help us to find out what information you need to help you to understand and manage your lung condition. Raghu the [place] which you think is the correct answer. COPD Assessment Test [CAT] Questions Never cough = 0, Cough all the time = 5: 2 No phlegm = 0, Chest full of phlegm = 5: 0 No chest tightness = 0, Chest very tight = 5: 3 No breathless w/exertion = 0, Very breathless w/exertion = 5: 5 No limitations w/activity = 0, Very limited w/activity = 5: 5 Confident leaving home = 0, Not at all confident = 5: 1 Sleep soundly = 0, Don't sleep soundly = 5: 0 Lots of energy = 0, No energy at all = 5: 3 Total CAT score:: 19 Self-Efficacy 6-Item Scale Initial Assessment: We would like to know how confident you are in doing certain activities. Please select your confidence level for: Fatigue Select Number: 6 Physical Discomfort or Pain Select Number: 9 Emotional Distress Select Number: 10 Other Symptoms or Health Problems Select Number: 1 Different Tasks and Activities Select Number: 3 Medication Select Number: 9 Total Score:: 6 Nutrition Survey Nutrition Survey Instructions Scoring Instructions Nutrition Survey Initial: Have you lost >10 lbs over the past 2 months without trying?: No Are you following a special diet at home for diabetes, low fat, or low salt?: No Are you interested in meeting with a dietitian for help understanding your diet?: No Do you eat less than 3 meals a day?: Yes Do you eat fatty meats (vidal, sausage, ribs, etc), fried foods, desserts, large amounts of salad dressings, margarine, butter, or cheese most days?: No Do you have food allergies? [Enter types in comment field]: No Do you eat in restaurants more than 3 times a week?: No Do you season food with salt, seasoning salt, or garlic salt?: No Do you used canned, boxed, frozen meals, or soups, seasoning packets?: Yes Total Score:: 2
[2023-10-17 10:43] VITALS: BP 130/90; BMI 31.0
[2023-10-17 10:44] VITALS: BMI 31.0
== END | disposition home or self-care (01) ==
LOC: PR 09:47
PROVIDERS: PCP Internal Medicine; Referring Provider Internal Medicine Pulmonary Disease; Visit Provider Internal Medicine Pulmonary Disease
DX: D86.9 Sarcoidosis, unspecified (principal)

== ENCOUNTER 2024-02-27 06:19 | Emergency (ER) | payer MEDICARE, OTHER, SELFPAY ==
[2023-10-17 10:43] VITALS: BMI 31.0
[2024-02-27 06:24] VITALS: BP 132/79; PULSE 77; RESP 18; TEMP 37.2; O2SAT 99; BMI 33.8
--- NOTE | 2024-02-27 06:42 | CT_ITS ---
EXAM: CT ABDOMEN AND PELVIS WITHOUT INTRAVENOUS CONTRAST CLINICAL INDICATION: left flank pain TECHNIQUE: Helically acquired images were obtained of the abdomen and pelvis without intravenous contrast. This CT exam was performed using one or more of the following dose reduction techniques: automated exposure control, adjustment of the mA and/or kV according to patient size, and/or use of iterative reconstruction technique. RADIATION DOSE: Total DLP: 1034.04 mGy-cm. COMPARISON: Abdomen pelvis CT of 02/04/2023. FINDINGS: LOWER THORAX: Dependent atelectasis noted at the lung bases. No pleural effusion. No coronary artery calcification is visualized. No significant pericardial effusion. No hiatal hernia. ABDOMEN: LIVER: Liver demonstrates fatty infiltration. GALLBLADDER AND BILE DUCTS: The gallbladder is normal in size and again contains numerous tiny calcified stones which layer in the dependent portion of the gallbladder. No wall thickening, common bile duct dilatation or calcified common duct stone. PANCREAS: Unremarkable. No focal cystic mass. SPLEEN: Unremarkable. Normal size without focal cystic or solid mass. ADRENALS: Unremarkable. No nodules. KIDNEYS AND URETERS: There is been interval development of moderate left hydronephrosis secondary to an irregular 7 mm stone which lies within the proximal ureter just distal to the ureteropelvic junction. There is moderate associated perirenal stranding due to the obstruction. No other renal or ureteral stones are identified. Stable right renal parapelvic cysts, which require no follow-up. STOMACH AND BOWEL: Stomach is decompressed. No periduodenal inflammatory changes or distended small bowel loops. A few sigmoid diverticula are present without evidence for acute diverticulitis. No findings of small bowel obstruction or colitis. PELVIS: APPENDIX: No evidence of acute appendicitis. BLADDER: Urinary bladder is nearly empty. REPRODUCTIVE: Absent uterus. No adnexal mass. ABDOMEN and PELVIS: INTRAPERITONEAL SPACE: Unremarkable. No ascites or other fluid collection. No free air. BONES/JOINTS: Lumbar facet arthritis is noted. No acute osseous abnormality. No suspicious lytic or blastic abnormality. SOFT TISSUES: Unremarkable. No discrete abdominal or pelvic wall hernia. VASCULATURE: Mildly calcific abdominal aorta which is normal in caliber. LYMPH NODES: Unremarkable. No enlarged lymph nodes. OTHER FINDINGS: Osseous structures are demineralized. There are stable minimal anterior wedge deformity of the T9 vertebral body. Calcified lobulated central disc extrusion noted at the T7/8 level, moderately flattening the central and left ventral aspect of the thecal sac, which is narrowed to about 6 mm in AP diameter; this level was not included on the prior study so comparison cannot be made. CT/Abdomen/Pelvis without Cont IMPRESSION: Moderate left hydronephrosis secondary to a 7 mm irregular stone which lies within proximal ureter, just distal to the ureteropelvic junction. Cholelithiasis again noted, without evidence for acute cholecystitis. Electronically Signed: Castro Chandler MD at 8:00 EST ,
[2024-02-27] MEDS: 0.9% Normal Saline (1000mL) 1,000 ML 999 ML IV (06:49)
[2024-02-27] MEDS: DiphenhydrAMINE 50 MG/ML Syringe 25 MG IV (06:49)
[2024-02-27] MEDS: Ketorolac 15 MG/ML Vial IV (06:49)
--- NOTE | 2024-02-27 06:49 | EDS_ITS ---
[facility] <Dr. Ishaan Melara DO - Last Filed: 02/27/24 07:17> History of Present Illness Chief Complaint: Flank Pain Informant: patient and EMS Narrative Narrative: Patient is a 68-year-old female with past medical history of hypertension chroni c neck and back pain and hypothyroidism. She also reports a remote history of kidney stone. She states she went to bed normally and then awoke around 230/3 in the morning with left-sided flank/back pain. She states that even though she has chronic pain this is different from her normal back issues. She denies any loss of bowel bladder control or IV drug use. She states that nausea accompanied the increased pain but has been no vomiting. She denies any hematuria or dysuria. She states that there is no improvement or worsening of pain with motion. She reports this feels similar nature to her kidney stones and secondary to this comes in for evaluation. [facility] <Dr. Ishaan Melara DO - Last Filed: 02/27/24 07:17> [facility] Medical History Hyperlipidemia Wears glasses Post-menopausal History of steroid therapy Thyroid disease Walker as ambulation aid High cholesterol Back pain Syncope Difficulty swallowing Difficulty chewing Gastric reflux Non-smoker Shortness of breath on exertion Leg cramps History of edema History of echocardiogram History of Holter monitoring Cardiology follow-up encounter Thyroiditis Cerebellar ataxia Stiff person syndrome History of cerebellar ataxia History of atrial fibrillation Acute alteration in mental status Atrial fibrillation with rapid ventricular response Weakness generalized Neck pain Cat bite of finger Abnormal bruising Limb weakness Chronic neck and back pain Knee pain Shoulder pain Arthritis Lightheadedness Labile blood pressure Vasovagal syncope Essential (primary) hypertension Spinal stenosis Chronic migraine Home Medications ?Medication ?Instructions ?Recorded ?Last Taken ?Type ibuprofen 400 mg tablet 400 mg PO Q6H PRN PRN Pain 1-10 Or 11/27/20 Unknown Rx Fever #0 tabs aspirin 81 mg capsule 81 mg PO DAILY 03/24/22 Unknown History calcium 500 mg (as 1 tab PO DAILY 03/24/22 Unknown History carbonate)-vitamin D3 3.125 mcg (125 unit) tablet levothyroxine 50 mcg tablet 50 mcg PO DAILY 03/24/22 03/29/22 History sennosides 25 mg tablet 25 mg PO QHS 03/24/22 Unknown History turmeric 400 mg capsule 400 mg PO DAILY 03/24/22 Unknown History ascorbic acid (vitamin C) 500 mg 1,000 mg PO DAILY 04/19/22 Unknown History capsule,extended release (Vitamin C) clobetasol 0.05 % topical ointment 1 applic topical BID 04/19/22 Unknown History cyanocobalamin (vitamin B-12) 1,000 mcg PO DAILY 04/19/22 Unknown History 1,000 mcg tablet dalfampridine 10 mg 10 mg PO Q12H 04/19/22 Unknown History tablet,extended release,12 hr diclofenac sodium 1 % topical gel 2 g topical 4X/DAY PRN 04/19/22 Unknown History (Arthritis Pain (diclofenac)) folic acid 400 mcg tablet 0.4 mg PO DAILY 04/19/22 Unknown History hydroxyzine HCl 25 mg tablet 25 mg PO TID PRN 04/19/22 Unknown History lysine 500 mg tablet 1,000 mg PO DAILY 04/19/22 Unknown History ondansetron HCl 4 mg tablet 4 mg PO ONCE PRN 04/19/22 Unknown History pyridoxine (vitamin B6) 100 mg 100 mg PO DAILY 04/19/22 Unknown History tablet omeprazole 40 mg capsule,delayed 40 mg PO DAILY PRN 04/21/22 Unknown History release metoprolol tartrate 50 mg tablet 50 mg PO BID #180 tabs 05/10/22 Unknown Rx gabapentin 100 mg capsule 100 mg PO TID 10/20/22 Unknown History hydrocodone-acetaminophen 5-325mg tab PO TID 10/20/22 Unknown History 5mg-325mg magnesium glycinate 100 mg (as 400 mg PO DAILY 10/20/22 Unknown History glycinate) tablet eletriptan 40 mg tablet 40 mg PO PRN PRN Migraine Symptoms 10/22/22 Unknown History rizatriptan 10 mg tablet See Rx Instructions PO .prn PRN 10/22/22 Unknown History tramadol 50 mg tablet 50 mg PO Q6H PRN pain 3 days #12 02/04/23 Unknown Rx tabs lisinopril 5 mg tablet 5 mg PO BID #180 tabs 08/01/23 Unknown Rx Allergy/AdvReac Type Severity Reaction Status Date / Time acetaminophen (From Percocet) Allergy Unknown Unknown Verified 02/27/24 06:21 hydromorphone (From Dilaudid) Allergy Unknown Unknown Verified 02/27/24 06:21 morphine Allergy Unknown Itching Verified 02/27/24 06:21 oxycodone (From Percocet) Allergy Unknown Itching Verified 02/27/24 06:21 celecoxib (From Celebrex) Allergy Hives Verified 02/27/24 06:21 meperidine (From Demerol) Allergy Rash Verified 02/27/24 06:21 Opioids - Morphine Analogues AdvReac Itching Verified 02/27/24 06:21 (narcotics) Family History Father Hypertension Diabetes Cancer prostate Heart disease Colon cancer Mother Hypertension MGUS (monoclonal gammopathy of unknown significance) Thyroid disorder Grandfather CVA (cerebral vascular accident) Colon cancer Parkinson's disease Surgical History Hx of surgical procedure History of hysterectomy H/O cervical discectomy Social History household members: spouse housing: house current occupational status: retired pets and animals: Yes (dogs & cats ) Smoking Status: Never smoker alcohol intake: never substance use type: does not use caffeine: Yes what type of physical activity do you participate in: walking seatbelt use: always do you feel safe at home: Yes ROS <Dr. Ishaan Melara, DO - Last Filed: 02/27/24 07:17> ROS ED Constitutional Constitutional ED: Denies chills or fever(s) Eyes Eyes: Denies change in vision ENT ENT ED: Denies sore throat Cardiovascular Cardiovascular: Denies chest pain Respiratory/Chest Respiratory/Chest: Denies cough or dyspnea Gastrointestinal Gastrointestinal: Reports nausea; Denies abdominal pain, diarrhea or vomiting Genitourinary Genitourinary ED: Denies dysuria or hematuria Musculoskeletal Musculoskeletal: Reports back pain Integumentary Denies rash Neurologic Neurologic: Denies headache(s) Hematologic/Lymphatic Hematologic/Lymphatic: Denies easy bleeding or easy bruising EXAM <Dr. Ishaan Melara, DO - Last Filed: 02/27/24 07:17> Physical Exam Const Vital Signs: 02/27/24 06:24 Temperature 99.0 F Temperature Source Oral Pulse Rate 77 Respiratory Rate 18 Blood Pressure 132/79 H Blood Pressure Mean 96 Pulse Ox 99 Oxygen Delivery Method Room Air Positive well nourished and well developed General Appearance ED: well developed HEENT HEENT Narrative: Normocephalic atraumatic Eyes PERRL and EOMs intact bilaterally General Eye ED: Negative for scleral icterus Neck supple Resp normal respiratory effort and clear to auscultation bilaterally Cardio regular rate and regular rhythm Rate: other Other Details: Heart is regular rate and rhythm Radial and carotid pulses are equal and symmetric GI non-tender, non-distended and no masses GI Narrative: Abdomen is soft nontender and nondistended with hypoactive bowel sounds No voluntary guarding or rigidity or pulsatile mass Auscultation: hypoactive bowel sounds Palpation: soft Back/Spine Back/Spine Narrative: Positive left CVA pain is noted Extremity normal to inspection Extremity Narrative: No asymmetric edema no pitting edema negative Homans' sign bilaterally Neuro oriented x3, CN's II-XII intact bilaterally and no sensory deficits noted Sensorium / Orientation: alert Psych mental status grossly normal Skin no rashes or lesions noted and no wounds Skin Narrative: No overlying soft tissue changes to suggest trauma or infection General Skin Exam: Negative for jaundice <Dr. Manan Morel, DO - Last Filed: 02/27/24 08:14> Physical Exam Const Vital Signs: 02/27/24 06:24 Temperature 99.0 F Temperature Source Oral Pulse Rate 77 Respiratory Rate 18 Blood Pressure 132/79 H Blood Pressure Mean 96 Pulse Ox 99 Oxygen Delivery Method Room Air MDM <Dr. Ishaan Melara, DO - Last Filed: 02/27/24 07:17> [facility] MDM Narrative Medical decision making narrative: Patient presented to ER with stable vitals but reported sudden onset of pain that woke her from sleep along the left flank. There is her diagnosis is for UTI versus pyelonephritis versus kidney stone versus [place]. As patient has a CT scan from roughly a year ago that shows a left-sided stone this is most likely repeat kidney stone. She has multiple allergies and therefore she was treated with IV fluids states she can take Toradol so this was added as well as Benadryl. At this time official CT read is pending but initial evaluation by myself indicates a 6 mm stone in the proximal left ureter causing hydronephrosis. Patient will be signed out to the day physician while official CT and urine sample are pending and to see how patient responds to pain medication. History & Record Review Discussion w/independent historian: EMS personnel and Patient Lab Data Attestation: I reviewed the patient's lab results. Labs: Laboratory Results - last 24 hr 02/27/24 06:37 WBC 8.5 RBC 4.92 Hgb 14.3 Hct 43.2 MCV 87.8 MCH 29.1 MCHC 33.1 RDW Std Deviation 44.9 H RDW Coeff of Pedrito 13.9 Plt Count 170 MPV 10.8 Immature Gran % (Auto) 0.500 Neut % (Auto) 81.8 H Lymph % (Auto) 10.1 L Routt % (Auto) 5.7 Eos % (Auto) 1.3 Baso % (Auto) 0.6 Absolute Neuts (auto) 7.0 Absolute Lymphs (auto) 0.86 Nucleated RBC % 0 <Dr. Manan Morel, DO - Last Filed: 02/27/24 08:14> [facility] Lab Data Labs: Laboratory Results - last 24 hr 02/27/24 06:37 WBC 8.5 RBC 4.92 Hgb 14.3 Hct 43.2 MCV 87.8 MCH 29.1 MCHC 33.1 RDW Std Deviation 44.9 H RDW Coeff of Pedrito 13.9 Plt Count 170 MPV 10.8 Immature Gran % (Auto) 0.500 Neut % (Auto) 81.8 H Lymph % (Auto) 10.1 L Routt % (Auto) 5.7 Eos % (Auto) 1.3 Baso % (Auto) 0.6 Absolute Neuts (auto) 7.0 Absolute Lymphs (auto) 0.86 Nucleated RBC % 0 Treatment and Re-Evaluation :: Patient was turned over to me by Dr. Melara@ [id number] Brief history: 68-year-old female with a past medical history of kidney stones with flank pain. Physical exam: Abdomen soft nontender. No pulsatile abdominal masses or auscultated bruits noted. Labs and images reviewed (if obtained): CT scan of the abdomen pelvis shows a relatively large approximately located 7 mm nephrolithiasis CBC without leukocytosis, severe anemia, no thrombocytopenia. BMP without evidence of significant electrolyte abnormalities, no anion gap, no acute kidney injury. Urinalysis shows no evidence of urinary inflammation suggestive of UTI On reevaluation the patient is pain-free. She is not nauseous or vomiting. Her vitals were within normal limits. We do not have urology on-call at this time For consultation. given the size of proximal location of the stone I did offer the patient transfer to undergo immediate urologic evaluation. Patient notes she felt comfortable and noted she had other errands to run including other medical appointments today and would prefer to be discharged home with oral pain medications and nausea medications. Will discharge with Zofran and Vicodin. Confirmed with patient she is not allergic to Vicodin. I gave strict return precautions including return for vomiting, severe pain, fever, or any urinary complaints. Gave urology follow-up as an outpatient. MDM/plan: Discharged home with pain medication and close urology follow-up with strict return precautions. Discharge Plan Triage Chief Complaint: Flank Pain ED Provider: Ishaan Melara Dx/Rx/DC Orders Clinical Impression: Kidney stone, Renal colic, Hydronephrosis Prescriptions: No Action clobetasol 0.05 % ointment 1 applic topical BID cyanocobalamin (vitamin B-12) 1,000 mcg tablet 1,000 mcg PO DAILY folic acid 400 mcg tablet 0.4 mg PO DAILY pyridoxine (vitamin B6) 100 mg tablet 100 mg PO DAILY hydroxyzine HCl 25 mg tablet 25 mg PO TID PRN diclofenac sodium [Arthritis Pain (diclofenac)] 1 % gel 2 g topical 4X/DAY PRN Rx Instructions: apply to single elbow, wrist or hand; for hand includes palm/fingers/back of hand ondansetron HCl 4 mg tablet 4 mg PO ONCE PRN dalfampridine 10 mg tablet extended release 12 hr 10 mg PO Q12H omeprazole 40 mg capsule,delayed release(DR/EC) 40 mg PO DAILY PRN gabapentin 100 mg capsule 100 mg PO TID hydrocodone-acetaminophen 5-325 mg tablet PO TID Patient Comments: TAKE 1 TABLET BY MOUTH TWICE DAILY FOR 7 DAYS magnesium glycinate 100 mg tablet 400 mg PO DAILY ibuprofen 400 mg Tablet 400 mg PO Q6H PRN PRN (Reason: Pain 1-10 Or Fever) Qty: 0 0RF levothyroxine 50 mcg Tablet 50 mcg PO DAILY Senna Laxative 25 mg Tablet 25 mg PO QHS calcium carbonate-vitamin D3 [Calcium 500 + D (D3)] 500 mg-3.125 mcg (125 unit) Tablet 1 tab PO DAILY turmeric 400 mg Capsule 400 mg PO DAILY aspirin 81 mg Capsule 81 mg PO DAILY ascorbic acid (vitamin C) [Vitamin C] 500 mg capsule, extended release 1,000 mg PO DAILY lysine 500 mg tablet 1,000 mg PO DAILY tramadol 50 mg tablet 50 mg PO Q6H PRN (Reason: pain) 3 Days Qty: 12 0RF metoprolol tartrate 50 mg tablet 50 mg PO BID Qty: 180 3RF rizatriptan 10 mg tablet See Rx Instructions PO .prn PRN Rx Instructions: Pt uses alternatively with eletryptan eletriptan 40 mg tablet 40 mg PO PRN PRN (Reason: Migraine Symptoms) Rx Instructions: Patient uses alternatively with Rizatryptan lisinopril 5 mg tablet 5 mg PO BID Qty: 180 3RF Primary Care Provider: Sun Lawrence Referrals: Sun Lawrence MD [Primary Care Provider] - Print Language: Uzbek
[2024-02-27 06:57] LABS: Absolute Lymphocyte Count 0.86 X10^3/uL (0.83-4.51); Basophil# 0.05 X10^3/uL; Basophil% 0.6 % (0-1); Eosinophil# 0.11 X10^3/uL; Eosinophils% 1.3 % (0-5); Hematocrit 43.2 % (37-47); Hemoglobin 14.3 g/dL (12.0-15.0); Lymphocyte # 0.86 X10^3/ul (0.83-4.51); Lymphocyte % 10.1 % (19-41); Mean Corp Hgb Conc 33.1 g/dL (32-36); Mean Corpuscular Hgb 29.1 pg (27.0-32.0); Mean Corpuscular Volume 87.8 fL (81-99); Mean Platelet Vol. 10.8 fl (6.2-12.0); Monocyte# 0.48 X10^3/uL; Monocyte% 5.7 % (0-10); NRBC Flagged by Analyzer 0 % (0-5); Neutrophil # 6.95 X10^3/uL (2.7-7.7); Neutrophil % 81.8 % (47-70); Platelet Count 170 K/mm3 (150-450); RBC Distribution Width CV 13.9 % (11.6-14.6); RBC Distribution Width SD 44.9 fl (35.1-43.9); Red Blood Count 4.92 M/mm3 (4.2-5.4); White Blood Count 8.5 K/mm3 (4.4-11.0)
[2024-02-27] MEDS: Ondansetron 4 MG/2 ML Vial IV (07:12)
[2024-02-27 07:17] LABS: Anion Gap 5 (5-15); BUN 32 mg/dL (7-18); Calcium,Total 9.1 mg/dL (8.5-10.1); Chloride 110 mmol/L (98-107); Creatinine, Serum 1.28 mg/dL (0.55-1.02); EST Glomerular Filtration Rate 44 mL/min (>60); Est Glom Filt Rate - Afr Amer 53 mL/min (>60); Glucose 159 mg/dL (74-106); Potassium 4.4 mmol/L (3.5-5.1); Sodium Level 141 mmol/L (136-145)
[2024-02-27 07:26] LABS: Color, Urine Yellow (Yellow); Glucose, Dipstick Normal (Normal); Ketone-Dipstick Negative (Negative); Leukocyte Esterase-Dipstick 25 /ul (Negative); Nitrite-Dipstick Negative (Negative); Occult Blood-Urine 250 /ul (Negative); Protein-Dipstick 30 mg/dl (Negative); Specific Gravity, Urine 1.025 (1.002-1.030); Urine Bilirubin Dipstick Negative (Negative); Urine Clarity Cloudy (Clear); Urine Urobilinogen Normal (Normal)
[2024-02-27 07:36] LABS: Red Blood Cells-Urine 50-100 SEEN /hpf (0-5); Squamous Epithelial Cells - UA 0-5 SEEN /hpf (5-10); White Blood Cells 0-5 SEEN /hpf (0-5)
[2024-02-27 07:37] LABS: Bacteria 1+ /hpf (None Seen); Mucous, Urine RARE /hpf (<or=2+)
[2024-02-27 08:11] VITALS: BP 131/81; PULSE 77; RESP 18; TEMP 36.8; O2SAT 97
== END 2024-02-27 08:50 | disposition home or self-care (01) ==
PROVIDERS: Emergency Provider Emergency Medicine; PCP Internal Medicine; Visit Provider Emergency Medicine
DX: N13.2 Hydronephrosis with renal and ureteral calculous obstruction (principal); I48.91 Unspecified atrial fibrillation; Z90.710 Acquired absence of both cervix and uterus; I10 Essential (primary) hypertension; N23 Unspecified renal colic; E78.00 Pure hypercholesterolemia, unspecified; Z79.82 Long term (current) use of aspirin; Z79.899 Other long term (current) drug therapy; Z79.890 Hormone replacement therapy; K21.9 Gastro-esophageal reflux disease without esophagitis
CPT/HCPCS: 74176; 80048; 81001; 85025; 96361; 96374; 96375; 99283; J2405

== ENCOUNTER 2024-12-22 14:01 | Emergency (ER) | payer MEDICARE, OTHER, SELFPAY ==
[2023-10-17 10:43] VITALS: BMI 31.0
[2024-12-22 14:01] VITALS: BP 147/85; PULSE 72; RESP 11; TEMP 37; O2SAT 100; BMI 33.2
--- NOTE | 2024-12-22 14:40 | EKG12_ITS ---
Test Reason : POST CP Blood Pressure : */* mmHG Vent. Rate : 75 BPM Atrial Rate : 75 BPM P-R Int : 172 ms QRS Dur : 76 ms QT Int : 366 ms P-R-T Axes : 55 -16 27 degrees QTcB Int : 408 ms Normal sinus rhythm Normal ECG Confirmed by THOMAS SNEED, DACIA ([id number]), newspaper photo editor GRACIE ADAMSON ([id number]) on 12/25/2024 7:38:22 AM Referred By: ES/ER Confirmed By: DACIA GUZMAN MD
--- NOTE | 2024-12-22 14:40 | ED.VIS.CHEST ---
HPI History of Present Illness Chief Complaint: Chest Pain Narrative Narrative: Patient is a 69-year-old female presenting to the emergency department for chest pain. Patient has a past medical history of A-fib, migraines, hypertension, hyperlipidemia, stiff person syndrome and cerebellar ataxia. Patient states that today she was working in the garden when she developed sudden onset midsternal chest pain that did not radiate anywhere. She developed shortness of breath and lightheadedness with it. States it lasted about 15 minutes. She received 324 mg p.o. aspirin by EMS. She states that she is asymptomatic at this time. Denies any recent travel, hospitalizations or surgeries. Denies any history of DVT or PE. Denies any new lower extremity edema. Denies any hormone therapy or cancer diagnosis. Denies any diabetes history. [facility] Medical History History of atrial fibrillation Ischemic stroke COVID-19 Hyperlipidemia Wears glasses Post-menopausal History of steroid therapy Thyroid disease Walker as ambulation aid High cholesterol Back pain Syncope Difficulty swallowing Difficulty chewing Gastric reflux Non-smoker Shortness of breath on exertion Leg cramps History of edema History of echocardiogram History of Holter monitoring Cardiology follow-up encounter Thyroiditis Cerebellar ataxia Stiff person syndrome History of cerebellar ataxia Acute alteration in mental status Atrial fibrillation with rapid ventricular response Weakness generalized Neck pain Cat bite of finger Abnormal bruising Limb weakness Chronic neck and back pain Knee pain Shoulder pain Arthritis Lightheadedness Labile blood pressure Vasovagal syncope Essential (primary) hypertension Spinal stenosis Chronic migraine Home Medications ?Medication ?Instructions ?Recorded ?Last Taken ?Type ibuprofen 400 mg tablet 400 mg PO Q6H PRN PRN Pain 1-10 Or 11/27/20 Unknown Rx Fever #0 tabs aspirin 81 mg capsule 81 mg PO DAILY 03/24/22 Unknown History levothyroxine 50 mcg tablet 50 mcg PO DAILY 03/24/22 03/29/22 History sennosides 25 mg tablet 25 mg PO QHS 03/24/22 Unknown History turmeric 400 mg capsule 400 mg PO DAILY 03/24/22 Unknown History ascorbic acid (vitamin C) 500 mg 1,000 mg PO DAILY 04/19/22 Unknown History capsule,extended release (Vitamin C) clobetasol 0.05 % topical ointment 1 applic topical BID 04/19/22 Unknown History cyanocobalamin (vitamin B-12) 1,000 mcg PO DAILY 04/19/22 Unknown History 1,000 mcg tablet dalfampridine 10 mg 10 mg PO Q12H 04/19/22 Unknown History tablet,extended release,12 hr diclofenac sodium 1 % topical gel 2 g topical 4X/DAY PRN 04/19/22 Unknown History (Arthritis Pain (diclofenac)) folic acid 400 mcg tablet 0.4 mg PO DAILY 04/19/22 Unknown History hydroxyzine HCl 25 mg tablet 25 mg PO TID PRN 04/19/22 Unknown History lysine 500 mg tablet 1,000 mg PO DAILY 04/19/22 Unknown History pyridoxine (vitamin B6) 100 mg 100 mg PO DAILY 04/19/22 Unknown History tablet omeprazole 40 mg capsule,delayed 40 mg PO DAILY PRN 04/21/22 Unknown History release metoprolol tartrate 50 mg tablet 50 mg PO BID #180 tabs 05/10/22 Unknown Rx gabapentin 100 mg capsule 100 mg PO TID 10/20/22 Unknown History magnesium glycinate 100 mg (as 400 mg PO DAILY 10/20/22 Unknown History glycinate) tablet rizatriptan 10 mg tablet See Rx Instructions PO .prn PRN 10/22/22 Unknown History tramadol 50 mg tablet 50 mg PO Q6H PRN pain 3 days #12 02/04/23 Unknown Rx tabs hydrocodone-acetaminophen 5-325mg 1 tab PO Q6H PRN PRN Pain 3 days 02/27/24 Unknown Rx 5mg-325mg #12 TABLETS ondansetron 4 mg disintegrating 4 mg PO Q8 PRN nauseea 3 days #9 02/27/24 Unknown Rx tablet tabs amlodipine 5 mg tablet 5 mg PO QDAY #90 tabs 04/16/24 Unknown Rx erenumab-aooe 140 mg/mL 140 mg subcut QMONTH 06/25/24 Unknown History subcutaneous auto-injector (Aimovig Autoinjector) lovastatin 20 mg tablet 20 mg PO QDAY 06/25/24 Unknown History prednisone 20 mg tablet mg PO PRN 06/25/24 Unknown History Allergy/AdvReac Type Severity Reaction Status Date / Time acetaminophen (From Percocet) Allergy Unknown Unknown Verified 06/25/24 13:39 hydromorphone (From Dilaudid) Allergy Unknown Unknown Verified 06/25/24 13:39 morphine Allergy Unknown Itching Verified 06/25/24 13:39 oxycodone (From Percocet) Allergy Unknown Itching Verified 06/25/24 13:39 celecoxib (From Celebrex) Allergy Hives Verified 06/25/24 13:39 meperidine (From Demerol) Allergy Rash Verified 06/25/24 13:39 diazepam AdvReac Unknown Difficulty Verified 06/25/24 13:39 breathing Opioids - Morphine Analogues AdvReac Itching Verified 06/25/24 13:39 (narcotics) Family History Father Hypertension Diabetes Cancer prostate Heart disease Colon cancer Mother Hypertension MGUS (monoclonal gammopathy of unknown significance) Thyroid disorder Grandfather CVA (cerebral vascular accident) Colon cancer Parkinson's disease Surgical History Hx of surgical procedure History of hysterectomy H/O cervical discectomy Social History household members: spouse housing: house current occupational status: retired pets and animals: Yes (dogs & cats ) Smoking Status: Never smoker alcohol intake: never substance use type: does not use caffeine: Yes what type of physical activity do you participate in: walking seatbelt use: always do you feel safe at home: Yes ROS ROS ED ROS Narrative See HPI EXAM Physical Exam Narrative Exam Narrative: Vital signs: Reviewed General: Alert and orientedx3. No acute distress HEENT: Head is normocephalic and atraumatic, sinuses nontender, pupils equal round and reactive. Nares are patent. Oropharynx and throat exams normal. Neck: Supple without lymphadenopathy nontender Cardiovascular: Regular rate and rhythm, no murmurs. No rubs or gallops. Normal S1 and S2 Respiratory: Clear to auscultation bilaterally. No wheezes, rales, rhonchi Abdominal: Soft and nontender. Normal bowel sounds. No guarding or rebound. Nonsurgical abdomen Extremities: No tenderness. No bruising. Normal range of motion. Normal sensation. Skin: No rash or redness. Neurological: Cranial nerves II through XII are grossly intact. Normal strength and sensation. Normal cerebellar function The rest of the physical exam is unremarkable Const Vital Signs: 12/22/24 14:01 12/22/24 15:01 12/22/24 16:00 Temperature 98.6 F Temperature Source Oral Pulse Rate 72 75 66 Respiratory Rate 11 L 18 20 H Blood Pressure 147/85 H 128/79 H 143/93 H Blood Pressure Mean 105 95 106 Pulse Ox 100 95 98 Oxygen Delivery Method Room Air Room Air Heart Score History: Slightly/Non-Suspicious ECG: Normal Age: >/= 65 years Risk Factors: >/= 3 Risk Factors or History of CAD Troponin: </= Normal Limit Score: 4 MDM MDM MDM Narrative Medical decision making narrative: Patient is a 69-year-old female presenting to the emergency department for chest pain. Patient was seen and examined. Vitals are stable. Patient resting bed comfortably no acute distress. She is asymptomatic at this time. EKG shows normal sinus rhythm. No ischemic changes. No abnormal T wave inversions. No dysrhythmia. CBC with no leukocytosis and normal hemoglobin. BMP with baseline BUN slightly elevated at 24, otherwise no significant normalities. Initial troponin of 7, reflex of 7. Chest x-ray reviewed by myself, no opacities, pneumothorax or wide mediastinum seen. Radiology read with no acute findings. Patient and at bedside were updated on the negative workup. Patient with moderate Heart score of 4, however her history and physical with negative EKG and troponins are nonconcerning for a true cardiac cause of her pain. She feels comfortable with follow up with her director of extension work outpatient. Patient discharged from the Emergency Department. I do not feel that the patient's evaluation reveals any acute reason for admission at this time. I instructed them to either follow-up with their primary care physician or promptly return to the Emergency Department for reevaluation should symptoms worsen or new symptoms develop. I explained what symptoms would indicate the need to return to the emergency department. Shared decision making was used. The patient voiced understanding of the treatment plan and is agreeable with it. Clinical impression Chest pain History & Record Review Discussion w/independent historian: Patient and Significant other Lab Data Attestation: I reviewed the patient's lab results. Labs: Laboratory Results - last 24 hr 12/22/24 12/22/24 14:09 16:16 WBC 4.4 RBC 5.19 Hgb 15.0 Hct 45.7 MCV 88.1 MCH 28.9 MCHC 32.8 RDW Std Deviation 45.7 H RDW Coeff of Pedrito 14.3 Plt Count 174 MPV 10.8 Immature Gran % (Auto) 0.500 Neut % (Auto) 45.2 L Lymph % (Auto) 40.2 Donley % (Auto) 9.1 Eos % (Auto) 4.1 Baso % (Auto) 0.9 Absolute Neuts (auto) 2.0 Absolute Lymphs (auto) 1.77 Nucleated RBC % 0 Sodium 140 Potassium 4.0 Chloride 104 Carbon Dioxide 26.5 Anion Gap 10 BUN 24 H Creatinine 0.95 Estim Creat Clear Calc 69.05 Est GFR (MDRD) Non-Af 64 BUN/Creatinine Ratio 24.8 H Glucose 87 Calcium 8.9 Troponin T High Sens 7 Troponin T Hi Sens 2 Hr 7 Radiography Chest X-Ray - ED: 2 View, Read by ED Physician, Normal, No Acute Disease and No Infiltrates Diagnostic Testing: Clinical Impression(s) from Imaging Studies Chest X-Ray 12/22/24 14:57 IMPRESSION: NO ACUTE FINDINGS. Reading [facility] Discharge Plan Triage Chief Complaint: Chest Pain ED Provider: Nathaly Martinez Dx/Rx/DC Orders Clinical Impression: Chest pain of uncertain etiology Instructions: ED Chest Pain, Uncertain Cause Prescriptions: No Action clobetasol 0.05 % ointment 1 applic topical BID cyanocobalamin (vitamin B-12) 1,000 mcg tablet 1,000 mcg PO DAILY folic acid 400 mcg tablet 0.4 mg PO DAILY pyridoxine (vitamin B6) 100 mg tablet 100 mg PO DAILY hydroxyzine HCl 25 mg tablet 25 mg PO TID PRN diclofenac sodium [Arthritis Pain (diclofenac)] 1 % gel 2 g topical 4X/DAY PRN Rx Instructions: apply to single elbow, wrist or hand; for hand includes palm/fingers/back of hand dalfampridine 10 mg tablet extended release 12 hr 10 mg PO Q12H omeprazole 40 mg capsule,delayed release(DR/EC) 40 mg PO DAILY PRN gabapentin 100 mg capsule 100 mg PO TID magnesium glycinate 100 mg tablet 400 mg PO DAILY lovastatin 20 mg tablet 20 mg PO QDAY Aimovig Autoinjector 140 mg/mL auto-injector 140 mg subcut QMONTH prednisone 20 mg tablet PO PRN ibuprofen 400 mg Tablet 400 mg PO Q6H PRN PRN (Reason: Pain 1-10 Or Fever) Qty: 0 0RF levothyroxine 50 mcg Tablet 50 mcg PO DAILY Senna Laxative 25 mg Tablet 25 mg PO QHS turmeric 400 mg Capsule 400 mg PO DAILY aspirin 81 mg Capsule 81 mg PO DAILY ascorbic acid (vitamin C) [Vitamin C] 500 mg capsule, extended release 1,000 mg PO DAILY lysine 500 mg tablet 1,000 mg PO DAILY tramadol 50 mg tablet 50 mg PO Q6H PRN (Reason: pain) 3 Days Qty: 12 0RF hydrocodone-acetaminophen 5-325 mg tablet 1 tab PO Q6H PRN PRN (Reason: Pain) 3 Days Qty: 12 0RF ondansetron 4 mg tablet,disintegrating 4 mg PO Q8 PRN (Reason: nauseea) 3 Days Qty: 9 0RF metoprolol tartrate 50 mg tablet 50 mg PO BID Qty: 180 3RF rizatriptan 10 mg tablet See Rx Instructions PO .prn PRN Rx Instructions: Pt uses alternatively with eletryptan amlodipine 5 mg tablet 5 mg PO QDAY Qty: 90 3RF Primary Care Provider: Sun Lawrence Referrals: Your director of extension work [Other] - As soon as possible Sun Lawrence MD [Primary Care Provider, Internal Medicine] Activity Restrictions/Additional Instructions: Follow-up with your director of extension work as soon as possible. Your evaluation in the Emergency Department did not reveal any acute reason for admission. However, I want to emphasize that you may be early in the course of a disease process or illness even if it is not present. For this reason you should follow-up within 24 hours for reevaluation with either your primary care physician or if necessary back here in the Emergency Department. You should return to the Emergency Department immediately if your symptoms worsen or new symptoms develop. Print Language: Paraguayan Disposition Disposition: Home, Self Care
[2024-12-22 14:51] LABS: Hematocrit 45.7 % (37-47); Hemoglobin 15.0 g/dL (12.0-15.0); Immature Granulocytes Count 0.020 X10^3/uL (0.0-0.0); Mean Corp Hgb Conc 32.8 g/dL (32-36); Mean Corpuscular Volume 88.1 fL (81-99); Mean Platelet Vol. 10.8 fl (6.2-12.0); NRBC Flagged by Analyzer 0 % (0-5); Platelet Count 174 K/mm3 (150-450); RBC Distribution Width CV 14.3 % (11.6-14.6); RBC Distribution Width SD 45.7 fl (35.1-43.9); Red Blood Count 5.19 M/mm3 (4.2-5.4); White Blood Count 4.4 K/mm3 (4.4-11.0)
--- NOTE | 2024-12-22 14:57 | RAD_ITS ---
PROCEDURE: CHEST PA AND LATERAL 12/22/2024 REASON FOR EXAM: CHEST PAIN TECHNIQUE: Procedure Code: RADCXR Modality: DX Procedure: CHEST PA AND LATERAL COMPARISON: None available. FINDINGS: Hardware: Cervical spine fixation hardware. Heart: The heart size is normal. Mediastinum: The mediastinal contour is unremarkable. Lungs: The lungs are clear. No pneumothorax or pleural effusion. Bones: Degenerative changes are identified within the thoracic spine. RAD/Chest PA and Lateral IMPRESSION: NO ACUTE FINDINGS. Reading Location[facility]
[2024-12-22 15:01] VITALS: BP 128/79; PULSE 75; RESP 18; O2SAT 95
[2024-12-22 15:05] LABS: Anion Gap 10 (5-15); BUN 24 mg/dL (4-19); BUN/Creat Ratio 24.8 RATIO (10-20); Calcium,Total 8.9 mg/dL (7.6-11.0); Carbon Dioxide 26.5 mmol/L (21.0-32.0); Chloride 104 mmol/L (98-108); Estimated Creatinine Clearance 69.05 ml/min (50-250); Glucose 87 mg/dL (70-99); Potassium 4.0 mmol/L (3.3-5.1); Troponin T High Sensitivity 7 ng/L (<=14)
[2024-12-22 16:00] VITALS: BP 143/93; PULSE 66; RESP 20; O2SAT 98
[2024-12-22 16:41] LABS: Troponin T High Sens 2 HR 7 ng/L (<=14)
[2024-12-22 17:00] VITALS: BP 136/84; PULSE 77; RESP 16; O2SAT 99
[2024-12-22 17:07] VITALS: BP 136/84; PULSE 77; RESP 16; TEMP 36.8; O2SAT 99
== END 2024-12-22 17:08 | disposition home or self-care (01) ==
PROVIDERS: Emergency Provider Student in an Organized Health Care Education/Training Program; PCP Internal Medicine; Visit Provider Student in an Organized Health Care Education/Training Program
DX: R07.9 Chest pain, unspecified (principal); I10 Essential (primary) hypertension; R06.02 Shortness of breath; E78.00 Pure hypercholesterolemia, unspecified; Z90.710 Acquired absence of both cervix and uterus; Z86.16 Personal history of COVID-19; Z86.73 Personal history of transient ischemic attack (TIA), and cerebral infarction without residual deficits
CPT/HCPCS: 71046; 80048; 84484; 85025; 93005; 99285; A4216

== ENCOUNTER → 2025-01-17 | Outpatient (CLI) | payer MEDICARE, OTHER, SELFPAY ==
[2023-10-17 10:43] VITALS: BMI 31.0
--- NOTE | 2025-01-17 14:22 | STRESSREP_ITS ---
Stress Test Report
--- NOTE | 2025-01-17 14:22 | STRESSREP ---
Stress Test Report Date: 01/17/2025 Procedure: Pharmacologic stress nuclear imaging study Indications: Chest pain Consent: Per the patient Procedure: The patient underwent pharmacologic (Regadenoson 0.4mg ) evaluation with a peak heart rate of 113 beats per minute (75%predicted maximal heart rate) and a peak blood pressure of 162/90 mmHg. The baseline ECG demonstrated sinus rhythm. The peak pharmacologic ECG did not show any ischemic changes. There were no cardiac dysrhythmias pretest, during pharmacologic infusion, or recovery. There was no complaint of chest discomfort during pharmacologic infusion or recovery. The patient was injected with 13.8 millicuries of technetium 99m Cardiolite and subsequently rest SPECT Cardiolite nuclear imaging was obtained in the horizontal long, vertical long, and short axis views. The patient underwent pharmacologic (Regadenoson) evaluation. The patient was injected with 44.4 millicuries of technetium 99m Cardiolite and subsequently stress SPECT Cardiolite nuclear imaging was obtained in the horizontal long, vertical long, and short axis views. A gated Cardiolite study at peak stress was obtained. The examination was stopped secondary to completion of protocol. Rest and stress SPECT Cardiolite nuclear imaging status post realignment, normalization, and attenuation correction demonstrate no fixed or reversible perfusion defects. There is end systolic thickening and brightening. The gated Cardiolite study demonstrates myocardial thickening and inward wall motion. The reported LVEF is 95%. Impression: 1. Pharmacologic (Regadenoson) evaluation 2. Peak pharmacologic ECG with no ischemic changes. 3. There were no cardiac dysrhythmias pretest, during pharmacologic infusion, or recovery. 5. Rest and stress SPECT Cardiolite nuclear imaging demonstrate relative uniform tracer uptake and myocardial perfusion appearing within normal limits. 6. The gated Cardiolite study reports an LVEF of 95%. This note was generated with [employer] software. It may contain incorrect words, spelling, and punctuation that were not noted in checking the note before signing.
== END | disposition home or self-care (01) ==
LOC: CVS 07:26
PROVIDERS: PCP Internal Medicine; Referring Provider Nurse Practitioner Family; Visit Provider Nurse Practitioner Family
DX: I10 Essential (primary) hypertension (principal); R07.9 Chest pain, unspecified; Z86.79 Personal history of other diseases of the circulatory system
CPT/HCPCS: 78452; 93017; A9500; A4216; J2785